=== PATIENT | male | born 1940 | race Caucasian/White ===

== ENCOUNTER 2018-08-30 06:27 | Emergency (ER) | payer MEDICARE, MEDICAID, SELFPAY ==
[2018-08-30 06:29] VITALS: BP 133/75; PULSE 81; RESP 36; TEMP 36.4; O2SAT 93
--- NOTE | 2018-08-30 06:56 | DI.RAD_ITS ---
SYMPTOMS/DIAGNOSIS: COUGH, CHEST CONGESTION, ? ACUTE DISEASE AP AND LATERAL CHEST: Comparison is made with [id number]. The heart is at the upper limits of normal in size. Sternal wires and mediastinal clips are again noted related to prior CABG. There is again noted to be pleural thickening posteriorly. The AP view is limited by patient positioning. No infiltrates or effusions are seen. There is no evidence of pulmonary edema. IMPRESSION: Somewhat limited exam. No acute abnormality.
--- NOTE | 2018-08-30 06:58 | W.ED.GENAD ---
Discharge Plan Disposition Patient Disposition: HOME Condition: Improving Discharge Details Chief Complaint: RespSymp Clinical Impression: Acute bronchitis with bronchospasm Primary Care Provider: Arnold Vicente ED Provider: Cruz Ellis Home Meds and New Rx's Prescriptions: New prednisone 20 mg tablet 40 mg PO DAILY 5 Days Qty: 10 RF: 0 azithromycin 500 mg tablet See Rx Instructions .ROUTE .COMPLEX Qty: 6 RF: 0 Continued aspirin [Aspirin Low-Strength] 81 MG tablet,chewable 81 mg PO DAILY RF: 0 Atorvastatin Calcium 10 MG tablet 10 mg PO DAILY Qty: 90 RF: 3 metoprolol tartrate 25 MG tablet 1 tab PO BID Qty: 180 RF: 3 omeprazole 40 mg capsule,delayed release(DR/EC) 40 mg PO DAILY Qty: 90 RF: 3 lisinopril 5 mg tablet 5 mg PO DAILY Qty: 90 RF: 3 Mens [employer] Multivitamin 1 tab PO DAILY RF: 0 Discharge Instructions Instructions: Acute Bronchitis (ED) Additional Instructions: We will ask our care management team to get you a follow-up appointment for recheck next week at [facility]. Home to rest today. Small, frequent sips of fluids to maintain hydration. Use inhaler as instructed. Take antibiotics and steroids as prescribed. May use Tylenol as needed for aches, pain, fever Medical Decision Making <Mary Small DO - Last Filed: 08/30/18 08:18> 78-year-old male with history of COPD, lung cancer with right lobectomy, CAD, CABG, AAA repair who presents for nasal and chest congestion, intermittent cough with white sputum, hot and cold chills, and intermittent shortness of breath for the past 3-4 days. Denies chest pain, vomiting or diarrhea. Family brought patient into the ED because they thought he was more short of breath with wheezing recently. Oxygen saturation 93% on room air remainder vitals within normal limits. Patient appears nontoxic, no evidence of respiratory distress, no accessory muscle use. He is speaking in full sentences. He is noted to have nasal congestion when speaking on exam. He has scattered wheezing and rhonchi in upper lung guevara. Differential diagnosis includes COPD exacerbation, pneumonia, bronchitis, influenza, MS. Considering patient's age and comorbidities, will do a cardiac workup including EKG, chest x-ray as well as influenza, albuterol nebs and steroids and will reassess. 0810 -- case endorsed to Dr. Ellis to f/u on labs and imaging. <Cruz Ellis MD - Last Filed: 08/30/18 10:00> 70-year-old male signed out to me by Dr. Small. Please see her note regarding details of initial presentation, exam, plan of care. Patient's chest x-ray with hyperinflation and compatible with COPD. Nonspecific interstitial prominence noted. No focal consolidation. Labs notable for a BNP in the 300s. Otherwise reassuring laboratory with a white count of 7, hematocrit 43. Chemistries otherwise notable for an albumin of 2.9. Improving with treatment for COPD. He will require a burst of steroids as well as antibiotics. We will make a follow-up appointment for him in clinic for recheck next week. Patient received bedside inhaler teaching as well as using in the use of the Acapella device Stable, improved, appropriate for discharge to home Lab Data Lab results reviewed: Yes I reviewed the patient's lab results. Laboratory Results - last 24 hr 08/30/18 08/30/18 08/30/18 07:15 07:15 07:15 WBC 7.41 RBC 5.43 Hgb 13.6 Hct 43.2 MCV 79.6 L MCH 25.0 L MCHC 31.5 L RDW 15.1 H Plt Count 193 MPV 11.4 H Immature Gran % 0.3 Neutrophils % 78.7 Lymphocytes % 8.6 Monocytes % 9.6 Eosinophils % 2.3 Basophils % 0.5 Absolute Neutrophils 5.83 Absolute Lymphocytes 0.64 L Absolute Monocytes 0.71 H Absolute Eosinophils 0.17 Absolute Basophils 0.04 Sodium 141 Potassium 4.2 Chloride 106 Carbon Dioxide 27.1 Anion Gap 7.9 BUN 17 Creatinine 1.28 Estimated GFR/1.73 m2 54.35 Glucose 117 H Calcium 8.6 Magnesium 2.1 Total Bilirubin 0.7 AST 13 L ALT 17 Alkaline Phosphatase 149 H Troponin I < 0.02 NT-Pro-B Natriuret Pep 379 H Total Protein 7.6 Albumin 2.9 L ECG Data Attestation: I personally reviewed and interpreted this ECG (s) as follows: Interpretation: Normal sinus rhythm, rate of 68, QRS is narrow, no ST segment elevation HPI <Mary Small DO - Last Filed: 08/30/18 08:18> General Mode of arrival: ambulatory. Date/Time Provider Initiated Documentation: 08/30/18 06:42. Limitations to Documentation: no limitations. Information obtained by: patient. HPI Narrative: Patient is a 78-year-old male with a history of COPD, lung cancer with right lung lobectomy, coronary artery disease who presents for nasal and chest congestion, cough with white sputum, and intermittent shortness of breath over the past 3-4 days. Patient does admit to intermittent hot and cold chills. He also admits to some fatigue. He states he has been eating and drinking normally. He has not taken his temperature. He did receive the flu shot this year. He denies any chest pain, urinary symptoms, vomiting or diarrhea. He has been taking some NyQuil for symptoms without relief. He denies any recent hospital admissions or recent antibiotics. Related Data Home Medications Medication Instructions Recorded [facility] Multivitamin 1 tab PO DAILY 11/15/12 08/30/18 aspirin [Aspirin Low-Strength] 81 mg PO DAILY tab-cap 11/06/13 08/30/18 metoprolol tartrate 1 tab PO BID #180 tab-cap 18 08/30/18 omeprazole 40 mg capsule,delayed 40 mg PO DAILY #90 tab-cap 03/29/18 08/30/18 release lisinopril 5 mg tablet 5 mg PO DAILY #90 tab-cap 08/11/18 08/30/18 azithromycin See Rx Instructions .ROUTE 08/30/18 .COMPLEX #6 tab prednisone 40 mg PO DAILY 5 Days #10 tab 08/30/18 Previous Rx's Medication Instructions Recorded metoprolol tartrate 1 tab PO BID #180 tab-cap 10/19/17 omeprazole 40 mg capsule,delayed 40 mg PO DAILY #90 tab-cap 03/29/18 release lisinopril 5 mg tablet 5 mg PO DAILY #90 tab-cap 08/11/18 azithromycin See Rx Instructions .ROUTE 08/30/18 .COMPLEX #6 tab prednisone 40 mg PO DAILY 5 Days #10 tab 08/30/18 Allergies Allergy/AdvReac Type Severity Reaction Status Date / Time Sulfa (Sulfonamide Allergy Skin Rash Unverified 08/30/18 06:33 Antibiotics) General Stated Complaint: RespSymp HEBERT: 3 Review of Systems <Mary Small DO - Last Filed: 08/30/18 08:18> Review of Systems All systems reviewed & are unremarkable except as noted in HPI and below Constitutional Reports as per HPI, Reports chills and Reports fever(s) Eyes Denies blurry vision ENT Denies dizziness, Reports nasal congestion, Reports nasal discharge, Denies sore throat and Denies throat swelling Cardiovascular Denies chest pain and Reports dyspnea Respiratory Reports cough and Reports dyspnea Gastrointestinal Denies abdominal pain, Denies diarrhea and Denies vomiting Genitourinary Denies hematuria and Denies dysuria Musculoskeletal Denies back pain and Denies numbness Integumentary/Breasts Denies lesions and Denies rash Neurologic Denies dizziness, Denies focal weakness and Denies numbness Allergic/Immunologic Denies throat swelling PFSH <Mary Small DO - Last Filed: 08/30/18 08:18> Medical History Hyperlipemia (Acute) COPD (chronic obstructive pulmonary disease) (Chronic) Coronary artery disease (Chronic) GERD (gastroesophageal reflux disease) (Chronic) HTN (hypertension) (Chronic) Lung cancer (Chronic) Multiple sclerosis (Chronic) Surgical History History of AAA (abdominal aortic aneurysm) repair (Acute) History of thoracentesis (Acute) History of cataract surgery (Chronic) History of tonsillectomy (Chronic) Hx of CABG (Chronic) Hx of cholecystectomy (Chronic) AAA REPAIR (~04/2006) Cholecystectomy (02/16/06) Coronary Artery Bypass Gaft (CABG) (06/01/07) EGD - MAC (~01/2007) Extraction of cataract Thoracentesis (08/29/07) Social History Smoking and Tabacco status: Former Tobacco Use Exam <Mary Small DO - Last Filed: 08/30/18 08:18> Const General: cooperative and healthy appearing Orientation: alert and awake [facility] Head: normal to inspection Ears: hearing grossly normal bilaterally, external ears normal and TM's normal bilaterally General nose exam: external nose normal Face and sinus: normal facial exam Mouth: oral mucosae normal Teeth and gingiva: dentition normal Throat: posterior oropharynx normal and postnasal drainage (yellow white on L side) Eyes General: appearance normal, both eyes and all related structures Eyelids: eyelids normal Pupils: PERRL EOM: EOM intact bilaterally Neck Neck: normal visual inspection Lymphatic: no lymphadenopathy noted Chest Chest: normal inspection of the chest Resp Effort & Inspection: normal respiratory effort and able to speak in complete sentences Auscultation: rhonchi upper bilaterally and wheezes upper bilaterally Cardio Rate: regular rate Rhythm: regular rhythm GI Inspection: normal to inspection Palpation: soft, not firm, no guarding, no hepatosplenomegaly, no masses and nontender Auscultation: normal bowel sounds Skin General skin exam: no rashes or lesions noted Neuro General: alert and awake Cognition: normal cognition Speech: speech normal Gait: normal gait Motor: muscle tone normal throughout Sensory Exam: no sensory deficits noted Extrem General: normal to inspection, full ROM, normal capillary refill and no edema Psych Appearance: grossly normal Mental Status: mental status grossly normal Speech and Movement: speech and movement normal Affect: normal affect Thought Process: normal Course <Mary Small DO - Last Filed: 08/30/18 08:18> Vital Signs Temperature 97.5 F L 08/30/18 06:29 Pulse 81 08/30/18 06:29 Respiratory Rate 36 H 08/30/18 06:29 Blood Pressure 133/75 08/30/18 06:29 Pulse Oximetry 93 L 08/30/18 06:29 Temperature 97.5 F L 08/30/18 06:29 Temperature Source Skin 08/30/18 06:29 Pulse 81 08/30/18 06:29 Respiratory Rate 36 H 08/30/18 06:29 Respiratory Effort 08/30/18 06:37 Respiratory Depth Normal 08/30/18 06:37 Blood Pressure 133/75 08/30/18 06:29 Blood Pressure Position Sitting 08/30/18 06:29 Pulse Oximetry 93 L 08/30/18 06:29 Oxygen Delivery Method Room Air 08/30/18 06:29 Oxygen Flow Rate 0 08/30/18 06:29 Pain Level 2 08/30/18 06:29 Comment 08/30/18 06:29 Sign Out <Mary Small DO - Last Filed: 08/30/18 08:18> Sign Out Data: Sign Out Comment: follow up on labs and imaging and final disposition Last updated by Mary Small DO at 08/30/18 08:03
[2018-08-30] MEDS: Albuterol/Ipratropium 3 ML UPD VIAL (07:01)
[2018-08-30] MEDS: methylPREDNISolone SUCC 125 MG VIAL 80 MG IVP (07:16)
[2018-08-30] MEDS: Normal Saline Flush 10 ML SYR IVP (07:16)
[2018-08-30 07:43] LABS: Abs Immature Grans 0.02 k/cumm (0.0-0.09); Absolute Basophil Count 0.04 k/cumm (0.0-0.2); Absolute Eosinophil Count 0.17 k/cumm (0.0-0.7); Absolute Lymphocyte Count 0.64 k/cumm (1.2-3.4); Absolute Monocyte Count 0.71 k/cumm (0.11-0.7); Absolute Neutrophil Count 5.83 k/cumm (1.2-6.7); Basophils % 0.5; Eosinophils % 2.3; HCT 43.2 % (40.0-50.0); HGB 13.6 g/dL (13.5-17.5); Immature Grans % 0.3; Lymphocytes % 8.6; Mean Corp. HGB Concentration 31.5 g/dL (32.0-36.0); Mean Corpuscular Volume 79.6 fL (80-95); Mean Platelet Volume 11.4 fL (8.0-11.0); Monocytes % 9.6; Neutrophils % 78.7; Platelet Count 193 x1000/uL (130-400); RBC 5.43 m/cumm (4.50-6.00); RBC Distribution Width 15.1 % (11.8-14.1); White Blood Cell Count 7.41 k/cumm (4.4-10.8)
[2018-08-30 07:50] LABS: ALT 17 U/L (12-78); AST 13 U/L (15-37); Albumin 2.9 g/dL (3.4-5.0); Alkaline Phosphatase 149 U/L (46-116); Anion Gap 7.9 mmol/L (3-11); BUN 17 mg/dL (7-18); Bilirubin, Total 0.7 mg/dL (0.2-1.0); CO2 27.1 mmol/L (21.0-32.0); CREATININE 1.28 mg/dL (0.70-1.30); Calcium 8.6 mg/dL (8.5-10.1); Chloride 106 mmol/L (98-107); Estimated GFR 54.35 (mL/min/1.73m2); Glucose 117 mg/dL (70-100); Magnesium 2.1 mg/dL (1.8-2.4); Potassium 4.2 mmol/L (3.5-5.1); Sodium 141 mmol/L (136-145); Total Protein 7.6 g/dL (6.4-8.2)
[2018-08-30 07:54] LABS: NT-proBNP 379 pg/mL
[2018-08-30 07:59] LABS: Troponin I < 0.02 ng/mL (0.00-0.06)
[2018-08-30 08:13] VITALS: PULSE 69; RESP 24; RESP 4; RESP 5; O2SAT 94
[2018-08-30] MEDS: Albuterol/Ipratropium 3 ML UPD VIAL UPD ×2 (08:13→09:24)
--- NOTE | 2018-08-30 08:23 | DI.VRAD_ITS ---
EXAM: XR Chest, 2 Views EXAM DATE/TIME: 08/30/2018 7:41 AM CLINICAL HISTORY: 78 years old, male; Signs and symptoms; Other: Respiratory symptoms TECHNIQUE: XR of the chest, 2 views. COMPARISON: CR CHEST 2 VIEWS PA,LAT 07/15/2015 7:33 AM FINDINGS: Lungs: Hyperinflation compatible with COPD. Nonspecific mild interstitial prominence may reflect superimposed interstitial edema. Pleural space: Unremarkable. No pleural effusion. No pneumothorax. Heart/Mediastinum: Unremarkable. No cardiomegaly. Bones/joints: Unremarkable. IMPRESSION: 1. Hyperinflation compatible with COPD. 2. Nonspecific mild interstitial prominence may reflect superimposed interstitial edema. Dictated and Authenticated by: Avtar Saxena MD. Ordering:OTF Hernandez MD
[2018-08-30 08:27] VITALS: PULSE 83; RESP 4; RESP 5; O2SAT 93
[2018-08-30 08:53] VITALS: BP 126/78; PULSE 77; RESP 18; TEMP 36.8; O2SAT 92
[2018-08-30] MEDS: Albuterol HFA 8 GM 60 PUFF INH IH (09:36)
[2018-08-30] MEDS: Inhaler, Assist Device 1 EACH MC (09:37)
[2018-08-30 09:44] VITALS: BP 115/57; PULSE 82; RESP 20; TEMP 36.5; O2SAT 92
[2018-08-30 09:55] VITALS: BP 115/57; PULSE 82; RESP 20; TEMP 36.5; O2SAT 92
--- NOTE | 2018-09-02 07:57 | PDOC.ERCMPRO ---
Care Management Progress Note 09/02-Dr. Ellis requested assistance with a PCP (Jules) f/u in one week for COPD Exacerbation. Referral faxed to [facility] this am.
== END 2018-08-30 10:04 | disposition home or self-care (01) ==
PROVIDERS: Physician Assistant; Emergency Provider Emergency Medicine; PCP Family Medicine
DX: J44.0 Chronic obstructive pulmonary disease with (acute) lower respiratory infection (principal); J20.9 Acute bronchitis, unspecified; I10 Essential (primary) hypertension
CPT/HCPCS: 36415; 80053; 87449; 93005; 94640; 96374; 99285; 71046; 83735; 83880; 84484; 85025; 93010; 99284; J2930; J7620

== ENCOUNTER 2019-12-20 02:10 | Outpatient (CLI) | payer MEDICARE, MEDICAID, SELFPAY ==
[2019-12-20 15:05] LABS: Calculated LDL 99 mg/dL (<100); Cholesterol 174 mg/dL (<200); HDL Cholesterol 32 mg/dL (40-60); Triglyceride 217 mg/dL (<150)
[2019-12-20 17:07] LABS: CREATININE 1.15 mg/dL (0.70-1.30); Glucose 84 mg/dL (74-106); Potassium 3.9 mmol/L (3.5-5.1)
== END 2019-12-20 02:30 ==
PROVIDERS: PCP Family Medicine; Visit Provider Family Medicine
DX: I10 Essential (primary) hypertension (principal); E78.5 Hyperlipidemia, unspecified; E74.39 Other disorders of intestinal carbohydrate absorption
CPT/HCPCS: 36415; 80061; 82947; 82565; 84132

== ENCOUNTER 2021-03-19 08:36 | Outpatient (REF) | payer MEDICARE, MEDICAID, SELFPAY ==
--- NOTE | 2021-03-19 08:00 | SKI_PTH ---
PATIENT: Juan Ramon Espinoza LOC: [facility] U#:[id number] AGE/SX: 80/M ROOM: RE03/19/[address]: Eddie Jean Baptiste MD : 1940 BED: DIS: 03/19/2021 SPEC #: [id number] RECD: 03/19/21 18:10 STATUS: KORI REQ #: [id number] SAM: 03/19/21 08:[address]: Eddie Jean Baptiste DEPT: Surgical Specimen RECD BY: Shadia Alegre ENTERED: 03/19/21 18:11 SP TYPE: SKI OTHR DR: Arnold Vicente MD Tissues: 1 - SKIN BIOPSY(SHAVE/PUNCH) Procedures: SKIN LEVEL 4 Comments: [id number]
== END 2021-03-19 08:37 | disposition home or self-care (01) ==
LOC: LBN 08:36
PROVIDERS: PCP Family Medicine; Visit Provider Otolaryngology
DX: L98.9 Disorder of the skin and subcutaneous tissue, unspecified (principal); C44.319 Basal cell carcinoma of skin of other parts of face
CPT/HCPCS: 88305

== ENCOUNTER 2022-04-16 09:40 | Emergency (ER) | payer MEDICARE, MEDICAID, SELFPAY ==
[2022-04-16] VITALS (36 sets, daily range): BP systolic 124–160; BP diastolic 61–89; PULSE 75–106; RESP 18–32; TEMP 36.9; O2SAT 93–97
--- NOTE | 2022-04-16 09:30 | RT.EKG_ITS ---
APPROVED REPORT Exam: Resting ECG Reason for Exam: weakness, confused Patient Location: E HR:97 bpm ECG Measurements Heart Rate 97 AXIS IL 207 P 53 QRSd 94 QRS -23 QT 393 T 26 QTc 499 Conclusion Sinus rhythm...normal P axis, V-rate 60- 99 Borderline prolonged IL interval. Inferior Q >35mS, II III aVF
--- NOTE | 2022-04-16 09:30 | DI.RAD_ITS ---
Exam(s) XR CHEST 2V PA LATERAL EXAM: XR CHEST 2V PA LATERAL CLINICAL HISTORY: Gen weakness TECHNIQUE: COMPARISON: CR XR CHEST 2V PA LATERAL from 08/30/2018 FINDINGS: The heart is mildly enlarged. There are multiple sternal sutures. Lungs are grossly clear. No pleu ral effusion. IMPRESSION: No evidence of acute process. No gross interval change in appearance since August 30, 2018. RADIATION DOSE DELIVERED: Total DLP
--- NOTE | 2022-04-16 09:30 | RT.EKG_ITS ---
APPROVED REPORT Exam: Resting ECG Reason for Exam: weakness Patient Location: E HR:91 bpm ECG Measurements Heart Rate 91 AXIS MI 160 P 24 QRSd 95 QRS -16 QT 364 T 25 QTc 447 Conclusion Sinus rhythm. Ventricular premature complex. Inferolateral Q >40mS, inf-lat leads
--- NOTE | 2022-04-16 09:45 | ED.GENADUL_ITS ---
Discharge Plan Disposition Patient Disposition: HOME Condition: Improving Discharge Details Clinical Impression: Dehydration, COPD exacerbation Primary Care Provider: Arnold Vciente ED Provider: Cruz Ellis Home Meds and New Rx's Prescriptions: New prednisone 50 mg tablet 50 mg PO DAILY 5 Days Qty: 5 0RF Continued acetaminophen [Tylenol Arthritis Pain] 650 mg tablet extended release 325 mg PO HS aspirin [Aspirin Low-Strength] 81 MG tablet,chewable 81 mg PO DAILY fluticasone propionate 50 mcg/actuation spray,suspension 2 spray CHINMAY DAILY Qty: 48 3RF Rx Instructions: administer into each nostril atorvastatin 10 mg tablet 10 mg PO QPM Qty: 90 3RF metoprolol tartrate 50 mg tablet 25 mg PO BID Qty: 90 3RF omeprazole 40 mg capsule,delayed release(DR/EC) 40 mg PO DAILY Qty: 90 3RF lisinopril 5 mg tablet 5 mg PO DAILY Qty: 90 3RF Discharge Instructions Instructions: Dehydration (ED), COPD (Chronic Obstructive Pulmonary Disease) (ED) Additional Instructions: Your work-up in the emergency department today included laboratory testing with cardiac troponin x2, screening blood work, and urinalysis. You underwent chest x-ray and CT scan of the head. You were found to have dehydration and were given fluids. Continue with small, frequent sips of fluids to maintain good hydration. You likely have a mild exacerbation of your COPD and will benefit from a burst of prednisone. Next dose will be tomorrow. Return to the ER for any acute concern. Discharge Data Discharge Date/Time-TO BE ENTERED AT DEPARTURE: 04/16/22 15:28 Medical Decision Making 81yom presents from home via EMS with hours/day of generalized weakness. He states since yesterday he has felt generally weak and mildly confused. He has not fallen or injured himself, he denies recent fever or illness. He states it feels as if his MS is getting worse. He does not have any focal weakness, diplopia. He at baseline uses a walker in the home. Patient arrives with a borderline tachycardia of 100, blood pressure 145/72. He is alert and interactive with normal oxygen saturations. Broad differential diagnosis considered including dehydration, electrolyte abnormality, UTI. Must exclude intracranial process or occult pneumonia. Patient referred for laboratory, chest x-ray and CT scan of the head. Chest x-ray without acute findings. CT head without acute intracranial findings. Please see the formal reports. Laboratories are primarily notable for evidence of acute dehydration with newly increased BUN to 25 and creatinine to 1.7. Specific gravity of the urine is 1.03. Patient improved following 1 L of fluids. He is able to eat an evening meal. Discussed today's diagnostic findings with him. He has had some mild increased work of breathing that improved with a DuoNeb. May consider a mild COPD exacerbation. We will treat him with a burst of prednisone. Patient has freestanding home health and daily visits to the [facility]. He is stable for trial of outpatient management. HPI General Mode of arrival: EMS . Date/Time Provider Initiated Documentation: 04/16/22 09:52 . Limitations to Documentation: no limitations . Information obtained by: patient and EMS . History of Present Illness 81 year old M presents to the emergency department with the chief complaint of Gen weakness, no falls, described as moderate, Patient reports no radiation. Patient started experiencing this hour(s) and it has been constant. No relieving factors improve symptom(s), and Rest improves symptom(s), Movement worsens symptoms . Patient notes weakness; denies chest pain, cough, fever/chills, shortness of breath and syncope. Patient did receive the following treatments prior to arrival, none Related Data Home Medications Medication Instructions Recorded Confirmed aspirin 81 mg chewable tablet 81 mg PO DAILY 11/06/13 04/16/22 (Aspirin Low-Strength) acetaminophen 650 mg 325 mg PO HS 06/06/19 04/16/22 tablet,extended release (Tylenol Arthritis Pain) fluticasone propionate 50 2 spray intranasal DAILY #48 grams 12/27/20 04/16/22 mcg/actuation nasal spray,suspension atorvastatin 10 mg tablet 10 mg PO QPM #90 tabs 01/13/22 04/16/22 metoprolol tartrate 50 mg tablet 25 mg PO BID #90 tabs 01/13/22 04/16/22 omeprazole 40 mg capsule,delayed 40 mg PO DAILY #90 tab-caps 01/13/22 04/16/22 release lisinopril 5 mg tablet 5 mg PO DAILY #90 tab-caps 03/30/22 04/16/22 prednisone 50 mg tablet 50 mg PO DAILY 5 days #5 tabs 04/16/22 Previous Rx's Medication Instructions Recorded fluticasone propionate 50 2 spray intranasal DAILY #48 grams 12/27/20 mcg/actuation nasal spray,suspension atorvastatin 10 mg tablet 10 mg PO QPM #90 tabs 01/13/22 metoprolol tartrate 50 mg tablet 25 mg PO BID #90 tabs 01/13/22 omeprazole 40 mg capsule,delayed 40 mg PO DAILY #90 tab-caps 01/13/22 release lisinopril 5 mg tablet 5 mg PO DAILY #90 tab-caps 03/30/22 prednisone 50 mg tablet 50 mg PO DAILY 5 days #5 tabs 04/16/22 Allergies Allergy/AdvReac Type Severity Reaction Status Date / Time Sulfa (Sulfonamide Allergy Skin Rash Verified 03/19/21 07:33 Antibiotics) General HEBERT: 3 Review of Systems Narrative: Denies recent illness, falls, pain. 8 systems reviewed and otherwise negative PFSH All Active Problems (Updated 04/16/22 @ 14:27 by Cruz Ellis MD) Dehydration (Acute) COPD exacerbation (Acute) Skin lesion of face (Acute) Facial basal cell cancer (Acute) Loose stools (Acute) Hypertension (Chronic) Vasomotor rhinitis (Chronic) use the ipratropium Fracture of thoracic spine (Acute) History of cataract removal with insertion of prosthetic lens (Acute) History of coronary artery bypass surgery (Acute) History of esophagogastroduodenoscopy (Acute) History of thoracentesis (Acute) Status post abdominal aortic aneurysm repair (Acute) Status post cholecystectomy (Acute) Pneumonia (Acute) Pulmonary nodule, right (Acute 02/26/16) Follwed by [facility] Multiple sclerosis (Acute 11/14/14) Malignant neoplasm of lower lobe of right lung (Acute 04/15/16) Adenocarcinoma Surgery [facility] 2016 Idiopathic scoliosis (Acute) Hyperlipidemia (Acute 11/02/12) History of tobacco use (Acute 11/02/12) quit 2006 History of tobacco use (Acute 11/02/12) quit 2006 Gastritis (Acute) per EGD 2007 Chronic obstructive lung disease (Acute 11/02/12) Aortic aneurysm (Acute 11/02/12) AAA-lap repair 2006 Nausea,vomiting,diarrhea, fever (Active 11/16/12) Multiple sclerosis (Active) Diagnosed 25 years ago. Benign hypertension (Active) same meds Coronary arteriosclerosis (Active) Hyperglycemia (Active) Gastroesophageal reflux disease (Active) History of - coronary artery bypass grafting (Active) Eczema (Active) Osteoarthritis (Active) Constipation (Active) Medical History (Updated 04/16/22 @ 14:27 by Cruz Ellis MD) COPD (chronic obstructive pulmonary disease) Coronary artery disease GERD (gastroesophageal reflux disease) HTN (hypertension) Hyperlipemia Lung cancer Multiple sclerosis Surgical History AAA REPAIR (~04/2006) [facility] Cholecystectomy (02/16/06) [facility] Coronary Artery Bypass Gaft (CABG) (06/01/07) ) CABG x 4 [facility] KAT to LAD SVG to Diag SVG to Ramus SVG to RCA EGD - MAC (~01/2007) GERD/CHRONIC GASTRITIS Extraction of cataract 06/18/15 DR. HE;RIGHT 07/02/15 DR. HE; LEFT History of AAA (abdominal aortic aneurysm) repair History of cataract surgery History of thoracentesis History of tonsillectomy Hx of CABG Hx of cholecystectomy Thoracentesis (08/29/07) PLURAL EFFUSION Social History Smoking/Tobacco Use Status: Former Tobacco Use Smoking risk assessment performed?: Yes Alcohol Intake: never Drug use: Never Substance use type: does not use Do you feel safe at home: Yes Do you feel safe in your relationship?: Yes Exam Narrative Exam Narrative: GEN: awake, alert, oriented 3. Pleasant, well groomed, interactive. HEAD: Normocephalic, atraumatic ENT: Mucous membranes moist, oropharynx unremarkable, External ear exam unremarkable EYES: PERRL, EOMI NECK: Full ROM, no MARIANA, no menigismus CHEST/RESP: Midline healed sternotomy scar. Nontender, clear to auscultation bilateral, no wheeze/rhonchi/rales CARDIOVASCULAR: Regular, distant. 2+ Rad pulse bilateral ABDOMEN: Soft, nontender, no mass. +Bowel sounds EXT: Full ROM, no edema, no rash Neuro: Grossly normal neurologic exam, conversant, interactive. Psych: Speech fluent, thoughts congruent, affect normal
[2022-04-16] MEDS: Normal Saline 1,000 ML 150 ML IV (09:51)
[2022-04-16 09:54] LABS: Abs Immature Grans 0.02 10^3/uL (0.0-0.06); Absolute Basophil Count 0.03 10^3/uL (0.0-0.2); Absolute Eosinophil Count 0.03 10^3/uL (0.0-0.7); Absolute Lymphocyte Count 0.27 10^3/uL (1.2-3.4); Absolute Monocyte Count 0.75 10^3/uL (0.1-0.8); Absolute Neutrophil Count 4.27 10^3/uL (1.2-6.7); Basophils % 0.6; Eosinophils % 0.6; HCT 49.4 % (40.0-50.0); HGB 15.7 g/dL (13.5-17.5); Immature Grans % 0.4; MCH 26.8 pg (27.0-33.0); MCHC 31.8 % (32.0-36.0); MCV 84 fL (80-95); MPV 12.6 fL (8.0-11.0); Neutrophils % 79.4; Platelet Count 117 10^3/uL (130-400); RBC 5.86 10^6/uL (4.36-5.78); RDW 14.8 % (11.8-14.1); RDW-SD 45.2 fL; WBC 5.37 10^3/uL (4.4-10.8)
[2022-04-16 10:10] LABS: ALT 16 U/L (16-63); AST 12 U/L (15-37); Albumin 3.6 g/dL (3.4-5.0); Alkaline Phosphatase 188 U/L (46-116); Anion Gap 7.6 mmol/L (3-11); BUN 25 mg/dL (7-18); Bilirubin, Total 0.8 mg/dL (0.2-1.0); CO2 29.4 mmol/L (21.0-32.0); CREATININE 1.7 mg/dL (0.70-1.30); Calcium 8.9 mg/dL (8.5-10.1); Chloride 106 mmol/L (98-107); Glucose 102 mg/dL (74-106); Magnesium 1.8 mg/dL (1.8-2.4); Sodium 143 mmol/L (136-145); Total Protein 7.6 g/dL (6.4-8.2); Troponin I < 50 ng/L (<or=60)
--- NOTE | 2022-04-16 10:41 | NUR.NOTE ---
Addendum entered by Annabel Felipe 04/16/22 10:42: patient aware. Original Note: Nursing Note: Per Gael @ [facility] they went back to the house, found the wallet and put it in his house.
[2022-04-16 11:10] LABS: Bilirubin Negative (Negative); Blood Negative (Negative); Clarity Clear (Clear); Glucose Negative (Negative); Ketones Negative (Negative); Leukocyte Esterase Negative (Negative); Nitrite Negative (Negative); Specific Gravity >= 1.030 (1.005-1.025); Urobilinogen 0.2 EU/dL (Up TO 0.2); pH 5.5 (5-8)
[2022-04-16 11:15] LABS: Bacteria Few HPF (Negative); C & S Indicated? No; Casts Negative LPF (Negative); Crystals Negative HPF (Negative); Epithelial Cells Negative HPF (Negative); Mucus Moderate (Negative); Other Cells Negative (Negative); RBC Negative HPF (0-2); WBC 0-2 HPF (0-5)
--- NOTE | 2022-04-16 11:50 | DI.CT_ITS ---
Exam(s) CT HEAD WO EXAM: CT HEAD WO CLINICAL HISTORY: weakness. TECHNIQUE: Imaging Protocol: Axial computed tomography images with coronal and sagittal reformatted images were created and reviewed COMPARISON: No exams were available for comparison FINDINGS: There is moderate to severe generalized cerebral atrophy and there are areas of patchy decreased att enuation in periventricular white matter consistent with microvascular ischemic change.. No evidence of acute intracranial hemorrhage, mass effect, or midline shift. The orbital structures are unremarkable. The temporal bone structures appear intact. Calvarium: Normal. Visualized Paranasal sinuses/Mastoids: Clear. IMPRESSION: No evidence of acute intracranial process . RADIATION DOSE DELIVERED: 819.88mGy.cm Total DLP 819.88mGy.cm Total DLP !Error CTDIvol DATA REPOSITORY: All CT scans at this facility are submitted to the National Radiology Data Registry (NRDR) Dose Index Registry (DIR) with the [employer] (ACR). RADIATION OPTIMIZATION: All CT scans at this facility use at least one of these dose optimization te chniques: automated exposure control; mA and/or kV adjustment per patient size (includes targeted exa ms where dose is matched to clinical indication); or iterative reconstruction.
[2022-04-16] MEDS: Albuterol/Ipratropium 3 ML UPD VIAL UPD (13:10)
[2022-04-16 13:42] LABS: Troponin I < 50 ng/L (<or=60)
--- NOTE | 2022-04-16 14:11 | NUR.NOTE ---
meal tray provided Nursing Note:
[2022-04-16] MEDS: Normal Saline Flush 10 ML SYR IVP (14:40)
[2022-04-16] MEDS: methylPREDNISolone SUCC 125 MG VIAL IVP (14:40)
--- NOTE | 2022-04-16 20:03 | ED.PROG_ITS ---
Date of service: 04/16/22 Time of Service: 20:03 Medical Decision Making Received a phone call from the patient's [id number] [place]. [facility] reported a positive COVID test from 2 days ago. We reviewed his findings today at lack of evidence of pneumonia or acute infection. He has some chronic renal insufficiency and cardiac medications. We discussed returning tomorrow for recheck and consideration of the antibody infusion should he have persistent malaise or feeling unwell. Discharge Plan Disposition Patient Disposition: HOME Condition: Improving Discharge Details Clinical Impression: Dehydration, COPD exacerbation Primary Care Provider: Arnold Vicente ED Provider: Cruz Ellis Home Meds and New Rx's Prescriptions: New prednisone 50 mg tablet 50 mg PO DAILY 5 Days Qty: 5 0RF Continued acetaminophen [Tylenol Arthritis Pain] 650 mg tablet extended release 325 mg PO HS aspirin [Aspirin Low-Strength] 81 MG tablet,chewable 81 mg PO DAILY fluticasone propionate 50 mcg/actuation spray,suspension 2 spray CHINMAY DAILY Qty: 48 3RF Rx Instructions: administer into each nostril atorvastatin 10 mg tablet 10 mg PO QPM Qty: 90 3RF metoprolol tartrate 50 mg tablet 25 mg PO BID Qty: 90 3RF omeprazole 40 mg capsule,delayed release(DR/EC) 40 mg PO DAILY Qty: 90 3RF lisinopril 5 mg tablet 5 mg PO DAILY Qty: 90 3RF Discharge Instructions Instructions: Dehydration (ED), COPD (Chronic Obstructive Pulmonary Disease) (ED) Additional Instructions: Your work-up in the emergency department today included laboratory testing with cardiac troponin x2, screening blood work, and urinalysis. You underwent chest x-ray and CT scan of the head. You were found to have dehydration and were given fluids. Continue with small, frequent sips of fluids to maintain good hydration. You likely have a mild exacerbation of your COPD and will benefit from a burst of prednisone. Next dose will be tomorrow. Return to the ER for any acute concern. Discharge Data Discharge Date/Time-TO BE ENTERED AT DEPARTURE: 04/16/22 15:28
== END 2022-04-16 15:28 | disposition home or self-care (01) ==
PROVIDERS: Emergency Provider Emergency Medicine; PCP Family Medicine
DX: E86.0 Dehydration (principal); J44.1 Chronic obstructive pulmonary disease with (acute) exacerbation; R41.0 Disorientation, unspecified; I12.9 Hypertensive chronic kidney disease with stage 1 through stage 4 chronic kidney disease, or unspecified chronic kidney disease; Z79.52 Long term (current) use of systemic steroids; Z87.891 Personal history of nicotine dependence; N18.9 Chronic kidney disease, unspecified
CPT/HCPCS: 36415; 80053; 93005; 94640; 96361; 96374; 99285; 70450; 71046; 81003; 81015; 83735; 84484; 85025; 93010; 99284; J2930; J7620

== ENCOUNTER 2022-08-11 16:10 | Outpatient (REF) | payer MEDICARE, MEDICAID, SELFPAY ==
[2022-08-12 14:55] LABS: Anion Gap 9.7 mmol/L (3-11); BUN 19 mg/dL (7-18); CO2 28.3 mmol/L (21.0-32.0); CREATININE 1.4 mg/dL (0.70-1.30); Calcium 9.3 mg/dL (8.5-10.1); Chloride 104 mmol/L (98-107); Estimated GFR 50.18 (mL/min/1.73m2); Glucose 70 mg/dL (74-106); Sodium 142 mmol/L (136-145); Total Protein 7.7 g/dL (6.4-8.2)
[2022-08-12 15:07] LABS: Potassium 6.8 mmol/L (3.5-5.1)
== END 2022-08-12 09:15 | disposition home or self-care (01) ==
LOC: LBN 16:10
PROVIDERS: PCP Family Medicine; Visit Provider Family Medicine
DX: R60.9 Edema, unspecified (principal); E87.1 Hypo-osmolality and hyponatremia
CPT/HCPCS: 80048; 82040; 84155

== ENCOUNTER 2022-08-27 15:04 | Outpatient (REF) | payer MEDICARE, MEDICAID, SELFPAY ==
[2022-08-27 12:22] LABS: Potassium 4.6 mmol/L (3.5-5.1)
== END 2022-08-27 15:05 | disposition home or self-care (01) ==
LOC: LBN 15:04
PROVIDERS: PCP Family Medicine; Visit Provider Family Medicine
DX: R60.0 Localized edema (principal); I10 Essential (primary) hypertension; E87.1 Hypo-osmolality and hyponatremia
CPT/HCPCS: 84132

== ENCOUNTER 2022-10-09 17:50 | Inpatient (IN) | payer MEDICARE, MEDICAID, SELFPAY ==
[2022-10-09] VITALS (65 sets, daily range): BP systolic 110–158; BP diastolic 47–105; PULSE 48–144; RESP 17–42; TEMP 36.6–36.8; O2SAT 91–97
--- NOTE | 2022-10-09 18:11 | ED.GENADUL_ITS ---
Discharge Plan Disposition Patient Disposition: [facility] Condition: Poor Discharge Details Clinical Impression: Paroxysmal atrial fibrillation Primary Care Provider: Arnold Vicente ED Provider: Vinh Cook [place] Meds and New Rx's Prescriptions: No Action acetaminophen [Tylenol Arthritis Pain] 650 mg tablet extended release 325 mg PO HS fluticasone propionate 50 mcg/actuation spray,suspension 2 spray CHINMAY DAILY Qty: 48 3RF Rx Instructions: administer into each nostril aspirin [Aspirin Low-Strength] 81 MG tablet,chewable 81 mg PO DAILY atorvastatin 10 mg tablet 10 mg PO QPM Qty: 90 3RF metoprolol tartrate 50 mg tablet 25 mg PO BID Qty: 90 3RF omeprazole 40 mg capsule,delayed release(DR/EC) 40 mg PO DAILY Qty: 90 3RF lisinopril 5 mg tablet 5 mg PO DAILY Qty: 90 3RF furosemide [Lasix] 20 mg tablet 20 mg PO QAM Qty: 30 2RF Medical Decision Making Patient presenting to ED with generalized weakness, diarrhea few days ago which has resolved, vomiting x1 today. He denies having any chest pain or pressure. He feels that his breathing is baseline. He feels that his leg swelling is baseline. Of note quality assurance monitor body reveals sinus rhythm with episodes of wide- complex tachycardia. EKG shows sinus rhythm with episodes of 4-6 beats of wide- complex tachycardia. This tachycardia appears irregular and does seem to have ST segment associated with. Consider SVT/A-fib with aberrant conduction versus V. tach. Given his general weakness, recent GI symptoms, decreased oral intake consider dehydration and electrolyte abnormality as a possible cause. IV established and 1 L of LR ordered. Laboratory studies obtained. Chest x-ray ordered. Patient's white count minimally elevated. Seems to be hemoconcentrated to some degree. Electrolytes are remarkably normal. Kidney function a little bit off from baseline with a creatinine of 1.7. Potassium is 4.3, calcium 9.2, magnesium 1.9. He was given a gram of magnesium to bring him up over 2. Liver function unremarkable. Initial troponin is negative. After the liter of fluid patient continued to have episodes of wide-complex tachycardia. Cardiology consult requested from [facility] and EKG faxed to them. Had a long discussion with cardiology regarding EKG, patient, laboratory studies. This is likely A-fib with aberrant conduction. BNP added. Focused cardiac parasternal long view of heart (FAST view) without effusion and decent ventricular squeeze. Patient given IV metoprolol x2 with decent result. Still has occasional wide-complex tachycardia but much less frequent. Discussed with hospitalist. Will admit to ICU here for further cardiac monitoring and m anagement. Lab Data Lab results reviewed: Yes I reviewed the patient's lab results. ECG Data Attestation: I personally reviewed and interpreted this ECG (s) as follows: Prior ECG tracings: available for review HPI General Mode of arrival: wheelchair . Date/Time Provider Initiated Documentation: 10/09/22 18:11 . Limitations to Documentation: no limitations . Information obtained by: patient and family . HPI Narrative: Patient brought in the ED for evaluation of generalized weakness and malaise since the weekend. Patient reports having 3-4 episodes of diarrhea on Wednesday. An episode of vomiting today. Denies having any abdominal pain. He denies fever, cough, chest pain. His shortness of breath is baseline and not any worse. He also feels that his leg edema is baseline and not any worse. He feels generally weak and rundown. He admits to poor appetite and not eating well. He does try to drink enough fluids but family does not feel that he is capable of doing so at least recently. Related Data Home Medications Medication Instructions Recorded Confirmed aspirin 81 mg chewable tablet 81 mg PO DAILY 11/06/13 10/09/22 (Aspirin Low-Strength) acetaminophen 650 mg 325 mg PO HS 06/06/19 10/09/22 tablet,extended release (Tylenol Arthritis Pain) atorvastatin 10 mg tablet 10 mg PO QPM #90 tabs 01/13/22 10/09/22 metoprolol tartrate 50 mg tablet 25 mg PO BID #90 tabs 01/13/22 10/09/22 omeprazole 40 mg capsule,delayed 40 mg PO DAILY #90 tab-caps 01/13/22 10/09/22 release lisinopril 5 mg tablet 5 mg PO DAILY #90 tab-caps 03/30/22 10/09/22 fluticasone propionate 50 2 spray intranasal DAILY #48 grams 06/30/22 08/12/22 mcg/actuation nasal spray,suspension furosemide 20 mg tablet (Lasix) 20 mg PO QAM #30 tabs 08/21/22 10/09/22 Previous Rx's Medication Instructions Recorded atorvastatin 10 mg tablet 10 mg PO QPM #90 tabs 01/13/22 metoprolol tartrate 50 mg tablet 25 mg PO BID #90 tabs 01/13/22 omeprazole 40 mg capsule,delayed 40 mg PO DAILY #90 tab-caps 01/13/22 release lisinopril 5 mg tablet 5 mg PO DAILY #90 tab-caps 03/30/22 fluticasone propionate 50 2 spray intranasal DAILY #48 grams 06/30/22 mcg/actuation nasal spray,suspension furosemide 20 mg tablet (Lasix) 20 mg PO QAM #30 tabs 08/21/22 Allergies Allergy/AdvReac Type Severity Reaction Status Date / Time Sulfa (Sulfonamide Allergy Skin Rash Verified 10/09/22 18:16 Antibiotics) General Stated Complaint: Nausea/Vomit/Diar HEBERT: 3 Review of Systems Narrative: Per HPI PFSH All Active Problems (Updated 10/09/22 @ 22:19 by Vinh Cook MD) Paroxysmal atrial fibrillation (Acute) Nail dystrophy (Acute) Peripheral edema (Acute) Arthritis of big toe (Acute) Skin lesion of face (Acute) Facial basal cell cancer (Acute) Loose stools (Acute) Hypertension (Chronic) Vasomotor rhinitis (Chronic) use the ipratropium Fracture of thoracic spine (Acute) History of cataract removal with insertion of prosthetic lens (Acute) History of coronary artery bypass surgery (Acute) History of esophagogastroduodenoscopy (Acute) History of thoracentesis (Acute) Status post abdominal aortic aneurysm repair (Acute) Status post cholecystectomy (Acute) Pneumonia (Acute) Pulmonary nodule, right (Acute 02/26/16) Follwed by [facility] [place] Multiple sclerosis (Acute 11/14/14) Idiopathic scoliosis (Acute) Hyperlipidemia (Acute 11/02/12) History of tobacco use (Acute 11/02/12) quit 2006 History of tobacco use (Acute 11/02/12) quit 2006 Gastritis (Acute) per EGD 2007 Chronic obstructive lung disease (Acute 11/02/12) Aortic aneurysm (Acute 11/02/12) AAA-lap repair 2006 Nausea,vomiting,diarrhea, fever (Active 11/16/12) Multiple sclerosis (Active) Diagnosed 25 years ago. Benign hypertension (Active) same meds Coronary arteriosclerosis (Active) Hyperglycemia (Active) Gastroesophageal reflux disease (Active) History of - coronary artery bypass grafting (Active) Eczema (Active) Osteoarthritis (Active) Constipation (Active) Medical History COPD (chronic obstructive pulmonary disease) Coronary artery disease GERD (gastroesophageal reflux disease) HTN (hypertension) Hyperlipemia Malignant neoplasm of lower lobe of right lung (04/15/16) Adenocarcinoma Surgery [facility] [place] 2016 Multiple sclerosis Surgical History EGD - MAC (~01/2007) GERD/CHRONIC GASTRITIS History of AAA (abdominal aortic aneurysm) repair History of cataract surgery History of thoracentesis History of tonsillectomy Hx of CABG Hx of cholecystectomy Social History Smoking/Tobacco Use Status: Former Tobacco Use Smoking risk assessment performed?: Yes Alcohol Intake: never Drug use: Never Substance use type: does not use Do you feel safe at home: Yes Do you feel safe in your relationship?: Yes Additional Social history: could not assess privately Exam Narrative Exam Narrative: Const: WDWN elderly male in NAD. HEENT: NC/AT. Normal facial exam. Eyes: Normal conjunctiva and sclera. Neck: Supple. Trachea midline. Lungs: Normal respiratory effort. Diminished on right, good exchange on left, few scattered rhonchi. Cor: Irr without murmur/gallop. Good radial pulses. GI: Soft. NT/ND. No guarding or rebound. Neuro: A+O x 3. Normal speech, mentation. Cranial nerves II - XII grossly intact. No gross motor or sensory deficit. Ext: No C/C. Bilateral lower extremity edema 2-3+. Skin: Warm and dry without rash. Course Vital Signs Vital signs: Vital Signs Temperature 97.9 F 10/09/22 18:03 Pulse 82 10/09/22 18:03 Respiratory Rate 24 10/09/22 18:03 Blood Pressure 123/71 10/09/22 18:03 Pulse Oximetry 95 10/09/22 18:03 Temperature 97.9 F 10/09/22 18:03 Temperature Source Temporal Artery Scan 10/09/22 18:03 Pulse 82 10/09/22 18:03 Respiratory Rate 24 10/09/22 18:03 Blood Pressure 123/71 10/09/22 18:03 Blood Pressure Position Sitting 10/09/22 18:03 Pulse Oximetry 95 10/09/22 18:03 Oxygen Delivery Method Room Air 10/09/22 18:03 Oxygen Flow Rate 0 10/09/22 18:03 Pain Level 0 10/09/22 18:03 Critical Care Time Critical Care Time Critical Care Time: Yes Total Critical Care Time: 45 Attestation: Upon my evaluation, this patient had a high probability of imminent or life- threatening deterioration, which required my direct attention, intervention, and personal management. I have personally provided 45 minutes of critical care time exclusive of time spent on separately billable procedures. Time includes review of laboratory data, radiology results, discussion with consultants, and monitoring for potential decompensation. Interventions were performed as documented above.
--- NOTE | 2022-10-09 18:15 | RT.EKG_ITS ---
APPROVED REPORT Exam: Resting ECG Reason for Exam: SVT Patient Location: E HR:172 bpm ECG Measurements Heart Rate 172 AXIS ME 84 P -65 QRSd 143 QRS 105 QT 328 T -71 QTc 556 Conclusion Extreme tachycardia with wide complex, no further rhythm analysis attempted I have reviewed and interpreted ECG and agree with software generated interpretation. Vtach vs SVT w aberant conduction
--- NOTE | 2022-10-09 18:30 | DI.RAD_ITS ---
Exam(s) XR PORTABLE CHEST AP EXAM: XR PORTABLE CHEST AP CLINICAL HISTORY: weakness. TECHNIQUE: 2D digital imaging was performed. COMPARISON: CR XR CHEST 2V PA LATERAL from 04/16/2022 FINDINGS: Single AP portable view. Again noted are sternotomy wires. Heart size is unchanged. Mediastinum not widened. Pulmonary venous hypertension pattern again noted but without ilya airspace pulmonary edema and ther e are no pleural effusions. IMPRESSION: Pulmonary venous hypertension pattern again noted, unchanged from prior study listed above. Recommen d nonportable PA and lateral views when clinically possible DATA REPOSITORY: RADIATION DOSE DELIVERED:
[2022-10-09] MEDS: Lactated Ringers 1,000 ML 1000 ML IV (18:35)
[2022-10-09 18:44] LABS: Abs Immature Grans 0.04 10^3/uL (0.0-0.06); Absolute Basophil Count 0.05 10^3/uL (0.0-0.2); Absolute Eosinophil Count 0.02 10^3/uL (0.0-0.7); Absolute Lymphocyte Count 0.27 10^3/uL (1.2-3.4); Basophils % 0.5; Eosinophils % 0.2; HCT 53.5 % (40.0-50.0); HGB 17.5 g/dL (13.5-17.5); Immature Grans % 0.4; Lymphocytes % 2.5; MCH 27.7 pg (27.0-33.0); MCHC 32.7 % (32.0-36.0); MCV 85 fL (80-95); Monocytes % 3.7; Neutrophils % 92.7; Platelet Count 165 10^3/uL (130-400); RBC 6.31 10^6/uL (4.36-5.78); RDW-SD 42.9 fL; WBC 10.92 10^3/uL (4.4-10.8)
[2022-10-09 18:47] LABS: Absolute Neutrophil Count 10.12 10^3/uL (1.2-6.7)
[2022-10-09 19:02] LABS: ALT 16 U/L (16-63); AST 15 U/L (15-37); Albumin 3.7 g/dL (3.4-5.0); Alkaline Phosphatase 170 U/L (46-116); Anion Gap 9.1 mmol/L (3-11); BUN 27 mg/dL (7-18); Bilirubin, Total 1.1 mg/dL (0.2-1.0); CO2 24.9 mmol/L (21.0-32.0); CREATININE 1.7 mg/dL (0.70-1.30); Calcium 9.2 mg/dL (8.5-10.1); Chloride 107 mmol/L (98-107); Estimated GFR 39.75 (mL/min/1.73m2); Glucose 120 mg/dL (74-106); Magnesium 1.9 mg/dL (1.8-2.4); Potassium 4.3 mmol/L (3.5-5.1); Sodium 141 mmol/L (136-145); Total Protein 7.8 g/dL (6.4-8.2); Troponin I < 50 ng/L (<or=60)
--- NOTE | 2022-10-09 19:20 | DI.VRAD_ITS ---
PROCEDURE INFORMATION: Exam: XR Chest Exam date and time: 10/09/2022 6:52 PM Age: 82 years old Clinical indication: Other: Weakness TECHNIQUE: Imaging protocol: Radiologic exam of the chest. Views: 1 view. COMPARISON: CR XR CHEST 2V PA LATERAL 04/16/2022 10:34 AM FINDINGS: Lungs: There is stable mild diffuse pulmonary vascular prominence. Pleural spaces: Unremarkable. No pleural effusion. No pneumothorax. Heart/Mediastinum: Heart is normal in size. Bones/joints: Sternotomy wires remain in place. Degenerative changes of the spine noted IMPRESSION: Stable mild pulmonary vascular congestion Dictated and Authenticated by: Jairo Umanzor MD. Ordering:JENS Justice MD
[2022-10-09] MEDS: MAGNESIUM SULFATE 1 GM/100 ML BAG IVPB (19:29)
[2022-10-09] MEDS: Lactated Ringers 1,000 ML 150 ML IV (20:36)
[2022-10-09 20:40] LABS: NT-proBNP 2253 pg/mL (<300)
[2022-10-09] MEDS: Metoprolol 5 MG/5 ML VIAL IVP ×2 (20:47→21:09)
[2022-10-09 22:19] LABS: Source Nasopharynx
[2022-10-09 23:14] LABS: COVID-19 PCR Negative (Negative)
--- NOTE | 2022-10-09 23:58 | W.PM.HP.N ---
Date of service: 10/09/22 Time of Service: 23:36 Assessment and Plan Assessment and plan (1) Paroxysmal atrial fibrillation: Status: Acute Assessment and plan: I agree with the ED assessment that the wide complex tachycardia is most consistent with atrial fibrillation with aberrancy given the irregularity and the fact that the patient was only mildly symptomatic. Case [place] with [facility] [place] in the ED as noted above. Improved with IV metoprolol, resume oral metoprolol. He is back mostly in sinus, but with a lot of irregular beats. Get TSH with labs. He denies other new exposures [id number] is 5, I recommended apixaban at lower dose give age and current creatinine. (2) Peripheral edema: Status: Acute Assessment and plan: Chronic issue. He does have a history of CHF, but he likely also has some venous insufficiency. PCP was trying to get him to use TEDs, will see if we can get some on here. (3) Hypertension: Status: Chronic Assessment and plan: BP controlled, continue outpatient medication (4) Chronic obstructive lung disease: Status: Acute Assessment and plan: No active currently, he is not on inahers, monitor (5) Coronary arteriosclerosis: Status: Active Assessment and plan: continue outpatient statin and ASA. His BNaP is up but on my exam is not clearly fluid overloaded. Will not continue IV fluids. Continue daily furosemide. (6) Chronic renal disease, stage 3, moderately decreased glomerular filtration rate (GFR) between 30-59 mL/min/1.73 square meter: Status: Acute Assessment and plan: Creatinine near recent baseline. monitor (7) Elevated bilirubin: Status: Acute Assessment and plan: mild, associated with mild elevation of alk phos. No other signs of liver disease on exam/labs. Monitor. (8) DVT prophylaxis: Status: Acute Assessment and plan: He is starting apixaban (9) Discharge planning issues: Status: Acute History of Present Illness History of Present Illness Chief Complaint: general weakness Narrative: 82 yo M with history of CAD s/p CABG, HTN, multiple sclerosis, and COPD who presented to the emergency room with 2 days of generalized weakness. He states he just didn't feel like doing anything. He denies any chest pain or pressure now or during the past 2 days. He has not felt palpitations, skipped beats, dizziness, or worsening shortness of breath. He has been eating, but he did vomit once after eating earlier on the day of admission and he felt a little better for while. No recent changes in stool, though he had some loose stools the previous week. No fevers of chills. No changes in urination, though he doesn't like the frequent urination from the furosemide his PCP gave him for his leg edema. Mr. Espinoza was given IV metoprolol x 2 in the ED after the EKG reviewed with [facility] [place] along with a liter of fluids and a gram of magnesium. He states he feels a little better than he did when he came in. Review of Systems Constitutional Constitutional: Denies anorexia, Denies chills, Denies fever(s), Reports lethargy and Denies weight gain Eyes Eyes: Denies change in vision and Denies irritation ENT Ears, Nose, Mouth, and Throat: Denies dizziness, Denies nasal congestion, Denies nasal discharge and Denies sore throat Cardiovascular Cardiovascular: Denies chest pain, Denies syncope, Denies rapid heart rate, Denies palpitations, Denies dyspnea and Denies orthopnea Respiratory Respiratory: Denies cough, Denies dyspnea and Denies wheezing Gastrointestinal Gastrointestinal: Denies abdominal pain, Denies heartburn and Denies vomiting Genitourinary Genitourinary: Denies hematuria, Denies dysuria, Reports urinary frequency and Denies urinary incontinence Integumentary/Breasts Skin/Breast: Denies rash and Denies skin ulcer Neurologic Neurologic: Denies dizziness, Denies syncope and Denies sensory deficit Psychiatric Psychiatric: Denies mood swings Endocrine Endocrine: Denies palpitations Hematologic/Lymphatic Hematologic/Lymphatic: Denies easy bleeding Allergic/Immunologic Allergic/Immunologic: Denies wheezing PFSH All Active Problems (Updated 10/10/22 @ 01:40 by Piter Alejandro) Elevated bilirubin (Acute) Chronic renal disease, stage 3, moderately decreased glomerular filtration rate (GFR) between 30-59 mL/min/1.73 square meter (Acute) Discharge planning issues (Acute) DVT prophylaxis (Acute) Paroxysmal atrial fibrillation (Acute) Nail dystrophy (Acute) Peripheral edema (Acute) Arthritis of big toe (Acute) Skin lesion of face (Acute) Facial basal cell cancer (Acute) Loose stools (Acute) Hypertension (Chronic) Vasomotor rhinitis (Chronic) use the ipratropium Fracture of thoracic spine (Acute) History of cataract removal with insertion of prosthetic lens (Acute) History of coronary artery bypass surgery (Acute) History of esophagogastroduodenoscopy (Acute) History of thoracentesis (Acute) Status post abdominal aortic aneurysm repair (Acute) Status post cholecystectomy (Acute) Pneumonia (Acute) Pulmonary nodule, right (Acute 02/26/16) Follwed [place] [facility] [place] sclerosis (Acute 11/14/14) Idiopathic scoliosis (Acute) Hyperlipidemia (Acute 11/02/12) History of tobacco use (Acute 11/02/12) quit 2006 History of tobacco use (Acute 11/02/12) quit 2006 Gastritis (Acute) per EGD 2006 Chronic obstructive lung disease (Acute 11/02/12) Aortic aneurysm (Acute 11/02/12) AAA-lap repair 2006 Nausea,vomiting,diarrhea, fever (Active 11/16/12) Multiple sclerosis (Active) Diagnosed 25 years ago. Benign hypertension (Active) same meds Coronary arteriosclerosis (Active) Hyperglycemia (Active) Gastroesophageal reflux disease (Active) History of - coronary artery bypass grafting (Active) Eczema (Active) Osteoarthritis (Active) Constipation (Active) Medical History COPD (chronic obstructive pulmonary disease) Coronary artery disease GERD (gastroesophageal reflux disease) HTN (hypertension) Hyperlipemia Malignant neoplasm of lower lobe of right lung (04/15/16) Adenocarcinoma Surgery [facility] [place] Multiple sclerosis Surgical History EGD - MAC (~01/2007) GERD/CHRONIC GASTRITIS History of AAA (abdominal aortic aneurysm) repair History of cataract surgery History of thoracentesis History of tonsillectomy Hx of CABG Hx of cholecystectomy Social History Smoking/Tobacco Use Status: Former Tobacco Use Smoking risk assessment performed?: Yes Alcohol Intake: never Drug use: Never Substance use type: does not use Do you feel safe at home: Yes Do you feel safe in your relationship?: Yes Additional Social history: could not assess privately Meds Allergies and Home Medications Allergies Allergy/AdvReac Type Severity Reaction Status Date / Time Sulfa (Sulfonamide Allergy Skin Rash Verified 10/09/22 18:16 Antibiotics) Home Medications Medication Instructions Recorded Confirmed Type aspirin 81 mg chewable tablet 81 mg PO DAILY 11/06/13 10/09/22 History (Aspirin Low-Strength) acetaminophen 650 mg 325 mg PO HS 06/06/19 10/09/22 History tablet,extended release (Tylenol Arthritis Pain) atorvastatin 10 mg tablet 10 mg PO QPM #90 tabs 01/13/22 10/09/22 Rx metoprolol tartrate 50 mg tablet 25 mg PO BID #90 tabs 01/13/22 10/09/22 Rx omeprazole 40 mg capsule,delayed 40 mg PO DAILY #90 tab-caps 01/13/22 10/09/22 Rx release lisinopril 5 mg tablet 5 mg PO DAILY #90 tab-caps 03/30/22 10/09/22 Rx fluticasone propionate 50 2 spray intranasal DAILY #48 grams 06/30/22 08/12/22 Rx mcg/actuation nasal spray,suspension furosemide 20 mg tablet (Lasix) 20 mg PO QAM #30 tabs 08/21/22 10/09/22 Rx Exam Narrative Exam Narrative: GEN: Alert and oriented, pleasant and cooperative, gives linear history though not a lot of details. No acute distress at rest. HEENT: Head atraumatic. Conjunctiva clear, no icterus. PEERL, EOMI. no rhinorrhea. MMM, OP benign. Neck is supple with no masses or lymphadenopathy, trachea midline. no elevation JVP LUNGS: CTAB with normal effort CV: RRR but with frequent skipped beats. No murmurs, gallops, or rubs. ABD: +BS, soft, NT/ND EXT: no cyanosis, clubbing. 2+ markos foot edema up to shins. not tender MSK: No joint redness or swelling NEURO: CN 2-12 grossly intact. Normal movement of 4 extremities. Normal speech and coordination. no tremor SKIN: No rashes or open wounds. PSYCH: normal mood and affect Results Imaging Chest x-ray: report reviewed (Stable mild pulmonary vascular congestion) EKG: report reviewed and image reviewed (irregular wide tachycardia) Labs 10/09/22 18:30 10/09/22 18:30 Labs: Laboratory Results - last 24 hr 10/09/22 10/09/22 10/09/22 18:30 18:30 18:30 WBC 10.92 H RBC 6.31 H Hgb 17.5 Hct 53.5 H MCV 85 MCH 27.7 MCHC 32.7 RDW 14.0 Plt Count 165 MPV 12.0 H Immature Gran % 0.4 Neutrophils % 92.7 Lymphocytes % 2.5 Monocytes % 3.7 Eosinophils % 0.2 Basophils % 0.5 Nucleated RBC % 0.0 Absolute Neutrophils 10.12 H Absolute Lymphocytes 0.27 L Absolute Monocytes 0.40 Absolute Eosinophils 0.02 Absolute Basophils 0.05 Sodium 141 Potassium 4.3 Chloride 107 Carbon Dioxide 24.9 Anion Gap 9.1 BUN 27 H Creatinine 1.7 H Est GFR (CKD-EPI 2020) 39.75 Glucose 120 H Calcium 9.2 Magnesium 1.9 Total Bilirubin 1.1 H AST 15 ALT 16 Alkaline Phosphatase 170 H Troponin I < 50 NT-Pro-B Natriuret Pep 2253 H Total Protein 7.8 Albumin 3.7 COVID-19 Source SARS-CoV-2 (PCR) 10/09/22 22:16 WBC RBC Hgb Hct MCV MCH MCHC RDW Plt Count MPV Immature Gran % Neutrophils % Lymphocytes % Monocytes % Eosinophils % Basophils % Nucleated RBC % Absolute Neutrophils Absolute Lymphocytes Absolute Monocytes Absolute Eosinophils Absolute Basophils Sodium Potassium Chloride Carbon Dioxide Anion Gap BUN Creatinine Est GFR (CKD-EPI 2020) Glucose Calcium Magnesium Total Bilirubin AST ALT Alkaline Phosphatase Troponin I NT-Pro-B Natriuret Pep Total Protein Albumin COVID-19 Source Nasopharynx SARS-CoV-2 (PCR) Negative Last Vital Signs Temp 36.8 C 10/09/22 23:05 Pulse 74 10/09/22 23:05 Resp 22 10/09/22 23:05 BP 117/47 L 10/09/22 23:05 Pulse Ox 96 10/09/22 23:05 Time Spent Time spent with Patient: >75 minutes Time was spent: preparing to see the patient(eg.review tests), obtaining and/or reviewing separately otained hiistory, ordering medications,tests, procedures, referring, communicating with other health neurocritical care physician, indepentently interpreting results and counseling the patient
[2022-10-10] VITALS (56 sets, daily range): BP systolic 80–140; BP diastolic 27–97; PULSE 45–96; RESP 13–27; TEMP 36.5–37.5; O2SAT 91–95
[2022-10-10 02:31] LABS: Bilirubin Negative (Negative); Blood Negative (Negative); Clarity Clear (Clear); Glucose Negative (Negative); Ketones Negative (Negative); Leukocyte Esterase Negative (Negative); Nitrite Negative (Negative); Specific Gravity 1.025 (1.005-1.025); Urobilinogen 0.2 mg/dL (Up to 0.2); pH 5.5 (5-8)
[2022-10-10 02:38] LABS: Bacteria Rare HPF (Negative); C & S Indicated? No; Casts Negative LPF (Negative); Crystals Negative HPF (Negative); Epithelial Cells Negative HPF (Negative); Mucus Negative (Negative); RBC Negative HPF (0-2); WBC Negative HPF (0-5)
[2022-10-10 06:32] LABS: ALT 15 U/L (16-63); AST 11 U/L (15-37); Alkaline Phosphatase 138 U/L (46-116); Anion Gap 8.4 mmol/L (3-11); BUN 27 mg/dL (7-18); Bilirubin, Total 1.1 mg/dL (0.2-1.0); CO2 26.6 mmol/L (21.0-32.0); CREATININE 1.6 mg/dL (0.70-1.30); Calcium 8.5 mg/dL (8.5-10.1); Chloride 107 mmol/L (98-107); Estimated GFR 42.75 (mL/min/1.73m2); Glucose 103 mg/dL (74-106); Sodium 142 mmol/L (136-145); TSH 0.56 uIU/mL (0.36-3.74); Total Protein 6.5 g/dL (6.4-8.2)
[2022-10-10] MEDS: Aspirin 81 MG CHEW PO (09:14)
[2022-10-10] MEDS: Omeprazole 20 MG CAPCR 40 MG PO (09:14)
[2022-10-10] MEDS: Apixaban 2.5 MG TAB PO (09:15)
[2022-10-10] MEDS: Fluticasone NASAL SPRAY 16 GM BTL NS (09:22)
[2022-10-10] MEDS: Metoprolol 25 MG TAB PO (09:22)
--- NOTE | 2022-10-10 10:10 | DSE_ITS ---
Date of service: 10/10/22 Time of Service: 10:11 DS: Diagnosis Discharge Diagnosis (1) Paroxysmal atrial fibrillation: Status: Acute Asessment and Plan: Given IV and po metoprolol and converted to sinus rhythm. [id number] score of 5. Eliquis 2.5mg po initiated. Eliquis will be held d/t hematuria noted after his first dose (initial UA in the ED was neg for blood, RBCs). Discuss restarting Eliquis with PCP. Cont metoprolol at usual home dose of 25mg BID. (2) Peripheral edema: Status: Acute Asessment and Plan: Cont Lasix. Low Na diet. (3) Hypertension: Status: Chronic Asessment and Plan: Cont lisinopril 5mg daily, metoprolol 25mg BID. (4) Chronic obstructive lung disease: Status: Acute Asessment and Plan: No exacerbation. (5) Coronary arteriosclerosis: Status: Active Asessment and Plan: Cont ASA and BB. No c/o chest pain. (6) Chronic renal disease, stage 3, moderately decreased glomerular filtration rate (GFR) between 30-59 mL/min/1.73 square meter: Status: Acute Asessment and Plan: At baseline with creatinine of 1.6. (7) Elevated bilirubin: Status: Acute Asessment and Plan: Mild elevation; 1.1. Hepatic congestion likely. He also had an NTProBNP of 2253 but no pulmonary vasc. congestion noted. No supplemental O2 requirements. Cont lasix. (8) Discharge planning issues: Status: Acute Asessment and Plan: Spoke with his [id number] [place] who is his contact regarding discharge. PCP follow up to be arranged. Discharge Plan Disposition Patient Disposition: Home Condition: Improving Discharge Details Reason For Visit: AFIB With Aberant Conduction Admit Date/Time: 10/09/22 21:52 Admit Provider: Piter Alejandro Attending Provider: Piter Alejandro Primary Care Provider: Arnold Vicente Hospital Course Hospital Course: 82 yo M with history of CAD s/p CABG, HTN, multiple sclerosis, and COPD who presented to the emergency room with 2 days of generalized weakness.? He states he just didn't feel like doing anything.? He denied any chest pain or pressure now or during the past 2 days.? He has not felt palpitations, skipped beats, dizziness, or worsening shortness of breath.? He has been eating, but he did vomit once after eating earlier on the day of admission and he felt a little better for while.? No recent changes in stool, though he had some loose stools the previous week.? No fevers of chills.? No changes in urination, though he doesn't like the frequent urination from the furosemide his PCP gave him for his leg edema.? Mr. Espinoza was given IV metoprolol x 2 in the ED after the EKG reviewed with [facility] cardiology along with a liter of fluids and a gram of magnesium.? He stated he felt a little better than he did when he came in.? See Diagnosis PCP f/u in 1-2 weeks. Home Meds and New Rx's Prescriptions: New Eliquis 2.5 mg Tablet 2.5 mg PO BID Qty: 60 0RF Continued acetaminophen [Tylenol Arthritis Pain] 650 mg tablet extended release 325 mg PO HS fluticasone propionate 50 mcg/actuation spray,suspension 2 spray [place]Y DAILY Qty: 48 3RF Rx Instructions: administer into each nostril aspirin [Aspirin Low-Strength] 81 MG tablet,chewable 81 mg PO DAILY atorvastatin 10 mg tablet 10 mg PO QPM Qty: 90 3RF metoprolol tartrate 50 mg tablet 25 mg PO BID Qty: 90 3RF omeprazole 40 mg capsule,delayed release(DR/EC) 40 mg PO DAILY Qty: 90 3RF lisinopril 5 mg tablet 5 mg PO DAILY Qty: 90 3RF furosemide [Lasix] 20 mg tablet 20 mg PO QAM Qty: 30 2RF Discharge Instructions Instructions: A-fib (Atrial Fibrillation) (DC) Additional Instructions: Hold Eliquis until follow up with PCP and urine bleeding stops. Stand Alone Forms: Nursing Discharge Form Activity:: Activity as Tolerated Equipment/Supplies:: No Equipment Needed Diet:: Resume home diet Discharge Orders Discharge Orders: Discharge Order (Routine); Ordered 10/10/22 Ordered By: Vaughn Hooks Other Ambulatory Orders: Complete Blood Count w/Diff (Routine) Location: None Selected Ordered By: Vaughn Hooks DS: Summary Time Spent with Patient providing and/or coordinating discharge services: Greater than 30 minutes Status at Discharge Functional status at discharge: independent ambulation Overall status at discharge: patient is progressing back to baseline Mental Status: mental status grossly normal Speech and Movement: speech clear Mood: congruent mood Affect: normal affect Exam Narrative Exam Narrative: GEN: Alert and oriented, pleasant and cooperative, gives linear history though not a lot of details. No acute distress at rest. Lying in bed. HEENT: Head atraumatic. Conjunctiva clear, no icterus. PEERL, MMM. Neck is supple. no elevation JVP LUNGS: CTAB with normal effort CV: RRR but with frequent skipped beats. No murmurs. ABD: +BS, soft, NT/ND EXT: no cyanosis, calf tenderness. 2+ markos foot edema up to shins. not tender NEURO: Normal movement of 4 extremities. Normal speech and coordination. no tremor SKIN: No rashes or open wounds. PSYCH: normal mood and affect Psych Mental Status: mental status grossly normal Speech and Movement: speech clear Mood: congruent mood Affect: normal affect DS: Data Vitals/I&O Vitals and I&O: Vital Signs Temperature 36.7 C 10/10/22 04:25 Temperature Source Temporal Artery Scan 10/10/22 04:25 Pulse 73 10/10/22 06:02 Pulse 74 10/10/22 06:02 Respiratory Rate 21 10/10/22 06:02 Respiratory Effort Normal 10/10/22 05:11 Respiratory Depth Normal 10/10/22 05:11 Respiratory Pattern Normal 10/10/22 05:11 Blood Pressure 82/27 L 10/10/22 06:02 Blood Pressure Mean 41 10/10/22 06:02 Blood Pressure Position Supine 10/09/22 23:05 Pulse Oximetry 93 10/10/22 05:01 Oxygen Delivery Method Room Air 10/10/22 05:11 Oxygen Flow Rate 0 10/10/22 05:11 Pain Level 0 10/10/22 05:11 Intake & Output 10/09/22 10/09/22 10/10/22 11:59 23:59 11:59 Intake Total 1637.5 / 1637.5 Output Total 90 / 90 Balance 1637.5 / 1637.5 -90 / -90 Weight 87.5 kg 84.9 kg Intake: IV 1577.5 / 1577.5 Oral 60 / 60 Output: Urine 90 / 90 Other: Urine Color Yellow Urine Appearance Clear Urine Odor None Stool Size Smear Stool Characteristics Brown Voiding Methods Urinal Data Completed and Pending Labs on day of discharge: Labs from last 24 hours 10/10/22 10/10/22 10/09/22 05:25 02:00 22:16 WBC RBC Hgb Hct MCV MCH MCHC RDW Plt Count MPV Immature Gran % Neutrophils % Lymphocytes % Monocytes % Eosinophils % Basophils % Nucleated RBC % Absolute Neutrophils Absolute Lymphocytes Absolute Monocytes Absolute Eosinophils Absolute Basophils Sodium 142 Potassium 4.0 Chloride 107 Carbon Dioxide 26.6 Anion Gap 8.4 BUN 27 H Creatinine 1.6 H Est GFR (CKD-EPI 2020) 42.75 Glucose 103 Calcium 8.5 Magnesium Total Bilirubin 1.1 H AST 11 L ALT 15 L Alkaline Phosphatase 138 H Troponin I NT-Pro-B Natriuret Pep Total Protein 6.5 Albumin 3.0 L TSH 0.56 Urine Color Yellow Urine Clarity Clear Urine pH 5.5 Ur Specific [place] 1.025 Urine Protein Trace H Urine Ketones Negative Urine Blood Negative Urine Nitrite Negative Urine Bilirubin Negative Urine Urobilinogen 0.2 Ur Leukocyte Esterase Negative Urine RBC Negative Urine WBC Negative Ur Epithelial Cells Negative Urine Crystals Negative Urine Bacteria Rare Urine Casts Negative Urine Mucus Negative Ur Culture Indicated? No Urine Glucose Negative COVID-19 Source Nasopharynx SARS-CoV-2 (PCR) Negative 10/09/22 10/09/22 10/09/22 18:30 18:30 18:30 WBC 10.92 H RBC 6.31 H Hgb 17.5 Hct 53.5 H MCV 85 MCH 27.7 MCHC 32.7 RDW 14.0 Plt Count 165 MPV 12.0 H Immature Gran % 0.4 Neutrophils % 92.7 Lymphocytes % 2.5 Monocytes % 3.7 Eosinophils % 0.2 Basophils % 0.5 Nucleated RBC % 0.0 Absolute Neutrophils 10.12 H Absolute Lymphocytes 0.27 L Absolute Monocytes 0.40 Absolute Eosinophils 0.02 Absolute Basophils 0.05 Sodium 141 Potassium 4.3 Chloride 107 Carbon Dioxide 24.9 Anion Gap 9.1 BUN 27 H Creatinine 1.7 H Est GFR (CKD-EPI 2020) 39.75 Glucose 120 H Calcium 9.2 Magnesium 1.9 Total Bilirubin 1.1 H AST 15 ALT 16 Alkaline Phosphatase 170 H Troponin I < 50 NT-Pro-B Natriuret Pep 2253 H Total Protein 7.8 Albumin 3.7 TSH Urine Color Urine Clarity Urine pH Ur Specific [place] Urine Protein Urine Ketones Urine Blood Urine Nitrite Urine Bilirubin Urine Urobilinogen Ur Leukocyte Esterase Urine RBC Urine WBC Ur Epithelial Cells Urine Crystals Urine Bacteria Urine Casts Urine Mucus Ur Culture Indicated? Urine Glucose COVID-19 Source SARS-CoV-2 (PCR) PFSH All Active Problems (Updated 10/10/22 @ 15:30 by Vaughn Hooks MD) Hematuria (Acute) Elevated bilirubin (Acute) Chronic renal disease, stage 3, moderately decreased glomerular filtration rate (GFR) between 30-59 mL/min/1.73 square meter (Acute) Discharge planning issues (Acute) DVT prophylaxis (Acute) Paroxysmal atrial fibrillation (Acute) Nail dystrophy (Acute) Peripheral edema (Acute) Arthritis of big toe (Acute) Skin lesion of face (Acute) Facial basal cell cancer (Acute) Loose stools (Acute) Hypertension (Chronic) Vasomotor rhinitis (Chronic) use the ipratropium Fracture of thoracic spine (Acute) History of cataract removal with insertion of prosthetic lens (Acute) History of coronary artery bypass surgery (Acute) History of esophagogastroduodenoscopy (Acute) History of thoracentesis (Acute) Status post abdominal aortic aneurysm repair (Acute) Status post cholecystectomy (Acute) Pneumonia (Acute) Pulmonary nodule, right (Acute 02/26/16) Follwed by [facility] Multiple sclerosis (Acute 11/14/14) Idiopathic scoliosis (Acute) Hyperlipidemia (Acute 11/02/12) History of tobacco use (Acute 11/02/12) quit 2006 History of tobacco use (Acute 11/02/12) quit 2006 Gastritis (Acute) per EGD 2007 Chronic obstructive lung disease (Acute 11/02/12) Aortic aneurysm (Acute 11/02/12) AAA-lap repair 2006 Nausea,vomiting,diarrhea, fever (Active 11/16/12) Multiple sclerosis (Active) Diagnosed 25 years ago. Benign hypertension (Active) same meds Coronary arteriosclerosis (Active) Hyperglycemia (Active) Gastroesophageal reflux disease (Active) History of - coronary artery bypass grafting (Active) Eczema (Active) Osteoarthritis (Active) Constipation (Active) Medical History COPD (chronic obstructive pulmonary disease) Coronary artery disease GERD (gastroesophageal reflux disease) HTN (hypertension) Hyperlipemia Malignant neoplasm of lower lobe of right lung (04/15/16) Adenocarcinoma Surgery [facility] 2016 Multiple sclerosis Surgical History EGD - MAC (~01/2007) GERD/CHRONIC GASTRITIS History of AAA (abdominal aortic aneurysm) repair History of cataract surgery History of thoracentesis History of tonsillectomy Hx of CABG Hx of cholecystectomy Social History Smoking/Tobacco Use Status: Former Tobacco Use Smoking risk assessment performed?: Yes Alcohol Intake: never Drug use: Never Substance use type: does not use Do you feel safe at home: Yes Do you feel safe in your relationship?: Yes Additional Social history: could not assess privately Time Spent with Patient Time Spent with Patient: 45-69 minutes Time was spent: preparing to see the patient(eg.review tests), obtaining and/or reviewing separately otained hiistory, ordering medications,tests, procedures, referring, communicating with other health childbirth and infant care teacher, indepentently interpreting results and counseling the patient
[2022-10-10 10:48] LABS: Lab Add On Test DONE
[2022-10-10 11:33] LABS: Procalcitonin 0.1 ng/mL
[2022-10-10 12:04] LABS: Bilirubin Small (Negative); Blood Large (Negative); Clarity Cloudy (Clear); Glucose Negative (Negative); Ketones Negative (Negative); Leukocyte Esterase Negative (Negative); Nitrite Negative (Negative); Specific Gravity >= 1.030 (1.005-1.025); Urobilinogen 0.2 mg/dL (Up to 0.2); pH 5.5 (5-8)
[2022-10-10 12:12] LABS: Bacteria Negative HPF (Negative); C & S Indicated? No; Casts Negative LPF (Negative); Crystals Negative HPF (Negative); Epithelial Cells Rare HPF (Negative); Mucus Negative (Negative); RBC >50 HPF (0-2); WBC 0-2 HPF (0-5)
--- NOTE | 2022-10-10 14:00 | PDOC.CMIN ---
- If Service Date Differs Date of service: 10/10/22 Time of Service: 14:00 Care Management Initial Assess REASON FOR HOSPITALIZATION:: AFib with Aberant Conduction PAST MEDICAL HISTORY/PAST SURGICAL HISTORY:: All Active Problems. Elevated bilirubin (Acute). Chronic renal disease, stage 3, moderately decreased glomerular filtration rate (GFR) between 30-59 mL/min/1.73 square meter (Acute). Discharge planning issues (Acute). DVT prophylaxis (Acute). Paroxysmal atrial fibrillation (Acute). Nail dystrophy (Acute). Peripheral edema (Acute). Arthritis of big toe (Acute). Skin lesion of face (Acute). Facial basal cell cancer (Acute). Loose stools (Acute). Hypertension (Chronic). Vasomotor rhinitis (Chronic). use the ipratropium. Fracture of thoracic spine (Acute). History of cataract removal with insertion of prosthetic lens (Acute). History of coronary artery bypass surgery (Acute). History of esophagogastroduodenoscopy (Acute). History of thoracentesis (Acute). Status post abdominal aortic aneurysm repair (Acute). Status post cholecystectomy (Acute). Pneumonia (Acute). Pulmonary nodule, right (Acute 02/26/16). [place] [facility]. Multiple sclerosis (Acute 11/14/14). Idiopathic scoliosis (Acute). Hyperlipidemia (Acute 11/02/12). History of tobacco use (Acute 11/02/12). quit 2006. History of tobacco use (Acute 11/02/12). quit 2006. Gastritis (Acute). per EGD 2006. Chronic obstructive lung disease (Acute 11/02/12). Aortic aneurysm (Acute 11/02/12). AAA-lap repair 2005. Nausea,vomiting,diarrhea, fever (Active 11/16/12). Multiple sclerosis (Active). Diagnosed 25 years ago. Benign hypertension (Active). same meds. Coronary arteriosclerosis (Active). Hyperglycemia (Active). Gastroesophageal reflux disease (Active). History of - coronary artery bypass grafting (Active). Eczema (Active). Osteoarthritis (Active). Constipation (Active). Medical History. COPD (chronic obstructive pulmonary disease). Coronary artery disease. GERD (gastroesophageal reflux disease). HTN (hypertension). Hyperlipemia. Malignant neoplasm of lower lobe of right lung (04/15/16). Adenocarcinoma. [place] [facility] [place]. Multiple sclerosis. Surgical History. EGD - MAC (~01/2007). GERD/CHRONIC GASTRITIS. History of AAA (abdominal aortic aneurysm) repair. History of cataract surgery. History of thoracentesis. History of tonsillectomy. Hx of CABG. Hx of cholecystectomy PREVIOUS FUNCTIONAL STATUS/SOCIAL/FAMILY SUPPORTS:: Juan Ramon lives in [facility], alone. He has three sons that live locally and are supportive. He has been living alone for about 10-15 years. He reports that he has an RN that checks on him monthly, and has support for grocery shopping and housekeeping. He is unsure, but believes that this was set up through [facility]. He goes to [employer] Wednesday-Wednesday, and enjoys his time there, especially socializing and 'eating a good meal'. He states that he warms up food for dinner, and has had MOW in the past, but did not like it. He uses a FWW for safe ambulation. CURRENT FUNCTIONAL STATUS:: Kadeem was sitting up in bed when CM met with him. He stated that he wasn't feeling well at home, but is feeling pretty good today. He reported that per MD, he may be able to return home later today. He stated that his son can drive him home, if that is the case. He is connected to [facility], who provides transport for him to and from [place]. CM will continue to follow. ADVANCE DIRECTIVES:: None on file. CM will offer forms. Has patient been provided with info about the portal/API?: Yes Did the patient sign up for the portal?: No CODE STATUS:: Full Code INSURANCE COVERAGE / FINANCIAL ISSUES:: [facility] CURRENT HOME/COMMUNITY SERVICES/EQUIPMENT:: [place] 5x/week. FWW. Moderate needs?, COA? PRIMARY CARE PHYSICIAN:: Arnold Vicente POTENTIAL DISCHARGE NEEDS:: Evaluations for further needs, follow up appointments. PATIENT/FAMILY EDUCATION NEEDS:: Review discharge instructions and limitations, discussion of self care needs including ask me three. ANTICIPATED BARRIERS TO DISCHARGE:: None. TRANSPORTATION:: Via private vehicle by his son vs [facility]. PLAN:: Anticipate Kadeem will return home when medically cleared with a resumption of his community services. His son will drive him home via private vehicle. He will follow up with his PCP and discharge plan of care. CM will continue to follow.
== END 2022-10-10 16:50 | disposition home or self-care (01) | DRG 310 ==
LOC: ER 22:19 → ICU 22:51
PROVIDERS: Family Medicine; Admitting Provider Family Medicine; Emergency Provider Emergency Medicine; PCP Family Medicine; Visit Provider Family Medicine
DX: I48.0 Paroxysmal atrial fibrillation (principal); I12.9 Hypertensive chronic kidney disease with stage 1 through stage 4 chronic kidney disease, or unspecified chronic kidney disease; J44.9 Chronic obstructive pulmonary disease, unspecified; G35 Multiple sclerosis; N18.30 Chronic kidney disease, stage 3 unspecified; I25.10 Atherosclerotic heart disease of native coronary artery without angina pectoris; R31.9 Hematuria, unspecified; R53.1 Weakness; R60.0 Localized edema; Z95.1 Presence of aortocoronary bypass graft; R91.1 Solitary pulmonary nodule; Z87.891 Personal history of nicotine dependence; E78.5 Hyperlipidemia, unspecified; K21.9 Gastro-esophageal reflux disease without esophagitis; Z85.118 Personal history of other malignant neoplasm of bronchus and lung; E80.6 Other disorders of bilirubin metabolism
CPT/HCPCS: 36415; 80053; 84145; 87635; 93005; 96361; 96365; 99285; 71045; 81003; 81015; 83735; 83880; 84443; 84484; 85025; 93010; 99239; J3475

== ENCOUNTER → 2023-08-04 09:07 | Outpatient (BNVA) | payer MEDICARE, MEDICAID, SELFPAY | PROVIDERS: PCP Family Medicine; Referring Provider Family Medicine; Visit Provider Podiatrist | DX: G35 Multiple sclerosis; L60.3 Nail dystrophy; R60.0 Localized edema; I73.9 Peripheral vascular disease, unspecified; Z79.01 Long term (current) use of anticoagulants; N18.30 Chronic kidney disease, stage 3 unspecified | CPT/HCPCS: 11721 ==

== ENCOUNTER 2023-08-13 18:01 | Outpatient (REF) | payer MEDICARE, MEDICAID, SELFPAY ==
[2023-08-13 17:57] LABS: Bilirubin Negative (Negative); Blood Negative (Negative); Clarity Clear (Clear); Glucose Negative (Negative); Ketones Negative (Negative); Leukocyte Esterase Negative (Negative); Nitrite Negative (Negative); Urobilinogen 0.2 mg/dL (Up to 0.2); pH 5.5 (5-8)
== END 2023-08-13 18:02 | disposition home or self-care (01) ==
LOC: LBN 18:01
PROVIDERS: PCP Family Medicine; Visit Provider Family Medicine
DX: R35.0 Frequency of micturition (principal)
CPT/HCPCS: 81003

== ENCOUNTER 2023-12-08 11:39 | Outpatient (REF) | payer MEDICARE, MEDICAID, SELFPAY ==
[2023-12-08 13:10] LABS: Bilirubin Negative (Negative); Blood Negative (Negative); Clarity Clear (Clear); Glucose Negative (Negative); Ketones Negative (Negative); Leukocyte Esterase Negative (Negative); Nitrite Negative (Negative); Urobilinogen 0.2 mg/dL (Up to 0.2); pH 5.5 (5-8)
== END 2023-12-08 11:40 | disposition home or self-care (01) ==
LOC: LBN 11:39
PROVIDERS: PCP Family Medicine; Visit Provider Family Medicine
DX: R35.0 Frequency of micturition (principal)
CPT/HCPCS: 81003

== ENCOUNTER 2023-12-30 10:02 | Inpatient (IN) | payer MEDICARE, MEDICAID, SELFPAY ==
[2023-12-30] VITALS (64 sets, daily range): BP systolic 75–147; BP diastolic 31–96; PULSE 42–146; RESP 8–35; TEMP 37–37.8; O2SAT 89–96
--- NOTE | 2023-12-30 10:00 | RT.EKG_ITS ---
APPROVED REPORT Exam: Resting ECG Reason for Exam: CHF Patient Location: E HR:109 bpm ECG Measurements Heart Rate 109 AXIS GA 227 P 44 QRSd 93 QRS -28 QT 332 T 48 QTc 448 Conclusion multiple PVS pr long 227 no stemi
[2023-12-30 10:26] LABS: Abs Immature Grans 0.03 10^3/uL (0.0-0.06); Absolute Basophil Count 0.06 10^3/uL (0.0-0.2); Absolute Eosinophil Count 0.04 10^3/uL (0.0-0.7); Absolute Lymphocyte Count 0.22 10^3/uL (1.2-3.4); Absolute Neutrophil Count 6.28 10^3/uL (1.2-6.7); Basophils % 0.8 %; Eosinophils % 0.6 %; HCT 50.9 % (40.0-50.0); HGB 16.7 g/dL (13.5-17.5); Immature Grans % 0.4 %; Lymphocytes % 3.1 %; MCH 28.3 pg (27.0-33.0); MCHC 32.8 % (32.0-36.0); MCV 86 fL (80-95); MPV 12.2 fL (8.0-11.0); Neutrophils % 88.1 %; Platelet Count 132 10^3/uL (130-400); RBC 5.91 10^6/uL (4.36-5.78); RDW 13.3 % (11.8-14.1); RDW-SD 42.2 fL; WBC 7.13 10^3/uL (4.4-10.8)
--- NOTE | 2023-12-30 10:31 | W.ED.GENAD ---
Discharge Plan Disposition Patient Disposition: Admit to [facility] Condition: Fair Discharge Details Chief Complaint: Arrhythmia Clinical Impression: Elevated brain natriuretic peptide (BNP) level, Influenza A Admit Date/Time: 12/30/23 12:46 Admit Provider: Piter Alejandro Attending Provider: Piter Alejandro Primary Care Provider: Arnold Vicente ED Provider: Augustine Correa Discharge Data Discharge Date/Time-TO BE ENTERED AT DEPARTURE: 12/30/23 13:50 HPI General Date/Time Provider Initiated Documentation: 12/30/23 10:10. Limitations to Documentation: physical limitation. Information obtained by: patient and family. HPI Narrative: 83-year-old gentleman with past medical history of CKD, A-fib on Eliquis, hypertension, COPD, CAD presents for evaluation of fatigue. He states that this morning he needed to go to the bathroom, but he was too weak to make it there so he pressed his life alert button. He states that he feels a little short of breath, but does not have any chest pain. Did not know that he had an elevated temperature. Denies cough. Denies any sick symptoms. Denies any dysuria. Related Data Home Medications Medication Instructions Recorded Confirmed aspirin 81 mg chewable tablet 81 mg PO DAILY 11/06/13 12/30/23 (Aspirin Low-Strength) acetaminophen 650 mg 325 mg PO HS 06/06/19 12/30/23 tablet,extended release (Tylenol Arthritis Pain) fluticasone propionate 50 2 spray intranasal DAILY #48 grams 06/30/22 12/30/23 mcg/actuation nasal spray,suspension furosemide 20 mg tablet (Lasix) 20 mg PO QAM #90 tabs 02/01/23 12/30/23 lisinopril 5 mg tablet 5 mg PO DAILY #90 tab-caps 03/02/23 12/30/23 atorvastatin 10 mg tablet 10 mg PO QPM #90 tabs 11/08/23 12/30/23 metoprolol tartrate 50 mg tablet 25 mg (1/2 x 50 mg) PO BID #90 tabs 11/08/23 12/30/23 omeprazole 40 mg capsule,delayed 40 mg PO DAILY #90 tab-caps 11/08/23 12/30/23 release apixaban 2.5 mg tablet (Eliquis) 2.5 mg PO BID #180 tabs 12/06/23 12/30/23 Previous Rx's Medication Instructions Recorded fluticasone propionate 50 2 spray intranasal DAILY #48 grams 06/30/22 mcg/actuation nasal spray,suspension furosemide 20 mg tablet (Lasix) 20 mg PO QAM #90 tabs 02/01/23 lisinopril 5 mg tablet 5 mg PO DAILY #90 tab-caps 03/02/23 atorvastatin 10 mg tablet 10 mg PO QPM #90 tabs 11/08/23 metoprolol tartrate 50 mg tablet 25 mg (1/2 x 50 mg) PO BID #90 tabs 11/08/23 omeprazole 40 mg capsule,delayed 40 mg PO DAILY #90 tab-caps 11/08/23 release apixaban 2.5 mg tablet (Eliquis) 2.5 mg PO BID #180 tabs 12/06/23 Allergies Allergy/AdvReac Type Severity Reaction Status Date / Time Sulfa (Sulfonamide Allergy Skin Rash Verified 12/30/23 10:27 Antibiotics) General Stated Complaint: Arrhythmia HEBERT: 3 Exam Narrative Exam Narrative: Review of Systems: All systems reviewed & are unremarkable except as noted in HPI and below Well-developed, no acute distress +febrile NCAT PERRL, normal conjunctiva Irregular, tachycardic mild tachypnea, no hypoxia, course sounds with crackles bilaterally Nondistended abdomen soft non tender Extremities w/o deformity, no cyanosis, +1 edema No rashes or lesions. no focal neurologic deficits Appropriate mood and affect Course Vital Signs Vital signs: Vital Signs Temperature 37.8 C H 12/30/23 10:17 Pulse 146 H 12/30/23 10:17 Respiratory Rate 16 12/30/23 10:17 Blood Pressure 146/96 H 12/30/23 10:17 Pulse Oximetry 95 12/30/23 10:17 Temperature 37.8 C H 12/30/23 10:17 Pulse 146 H 12/30/23 10:17 Respiratory Rate 16 12/30/23 10:17 Respiratory Effort Short of Breath 12/30/23 10:27 Blood Pressure 146/96 H 12/30/23 10:17 Pulse Oximetry 95 12/30/23 10:17 Oxygen Delivery Method Room Air 12/30/23 10:17 Oxygen Flow Rate 0 12/30/23 10:17 Pain Level 0 12/30/23 10:17 Lab/Test Results Lab/Test Results: 12/30/23 10:20 Blood Blood Culture - Pending 12/30/23 10:20 Blood Blood Culture - Pending Medical Decision Making Emergent evaluation of weakness and fever. Initial differential includes sepsis, pneumonia, electrolyte derangement, cardiac dysrhythmia. EKG is showing multiple PVCs. Zoll monitor placed. HD stable. Fever noted. Does look volume overloaded. Will check labs, anticipate admission. Lab work reviewed. White blood cell count is not elevated. There is no anemia, but hemoglobin is 16, which seems about baseline for the patient. Lactic acid slightly elevated at 1.7. Renal function at baseline. His BNP is elevated at over 3000. His procalcitonin is negative his urinalysis does not demonstrate infection. His flu test is positive. He was given Lasix to initiate diuresis. His chest x-ray is concerning for pulmonary edema as well, and no focal consolidation appreciated. However given his fever, and the quality of the chest x-ray he was treated empirically with antibiotics. Tamiflu was initiated as well. Given his age and overall clinical appearance, will admit to the hospital for influenza management and treatment. Medical Records Medical records reviewed: Yes I reviewed the patient's medical records. Lab Data Lab results reviewed: Yes I reviewed the patient's lab results. Quality:SDOH Health Related Social Needs: No Data to Display PFS All Active Problems (Updated 12/30/23 @ 17:57 by Augustine Correa MD) Elevated brain natriuretic peptide (BNP) level (Acute) Influenza A (Acute) Hematuria (Acute) Elevated bilirubin (Acute) Chronic renal disease, stage 3, moderately decreased glomerular filtration rate (GFR) between 30-59 mL/min/1.73 square meter (Acute) Paroxysmal atrial fibrillation (Acute) Nail dystrophy (Acute) Peripheral edema (Acute) Arthritis of big toe (Acute) Skin lesion of face (Acute) Facial basal cell cancer (Acute) Loose stools (Acute) Hypertension (Chronic) Vasomotor rhinitis (Chronic) use the ipratropium Fracture of thoracic spine (Acute) History of cataract removal with insertion of prosthetic lens (Acute) History of coronary artery bypass surgery (Acute) History of esophagogastroduodenoscopy (Acute) History of thoracentesis (Acute) Status post abdominal aortic aneurysm repair (Acute) Status post cholecystectomy (Acute) Pneumonia (Acute) Pulmonary nodule, right (Acute 02/26/16) Follwed by [facility] Multiple sclerosis (Acute 11/14/14) Idiopathic scoliosis (Acute) Hyperlipidemia (Acute 11/02/12) History of tobacco use (Acute 11/02/12) quit 2006 History of tobacco use (Acute 11/02/12) quit 2006 Gastritis (Acute) per EGD 2006 Chronic obstructive lung disease (Acute 11/02/12) Aortic aneurysm (Acute 11/02/12) AAA-lap repair 2005 Nausea,vomiting,diarrhea, fever (Active 11/16/12) Multiple sclerosis (Active) Diagnosed 25 years ago. 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 Surgery [facility] 2016 Surgical History History of thoracentesis Hx of cholecystectomy History of cataract surgery History of tonsillectomy Hx of CABG History of AAA (abdominal aortic aneurysm) repair EGD - MAC (~01/2007) GERD/CHRONIC GASTRITIS Social History Smoking/Tobacco Use Status: Former Tobacco Use Smoking risk assessment performed?: Yes Alcohol Intake: never Drug use: Never Substance use type: does not use Do you feel safe at home: Yes Do you feel safe in your relationship?: Yes
[2023-12-30 10:34] LABS: INR 1.1 (0.9-1.1); PTT Activated 28.6 sec (23.6-32.8)
--- NOTE | 2023-12-30 10:34 | DI.RAD_ITS ---
Exam(s) XR PORTABLE CHEST AP EXAM: XR PORTABLE CHEST AP CLINICAL HISTORY: sob TECHNIQUE: 2D digital imaging was performed of the chest. Two images were obtained. AP views were obtained. COMPARISON: CR,XR XR PORTABLE CHEST AP from 10/09/2022 FINDINGS: MEDIASTINUM: Normal. HEART: Cardiomegaly. PULMONARY VASCULATURE: Normal. LUNGS: There are atelectatic changes seen in the left lung base. No focal consolidating infiltrates are seen. Chronic changes are seen in the lung parenchyma. PLEURAL SPACE: No pleural effusion or pneumothorax. BONE:Within normal limits for the patient's age. Sternal wires are in place. OTHER FINDINGS:Normal. IMPRESSION: No definite acute pulmonary process. If symptoms persist, a follow-up chest PA and lateral series sh ould be obtained. DATA REPOSITORY: RADIATION DOSE DELIVERED:
[2023-12-30 10:36] LABS: ALT 12 U/L (16-63); AST 8 U/L (15-37); Albumin 3.6 g/dL (3.4-5.0); Alkaline Phosphatase 195 U/L (46-116); Anion Gap 8.2 mmol/L (3-11); BUN 22 mg/dL (7-18); Bilirubin, Total 1.03 mg/dL (0.2-1.0); CO2 25.8 mmol/L (21.0-32.0); CREATININE 1.7 mg/dL (0.70-1.30); Calcium 8.8 mg/dL (8.5-10.1); Chloride 106 mmol/L (98-107); Estimated GFR 39.51 (mL/min/1.73m2); Glucose 107 mg/dL (74-106); Magnesium 1.9 mg/dL (1.8-2.4); Potassium 4.3 mmol/L (3.5-5.1); Sodium 140 mmol/L (136-145); Total Protein 7.2 g/dL (6.4-8.2)
[2023-12-30] MEDS: dilTIAZem 25 MG/5 ML VIAL 20 MG IVP (10:40)
[2023-12-30] MEDS: Normal Saline 10 ML VIAL IJ (10:42)
[2023-12-30 10:44] LABS: NT-proBNP 3201 pg/mL (<300); Troponin I < 50 ng/L (< or =60)
[2023-12-30] MEDS: Furosemide 40 MG/4 ML VIAL IVP (10:56)
[2023-12-30] MEDS: Metoprolol 25 MG TAB PO (10:57)
[2023-12-30] MEDS: MAGNESIUM SULFATE 2 GM/50 ML BAG IVINF (10:57)
[2023-12-30 11:02] LABS: Lactate 1.7 mmol/L (0.6-1.4)
[2023-12-30] MEDS: ACETAMINOPHEN 1,000 MG/100 ML BTL 400 MG IVPB (11:09)
[2023-12-30 11:31] LABS: COVID-19 PCR Negative (Negative); Influenza A PCR Positive (Negative); Influenza B PCR Negative (Negative); RSV PCR Negative (Negative)
--- NOTE | 2023-12-30 11:34 | DI.VRAD_ITS ---
PROCEDURE INFORMATION: Exam: XR Chest Exam date and time: 12/30/2023 10:31 AM Age: 83 years old Clinical indication: Shortness of breath TECHNIQUE: Imaging protocol: Radiologic exam of the chest. Views: 1 view. COMPARISON: CR XR PORTABLE CHEST AP 10/09/2022 6:52 PM FINDINGS: Lungs: No pulmonary edema. No mass or consolidation. Pleural spaces: Unremarkable. No pleural effusion. No pneumothorax. Heart/Mediastinum: Moderate cardiomegaly and evidence of prior CABG. Bones/joints: Sternotomy. IMPRESSION: No acute abnormality. Dictated and Authenticated by: Meera Nguyen MD. Ordering:HARSHA Sy MD
[2023-12-30 11:39] LABS: Bilirubin Negative (Negative); Blood Small (Negative); Clarity Sl Cloudy (Clear); Glucose Negative (Negative); Ketones Negative (Negative); Leukocyte Esterase Negative (Negative); Nitrite Negative (Negative); Urobilinogen 0.2 mg/dL (Up to 0.2); pH 5.5 (5-8)
[2023-12-30 11:42] LABS: Bacteria Rare HPF (Negative); C & S Indicated? No; Casts Negative LPF (Negative); Crystals Negative HPF (Negative); Epithelial Cells Rare HPF (Negative); Mucus Negative (Negative); WBC 0-2 HPF (0-5)
[2023-12-30 11:46] LABS: Procalcitonin < 0.1 ng/mL
[2023-12-30 12:02] LABS: Source Nasopharynx
[2023-12-30] MEDS: PIPERACILLIN/TAZO 4.5 GM in Normal Saline 100 ML IVPB (12:18)
[2023-12-30] MEDS: VANCOMYCIN/WATER (PEG) 1.5 GM/300 ML BAG IVPB (12:19)
--- NOTE | 2023-12-30 12:46 | HPE_ITS ---
Date of service: 12/30/23 Time of Service: 12:47 Assessment and Plan Assessment and plan (1) Influenza A: Status: Acute Assessment and plan: On Tamiflu renal dosing levalbuterol schedule for now RT consult (2) Chronic renal disease, stage 3, moderately decreased glomerular filtration rate (GFR) between 30-59 mL/min/1.73 square meter: Status: Acute Assessment and plan: Cr 1.7 similar to baseline GFR 39.5 Cr Cl 39 ml/min BMP in AM (3) Paroxysmal atrial fibrillation: Status: Acute Assessment and plan: On home metoprolol and Eliquis (4) Coronary arteriosclerosis: Status: Active Assessment and plan: On atorvastatin and ASA (5) Hypertension: Status: Chronic Assessment and plan: on lisinopril and furosemide on hold for SBP< 100 (6) Gastroesophageal reflux disease: Status: Active Assessment and plan: On omeprazole (7) Elevated brain natriuretic peptide (BNP) level: Status: Acute Assessment and plan: Weakness, BNP 3200, lasix IV and IV diltiazem in ED then SBP in the 90's EKG from the ED showed SA Echocardiogram US in AM Discussed with Dr. Alejandro History of Present Illness History of Present Illness Chief Complaint: Weakness Narrative: DC 83-year-old male patient with past medical history of chronic kidney disease, atrial fibrillation on apixaban, hypertension, chronic obstructive pulmonary disease, coronary artery disease presented to the ED at [facility] for evaluation of fatigue. The patient stated that he felt too weak to go to the bathroom this morning which triggered him to push his life alert button. The patient reported slight shortness of breath but denied chest pain, cough, dysuria. On presentation to the ED the patient was unable to confirm a fever. Workup in the ED was remarkable for a positive influenza A, a BNP of 3200, a BUN of 22 with a creatinine of 1.7 which appears to be around his baseline. Chest x-ray showed cephalization but report noted for no acute pulmonary findings but recommend PA and lateral with persistence of symptoms. In the ED the patient received 80 of IV Lasix, IV diltiazem and oral metoprolol. Tamiflu was initiated. The hospitalist was consulted and patient admitted to the medical surgical floor for evaluation and management of influenza A infection. The patient denied falling and hitting his head at home, dizziness, change in vision, headache, nasal congestion, difficulty swallowing or gastric symptoms, chest pain, denies coughing but congested cough noticeable with deep breathing, denies dysuria. Reports history of MS. The patient declined CPR and intubation Review of Systems All systems reviewed & are unremarkable except as noted in HPI and below PFSH All Active Problems (Updated 12/30/23 @ 17:13 by Vivian Ozuna APRN) Elevated brain natriuretic peptide (BNP) level (Acute) Influenza A (Acute) Hematuria (Acute) Elevated bilirubin (Acute) Chronic renal disease, stage 3, moderately decreased glomerular filtration rate (GFR) between 30-59 mL/min/1.73 square meter (Acute) Paroxysmal atrial fibrillation (Acute) Nail dystrophy (Acute) Peripheral edema (Acute) Arthritis of big toe (Acute) Skin lesion of face (Acute) Facial basal cell cancer (Acute) Loose stools (Acute) Hypertension (Chronic) Vasomotor rhinitis (Chronic) use the ipratropium Fracture of thoracic spine (Acute) History of cataract removal with insertion of prosthetic lens (Acute) History of coronary artery bypass surgery (Acute) History of esophagogastroduodenoscopy (Acute) History of thoracentesis (Acute) Status post abdominal aortic aneurysm repair (Acute) Status post cholecystectomy (Acute) Pneumonia (Acute) Pulmonary nodule, right (Acute 02/26/16) Follwed by [facility] Multiple sclerosis (Acute 11/14/14) Idiopathic scoliosis (Acute) Hyperlipidemia (Acute 11/02/12) History of tobacco use (Acute 11/02/12) quit 2006 History of tobacco use (Acute 11/02/12) quit 2006 Gastritis (Acute) per EGD 2006 Chronic obstructive lung disease (Acute 11/02/12) Aortic aneurysm (Acute 11/02/12) AAA-lap repair 2006 Nausea,vomiting,diarrhea, fever (Active 11/16/12) Multiple sclerosis (Active) Diagnosed 25 years ago. 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 Surgery [facility] 2016 Surgical History History of thoracentesis Hx of cholecystectomy History of cataract surgery History of tonsillectomy Hx of CABG History of AAA (abdominal aortic aneurysm) repair EGD - MAC (~01/2007) GERD/CHRONIC GASTRITIS Social History Smoking/Tobacco Use Status: Former Tobacco Use Smoking risk assessment performed?: Yes Alcohol Intake: never Drug use: Never Substance use type: does not use Do you feel safe at home: Yes Do you feel safe in your relationship?: Yes Meds Allergies and Home Medications Allergies Allergy/AdvReac Type Severity Reaction Status Date / Time Sulfa (Sulfonamide Allergy Skin Rash Verified 12/30/23 10:27 Antibiotics) Home Medications Medication Instructions Recorded Confirmed Type aspirin 81 mg chewable tablet 81 mg PO DAILY 11/06/13 12/30/23 History (Aspirin Low-Strength) acetaminophen 650 mg 325 mg PO HS 06/06/19 12/30/23 History tablet,extended release (Tylenol Arthritis Pain) fluticasone propionate 50 2 spray intranasal DAILY #48 grams 06/30/22 12/30/23 Rx mcg/actuation nasal spray,suspension furosemide 20 mg tablet (Lasix) 20 mg PO QAM #90 tabs 02/01/23 12/30/23 Rx lisinopril 5 mg tablet 5 mg PO DAILY #90 tab-caps 03/02/23 12/30/23 Rx atorvastatin 10 mg tablet 10 mg PO QPM #90 tabs 11/08/23 12/30/23 Rx metoprolol tartrate 50 mg tablet 25 mg (1/2 x 50 mg) PO BID #90 tabs 11/08/23 12/30/23 Rx omeprazole 40 mg capsule,delayed 40 mg PO DAILY #90 tab-caps 11/08/23 12/30/23 Rx release apixaban 2.5 mg tablet (Eliquis) 2.5 mg PO BID #180 tabs 12/06/23 12/30/23 Rx Exam Narrative Exam Narrative: Constitutional The patient is in bed without acute distress HENMT: Head is atraumatic. Facial structures with normal appearance Eyes: Well aligned, intact ROM Neck: Normal ROM, no meningeal signs Neuro:alert and X3, No neurological focal deficit Chest:Chest is symmetrical Resp: Slight tachypnea, sat around 95% on RA, congested breath sounds, scattered ronchi with diminished bases, difficulty clearing secretions Cardio: irregular rhythm, S1, S2 distant , capillary refill<3 sec., bilateral radial and dorsalis pedis pulses are positive,LEs edema GI: Abdomen is not distended, soft and non tender, bowel sounds are present : Negative Costovertebral angle tenderness Psych: RASS 0, congruent mood and normal affect. Results Labs 12/30/23 10:07 12/30/23 10:07 Labs: Laboratory Results - last 24 hr 12/30/23 12/30/23 12/30/23 10:07 10:30 10:58 WBC 7.13 RBC 5.91 H Hgb 16.7 Hct 50.9 H MCV 86 MCH 28.3 MCHC 32.8 RDW 13.3 Plt Count 132 MPV 12.2 H Immature Gran % 0.4 Neutrophils % 88.1 Lymphocytes % 3.1 Monocytes % 7.0 Eosinophils % 0.6 Basophils % 0.8 Nucleated RBC % 0.0 Absolute Neutrophils 6.28 Absolute Lymphocytes 0.22 L Absolute Monocytes 0.50 Absolute Eosinophils 0.04 Absolute Basophils 0.06 PT 11.0 INR 1.1 APTT 28.6 VBG Lactate 1.7 H Sodium 140 Potassium 4.3 Chloride 106 Carbon Dioxide 25.8 Anion Gap 8.2 BUN 22 H Creatinine 1.7 H Est GFR (CKD-EPI 2020) 39.51 Glucose 107 H Calcium 8.8 Magnesium 1.9 Total Bilirubin 1.03 H AST 8 L ALT 12 L Alkaline Phosphatase 195 H Troponin I < 50 NT-Pro-B Natriuret Pep 3201 H Total Protein 7.2 Albumin 3.6 Procalcitonin < 0.1 Urine Color Urine Clarity Urine pH Ur Specific [place] Urine Protein Urine Ketones Urine Blood Urine Nitrite Urine Bilirubin Urine Urobilinogen Ur Leukocyte Esterase Urine RBC Urine WBC Ur Epithelial Cells Urine Crystals Urine Bacteria Urine Casts Urine Mucus Ur Culture Indicated? Urine Glucose COVID-19 Source Nasopharynx SARS-CoV-2 (PCR) Negative Influenza Type A (PCR) Positive A Influenza Type B (PCR) Negative RSV (PCR) Negative 12/30/23 11:31 WBC RBC Hgb Hct MCV MCH MCHC RDW Plt Count MPV Immature Gran % Neutrophils % Lymphocytes % Monocytes % Eosinophils % Basophils % Nucleated RBC % Absolute Neutrophils Absolute Lymphocytes Absolute Monocytes Absolute Eosinophils Absolute Basophils PT INR APTT VBG Lactate Sodium Potassium Chloride Carbon Dioxide Anion Gap BUN Creatinine Est GFR (CKD-EPI 2020) Glucose Calcium Magnesium Total Bilirubin AST ALT Alkaline Phosphatase Troponin I NT-Pro-B Natriuret Pep Total Protein Albumin Procalcitonin Urine Color Yellow Urine Clarity Sl Cloudy Urine pH 5.5 Ur Specific [place] 1.020 Urine Protein Negative Urine Ketones Negative Urine Blood Small H Urine Nitrite Negative Urine Bilirubin Negative Urine Urobilinogen 0.2 Ur Leukocyte Esterase Negative Urine RBC 5-10 H Urine WBC 0-2 Ur Epithelial Cells Rare Urine Crystals Negative Urine Bacteria Rare Urine Casts Negative Urine Mucus Negative Ur Culture Indicated? No Urine Glucose Negative COVID-19 Source SARS-CoV-2 (PCR) Influenza Type A (PCR) Influenza Type B (PCR) RSV (PCR) Last Vital Signs Temp 37.8 C H 12/30/23 10:17 Pulse 77 12/30/23 12:26 Resp 23 12/30/23 12:26 BP 85/31 L 12/30/23 12:26 Pulse Ox 91 L 12/30/23 12:26 Time Spent Time spent with Patient: >75 minutes Time was spent: preparing to see the patient(eg.review tests), obtaining and/or reviewing separately otained hiistory, ordering medications,tests, procedures, referring, communicating with other health professional healthcare representative, indepentently interpreting results, counseling the patient and care coordination
[2023-12-30] MEDS: Normal Saline 250 ML IV (12:51)
[2023-12-30 14:11] LABS: Troponin I < 50 ng/L (< or =60)
--- NOTE | 2023-12-30 14:48 | W.PC.ACHO ---
Registration Status: ADM [facility] Primary Language: Preferred Language: Italian ED Information & Data Chief Complaint Arrhythmia 12/30/23 10:35 Triage Note woke up this Morning with 12/30/23 10:17 severe increased weakness, increased bilateral leg swelling, increased SOB, new cough, fever 100.0. HX CHF, significant cardiac hx Subjective REPORTS HE HAS HAD A LUNG 12/30/23 10:27 REMOVED DOESNT KNOW WHICH ONE Medical / Surgical History (Last Reviewed 12/30/23 @ 10:32 by Augustine Correa MD) Multiple sclerosis GERD (gastroesophageal reflux disease) COPD (chronic obstructive pulmonary disease) Coronary artery disease HTN (hypertension) Hyperlipemia Malignant neoplasm of lower lobe of right lung (04/15/16) (Last Reviewed 12/30/23 @ 10:32 by Augustine Correa MD) History of thoracentesis Hx of cholecystectomy History of cataract surgery History of tonsillectomy Hx of CABG History of AAA (abdominal aortic aneurysm) repair EGD - MAC (~01/2007) Most Recent Vital Signs Temperature 37.2 C 12/30/23 13:51 Pulse 70 12/30/23 13:51 Pulse Rhythm Irregular 12/30/23 13:51 Pulse 71 12/30/23 13:16 Respiratory Rate 26 H 12/30/23 13:51 Respiratory Effort Short of Breath 12/30/23 13:51 Respiratory Depth Normal 12/30/23 13:51 Respiratory Pattern Normal 12/30/23 13:51 Blood Pressure 102/62 12/30/23 13:51 Blood Pressure Mean 58 12/30/23 13:16 Pulse Oximetry 95 12/30/23 13:51 Oxygen Delivery Method Room Air 12/30/23 13:51 Oxygen Flow Rate 0 12/30/23 13:51 Pain Level 0 12/30/23 10:17 Allergies Sulfa (Sulfonamide Antibiotics) Allergy (Verified 12/30/23 10:27) Skin Rash IV IV Catheter Type [Right Saline Lock Antecubital] IV Catheter Gauge [Left 20 Antecubital] IV Catheter Gauge [Right 18 Antecubital] Diet Orders Category Date Time Status Diabetes Consistent CHO/Heart Healthy [DIET] Nutrition 12/30/23 Lunch Active Diagnostics 12/30/23 12/30/23 12/30/23 Range/Units 13:49 11:31 10:58 WBC (4.4-10.8) 10^3/uL RBC (4.36-5.78) 10^6/uL Hgb (13.5-17.5) g/dL Hct (40.0-50.0) % MCV (80-95) fL MCH (27.0-33.0) pg MCHC (32.0-36.0) % RDW (11.8-14.1) % Plt Count (130-400) 10^3/uL MPV (8.0-11.0) fL Immature Gran % % Neutrophils % % Lymphocytes % % Monocytes % % Eosinophils % % Basophils % % Nucleated RBC % (0.0-0.3) % Absolute Neutrophils (1.2-6.7) 10^3/uL Absolute Lymphocytes (1.2-3.4) 10^3/uL Absolute Monocytes (0.1-0.8) 10^3/uL Absolute Eosinophils (0.0-0.7) 10^3/uL Absolute Basophils (0.0-0.2) 10^3/uL PT (9.1-11.1) sec INR (0.9-1.1) APTT (23.6-32.8) sec VBG Lactate 1.7 H (0.6-1.4) mmol/L Sodium (136-145) mmol/L Potassium (3.5-5.1) mmol/L Chloride (98-107) mmol/L Carbon Dioxide (21.0-32.0) mmol/L Anion Gap (3-11) mmol/L BUN (7-18) mg/dL Creatinine (0.70-1.30) mg/dL Est GFR (CKD-EPI 2020) (mL/min/1.73m2) Glucose (74-106) mg/dL Calcium (8.5-10.1) mg/dL Magnesium (1.8-2.4) mg/dL Total Bilirubin (0.2-1.0) mg/dL AST (15-37) U/L ALT (16-63) U/L Alkaline Phosphatase (46-116) U/L Troponin I < 50 (< or =60) ng/L NT-Pro-B Natriuret Pep (<300) pg/mL Total Protein (6.4-8.2) g/dL Albumin (3.4-5.0) g/dL Procalcitonin < 0.1 ng/mL Urine Color Yellow (Yellow) Urine Clarity Sl Cloudy (Clear) Urine pH 5.5 (5-8) Ur Specific [place] 1.020 (1.005-1.025) Urine Protein Negative (Neg-Trace) mg/dL Urine Ketones Negative (Negative) mg/dL Urine Blood Small H (Negative) Urine Nitrite Negative (Negative) Urine Bilirubin Negative (Negative) Urine Urobilinogen 0.2 (Up to 0.2) mg/dL Ur Leukocyte Esterase Negative (Negative) Urine RBC 5-10 H (0-2) HPF Urine WBC 0-2 (0-5) HPF Ur Epithelial Cells Rare (Negative) HPF Urine Crystals Negative (Negative) HPF Urine Bacteria Rare (Negative) HPF Urine Casts Negative (Negative) LPF Urine Mucus Negative (Negative) Ur Culture Indicated? No Urine Glucose Negative (Negative) mg/dL COVID-19 Source SARS-CoV-2 (PCR) (Negative) Influenza Type A (PCR) (Negative) Influenza Type B (PCR) (Negative) RSV (PCR) (Negative) 12/30/23 12/30/23 Range/Units 10:30 10:07 WBC 7.13 (4.4-10.8) 10^3/uL RBC 5.91 H (4.36-5.78) 10^6/uL Hgb 16.7 (13.5-17.5) g/dL Hct 50.9 H (40.0-50.0) % MCV 86 (80-95) fL MCH 28.3 (27.0-33.0) pg MCHC 32.8 (32.0-36.0) % RDW 13.3 (11.8-14.1) % Plt Count 132 (130-400) 10^3/uL MPV 12.2 H (8.0-11.0) fL Immature Gran % 0.4 % Neutrophils % 88.1 % Lymphocytes % 3.1 % Monocytes % 7.0 % Eosinophils % 0.6 % Basophils % 0.8 % Nucleated RBC % 0.0 (0.0-0.3) % Absolute Neutrophils 6.28 (1.2-6.7) 10^3/uL Absolute Lymphocytes 0.22 L (1.2-3.4) 10^3/uL Absolute Monocytes 0.50 (0.1-0.8) 10^3/uL Absolute Eosinophils 0.04 (0.0-0.7) 10^3/uL Absolute Basophils 0.06 (0.0-0.2) 10^3/uL PT 11.0 (9.1-11.1) sec INR 1.1 (0.9-1.1) APTT 28.6 (23.6-32.8) sec VBG Lactate (0.6-1.4) mmol/L Sodium 140 (136-145) mmol/L Potassium 4.3 (3.5-5.1) mmol/L Chloride 106 (98-107) mmol/L Carbon Dioxide 25.8 (21.0-32.0) mmol/L Anion Gap 8.2 (3-11) mmol/L BUN 22 H (7-18) mg/dL Creatinine 1.7 H (0.70-1.30) mg/dL Est GFR (CKD-EPI 2020) 39.51 (mL/min/1.73m2) Glucose 107 H (74-106) mg/dL Calcium 8.8 (8.5-10.1) mg/dL Magnesium 1.9 (1.8-2.4) mg/dL Total Bilirubin 1.03 H (0.2-1.0) mg/dL AST 8 L (15-37) U/L ALT 12 L (16-63) U/L Alkaline Phosphatase 195 H (46-116) U/L Troponin I < 50 (< or =60) ng/L NT-Pro-B Natriuret Pep 3201 H (<300) pg/mL Total Protein 7.2 (6.4-8.2) g/dL Albumin 3.6 (3.4-5.0) g/dL Procalcitonin ng/mL Urine Color (Yellow) Urine Clarity (Clear) Urine pH (5-8) Ur Specific [place] (1.005-1.025) Urine Protein (Neg-Trace) mg/dL Urine Ketones (Negative) mg/dL Urine Blood (Negative) Urine Nitrite (Negative) Urine Bilirubin (Negative) Urine Urobilinogen (Up to 0.2) mg/dL Ur Leukocyte Esterase (Negative) Urine RBC (0-2) HPF Urine WBC (0-5) HPF Ur Epithelial Cells (Negative) HPF Urine Crystals (Negative) HPF Urine Bacteria (Negative) HPF Urine Casts (Negative) LPF Urine Mucus (Negative) Ur Culture Indicated? Urine Glucose (Negative) mg/dL COVID-19 Source Nasopharynx SARS-CoV-2 (PCR) Negative (Negative) Influenza Type A (PCR) Positive A (Negative) Influenza Type B (PCR) Negative (Negative) RSV (PCR) Negative (Negative) 12/30/23 10:48 Blood Culture - Pending Blood 12/30/23 10:45 Blood Culture - Pending Blood Intake and Output - 24 Hour Total 12/30/23 09:51 thru 12/30/23 13:51 Intake Total 252.778 Output Total 600 Balance -347.222 Weight 84.822 kg Intake: IV 252.778 Output: Urine 600 Other: Urine Color Pale Urine Appearance Clear Urinary Catheter Urinary Catheter Date of 12/30/23 Insertion [Uretheral ([place])] Time of insertion [Uretheral ( 12:52 [place])] Falls Risk Assessment History of Falls Previous History 12/30/23 13:51 Contributing Factors Unstable 12/30/23 13:51 Ambulatory Aids Uses ambulatory device + 12/30/23 13:51 Tubes/Lines With any additional score 12/30/23 13:51 Gait Evaluation W/any additional score 12/30/23 13:51 Cognition No cognitive impairment 12/30/23 13:51 Fall Total Score 88 12/30/23 13:51 Level of Risk Maximum Risk 12/30/23 13:51 Problems (Last Reviewed 12/30/23 @ 10:32 by Augustine Correa MD) Influenza A (Acute) Chronic renal disease, stage 3, moderately decreased glomerular filtration rate (GFR) between 30-59 mL/min/1.73 square meter (Acute) Paroxysmal atrial fibrillation (Acute) Hypertension (Chronic) Coronary arteriosclerosis (Active) Gastroesophageal reflux disease (Active) v v v v v v v v v Sending and/or Receiving Nurses: Please use comment section below to note any information pertinent to the patient hand-off not included above. Information / Comments: Report received from: Brigette BADILLO 13:15
--- NOTE | 2023-12-30 18:32 | RESPIRATORY ---
RT Initial Evalutation/Assessment Start: 12/30/23 17:09 Freq: .q shift and prn Status: Active Protocol: Document 12/30/23 18:19 (Rec: 12/30/23 18:32 [id number]) RT Assessment Pulmonary History Pulmonary History Other Smoking History Smoking/Tobacco Use Status Former Tobacco Use Tobacco: How many years used 55 Quit Date 12/27/23 Tobacco Type cigarettes Packs per Day 1 Cigarettes per Day 20 Years smoked 55 Smoking packs per day 1 OXYGEN HISTORY: Supplemental O2 At Rest 0 With Exertion 0 CPAP Settings N/A Can use home machine N/A BIPAP Settings N/A Can you home machine N/A Trilogy/AVAPS Settings N/A Can use home machine N/A DME/Compliance DME N/A Compliance N/A Current Respiratory Symptoms Current Respiratory Symptoms Cough Activity Activity Level Usually has nurses that come in and help once a day. Respiratory Breath Sounds Breath Sounds Any abnormal sounds, decreased breath sounds Response No change Pulse Rate <100 Respiratory Rate 18-25 Shortness of Breath On exertion Respiratory Therapy Score Total 3 Assessment and Plan RT Treatment Protocol Bronchodilator Aerosol Therapy Protocol,Lung Expansion Therapy Protocol,Bronchial Hygiene Therapy Protocol Note Mild score of 3. RT will initiate incentive spirometry and acapella with patient. Pt may also benefit from PRN breathing treatments. Provider Vivian Ozuna suggested Levalbuterol due to cardiac history. RT will order PRN 1. 25mg treatments for patient. Pt is currently resting on room air with SpO2 93-95%, breath sounds diminished throughout, slightly abnormal, no ilya wheezes and no sputum production when patient coughs (dry, sporadic cough). Pt denies history of COPD, RT suspects he may have underlying disease process of this due to extensive smoking history and decreased breath sounds throughout all lung guevara. RT will reassess if patient condition changes.
[2023-12-30] MEDS: Atorvastatin 10 MG TAB PO (19:17)
[2023-12-30] MEDS: Acetaminophen 325 MG TAB PO (19:17)
[2023-12-30] MEDS: guaiFENesin 600 MG TABCR PO (19:18)
[2023-12-30] MEDS: Apixaban 2.5 MG TAB PO (19:18)
[2023-12-30] MEDS: Normal Saline Flush 10 ML SYR IVP (19:50)
[2023-12-30] MEDS: Levalbuterol 1.25 MG/3 ML UPD VIAL UPD (21:13)
[2023-12-31] VITALS (9 sets, daily range): BP systolic 89–122; BP diastolic 48–75; PULSE 45–83; RESP 5–24; TEMP 36.4–38.2; O2SAT 90–94
[2023-12-31] MEDS: Levalbuterol 1.25 MG/3 ML UPD VIAL UPD ×2 (05:12→12:10)
[2023-12-31] MEDS: Acetaminophen 325 MG TAB 650 MG PO (05:17)
[2023-12-31 06:51] LABS: Abs Immature Grans 0.01 10^3/uL (0.0-0.06); Absolute Basophil Count 0.03 10^3/uL (0.0-0.2); Absolute Lymphocyte Count 0.57 10^3/uL (1.2-3.4); Absolute Monocyte Count 0.77 10^3/uL (0.1-0.8); Absolute Neutrophil Count 3.88 10^3/uL (1.2-6.7); Basophils % 0.6 %; HCT 47.8 % (40.0-50.0); HGB 15.8 g/dL (13.5-17.5); Immature Grans % 0.2 %; Lymphocytes % 10.8 %; MCH 28.5 pg (27.0-33.0); MCHC 33.1 % (32.0-36.0); MCV 86 fL (80-95); MPV 11.7 fL (8.0-11.0); Monocytes % 14.6 %; Neutrophils % 73.8 %; Platelet Count 114 10^3/uL (130-400); RBC 5.55 10^6/uL (4.36-5.78); RDW 13.8 % (11.8-14.1); RDW-SD 43.5 fL; WBC 5.26 10^3/uL (4.4-10.8)
[2023-12-31 07:02] LABS: Anion Gap 8.3 mmol/L (3-11); BUN 28 mg/dL (7-18); CO2 24.7 mmol/L (21.0-32.0); CREATININE 2.1 mg/dL (0.70-1.30); Calcium 8.4 mg/dL (8.5-10.1); Chloride 105 mmol/L (98-107); Estimated GFR 30.66 (mL/min/1.73m2); Glucose 117 mg/dL (74-106); Potassium 3.7 mmol/L (3.5-5.1); Sodium 138 mmol/L (136-145)
[2023-12-31] MEDS: Oseltamivir 30 MG CAP PO ×2 (09:10→20:39)
[2023-12-31] MEDS: guaiFENesin 600 MG TABCR PO ×2 (09:10→20:39)
[2023-12-31] MEDS: Aspirin 81 MG CHEW PO (09:10)
[2023-12-31] MEDS: Apixaban 2.5 MG TAB PO ×2 (09:10→20:39)
[2023-12-31] MEDS: Lisinopril 5 MG TAB PO (09:10)
[2023-12-31] MEDS: Metoprolol 25 MG TAB PO (09:10)
[2023-12-31] MEDS: Omeprazole 20 MG CAPCR 40 MG PO (09:10)
[2023-12-31] MEDS: Furosemide 20 MG TAB PO (09:11)
[2023-12-31] MEDS: Normal Saline Flush 10 ML SYR IVP ×3 (09:11→20:40)
--- NOTE | 2023-12-31 09:45 | INITIAL_ITS ---
Date of service: 12/31/23 Time of Service: 09:46 Care Management Initial Assmt Initial Assessment Reason for Hospitalization: Influenza A Functional Status/Living Situation Patient Presentation: Kadeem was sitting up in a chair when CM met with him. He was agreeable to conversation and engaged well with CM. Kadeem shared that he lives alone. He has 2 sons who live in the general area that he sees from time to time. When CM asked who was his strongest support he named his grandson Jaison. Kadeem uses a walker for ambulation and is independent with his ADLs. Throughout the conversation, Kadeem seemed alert and oriented however towards the end of the visit he stated that he would be here on Wednesday because this is his home. Apparently he had an episode of sun downing last evening per his nurse. Kadeem stated he would be willing to have home health PT but is really not interested in short term rehab should that be recommended. [facility] of Residence: [facility] Resides with: Alone Significant Other/Family: Local Natural Supports: sons and grandson Employment Status: Retired Instrumental Activities of Daily Living (ADLs): Independent Medications Medication Management: No Issues/Barriers identified Physical Functioning/Mobility Assistive Device: uses a walker Advance Directives Advance Directives: Do you have an Advance Directive: N 01/24/21 15:54 AD On File at [facility]: N 01/24/21 15:54 Date Asked 12/30/23 12/30/23 10:17 AD Date Reviewed COLST On File at [facility] COLST Date Scanned Code Status Resuscitation Status DNR/DNI Insurance Coverage/Financial Issues Insurance: Medicare Medicaid ACO Member: Yes Care Team Visit Care Team Role Provider Type Arnold Vicente MD Primary Care Provider [facility] STAFF PHYSICIAN InPatient Brandon Morales Other Providers OTHER Augustine Correa MD Emergency Provider [facility] STAFF PHYSICIAN Piter Alejandro Admit Provider [facility] STAFF PHYSICIAN Attending Provider Discharge Potential Discharge Needs: PCP F/U Appt Anticipated Barriers to Discharge: Medical Status Patient/Family Education Needs: Review discharge instructions, discuss Ask Me Three Transportation: Private vehicle Plan: Anticipate Kadeem will be discharged home, possibly with new home health services, when medically cleared. He will follow up with his PCP and plan of care and transport with family. CM will follow and continue to assess for discharge needs. PFSH All Active Problems (Updated 12/31/23 @ 12:45 by Vivian Ozuna APRN) GIO (acute kidney injury) (Acute) Elevated brain natriuretic peptide (BNP) level (Acute) Influenza A (Acute) Hematuria (Acute) Elevated bilirubin (Acute) Chronic renal disease, stage 3, moderately decreased glomerular filtration rate (GFR) between 30-59 mL/min/1.73 square meter (Acute) Paroxysmal atrial fibrillation (Acute) Nail dystrophy (Acute) Peripheral edema (Acute) Arthritis of big toe (Acute) Skin lesion of face (Acute) Facial basal cell cancer (Acute) Loose stools (Acute) Hypertension (Chronic) Vasomotor rhinitis (Chronic) use the ipratropium Fracture of thoracic spine (Acute) History of cataract removal with insertion of prosthetic lens (Acute) History of coronary artery bypass surgery (Acute) History of esophagogastroduodenoscopy (Acute) History of thoracentesis (Acute) Status post abdominal aortic aneurysm repair (Acute) Status post cholecystectomy (Acute) Pneumonia (Acute) Pulmonary nodule, right (Acute 02/26/16) Follwed by [facility] Multiple sclerosis (Acute 11/14/14) Idiopathic scoliosis (Acute) Hyperlipidemia (Acute 11/02/12) History of tobacco use (Acute 11/02/12) quit 2006 History of tobacco use (Acute 11/02/12) quit 2006 Gastritis (Acute) per EGD 2006 Chronic obstructive lung disease (Acute 11/02/12) Aortic aneurysm (Acute 11/02/12) AAA-lap repair 2006 Nausea,vomiting,diarrhea, fever (Active 11/16/12) Multiple sclerosis (Active) Diagnosed 25 years ago. 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 Surgery [facility] 2016 Surgical History History of thoracentesis Hx of cholecystectomy History of cataract surgery History of tonsillectomy Hx of CABG History of AAA (abdominal aortic aneurysm) repair EGD - MAC (~01/2007) GERD/CHRONIC GASTRITIS Social History Smoking/Tobacco Use Status: Former Tobacco Use Quit Date: 12/27/23 Tobacco: How many years used: 55 Smoking risk assessment performed?: Yes Alcohol Intake: never Drug use: Never Substance use type: does not use Do you feel safe at home: Yes Do you feel safe in your relationship?: Yes SDOH(Care Management) Screening Will the Patient Participate in the Screening?: Yes Do you worry about having a steady place to live?: no In the past 12 months, have you had to go without electric, gas, oil or water in your home?: no Have you or anyone in your house had to go without enough food to eat?: no Has lack of transportation kept you from medical appointments or from doing things needed for daily living?: no Has anyone in your support network made you feel unsafe for any reason?: no
--- NOTE | 2023-12-31 12:36 | PGE_ITS ---
Date of Service Date of service: 12/31/23 Time of Service: 12:36 Assessment and Plan Assessment and plan (1) Influenza A: Status: Acute Assessment and plan: On Tamiflu renal dosing levalbuterol scheduled initially but changed to PRN overnight s/p RT consult for now RT consult completed : Patient denied COPD but has an extensive history of smoking and listed history will observed for criteria of COPD exacerbation. interventions ordered -IS and Vibrapep (2) COPD exacerbation: Status: Inactive Assessment and plan: Increased dyspnea, cough with sudden onset Will start IV steroid and IV doxycycline Oral prednisone tomorrow (3) Chronic renal disease, stage 3, moderately decreased glomerular filtration rate (GFR) between 30-59 mL/min/1.73 square meter: Status: Acute Assessment and plan: Cr 1.7 similar to baseline on admission GFR 39.5 calculated admission Cr Cl 39 ml/min Pharmacy consulted for further adjustment of drugs today : CrCl > 30 (4) GIO (acute kidney injury): Status: Acute Assessment and plan: As above Cr 2.4 from 1.7 Considering slow VS aggressive IV hydration based on LEVF of 50% and other echo results, SBP and MAP Holding lisinopril and furosemide Toprol held HR 55 w SBP 89, then up to 116/64 HR 55, consider resuming in AM BMP in AM (5) Hypertension: Status: Chronic Assessment and plan: on lisinopril and furosemide but on hold and as above (6) Paroxysmal atrial fibrillation: Status: Acute Assessment and plan: Home metoprolol on hold d/t SBP 89 will reevaluate in AM and give if SBP > 110 and HR > 50 Tele SR with PVC's HR 60's On home Eliquis (7) Coronary arteriosclerosis: Status: Active Assessment and plan: On atorvastatin and ASA (8) Gastroesophageal reflux disease: Status: Active Assessment and plan: Continue omeprazole (9) Elevated brain natriuretic peptide (BNP) level: Status: Acute Assessment and plan: Weakness, BNP 3200, lasix IV and IV diltiazem in ED then SBP in the 90's EKG from the ED showed SA Echocardiogram US LVEF 50%, bilateral systolic ventricular function adequate If SBP < 100 the patient could get small bolus of LR Cardiology consult Discussed with Dr. Alejandro Subjective Subjective Patient reports: tolerating liquids well, tolerating a regular diet, no bowel movement and shortness of breath (denies but tachypneic w RR 24-28 during conversation); denies still having pain, nausea, vomiting or fever Exam Narrative Exam Narrative: Constitutional The patient is in bed, had refused to get oob this AM d/t c/o tiredness HENMT: Facial structures with normal appearance Neuro:alert and X3, No neurological focal deficit Chest:Chest is symmetrical Resp: Slight tachypnea during ROS RR 24-28, sat around 95% on RA, velcro-like crackles left base, diminished right base,bilat. exp wheezing to upper lung guevara, questioning laryngeal wheezing,coarse non-productive cough Cardio: irregular rhythm, S1, S2,distant , HR apical-radial 37-40, radial and pedal pulses positive, LEs edema appears chronic has compression socks at home GI: Abdomen is not distended, soft and non tender, bowel sounds are present Psych: RASS 0, congruent mood and normal affect. Objective Last Vital Signs Temp 36.4 C L 12/31/23 10:29 Pulse 83 12/31/23 12:19 Resp 24 12/31/23 12:19 BP 89/59 L 12/31/23 10:29 Pulse Ox 94 12/31/23 12:19 Laboratory Results - last 24 hr 12/30/23 12/31/23 13:49 06:35 WBC 5.26 RBC 5.55 Hgb 15.8 Hct 47.8 MCV 86 MCH 28.5 MCHC 33.1 RDW 13.8 Plt Count 114 L MPV 11.7 H Immature Gran % 0.2 Neutrophils % 73.8 Lymphocytes % 10.8 Monocytes % 14.6 Eosinophils % 0.0 Basophils % 0.6 Nucleated RBC % 0.0 Absolute Neutrophils 3.88 Absolute Lymphocytes 0.57 L Absolute Monocytes 0.77 Absolute Eosinophils 0.00 Absolute Basophils 0.03 Sodium 138 Potassium 3.7 Chloride 105 Carbon Dioxide 24.7 Anion Gap 8.3 BUN 28 H Creatinine 2.1 H Est GFR (CKD-EPI 2020) 30.66 Glucose 117 H Calcium 8.4 L Troponin I < 50 Time Spent with Patient Time Spent with Patient: >50 minutes Time was spent: preparing to see the patient(eg.review tests), obtaining and/or reviewing separately otained hiistory, ordering medications,tests, procedures, referring, communicating with other health health care / medical job titles, indepentently interpreting results, counseling the patient and care coordination
--- NOTE | 2023-12-31 14:20 | IN_ITS ---
PT Notes Visit Reasons: Influenza A Infection Physical Therapy Inpatient Initial Evaluation Date: 12/31/2023 Referring Doctor: Vivian Ozuna NP PT Orders: PT CONSULT: Fall SAfety Assessment Precautions: Fall. On droplet precautions for Influenza A. Activity as tolerated. Patient Profile/Admitting Diagnosis: Juan Ramon Espinoza is an 83-year-old male admitted for management of influenza A, CKD stage III, PAF, coronary arterial, HTN, GERD, and elevated BNP level. Referred to physical therapy to address symptoms of fatigue and generalized weakness. PMHX: All Active Problems (Updated 12/30/23 @ 17:13 by Vivian Ozuna APRN) Elevated brain natriuretic peptide (BNP) level (Acute) Influenza A (Acute) Hematuria (Acute) Elevated bilirubin (Acute) Chronic renal disease, stage 3, moderately decreased glomerular filtration rate (GFR) between 30-59 mL/min/1.73 square meter (Acute) Paroxysmal atrial fibrillation (Acute) Nail dystrophy (Acute) Peripheral edema (Acute) Arthritis of big toe (Acute) Skin lesion of face (Acute) Facial basal cell cancer (Acute) Loose stools (Acute) Hypertension (Chronic) Vasomotor rhinitis (Chronic) use the ipratropiumFracture of thoracic spine (Acute) History of cataract removal with insertion of prosthetic lens (Acute) History of coronary artery bypass surgery (Acute) History of esophagogastroduodenoscopy (Acute) History of thoracentesis (Acute) Status post abdominal aortic aneurysm repair (Acute) Status post cholecystectomy (Acute) Pneumonia (Acute) Pulmonary nodule, right (Acute 02/26/16) Follwed by [facility] Multiple sclerosis (Acute 11/14/14) Idiopathic scoliosis (Acute) Hyperlipidemia (Acute 11/02/12) History of tobacco use (Acute 11/02/12) quit 2006 History of tobacco use (Acute 11/02/12) quit 2006 Gastritis (Acute) per EGD 2007 Chronic obstructive lung disease (Acute 11/02/12) Aortic aneurysm (Acute 11/02/12) AAA-lap repair 2006 Nausea,vomiting,diarrhea, fever (Active 11/16/12) Multiple sclerosis (Active) Diagnosed 25 years ago.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 Surgery [facility] 2016 Surgical History History of thoracentesis Hx of cholecystectomy History of cataract surgery History of tonsillectomy Hx of CABG History of AAA (abdominal aortic aneurysm) repair EGD - MAC (~01/2007) GERD/CHRONIC GASTRITIS Social History/Home Situation: Lives alone in a private home. Sons help out with his overall care as needed. Goes to [facility] days a week. Equipment Owned/DME: None Subjective: Pleasant and cooperative. reported fatigue and weakness during mobility performance. Objective: General Observation: Nurse Molina and MAIA Perez assisting patient. Telemtry monitoring in place. Mental Status: Alert and oriented as to person, place, time, and purpose. Able to pay attention, focus, and respond appropriately. Pain: None reported Vital Signs: Closely monitored by nursing staff ROM: Right Upper Extremity: Shoulder Flexion lacks the last 25% of AROM. Shoulder abduction lacks the last 25% of AROM. Elbow flexion WFL. Wrist flexion WFL. Functional opening and closing of hand WFL. Left Upper Extremity: Shoulder Flexion lacks the last 25% of AROM. Shoulder abduction lacks the last 25% of AROM. Elbow flexion WFL. Wrist flexion WFL. Functional opening and closing of hand WFL. Right Lower Extremity: Hip flexion lacks the last 25% of AROM. Hip abduction lacks the last 25% of AROM. Knee flexion -20 to 90 degrees. Knee extension -20 degrees. Ankle dorsiflexion WFL. Ankle plantarflexion WFL. Left Lower Extremity: Hip flexion lacks the last 25% of AROM. Hip abduction lacks the last 25% of AROM. Knee flexion -20 to 90 degrees. Knee extension -20 degrees. Ankle dorsiflexion WFL. Ankle plantarflexion WFL. Strength: Right Upper Extremity: Shoulder flexors 3-/5. Shoulder abductors 3-/5. Elbow flexors 4-/5. Elbow extensors 4-/5. Patient Observation Assistant strong. Left Upper Extremity: Shoulder flexors 3-/5. Shoulder abductors 3-/5. Elbow flexors 4-/5. Elbow extensors 4-/5. Patient Observation Assistant strong. Right Lower Extremity: Hip flexors 3-/5. Hip abductors 3-/5. Knee flexors 4-/5. Knee extensors 3-/5. Ankle dorsiflexors 3-/5. Ankle plantarflexors 4-/5. Left Lower Extremity: Hip flexors 3-/5. Hip abductors 3-/5. Knee flexors 4-/5. Knee extensors 3-/5. Ankle dorsiflexors 3-/5. Ankle plantarflexors 4-/5. Bed Mobility/Transfers: Moderate cueing provided for use of B hands as needed for support, movement sequence, AD management, and posture to reduce fall risk and minimize pain report Supine to sit moderate assist of 2 by Nurse Tracy and MAIA Perez Sit to supine moderate assist of 2 by Nurse Tracy and MAIA Perez Sit to stand minimal assist of 2 Stand to sit minimal assist of 2 Bed to bedside commode moderate assist of 2 Bedside commode to bedside recliner minimal assist of 2 Gait: Facilitated safe and correct movement sequence to cover distance from bedside c ommode to bedside recliner completing 10-12 small steps using walker minimal assistance of 2 and moderate verbal cueing for limb advancement, walker management, posture to reduce fall risk. Balance: Static Sitting: Normal Dynamic Sitting: Good Static Standing: Fair Dynamic Standing: Fair Special Tests: Mobility Limitations Standardized Measure [facility] AM-PAC 6 clicks Basic Mobility Inpatient Short Form: Raw Score: 12 CMS Score: 69% deficit Informed Consent/Education: Patient was instructed in purpose of PT consult and plan of care. Agreeable to proceed with established PT POC to achieve personal goals. Assessment: Patient presents with clinical signs and symptoms consistent with current/admitting diagnoses that have resulted to mobility limitations, gait instability, generalized weakness, and overall ADL decline as demonstrated by the following impairment level findings: 1. Decreased strength to B UE/LE major muscle groups 2. Impaired sitting/standing balance 3. Impaired activity tolerance 4. Limitation of joint range of motion in B UE/LE joints as above 5. Shortness of breath 6. Fatigue Impairments are contributing to the following functional limitations: 1. Decline in bed mobility skills 2. Decline in transfer skills 3. Difficulty with ambulation without assistive device and physical assistance 4. Increased completion time for mobility ADL performance 5. Increased risk for falls 6. Difficulty with managing steps alone safely Patient is assessed as a [id number] moderate complexity based on the following: History: 83-year-old male with past medical history as indicated above Examination: Demonstrable impairment in strength, balance, and mobility level with underlying impairments and functional limitations as exhibited above as well as deficit score of 69% utilizing the [facility] Mobility Inpatient Short Form Presentation: Evolving Decision Makin moderate complexity Goals: Goals X1 week 1. Supine-Sit independent 2. Sit-Supine independent 3. Sit-Stand independent 4. Stand-Sit independent with FWW 5. Bed-Chair independent with FWW 6. Chair-Bed independent with FWW 7. Independent gait on level surface with use of FWW for at least 150 feet without report of pain nor dyspnea 8. Independent stair negotiation while holding onto B rails for at least 5 steps without report of pain nor dyspnea 9. Independent with home exercise program if safe enough to go home at end of this episode of care 10. Good static and dynamic standing balance/tolerance Plan of Care/Treatment Plan: 1-2x/day, 7 days/week x 1 week. Plan of care has been reviewed with the STAVE SAW OPERATOR providing the service under Physical Therapy direction. Initiate Physical Therapy intervention for pain management as needed, strengthening, bed mobility, transfers, gait, stairs, balance training, and use of assistive device. DISCHARGE RECOMMENDATIONS: [] Home with no services [] [] Home with services [specify] [] Home with outpatient PT [] [] SNF for continued rehabilitation [] [] [facility] [] [] SNF versus LTC based on ability to participate and progress [] [X] Short-term SNF vs PT TREATMENT CODE/TIME: 71498 x 26 minutes (14::20?14: 46). Thank you for the opportunity to participate in the care of this patient. Theodora Guan PT, DPT, CLT [facility] [place], [place]
[2023-12-31] MEDS: methylPREDNISolone SUCC 125 MG VIAL IVP (17:12)
[2023-12-31] MEDS: DOXYCYCLINE 100 MG in Normal Saline 100 ML IVPB (17:12)
[2023-12-31] MEDS: Atorvastatin 10 MG TAB PO (20:38)
[2023-12-31] MEDS: Acetaminophen 325 MG TAB PO (20:39)
[2023-12-31] MEDS: Docusate Sodium 100 MG CAP PO (20:39)
[2024-01-01] VITALS (7 sets, daily range): BP systolic 126–149; BP diastolic 61–79; PULSE 47–68; RESP 15–28; TEMP 36.3–36.8; O2SAT 92–93
[2024-01-01] MEDS: DOXYCYCLINE 100 MG in Normal Saline 100 ML IVPB ×2 (04:44→17:00)
--- NOTE | 2024-01-01 07:53 | W.PM.PROGNOT ---
Date of Service Date of service: 01/01/24 Time of Service: 13:20 Assessment and Plan Assessment and plan (1) Influenza A: Status: Acute Assessment and plan: On Tamiflu renal dosing, Initial loading dose not given in ED, will be completed Continue PRN levalbuterol RT consult completed : Patient denied COPD but has an extensive history of smoking meeting criteria of COPD exacerbation. interventions ordered -IS and Vibrapep (2) COPD exacerbation: Status: Inactive Assessment and plan: Increased dyspnea, cough with sudden onset Continue prednisone Continue Doxycycline (3) Chronic renal disease, stage 3, moderately decreased glomerular filtration rate (GFR) between 30-59 mL/min/1.73 square meter: Status: Acute Assessment and plan: Cr 1.7 similar to baseline on admission GFR 39.5 today similar to admission day Cr Cl 39 ml/min calculated admission (4) GIO (acute kidney injury): Status: Acute Assessment and plan: As above Cr was 2.4 but back to baseline of 1.7 Patient could have IV hydration based on LEVF of 50% and other echo results, SBP and MAP Will stop IV at 50 cc/hr initiated earlier Holding lisinopril and furosemide Toprol held HR 55 w SBP 89, then up to 116/64 HR 55, consider resuming in AM BMP in AM (5) Hypertension: Status: Chronic Assessment and plan: on lisinopril and furosemide but on hold and as above Will restart lisinopril in AM (6) Paroxysmal atrial fibrillation: Status: Acute Assessment and plan: Home metoprolol of 25 mg po BID held d/t SBP 89 yesterday Metoprolol 12.5 mg po BID with parameters will reevaluate in AM Tele discontinued was SR with PVC's HR 60's on 12/31 continue home Eliquis (7) Coronary arteriosclerosis: Status: Active Assessment and plan: Contiue home dose of atorvastatin and ASA (8) Gastroesophageal reflux disease: Status: Active Assessment and plan: Continue home dose of omeprazole (9) Elevated brain natriuretic peptide (BNP) level: Status: Acute Assessment and plan: Weakness, BNP 3200, lasix IV and IV diltiazem in ED then SBP in the 90's patterson discontinued EKG from the ED showed SA Echocardiogram US LVEF 50%, bilateral systolic ventricular function adequate If SBP < 100 the patient could get small bolus of LR Cardiology consult pending but considering that this might not be necessary Discussed with Dr. Alejandro Subjective Subjective Patient reports: feels better (less tired), tolerating liquids well, tolerating a regular diet, voiding w/o difficulty (reported no previous voiding difficulty, patterson inserted in ED, will be d/c'ed ) and shortness of breath (improving ); denies diarrhea, vomiting or fever Exam Narrative Exam Narrative: Constitutional The patient is in bed, but worked with PT this AM, pleasamt and cooperative, imporve l short of breath on exertion Neuro:alert and X3, unabe to specify which hospital Resp: Slightly tachypnea during conversation and activity, sat around 93% on RA, exp wheezing to lower lung guevara, laryngeal wheezing,scattered ronchi clearing with coarse cough Cardio: irregular rhythm, S1, S2, radial and pedal pulses positive, LEs edema improved- appears chronic compression socks on GI: Abdomen is not distended, soft and non tender, bowel sounds are present Psych: RASS 0, congruent mood and normal affect. Objective Last Vital Signs Temp 36.4 C L 01/01/24 05:44 Pulse 47 L 01/01/24 05:44 Resp 26 H 01/01/24 05:44 BP 129/61 01/01/24 05:44 Pulse Ox 93 01/01/24 05:44 Time Spent with Patient Time Spent with Patient: >50 minutes (1 hour) Time was spent: preparing to see the patient(eg.review tests), obtaining and/or reviewing separately otained hiistory, ordering medications,tests, procedures, referring, communicating with other health janitor caretaker, indepentently interpreting results, counseling the patient and care coordination
[2024-01-01] MEDS: Docusate Sodium 100 MG CAP PO ×2 (08:10→22:52)
[2024-01-01] MEDS: Oseltamivir 30 MG CAP PO (08:10)
[2024-01-01] MEDS: Apixaban 2.5 MG TAB PO ×2 (08:10→22:52)
[2024-01-01] MEDS: guaiFENesin 600 MG TABCR PO ×2 (08:10→22:53)
[2024-01-01] MEDS: Aspirin 81 MG CHEW PO (08:10)
[2024-01-01] MEDS: Omeprazole 20 MG CAPCR 40 MG PO (08:10)
[2024-01-01] MEDS: Normal Saline Flush 10 ML SYR IVP ×2 (08:11→22:55)
--- NOTE | 2024-01-01 10:48 | PT.INTREAT ---
PT Notes Visit Reasons: Influenza A Infection Inpatient Physical Therapy Treatment Note [facility] Date: 01/01/2024 PRECAUTIONS: Droplet precautions for influenza SUBJECTIVE: Pt states he would like to leave as soon as he can. He thinks he is pretty close to his normal. OBJECTIVE: ? PAIN: No pain reports today Therapeutic Activities ([id number]): Direct one-on-one instruction in dynamic activities to improve functional performance. ? BED MOBILITY/TRANSFERS? Rolling L/R: SBA Supine-sit: SBA? Sit-supine: SBA ? Sit-stand: CGA ? Stand-sit: CGA ? -Provided skilled cues and instruction on performance and technique throughout. ? GAIT? Assistive Device: RW? Weight bearing: Full Assist: CGA? Distance:? 25 ft ? Deviation: shortened step length bilaterally, decreased gait speed, increased UE support on RW but cues needed to keep RW close to him ? Exercises: LAQs, seated hip flex x15 bilat ? -Provided skilled instruction in proper exercise performance ASSESSMENT:? Pt did well with ambulatory activities but remains a fall risk due to his shuffling gait and slow gait speed. He will likely have difficulty with stairs at his current state as he does not spend much time in single limb stance during his gait cycle. He did need extra V+T cues to keep the RW close to him during ambulatory activities. He will continue to benefit from skilled PT services to help progress him to his functional baseline. PLAN: Continue progressing with ambulatory activities, stair training TREATMENT CODE/TIME: Ther Act [id number] - 20 min
[2024-01-01] MEDS: Lactated Ringers 1,000 ML 50 ML IV (12:16)
[2024-01-01] MEDS: predniSONE 20 MG TAB 40 MG PO (12:16)
[2024-01-01 12:46] LABS: Abs Immature Grans 0.04 10^3/uL (0.0-0.06); Absolute Basophil Count 0.01 10^3/uL (0.0-0.2); Absolute Neutrophil Count 6.01 10^3/uL (1.2-6.7); Basophils % 0.1 %; HCT 49.3 % (40.0-50.0); HGB 16.6 g/dL (13.5-17.5); Immature Grans % 0.6 %; Lymphocytes % 6.9 %; MCH 28.8 pg (27.0-33.0); MCHC 33.7 % (32.0-36.0); MCV 85 fL (80-95); MPV 12.4 fL (8.0-11.0); Monocytes % 9.6 %; Neutrophils % 82.8 %; Platelet Count 130 10^3/uL (130-400); RBC 5.77 10^6/uL (4.36-5.78); RDW 13.8 % (11.8-14.1); WBC 7.26 10^3/uL (4.4-10.8)
[2024-01-01 12:54] LABS: Anion Gap 9.3 mmol/L (3-11); BUN 39 mg/dL (7-18); CO2 22.7 mmol/L (21.0-32.0); CREATININE 1.7 mg/dL (0.70-1.30); Calcium 8.4 mg/dL (8.5-10.1); Chloride 106 mmol/L (98-107); Estimated GFR 39.51 (mL/min/1.73m2); Glucose 127 mg/dL (74-106); Potassium 4.6 mmol/L (3.5-5.1); Sodium 138 mmol/L (136-145)
[2024-01-01] MEDS: Metoprolol 12.5 MG TAB PO ×2 (14:12→23:03)
[2024-01-01] MEDS: Oseltamivir 75 MG CAP PO (22:53)
[2024-01-01] MEDS: Acetaminophen 325 MG TAB PO (22:53)
[2024-01-01] MEDS: Atorvastatin 10 MG TAB PO (22:54)
[2024-01-02] VITALS (7 sets, daily range): BP systolic 115–142; BP diastolic 63–75; PULSE 40–66; RESP 2–28; TEMP 36.3–36.7; O2SAT 88–96
[2024-01-02] MEDS: DOXYCYCLINE 100 MG in Normal Saline 100 ML IVPB ×2 (04:38→16:55)
[2024-01-02] MEDS: Levalbuterol 1.25 MG/3 ML UPD VIAL UPD ×2 (04:57→09:06)
[2024-01-02] MEDS: Apixaban 2.5 MG TAB PO ×2 (08:38→20:31)
[2024-01-02] MEDS: Omeprazole 20 MG CAPCR 40 MG PO (08:38)
[2024-01-02] MEDS: predniSONE 20 MG TAB 40 MG PO (08:38)
[2024-01-02] MEDS: Aspirin 81 MG CHEW PO (08:38)
[2024-01-02] MEDS: guaiFENesin 600 MG TABCR PO ×2 (08:38→20:31)
[2024-01-02] MEDS: Docusate Sodium 100 MG CAP PO ×2 (08:38→20:31)
[2024-01-02] MEDS: Oseltamivir 30 MG CAP PO ×2 (08:39→20:31)
[2024-01-02] MEDS: Fluticasone NASAL SPRAY 16 GM BTL NS (08:44)
[2024-01-02] MEDS: Lisinopril 5 MG TAB PO (08:46)
--- NOTE | 2024-01-02 08:46 | PGE_ITS ---
Date of Service Date of service: 01/02/24 Time of Service: 08:47 Assessment and Plan Assessment and plan (1) Influenza A: Status: Acute Assessment and plan: On Tamiflu renal dosing, Initial loading completed On RA Continue PRN levalbuterol RT consult completed : Patient denied COPD but has an extensive history of smoking meeting criteria of COPD exacerbation. interventions ordered -IS and Vibrapep (2) COPD exacerbation: Status: Inactive Assessment and plan: Increased dyspnea, cough with sudden onset Exacerbation most likely d/t viral illness and as above Continue prednisone complete course with oral at d/c Continue Doxycycline, plan oral at discharge to complete the course (3) Chronic renal disease, stage 3, moderately decreased glomerular filtration rate (GFR) between 30-59 mL/min/1.73 square meter: Status: Acute Assessment and plan: Cr 1.7 baseline on admission now 1.5 GFR 39.5 today similar to admission day Cr Cl 39 ml/min calculated admission (4) GIO (acute kidney injury): Status: Acute Assessment and plan: As above Cr down to 1.5 ; resolved LEVF of 50% and other echo results IV at 50 cc/hr completed On lisinopril and furosemide lopressor held this AM HR listed 40 when recheck was 60 Beta mela with parameter BMP in AM (5) Hypertension: Status: Chronic Assessment and plan: on lisinopril and furosemide (6) Paroxysmal atrial fibrillation: Status: Acute Assessment and plan: Home metoprolol of 25 mg po BID held d/t SBP 89 yesterday Metoprolol 12.5 mg po BID with parameters continue home Eliquis (7) Coronary arteriosclerosis: Status: Active Assessment and plan: Continue home dose of atorvastatin and ASA (8) Gastroesophageal reflux disease: Status: Active Assessment and plan: Continue home dose of omeprazole (9) Elevated brain natriuretic peptide (BNP) level: Status: Acute Assessment and plan: Weakness, BNP 3200, lasix IV and IV diltiazem in ED then SBP in the 90's yesenia discontinued EKG from the ED showed SA Echocardiogram US LVEF 50%, bilateral systolic ventricular function adequate If SBP < 100 the patient could get small bolus of LR Cardiology consult ordered but considering that this might not be necessary; discontinued Discussed with Dr. Alejandro (10) Discharge planning issues: Status: Acute Assessment and plan: Was having home assitance but not sure it was [facility] CM investigating Will need PT and maybe nursing; not independent Wanted to leave today but convinced to stay Subjective Subjective Patient reports: feels better, tolerating liquids well, tolerating a regular diet, voiding w/o difficulty and shortness of breath; denies diarrhea, nausea, vomiting or fever Exam Narrative Exam Narrative: Constitutional The patient is in bed, but worked with PT this AM, pleasamt and cooperative, imporve l short of breath on exertion Neuro:alert and X3, unabe to specify which hospital Resp: Slightly tachypnea during conversation and activity, sat around 93% on RA, exp wheezing to lower lung guevara improved but + laryngeal wheezing Cardio:regular rhythm, S1, S2, radial and pedal pulses positive, LEs edema improved GI: Abdomen is not distended, soft and non tender, bowel sounds are present Psych: RASS 0, congruent mood and normal affect. Objective Last Vital Signs Temp 36.3 C L 01/02/24 08:36 Pulse 40 L 01/02/24 08:36 Resp 24 01/02/24 08:36 BP 142/63 H 01/02/24 08:36 Pulse Ox 96 01/02/24 08:36 Laboratory Results - last 24 hr 01/01/24 12:38 WBC 7.26 RBC 5.77 Hgb 16.6 Hct 49.3 MCV 85 MCH 28.8 MCHC 33.7 RDW 13.8 Plt Count 130 MPV 12.4 H Immature Gran % 0.6 Neutrophils % 82.8 Lymphocytes % 6.9 Monocytes % 9.6 Eosinophils % 0.0 Basophils % 0.1 Nucleated RBC % 0.0 Absolute Neutrophils 6.01 Absolute Lymphocytes 0.50 L Absolute Monocytes 0.70 Absolute Eosinophils 0.00 Absolute Basophils 0.01 Sodium 138 Potassium 4.6 Chloride 106 Carbon Dioxide 22.7 Anion Gap 9.3 BUN 39 H Creatinine 1.7 H Est GFR (CKD-EPI 2020) 39.51 Glucose 127 H Calcium 8.4 L Time Spent with Patient Time Spent with Patient: >50 minutes Time was spent: preparing to see the patient(eg.review tests), obtaining and/or reviewing separately otained hiistory, ordering medications,tests, procedures, referring, communicating with other health healthcare financial analyst, indepentently interpreting results, counseling the patient and care coordination
[2024-01-02 09:08] LABS: Abs Immature Grans 0.03 10^3/uL (0.0-0.06); Absolute Basophil Count 0.01 10^3/uL (0.0-0.2); Absolute Monocyte Count 0.74 10^3/uL (0.1-0.8); Absolute Neutrophil Count 5.79 10^3/uL (1.2-6.7); Basophils % 0.1 %; HGB 16.7 g/dL (13.5-17.5); Immature Grans % 0.4 %; Lymphocytes % 10.9 %; MCH 28.6 pg (27.0-33.0); MCHC 33.4 % (32.0-36.0); MCV 86 fL (80-95); MPV 12.1 fL (8.0-11.0); Neutrophils % 78.6 %; Platelet Count 128 10^3/uL (130-400); RBC 5.84 10^6/uL (4.36-5.78); RDW 13.8 % (11.8-14.1); RDW-SD 43.4 fL; WBC 7.37 10^3/uL (4.4-10.8)
[2024-01-02 09:27] LABS: Anion Gap 8.5 mmol/L (3-11); BUN 38 mg/dL (7-18); CO2 23.5 mmol/L (21.0-32.0); CREATININE 1.5 mg/dL (0.70-1.30); Calcium 8.4 mg/dL (8.5-10.1); Chloride 107 mmol/L (98-107); Estimated GFR 45.91 (mL/min/1.73m2); Glucose 99 mg/dL (74-106); Potassium 4.2 mmol/L (3.5-5.1); Sodium 139 mmol/L (136-145)
[2024-01-02] MEDS: Furosemide 20 MG TAB PO (10:20)
[2024-01-02] MEDS: Normal Saline Flush 10 ML SYR IVP ×2 (10:20→20:32)
--- NOTE | 2024-01-02 12:12 | PTTR_ITS ---
PT Notes Visit Reasons: Influenza A Infection Inpatient Physical Therapy Treatment Note [facility] Date: 01/02/2024 PRECAUTIONS: Droplet precautions still in place for influenza SUBJECTIVE: Pt states that he is ready to get up. He is agreeable to getting into the chair. OBJECTIVE: ? PAIN: Unremarkable Vitals: spO2 93% seated at EOB Therapeutic Activities ([id number]): Direct one-on-one instruction in dynamic activ ities to improve functional performance. ? BED MOBILITY/TRANSFERS? Rolling L/R: SBA Supine-sit: minAx1 ? Sit-supine: CGA? Sit-stand: CGA ? Stand-sit: CGA? Bed-Chair: CGA? -Provided skilled cues and instruction on performance and technique throughout. GAIT? Assistive Device: RW ? Weight bearing: Full Assist: CGA ? Distance:? 30 ft ? Deviation: Wide HIEN, minimal foot clearance, minimal step length, dec reased gait speed, cues needed to stay within RW ? EXERCISES Performed: seated marching x10, LAQs x10, seated calf raises x10, standing marching x10 bilat ? ASSESSMENT:?Pt seemed to have more difficulty today with bed mobility as he needed minimal assistance with this. He also seemed to have more congestion so his spO2 was assessed but he was stable at 93%. He continues to demonstrate decreased single limb stance which is limiting his ambulation distance and speed. This will make it difficult for him to return home in the short term as he needs to manage stairs so it is recommended that he get placed in a rehab to help progress with his functional goals to return home safely. PLAN: Continue ambulatory progression, hip flexor strengthening to encourage increased single limb stance time TREATMENT CODE/TIME: Ther Act 80966 x1 - 15 min
[2024-01-02] MEDS: Atorvastatin 10 MG TAB PO (20:30)
[2024-01-02] MEDS: Acetaminophen 325 MG TAB PO (20:31)
[2024-01-02] MEDS: Metoprolol 12.5 MG TAB PO (20:31)
[2024-01-03 01:13] VITALS: BP 127/70; PULSE 57; RESP 18; TEMP 36.5; O2SAT 94
[2024-01-03] MEDS: DOXYCYCLINE 100 MG in Normal Saline 100 ML IVPB (04:04)
[2024-01-03] MEDS: Normal Saline Flush 10 ML SYR IVP ×2 (06:00→08:48)
[2024-01-03] MEDS: Omeprazole 20 MG CAPCR 40 MG PO (07:40)
[2024-01-03] MEDS: Fluticasone NASAL SPRAY 16 GM BTL NS (07:47)
[2024-01-03] MEDS: Lisinopril 5 MG TAB PO (07:47)
[2024-01-03] MEDS: Aspirin 81 MG CHEW PO (07:48)
[2024-01-03] MEDS: predniSONE 20 MG TAB 40 MG PO (07:48)
[2024-01-03] MEDS: guaiFENesin 600 MG TABCR PO (07:48)
[2024-01-03] MEDS: Apixaban 2.5 MG TAB PO (07:49)
[2024-01-03] MEDS: Metoprolol 12.5 MG TAB PO (07:49)
[2024-01-03] MEDS: Oseltamivir 30 MG CAP PO (07:49)
[2024-01-03] MEDS: Furosemide 20 MG TAB PO (07:49)
[2024-01-03] MEDS: Docusate Sodium 100 MG CAP PO (07:49)
[2024-01-03 08:13] VITALS: BP 145/89; PULSE 70; RESP 18; TEMP 35.9; O2SAT 94
--- NOTE | 2024-01-03 09:50 | PDOC.CMPRO ---
Date of service: 01/03/24 Time of Service: 09:50 Care Management Progress Note Discharge Potential Discharge Needs: PCP F/U Appt Anticipated Barriers to Discharge: None Identified Patient/Family Education Needs: Review discharge instructions, discuss Ask Me Three Transportation: Private vehicle Plan: Anticipate Pop will be discharged home, possibly with new home health services, when medically cleared. He will follow up with his PCP and plan of care and transport with family. CM will follow and continue to assess for discharge needs. SDOH(Care Management) Screening Will the Patient Participate in the Screening?: Yes Do you worry about having a steady place to live?: no In the past 12 months, have you had to go without electric, gas, oil or water in your home?: no Have you or anyone in your house had to go without enough food to eat?: no Has lack of transportation kept you from medical appointments or from doing things needed for daily living?: no Has anyone in your support network made you feel unsafe for any reason?: no
--- NOTE | 2024-01-03 11:16 | W.PM.DS.N ---
Date of service: 01/03/24 Time of Service: 11:17 DS: Diagnosis Discharge Diagnosis (1) Influenza A: Status: Acute (2) Chronic renal disease, stage 3, moderately decreased glomerular filtration rate (GFR) between 30-59 mL/min/1.73 square meter: Status: Acute (3) GIO (acute kidney injury): Status: Acute (4) Hypertension: Status: Chronic (5) Paroxysmal atrial fibrillation: Status: Acute (6) Coronary arteriosclerosis: Status: Active (7) Gastroesophageal reflux disease: Status: Active (8) Elevated brain natriuretic peptide (BNP) level: Status: Acute Discharge Plan Disposition Patient Disposition: Home W/Home Health Services Condition: Improving Discharge Details Reason For Visit: Influenza A Infection Admit Date/Time: 12/30/23 12:46 Admit Provider: Piter Alejandro Attending Provider: Piter Alejandro Primary Care Provider: Arnold Vicente Hospital Course Hospital Course: This is an 83-year-old male patient past medical history significant for atrial fibrillation anticoagulated on apixaban hypertension COPD coronary artery disease chronic kidney disease who presented to the emergency department with complaints of weakness and fatigue and minimal shortness of breath. His workup in the emergency department did show flu 80. There was also concern for fluid overload so he did receive IV Lasix. He was started on Tamiflu and did have oxygen requirement so was admitted to the medical surgical unit for further management and evaluation. Of note he also received IV Cardizem in the emergency department for A-fib with RVR. He responded to treatment and was safely reambulated. He remained afebrile was weaned off oxygen and is stable for discharge to home. He did complete a course of Tamiflu that was renally dosed. He also was placed on a steroid burst and doxycycline which she will continue for 3 more days to complete a 7-day course. He is being discharged to home with new home health services, physical therapy for home safety evaluation and evaluation following an extended hospitalization for respiratory illness. Discharge discussed with Dr. Levine Home Meds and New Rx's Prescriptions: New prednisone 20 mg Tablet 40 mg PO DAILY Qty: 4 0RF guaifenesin [Mucus Relief ER] 600 mg Tablet Extended Release 12hr 600 mg PO BID Qty: 6 0RF doxycycline hyclate 100 mg capsule 100 mg PO BID Qty: 7 0RF Continued acetaminophen [Tylenol Arthritis Pain] 650 mg tablet extended release 325 mg PO HS fluticasone propionate 50 mcg/actuation spray,suspension 2 spray CHINMAY DAILY Qty: 48 3RF Rx Instructions: administer into each nostril aspirin [Aspirin Low-Strength] 81 MG tablet,chewable 81 mg PO DAILY furosemide [Lasix] 20 mg tablet 20 mg PO QAM Qty: 90 3RF lisinopril 5 mg tablet 5 mg PO DAILY Qty: 90 3RF atorvastatin 10 mg tablet 10 mg PO QPM Qty: 90 3RF omeprazole 40 mg capsule,delayed release(DR/EC) 40 mg PO DAILY Qty: 90 3RF metoprolol tartrate 50 mg tablet 25 mg PO BID Qty: 90 3RF Eliquis 2.5 mg tablet 2.5 mg PO BID Qty: 180 3RF Discharge Instructions Instructions: Flu in adults - Discharge instructions Stand Alone Forms: Nursing Discharge Form Referrals: Arnold Vicente MD [Primary Care Provider] - 01/10/24 10:00 am Activity:: Activity as Tolerated Equipment/Supplies:: No Equipment Needed Diet:: As Tolerated Discharge Orders Discharge Orders: Discharge Order (Routine); Ordered 01/03/24 Ordered By: Any Braga Discharge Data Discharge Date/Time-TO BE ENTERED AT DEPARTURE: 01/03/24 03:05 DS: Summary Time Spent with Patient providing and/or coordinating discharge services: Greater than 30 minutes Status at Discharge Functional status at discharge: independent ambulation Overall status at discharge: patient is progressing back to baseline Mental Status: mental status grossly normal Speech and Movement: speech and movement normal Mood: congruent mood Affect: normal affect Quality:SDOH Health Related Social Needs: No Data to Display Exam Narrative Exam Narrative: Elderly male, frail, of stated age in no acute distress head is atraumatic oral mucosas moist cardiovascular irregular rate and rhythm controlled with a pulse in the 70s respirations even and unlabored he is Fine Rales in his bases bilaterally abdomen is soft nontender extremities are without edema moves all extremities well neurologic he is awake alert oriented no focal deficits moving all extremities equally Psych Mental Status: mental status grossly normal Speech and Movement: speech and movement normal Mood: congruent mood Affect: normal affect DS: Data Vitals/I&O Vitals and I&O: Vital Signs Temperature 35.9 C L 01/03/24 08:13 Temperature Source Skin 01/03/24 08:13 Pulse 70 01/03/24 08:13 Pulse Rhythm Irregular 01/03/24 07:45 Pulse 71 12/30/23 13:16 Respiratory Rate 18 01/03/24 08:13 Respiratory Effort Labored 01/03/24 07:45 Respiratory Depth Shallow 01/03/24 07:45 Respiratory Pattern Normal 01/03/24 07:45 Blood Pressure 145/89 H 01/03/24 08:13 Blood Pressure Mean 58 12/30/23 13:16 Pulse Oximetry 94 01/03/24 08:13 Oxygen Delivery Method Room Air 01/03/24 08:13 Oxygen Flow Rate 0 01/03/24 08:13 Pain Level 0 01/02/24 08:36 Comment 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 Appears increased WOB, but pt denying feeling SOB 01/02/24 04:43 Intake & Output 01/02/24 01/02/24 01/03/24 11:59 23:59 11:59 Intake Total 100 / 1210 1110 / 1210 100 / 100 Balance 100 / 1210 1110 / 1210 100 / 100 Intake: IV 100 / 1210 1110 / 1210 100 / 100 Other: Urine Color Yellow Yellow Urine Appearance Clear Urine Odor Normal Voiding Methods Toilet Toilet Data Completed and Pending Labs on day of discharge: Preliminary micro results at discharge 12/30/23 10:45 Blood Culture - Preliminary Blood NO GROWTH 72 HOURS 12/30/23 10:48 Blood Culture - Preliminary Blood NO GROWTH 72 HOURS PFSH All Active Problems (Updated 01/02/24 @ 19:57 by Vivian Ozuna APRN) Discharge planning issues (Acute) GIO (acute kidney injury) (Acute) Elevated brain natriuretic peptide (BNP) level (Acute) Influenza A (Acute) Hematuria (Acute) Elevated bilirubin (Acute) Chronic renal disease, stage 3, moderately decreased glomerular filtration rate (GFR) between 30-59 mL/min/1.73 square meter (Acute) Paroxysmal atrial fibrillation (Acute) Nail dystrophy (Acute) Peripheral edema (Acute) Arthritis of big toe (Acute) Skin lesion of face (Acute) Facial basal cell cancer (Acute) Loose stools (Acute) Hypertension (Chronic) Vasomotor rhinitis (Chronic) use the ipratropium Fracture of thoracic spine (Acute) History of cataract removal with insertion of prosthetic lens (Acute) History of coronary artery bypass surgery (Acute) History of esophagogastroduodenoscopy (Acute) History of thoracentesis (Acute) Status post abdominal aortic aneurysm repair (Acute) Status post cholecystectomy (Acute) Pneumonia (Acute) Pulmonary nodule, right (Acute 02/26/16) [place] [facility] [place] Multiple sclerosis (Acute 11/14/14) Idiopathic scoliosis (Acute) Hyperlipidemia (Acute 11/02/12) History of tobacco use (Acute 11/02/12) quit 2005 History of tobacco use (Acute 11/02/12) quit 2006 Gastritis (Acute) per EGD 2006 Chronic obstructive lung disease (Acute 11/02/12) Aortic aneurysm (Acute 11/02/12) AAA-lap repair 2005 Nausea,vomiting,diarrhea, fever (Active 11/16/12) Multiple sclerosis (Active) Diagnosed 25 years ago. 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 Surgery [facility] [place] Surgical History History of thoracentesis Hx of cholecystectomy History of cataract surgery History of tonsillectomy Hx of CABG History of AAA (abdominal aortic aneurysm) repair EGD - MAC (~01/2007) GERD/CHRONIC GASTRITIS Social History Smoking/Tobacco Use Status: Former Tobacco Use Quit Date: 12/27/23 Tobacco: How many years used: 55 Smoking risk assessment performed?: Yes Alcohol Intake: never Drug use: Never Substance use type: does not use Do you feel safe at home: Yes Do you feel safe in your relationship?: Yes Time Spent with Patient Time Spent with Patient: 45-69 minutes Time was spent: preparing to see the patient(eg.review tests), ordering medications,tests, procedures, indepentently interpreting results and counseling the patient
--- NOTE | 2024-01-03 11:37 | PDOC.HHF2F_ITS ---
Home Health Referral Home Health Orders Medical diagnosis necessitation home health referral: influenza, acute kidney injury, Physical Therapist: Check all that apply Increase strength & endurance for safe mobility at home: Ordered To design/establish home maintenance program: Ordered Fall reduction therapy program for patient with history of frequent falls: Ordered Home safety evaluation and teaching/gait training including stair management (if applicable): Ordered Home Bound Status Describe why leaving home would require a considerable and taxing effort: Requires frequent rest periods and Safety Concerns: describe Encounter Date and Reason: I certify that a FTF encounter for this patient was performed on January 03, 2024 and that such encounter was related to the primary reason the patient requires home health services. The encounter was conducted in the following manner: * By me as the certifying physician, FIXED ASSETS ACCOUNTANT, PA or * By an inpatient physician, FIXED ASSETS ACCOUNTANT or PA during an inpatient stay who communicated findings to me, Certification And Authentication I certify that I composed the above information based on my clinical judgment relating to this patient's medical condition and, if applicable, clinical findings communicated to me by the NPP or inpatient physician who performed the FTF encounter. Name of Provider that will be monitoring home health services: Arnold Vicente
[2024-01-03 12:07] VITALS: BP 137/83; PULSE 74; RESP 18; TEMP 36.7; O2SAT 94
--- NOTE | 2024-01-03 18:01 | PDOC.CMDIS ---
Date of service: 01/03/24 Time of Service: 18:01 LACE Index Scoring Tool Questions: Length of Stay (in days): 4 - 6 Was the patient admitted via the E.D.?: Yes Comorbidities: Chronic Pulmonary Disease, Any Tumor and Liver or Renal Disease E.D. Visits: 1 Answers: Total Score: 13 Risk of Readmission: High Risk Care Management Discharge Plan Reason for Hospitalization: Influenza A Discharge Plan: Pop will be discharged home with new home health services for PT. He will follow up with his PCP and plan of care and transport with family. Patient/Family Education Needs: Review discharge instructions, discuss Ask Me Three Services Needed at Discharge: Home Health Care Services SDOH Health Related Social Needs: No Data to Display
== END 2024-01-03 03:05 | disposition home health service (06) | DRG 194 ==
LOC: ER 12:48 → MS 14:37
PROVIDERS: Nurse Practitioner Acute Care; Admitting Provider Family Medicine; Emergency Provider Emergency Medicine; PCP Family Medicine; Visit Provider Family Medicine
DX: J10.1 Influenza due to other identified influenza virus with other respiratory manifestations (principal); N17.9 Acute kidney failure, unspecified; N18.30 Chronic kidney disease, stage 3 unspecified; I48.0 Paroxysmal atrial fibrillation; I25.10 Atherosclerotic heart disease of native coronary artery without angina pectoris; Z79.01 Long term (current) use of anticoagulants; I10 Essential (primary) hypertension; G35 Multiple sclerosis; R79.89 Other specified abnormal findings of blood chemistry; Z95.1 Presence of aortocoronary bypass graft; E78.5 Hyperlipidemia, unspecified; Z87.891 Personal history of nicotine dependence
CPT/HCPCS: 00123; 36415; 51702; 80048; 80053; 84145; 87040; 87637; 93005; 96361; 96365; 96367; 96372; 96375; 97162; 97530; 99285; 71045; 81003; 81015; 83605; 83735; 83880; 84484; 85025; 85610; 85730; 93010; 93306; 94640; 94667; 94668; 94760; 99233; 99239; G0378; J0131; J1940; J2543; J2919; J3370; J3372; J3475; J3490; J7512; J7614

== ENCOUNTER → 2024-01-03 07:52 | Outpatient (BNVA) | payer MEDICARE, MEDICAID, SELFPAY | PROVIDERS: PCP Family Medicine; Referring Provider Family Medicine; Visit Provider Internal Medicine Cardiovascular Disease ==

== ENCOUNTER 2024-01-07 12:28 | Inpatient (IN) | payer MEDICARE, MEDICAID, SELFPAY ==
[2024-01-07] VITALS (42 sets, daily range): BP systolic 110–168; BP diastolic 55–86; PULSE 37–80; RESP 13–25; TEMP 35.6–36.6; O2SAT 92–100
--- NOTE | 2024-01-07 12:30 | RT.EKG_ITS ---
APPROVED REPORT Exam: Resting ECG Reason for Exam: Weakness Patient Location: E HR:68 bpm ECG Measurements Heart Rate 68 AXIS VA 88 P 0 QRSd 100 QRS -32 QT 414 T 14 QTc 439 Conclusion Sinus rhythm...normal P axis, V-rate 60- 99 Ventricular bigeminy...bigeminy string>4 w/ V complexes Inferior infarct, old...Q >35mS, II III aVF
--- NOTE | 2024-01-07 12:45 | DI.RAD_ITS ---
Exam(s) XR CHEST 2V PA LATERAL EXAM: XR CHEST 2V PA LATERAL CLINICAL HISTORY: cough TECHNIQUE: 2D digital imaging was performed. Two views. COMPARISON: CR XR CHEST 2V PA LATERAL from 08/30/2018 CR XR CHEST 2V PA LATERAL from 04/16/2022 CR,XR XR PORTABLE CHEST AP from 10/09/2022 CR,XR XR PORTABLE CHEST AP from 12/30/2023 FINDINGS: Exam is limited by under penetration. HEART: Enlarged. Status post CABG. Aorta: Not dilated. PULMONARY VASCULATURE: Mildly prominent. MEDIASTINUM: Unremarkable. LUNGS: No evidence of focal infiltrate. Mild pulmonary edema versus interstitial changes. PLEURAL SPACE: No pleural effusion or pneumothorax. BONE:Sternal wires. Bones appear osteoporotic. Lumbar spine somewhat difficult to visualize. Midth oracic compression fractures appear unchanged. SOFT TISSUES: Unremarkable. IMPRESSION: Question mild pulmonary edema DATA REPOSITORY: RADIATION DOSE DELIVERED:
--- NOTE | 2024-01-07 12:54 | W.ED.GENAD ---
Discharge Plan Discharge Details Chief Complaint: [facility] Primary Care Provider: Arnold Vicente ED Provider: Sean Burks Home Meds and New Rx's Prescriptions: No Action acetaminophen [Tylenol Arthritis Pain] 650 mg tablet extended release 325 mg PO HS fluticasone propionate 50 mcg/actuation spray,suspension 2 spray CHINMAY DAILY Qty: 48 3RF Rx Instructions: administer into each nostril aspirin [Aspirin Low-Strength] 81 MG tablet,chewable 81 mg PO DAILY lisinopril 5 mg tablet 5 mg PO DAILY Qty: 90 3RF atorvastatin 10 mg tablet 10 mg PO QPM Qty: 90 3RF omeprazole 40 mg capsule,delayed release(DR/EC) 40 mg PO DAILY Qty: 90 3RF metoprolol tartrate 50 mg tablet 25 mg PO BID Qty: 90 3RF Eliquis 2.5 mg tablet 2.5 mg PO BID Qty: 180 3RF furosemide [Lasix] 20 mg tablet 20 mg PO QAM Qty: 90 3RF prednisone 20 mg Tablet 40 mg PO DAILY Qty: 4 0RF guaifenesin [Mucus Relief ER] 600 mg Tablet Extended Release 12hr 600 mg PO BID Qty: 6 0RF doxycycline hyclate 100 mg capsule 100 mg PO BID Qty: 7 0RF HPI General Date/Time Provider Initiated Documentation: 01/07/24 12:44. HPI Narrative: 83 year-old male presents to ED today by POV/ambulating with his grandson with a chief complaint of feels run-down, recently admitted and discharged just days ago for influenza with significant comorbidities with onset the past couple days. Quality described as just feels weak, had to call his grandson to get up out of his chair, denies fever, denies severe shortness of breath, no radiation to chest pain, syncope, severe headache, body aches, patient denies bowel or urinary changes. Severity is described as moderate to severe. Palliating factors include nothing specific. Provoking factors include patient's grandson questions if he has been drinking enough water. Events leading up to the incident/Associated Symptoms: Patient does have home health aides that come help him with meals and chores around the house but he does not walk well at baseline due to MS. Patient is anticoagulated on apixaban. Related Data Home Medications ?Medication ?Instructions ?Recorded ?Confirmed aspirin 81 mg chewable tablet 81 mg PO DAILY 05/12/14 07/12/24 (Aspirin Low-Strength) acetaminophen 650 mg 325 mg PO HS 06/06/19 01/07/24 tablet,extended release (Tylenol Arthritis Pain) fluticasone propionate 50 2 spray intranasal DAILY #48 grams 06/30/22 01/07/24 mcg/actuation nasal spray,suspension lisinopril 5 mg tablet 5 mg PO DAILY #90 tab-caps 03/02/23 01/07/24 atorvastatin 10 mg tablet 10 mg PO QPM #90 tabs 11/08/23 01/07/24 metoprolol tartrate 50 mg tablet 25 mg (1/2 x 50 mg) PO BID #90 tabs 11/08/23 01/07/24 omeprazole 40 mg capsule,delayed 40 mg PO DAILY #90 tab-caps 11/08/23 01/07/24 release apixaban 2.5 mg tablet (Eliquis) 2.5 mg PO BID #180 tabs 12/06/23 01/07/24 doxycycline hyclate 100 mg capsule 100 mg PO BID #7 caps 01/03/24 01/07/24 guaifenesin 600 mg tablet, 600 mg PO BID #6 tabs 01/03/24 01/07/24 extended release 12 hr (Mucus Relief ER) prednisone 20 mg tablet 40 mg (2 x 20 mg) PO DAILY #4 tabs 01/03/24 01/07/24 furosemide 20 mg tablet (Lasix) 20 mg PO QAM #90 tabs 01/05/24 01/07/24 Previous Rx's ?Medication ?Instructions ?Recorded fluticasone propionate 50 2 spray intranasal DAILY #48 grams 06/30/22 mcg/actuation nasal spray,suspension lisinopril 5 mg tablet 5 mg PO DAILY #90 tab-caps 03/02/23 atorvastatin 10 mg tablet 10 mg PO QPM #90 tabs 11/08/23 metoprolol tartrate 50 mg tablet 25 mg (1/2 x 50 mg) PO BID #90 tabs 11/08/23 omeprazole 40 mg capsule,delayed 40 mg PO DAILY #90 tab-caps 11/08/23 release apixaban 2.5 mg tablet (Eliquis) 2.5 mg PO BID #180 tabs 12/06/23 doxycycline hyclate 100 mg capsule 100 mg PO BID #7 caps 01/03/24 guaifenesin 600 mg tablet, 600 mg PO BID #6 tabs 01/03/24 extended release 12 hr (Mucus Relief ER) prednisone 20 mg tablet 40 mg (2 x 20 mg) PO DAILY #4 tabs 01/03/24 furosemide 20 mg tablet (Lasix) 20 mg PO QAM #90 tabs 01/05/24 Allergies Allergy/AdvReac Type Severity Reaction Status Date / Time Sulfa (Sulfonamide Allergy Skin Rash Verified 01/07/24 12:48 Antibiotics) General Stated Complaint: [facility] HEBERT: 2 Review of Systems All systems reviewed & are unremarkable except as noted in HPI and below Exam Narrative Exam Narrative: GENERAL APPEARANCE: Well-nourished, non-toxic, awake and alert, atraumatic, no acute distress. SKIN: Warm, pink, dry, intact, without rashes/lesions/ulcerations. HEAD: Normocephalic, atraumatic, normal hair distribution for gender/age. EYES: Pupils PERRLA, EOMs intact without nystagmus, normal conjunctiva, no exudates on lids/lashes. ENT: Nares patent, no circumoral cyanosis, no facial swelling NECK: Supple, trachea midline, painless cervical ROM. LUNGS/CHEST: Lungs - diffusely rhonchorous, R base worse than L, labored respirations, normal A/P diameter, symmetrical expansion, no chest wall deformity HEART (CV/PV): Regular rate and rhythm with 2/6 systolic murmur, no peripheral edema, no JVD. ABDOMEN: Soft, non-distended, no guarding, no tenderness. MSK: Normal ROM, no swelling/deformity to bilateral UEs or LEs, moving all extremities without weakness, no cyanosis, spine midline without tenderness, normal curvature. NEURO: Mental Status AAOx4 - alert to person, place, time, events No facial droop, no forehead involvement. Motor: No focal weakness - strength 5/5 in bilateral UEs and LEs, proximal and distal, symmetric. Sensory: sensation intact to light touch globally. Gait baseline, unsteady. PSYCH: euthymic, cooperative, pleasant, appropriate speech Course Vital Signs Vital signs: Vital Signs Temperature 36.6 C 01/07/24 12:39 Pulse 37 L 01/07/24 12:39 Respiratory Rate 16 01/07/24 12:39 Blood Pressure 128/66 01/07/24 12:39 Pulse Oximetry 95 01/07/24 12:39 Temperature 36.6 C 01/07/24 12:53 Pulse 37 L 01/07/24 12:53 Respiratory Rate 16 01/07/24 12:53 Respiratory Effort Normal, Non-Labored 01/07/24 12:52 Blood Pressure 128/66 01/07/24 12:53 Blood Pressure Position Sitting 01/07/24 12:53 Pulse Oximetry 95 01/07/24 12:53 Pain Level 0 01/07/24 12:53 Medical Decision Making This dictation utilizes [id number] dictation software and may contain unedited grammatical errors. 83 year-old male presents to ED today by POV/ambulating with his grandson with a chief complaint of feels run-down, recently admitted and discharged just days ago for influenza with significant comorbidities with onset the past couple days. Quality described as just feels weak, had to call his grandson to get up out of his chair, denies fever, denies severe shortness of breath, no radiation to chest pain, syncope, severe headache, body aches, patient denies bowel or urinary changes. Severity is described as moderate to severe. Palliating factors include nothing specific. Provoking factors include patient's grandson questions if he has been drinking enough water. Events leading up to the incident/Associated Symptoms: Patient does have home health aides that come help him with meals and chores around the house but he does not walk well at baseline due to MS. Patients' medical history: Multiple sclerosis, COPD, coronary artery disease, hypertension, malignant neoplasm of lower lobe of right lung, history of CKD with GIO, paroxysmal atrial fibrillation, known aortic aneurysm with lap repair in 2013. Family and social history: Lives independently, has home health aides. Pertinent exam findings / vital signs include rhonchorous lungs diffusely with labored respiration without hypoxia at rest, benign abdomen, nontoxic vitals. Differential / pathologies of concern include secondary bacterial pneumonia, failure to thrive, viral syndrome, CHF, ACS. Diagnostic studies of: -CBC, CMP, lactate, procalcitonin, x-ray chest, EKG, Troponin I, BNP, COVID/flu/RSV PCR, COVID/flu antigen, blood cultures. -CBC shows no leukocytosis, some hemoconcentration with elevated hemoglobin -CMP shows improved creatinine from prior readings -Troponin I negative -BNP is significantly elevated at 3000 which has been multiple readings in the past -Lactate negative, procalcitonin negative-do not suspect sepsis -COVID/flu/RSV is positive for flu A, antigen pending -EKG shows bigeminy, P waves are concerning with posterior, no evidence of ST elevation or reciprocal depression, questionable left axis deviation, poor R wave progression -Chest x-ray shows interstitial changes versus mild pulmonary edema question whether this is residual interstitial changes from recent influenza infection versus secondary infection versus CHF which would be a new diagnosis for the patient Interventions of: -DuoNeb treatment, road test-patient was not given any breathing treatments for at home with discharge. If he does not do well on road test he may need admission and empiric antibiotics for secondary bacterial pneumonia and echocardiogram to evaluate this possible no CHF. ED Course/Assessment/Plan: 83-year-old male presents with fatigue, he was recent discharge from influenza A admission. He is not hypoxic but has just been feeling very rundown difficult getting up out of his chair today, his laboratory workup shows mild dehydration, starting some bolus fluids on him 500mL, as well as IV lasix, will repeat CXR after ~30-60 mins of Lasix administration Patient did reasonably well with a road test here in the emergency department, residential treatment staff reports that his heart rate did drop to the 40s with ambulatory trial and with his questionable bigeminy and block with question of pulmonary edema I will consult with hospitalist for opinion on admission for possible echocardiogram. Hospitalist is performing critical procedure in ICU, signed out to Julia Fleming NP with hospitalist consult pending. Findings not consistent with hypoxic respiratory failure, ACS, sepsis. Disposition of Shortness of Breath. Patient verbalized understanding of the plan and return to ED criteria and engaged in shared decision making. Medical Records Medical records reviewed: Yes I reviewed the patient's medical records. Imaging Data Radiologic Study: Attestation: I personally reviewed and interpreted this imaging study as follows: Imaging: X-Ray Radiologist's impression: EXAM: XR CHEST 2V PA LATERAL CLINICAL HISTORY: cough TECHNIQUE: 2D digital imaging was performed. Two views. COMPARISON: CR XR CHEST 2V PA LATERAL from 08/30/2018 CR XR CHEST 2V PA LATERAL from 04/16/2022 CR,XR XR PORTABLE CHEST AP from 10/09/2022 CR,XR XR PORTABLE CHEST AP from 12/30/2023 FINDINGS: Exam is limited by under penetration. HEART: Enlarged. Status post CABG. Aorta: Not dilated. PULMONARY VASCULATURE: Mildly prominent. MEDIASTINUM: Unremarkable. LUNGS: No evidence of focal infiltrate. Mild pulmonary edema versus interstitial changes. PLEURAL SPACE: No pleural effusion or pneumothorax. BONE:Sternal wires. Bones appear osteoporotic. Lumbar spine somewhat difficult to visualize. Midthoracic compression fractures appear unchanged. SOFT TISSUES: Unremarkable. IMPRESSION: Question mild pulmonary edema Lab Data Lab results reviewed: Yes I reviewed the patient's lab results. Labs: 01/07/24 13:42 Blood Blood Culture - Pending 01/07/24 13:15 Blood Blood Culture - Pending Laboratory Tests Range/Units 01/07/24 01/07/24 12:50 13:15 WBC (4.4-10.8) 10^3/uL 8.22 RBC (4.36-5.78) 10^6/uL 6.23 H Hgb (13.5-17.5) g/dL 17.7 H Hct (40.0-50.0) % 53.4 H MCV (80-95) fL 86 MCH (27.0-33.0) pg 28.4 MCHC (32.0-36.0) % 33.1 RDW (11.8-14.1) % 13.7 Plt Count (130-400) 10^3/uL 154 MPV (8.0-11.0) fL 12.3 H Immature Gran % % 0.6 Neutrophils % % 83.5 Lymphocytes % % 7.4 Monocytes % % 6.8 Eosinophils % % 1.5 Basophils % % 0.2 Nucleated RBC % (0.0-0.3) % 0.0 Absolute Neutrophils (1.2-6.7) 10^3/uL 6.86 H Absolute Lymphocytes (1.2-3.4) 10^3/uL 0.61 L Absolute Monocytes (0.1-0.8) 10^3/uL 0.56 Absolute Eosinophils (0.0-0.7) 10^3/uL 0.12 Absolute Basophils (0.0-0.2) 10^3/uL 0.02 VBG Lactate (0.6-1.4) mmol/L 1.4 Sodium (136-145) mmol/L 143 Potassium (3.5-5.1) mmol/L 4.0 Chloride (98-107) mmol/L 111 H Carbon Dioxide (21.0-32.0) mmol/L 25.2 Anion Gap (3-11) mmol/L 6.8 BUN (7-18) mg/dL 30 H Creatinine (0.70-1.30) mg/dL 1.4 H Est GFR (CKD-EPI 2020) (mL/min/1.73m2) 49.87 Glucose (74-106) mg/dL 109 H Calcium (8.5-10.1) mg/dL 8.3 L Total Bilirubin (0.2-1.0) mg/dL 0.82 AST (15-37) U/L 13 L ALT (16-63) U/L 27 Alkaline Phosphatase (46-116) U/L 125 H Troponin I (< or =60) ng/L < 50 NT-Pro-B Natriuret Pep (<300) pg/mL 3094 H Total Protein (6.4-8.2) g/dL 6.7 Albumin (3.4-5.0) g/dL 3.4 Procalcitonin ng/mL < 0.1 COVID-19 Source Nasopharynx SARS-CoV-2 (PCR) (Negative) Negative Influenza Type A (PCR) (Negative) Positive A Influenza Type B (PCR) (Negative) Negative RSV (PCR) (Negative) Negative Quality:SDOH Health Related Social Needs: No Data to Display PFSH All Active Problems (Updated 01/04/24 @ 00:08 by SUMAN SALAZAR) GIO (acute kidney injury) (Acute) Elevated brain natriuretic peptide (BNP) level (Acute) Influenza A (Acute) Hematuria (Acute) Elevated bilirubin (Acute) Chronic renal disease, stage 3, moderately decreased glomerular filtration rate (GFR) between 30-59 mL/min/1.73 square meter (Acute) Paroxysmal atrial fibrillation (Acute) Nail dystrophy (Acute) Peripheral edema (Acute) Arthritis of big toe (Acute) Skin lesion of face (Acute) Facial basal cell cancer (Acute) Loose stools (Acute) Hypertension (Chronic) Vasomotor rhinitis (Chronic) use the ipratropium Fracture of thoracic spine (Acute) History of cataract removal with insertion of prosthetic lens (Acute) History of coronary artery bypass surgery (Acute) History of esophagogastroduodenoscopy (Acute) History of thoracentesis (Acute) Status post abdominal aortic aneurysm repair (Acute) Status post cholecystectomy (Acute) Pneumonia (Acute) Pulmonary nodule, right (Acute 02/26/16) Follwed by [facility] Multiple sclerosis (Acute 11/14/14) Idiopathic scoliosis (Acute) Hyperlipidemia (Acute 11/02/12) History of tobacco use (Acute 11/02/12) quit 2005 History of tobacco use (Acute 11/02/12) quit 2006 Gastritis (Acute) per EGD 2006 Chronic obstructive lung disease (Acute 11/02/12) Aortic aneurysm (Acute 11/02/12) AAA-lap repair 2005 Nausea,vomiting,diarrhea, fever (Active 11/16/12) Multiple sclerosis (Active) Diagnosed 25 years ago. 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 Surgery [facility] 2016 Surgical History History of thoracentesis Hx of cholecystectomy History of cataract surgery History of tonsillectomy Hx of CABG History of AAA (abdominal aortic aneurysm) repair EGD - MAC (~01/2007) GERD/CHRONIC GASTRITIS Social History Smoking/Tobacco Use Status: Former Tobacco Use Quit Date: 12/27/23 Tobacco: How many years used: 55 Smoking risk assessment performed?: Yes Alcohol Intake: never Drug use: Never Substance use type: does not use Do you feel safe at home: Yes Do you feel safe in your relationship?: Yes Sign Out Sign Out Data: Sign Out Comment: ?new CHF, repeat CXR in 60 mins after fludis and Lasix. Consider admit for ECHO vs D/C with dual ABX Last updated by Sean Burks PA at 01/07/24 15:30
[2024-01-07 13:20] LABS: Lactate 1.4 mmol/L (0.6-1.4)
[2024-01-07 13:22] LABS: Abs Immature Grans 0.05 10^3/uL (0.0-0.06); Absolute Basophil Count 0.02 10^3/uL (0.0-0.2); Absolute Eosinophil Count 0.12 10^3/uL (0.0-0.7); Absolute Lymphocyte Count 0.61 10^3/uL (1.2-3.4); Absolute Monocyte Count 0.56 10^3/uL (0.1-0.8); Absolute Neutrophil Count 6.86 10^3/uL (1.2-6.7); Basophils % 0.2 %; Eosinophils % 1.5 %; HCT 53.4 % (40.0-50.0); HGB 17.7 g/dL (13.5-17.5); Immature Grans % 0.6 %; Lymphocytes % 7.4 %; MCH 28.4 pg (27.0-33.0); MCHC 33.1 % (32.0-36.0); MCV 86 fL (80-95); MPV 12.3 fL (8.0-11.0); Monocytes % 6.8 %; Neutrophils % 83.5 %; Platelet Count 154 10^3/uL (130-400); RBC 6.23 10^6/uL (4.36-5.78); RDW 13.7 % (11.8-14.1); RDW-SD 42.1 fL; WBC 8.22 10^3/uL (4.4-10.8)
[2024-01-07 13:41] LABS: COVID-19 PCR Negative (Negative); Influenza A PCR Positive (Negative); Influenza B PCR Negative (Negative); RSV PCR Negative (Negative)
[2024-01-07 13:44] LABS: Source Nasopharynx
[2024-01-07 13:52] LABS: ALT 27 U/L (16-63); AST 13 U/L (15-37); Albumin 3.4 g/dL (3.4-5.0); Alkaline Phosphatase 125 U/L (46-116); Anion Gap 6.8 mmol/L (3-11); BUN 30 mg/dL (7-18); Bilirubin, Total 0.82 mg/dL (0.2-1.0); CO2 25.2 mmol/L (21.0-32.0); CREATININE 1.4 mg/dL (0.70-1.30); Calcium 8.3 mg/dL (8.5-10.1); Chloride 111 mmol/L (98-107); Estimated GFR 49.87 (mL/min/1.73m2); Glucose 109 mg/dL (74-106); NT-proBNP 3094 pg/mL (<300); Sodium 143 mmol/L (136-145); Total Protein 6.7 g/dL (6.4-8.2); Troponin I < 50 ng/L (< or =60)
[2024-01-07 14:19] LABS: Procalcitonin < 0.1 ng/mL
[2024-01-07] MEDS: Albuterol/Ipratropium 3 ML UPD VIAL UPD (15:03)
[2024-01-07] MEDS: Normal Saline 500 ML IV (15:28)
[2024-01-07] MEDS: Furosemide 40 MG/4 ML VIAL IVP (15:40)
[2024-01-07 16:41] LABS: Troponin I < 50 ng/L (< or =60)
--- NOTE | 2024-01-07 17:12 | W.EDPROG ---
Date of service: 01/07/24 Time of Service: 16:00 Medical Decision Making Handoff report received from srinivas Fitzgerald. Please see his note for full HPI, ROS, physical exam, and workup. Sonny is an 83-year-old male who presented to the emergency department today for evaluation of continued fatigue and weakness after recent admission for flu A. EKG remarkable for bigeminy. Chest x-ray shows interstitial changes versus mild pulmonary edema, question CHF. BNP is not markedly elevated above baseline. Lasix 40 mg IV given in the emergency department. Consulted with Dr. Levine hospitalist. He agrees with diagnosis of CHF after POCUS and physical exam, which was remarkable for bilateral peripheral pitting edema JVD, and HJR. Patient to be admitted for new onset CHF. Quality:[facility] Health Related Social Needs: No Data to Display Sign Out Sign Out Data: Sign Out Comment: ?new CHF, repeat CXR in 60 mins after fludis and Lasix. Consider admit for ECHO vs D/C with dual ABX Last updated by Sean Burks PA at 01/07/24 15:30 Discharge Plan Discharge Details Chief Complaint: GenMedical Primary Care Provider: Arnold Vicente ED Provider: Julia Charlton Home Meds and New Rx's Prescriptions: No Action acetaminophen [Tylenol Arthritis Pain] 650 mg tablet extended release 325 mg PO HS fluticasone propionate 50 mcg/actuation spray,suspension 2 spray CHINMAY DAILY Qty: 48 3RF Rx Instructions: administer into each nostril aspirin [Aspirin Low-Strength] 81 MG tablet,chewable 81 mg PO DAILY lisinopril 5 mg tablet 5 mg PO DAILY Qty: 90 3RF atorvastatin 10 mg tablet 10 mg PO QPM Qty: 90 3RF omeprazole 40 mg capsule,delayed release(DR/EC) 40 mg PO DAILY Qty: 90 3RF metoprolol tartrate 50 mg tablet 25 mg PO BID Qty: 90 3RF Eliquis 2.5 mg tablet 2.5 mg PO BID Qty: 180 3RF furosemide [Lasix] 20 mg tablet 20 mg PO QAM Qty: 90 3RF prednisone 20 mg Tablet 40 mg PO DAILY Qty: 4 0RF guaifenesin [Mucus Relief ER] 600 mg Tablet Extended Release 12hr 600 mg PO BID Qty: 6 0RF doxycycline hyclate 100 mg capsule 100 mg PO BID Qty: 7 0RF
--- NOTE | 2024-01-07 17:18 | HPE_ITS ---
Date of service: 01/07/24 Time of Service: 17:19 Assessment and Plan Assessment and plan (1) CHF (congestive heart failure): Status: Chronic Assessment and plan: IV Lasix telemetry patterson cath for I&O daily weight Echo done on 12/29 LVEF 55-60%, no wall motion abnormality PT consult (2) Peripheral edema: Status: Acute Assessment and plan: As above (3) Elevated brain natriuretic peptide (BNP) level: Status: Acute Assessment and plan: As above (4) Chronic renal disease, stage 3, moderately decreased glomerular filtration rate (GFR) between 30-59 mL/min/1.73 square meter: Status: Acute Assessment and plan: monitoring for GIO on CKD BMI in AM (5) Paroxysmal atrial fibrillation: Status: Acute Assessment and plan: On metoprolol On eliquis pharmacological DVT prophylaxis in contraindicated (6) Hypertension: Status: Chronic Assessment and plan: On lisinopril (7) Influenza A: Status: Acute Assessment and plan: Treated from previous admit on 12/29 and patient stated that he took his meds until this AM As per CDC, isolation for 7 days, will observe if not symptomatic , will discontinue precautions (8) GERD (gastroesophageal reflux disease): Assessment and plan: On PPI (9) COPD (chronic obstructive pulmonary disease): Assessment and plan: PRN nebs, but might consider levalbuterol if frequency and cardiac ectopies increase Discussed with Dr Srinivas Levine History of Present Illness History of Present Illness Chief Complaint: fatigue, generalize weakness N arrative: This 83-year-old male patient with past medical history of chronic kidney disease, atrial fibrillation,repaired abdominal aortic aneurism, hypertension, multiple sclerosis with minimal ambulatory dysfunction, chronic obstructive pulmonary disease, artery coronary disease, CABG, lung cancer and pulmonary nodule presented to the ED at [facility] today for evaluation of increased fatigue and generalized weakness. The patient was brought in by his grandson via private vehicle;the grandson mention that he was suspicious that the patient did not drink enough. Also reported that despite having home health aids to come and help the patient with meals and chores, the patient remained quite independent; the confluence and express his concern that he was called for help by the patient. The workup in the ED was negative for leukocytosis, H&H was 17.7 and 53.4, BUN was 30 and creatinine 1.4 within baseline values, BNP was 3094. Chest x-ray result questioned mild pulmonary edema versus interstitial changes. In the ED the patient was initially treated with a bolus of 500 cc of IV fluid then received 40 mg of IV push Lasix. The hospitalist was consulted. Dr. Levine went to the emergency room and evaluated the patient cardiovascular/fluids volume status in completing a POCUS exam showing B-lines more prominent to the right lung guevara than the left. It was also noted that the patient had a JVD, hepatojugular reflux. The patient was admitted for evaluation and management of increased weakness, fatigue and congestive heart failure. The patient was hospitalized recently for influenza A and COPD exacerbation and discharged on 01/03/2024. The patient reported completing his outpatient treatment until this morning doses. The patient reported just been unable to do anything. He denies, chills, fever, chest pain, shortness of breath. The patient did not verbalize any gastrointestinal and stated that he had no difficulty voiding. The patient maintained that he did not want to be receiving CPR or intubation. Discussed with Dr. Levine Review of Systems All systems reviewed & are unremarkable except as noted in HPI and below PFSH All Active Problems CHF (congestive heart failure) (Chronic) GIO (acute kidney injury) (Acute) Elevated brain natriuretic peptide (BNP) level (Acute) Influenza A (Acute) Hematuria (Acute) Elevated bilirubin (Acute) Chronic renal disease, stage 3, moderately decreased glomerular filtration rate (GFR) between 30-59 mL/min/1.73 square meter (Acute) Paroxysmal atrial fibrillation (Acute) Nail dystrophy (Acute) Peripheral edema (Acute) Arthritis of big toe (Acute) Skin lesion of face (Acute) Facial basal cell cancer (Acute) Loose stools (Acute) Hypertension (Chronic) Vasomotor rhinitis (Chronic) use the ipratropium Fracture of thoracic spine (Acute) History of cataract removal with insertion of prosthetic lens (Acute) History of coronary artery bypass surgery (Acute) History of esophagogastroduodenoscopy (Acute) History of thoracentesis (Acute) Status post abdominal aortic aneurysm repair (Acute) Status post cholecystectomy (Acute) Pneumonia (Acute) Pulmonary nodule, right (Acute 02/26/16) Follwed by [facility] [place] Multiple sclerosis (Acute 05/20/15) Idiopathic scoliosis (Acute) Hyperlipidemia (Acute 11/02/12) History of tobacco use (Acute 11/02/12) quit 2006 History of tobacco use (Acute 11/02/12) quit 2005 Gastritis (Acute) per EGD 2006 Chronic obstructive lung disease (Acute 11/02/12) Aortic aneurysm (Acute 11/02/12) AAA-lap repair 2005 Nausea,vomiting,diarrhea, fever (Active 11/16/12) Multiple sclerosis (Active) Diagnosed 25 years ago. 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 Surgery [facility] [place] 2015 Surgical History History of thoracentesis Hx of cholecystectomy History of cataract surgery History of tonsillectomy Hx of CABG History of AAA (abdominal aortic aneurysm) repair EGD - MAC (~01/2007) GERD/CHRONIC GASTRITIS Social History Smoking/Tobacco Use Status: Former Tobacco Use Quit Date: 12/27/23 Tobacco: How many years used: 55 Smoking risk assessment performed?: Yes Alcohol Intake: never Drug use: Never Substance use type: does not use Do you feel safe at home: Yes Do you feel safe in your relationship?: Yes Meds Allergies and Home Medications Allergies Allergy/AdvReac Type Severity Reaction Status Date / Time Sulfa (Sulfonamide Allergy Skin Rash Verified 01/07/24 12:48 Antibiotics) Home Medications ?Medication ?Instructions ?Recorded ?Confirmed ?Type aspirin 81 mg chewable tablet 81 mg PO DAILY 11/06/13 01/07/24 History (Aspirin Low-Strength) acetaminophen 650 mg 325 mg PO HS 06/06/19 01/07/24 History tablet,extended release (Tylenol Arthritis Pain) fluticasone propionate 50 2 spray intranasal DAILY #48 grams 06/30/22 01/07/24 Rx mcg/actuation nasal spray,suspension lisinopril 5 mg tablet 5 mg PO DAILY #90 tab-caps 03/02/23 01/07/24 Rx atorvastatin 10 mg tablet 10 mg PO QPM #90 tabs 11/08/23 01/07/24 Rx metoprolol tartrate 50 mg tablet 25 mg (1/2 x 50 mg) PO BID #90 tabs 11/08/23 01/07/24 Rx omeprazole 40 mg capsule,delayed 40 mg PO DAILY #90 tab-caps 11/08/23 01/07/24 Rx release apixaban 2.5 mg tablet (Eliquis) 2.5 mg PO BID #180 tabs 12/06/23 01/07/24 Rx doxycycline hyclate 100 mg capsule 100 mg PO BID #7 caps 01/03/24 01/07/24 Rx guaifenesin 600 mg tablet, 600 mg PO BID #6 tabs 01/03/24 01/07/24 Rx extended release 12 hr (Mucus Relief ER) prednisone 20 mg tablet 40 mg (2 x 20 mg) PO DAILY #4 tabs 01/03/24 01/07/24 Rx furosemide 20 mg tablet (Lasix) 20 mg PO QAM #90 tabs 01/05/24 01/07/24 Rx Exam Narrative Exam Narrative: Constitutional The patient seen in the ED, appears comfortable, without acute distress HENMT: Facial structures with normal appearance Neuro:alert and oriented x 3, nonfocal but with generalized weakness Chest:Chest is symmetrical and normal appearance Resp: Congested breath sounds, right-sided crackles, no oxygen supplementation required B-lines on POCUS completed by Dr. Levine right> left Cardio: regular rhythm, S1, S2, no murmur, capillary refill<3 sec., positive pulses to all 4 extremities, Pitting lower ext. edema bilaterally GI: Abdomen is not distended, slightly bloated, soft and non tender, bowel sounds are present : Negative Costovertebral angle tenderness Integumentary: No skin lesions or rash except for keratosis like lesions in the back Psych: RASS 0, congruent mood and normal affect. Results Labs 01/07/24 13:15 01/07/24 13:15 Labs: Laboratory Results - last 24 hr 01/07/24 01/07/24 01/07/24 12:50 13:15 16:15 WBC 8.22 RBC 6.23 H Hgb 17.7 H Hct 53.4 H MCV 86 MCH 28.4 MCHC 33.1 RDW 13.7 Plt Count 154 MPV 12.3 H Immature Gran % 0.6 Neutrophils % 83.5 Lymphocytes % 7.4 Monocytes % 6.8 Eosinophils % 1.5 Basophils % 0.2 Nucleated RBC % 0.0 Absolute Neutrophils 6.86 H Absolute Lymphocytes 0.61 L Absolute Monocytes 0.56 Absolute Eosinophils 0.12 Absolute Basophils 0.02 VBG Lactate 1.4 Sodium 143 Potassium 4.0 Chloride 111 H Carbon Dioxide 25.2 Anion Gap 6.8 BUN 30 H Creatinine 1.4 H Est GFR (CKD-EPI 2020) 49.87 Glucose 109 H Calcium 8.3 L Total Bilirubin 0.82 AST 13 L ALT 27 Alkaline Phosphatase 125 H Troponin I < 50 < 50 NT-Pro-B Natriuret Pep 3094 H Total Protein 6.7 Albumin 3.4 Procalcitonin < 0.1 COVID-19 Source Nasopharynx SARS-CoV-2 (PCR) Negative Influenza Type A (PCR) Positive A Influenza Type B (PCR) Negative RSV (PCR) Negative Last Vital Signs Temp 36.6 C 01/07/24 12:53 Pulse 61 01/07/24 15:41 Resp 21 01/07/24 15:41 BP 149/55 H 01/07/24 15:41 Pulse Ox 97 01/07/24 15:41 Time Spent Time spent with Patient: >75 minutes Time was spent: preparing to see the patient(eg.review tests), obtaining and/or reviewing separately otained hiistory, ordering medications,tests, procedures, referring, communicating with other health personal care service provider, indepentently interpreting results, counseling the patient and care coordination
--- NOTE | 2024-01-07 18:15 | W.PC.ACHO ---
Registration Status: Primary Language: Preferred Language: ED Information & Data Chief Complaint GenMedical 01/07/24 12:54 Triage Note Patient for the flu. was 01/07/24 12:39 here recently. Patient told grandson today he doesnt feel right. patient denies CP/SOB. Does feel weak Medical / Surgical History (Last Reviewed 12/30/23 @ 10:32 by Augustine Correa MD) Multiple sclerosis GERD (gastroesophageal reflux disease) COPD (chronic obstructive pulmonary disease) Coronary artery disease HTN (hypertension) Hyperlipemia Malignant neoplasm of lower lobe of right lung (04/15/16) (Last Reviewed 12/30/23 @ 10:32 by Augustine Correa MD) History of thoracentesis Hx of cholecystectomy History of cataract surgery History of tonsillectomy Hx of CABG History of AAA (abdominal aortic aneurysm) repair EGD - MAC (~01/2007) Most Recent Vital Signs Temperature 36.6 C 01/07/24 12:53 Pulse 67 01/07/24 17:45 Pulse 66 01/07/24 15:42 Respiratory Rate 19 01/07/24 15:42 Respiratory Effort Normal, Non-Labored 01/07/24 12:58 Respiratory Depth Normal 01/07/24 12:58 Respiratory Pattern Normal 01/07/24 12:58 Blood Pressure 157/85 H 01/07/24 17:45 Blood Pressure Mean 110 01/07/24 17:45 Blood Pressure Position Sitting 01/07/24 12:53 Pulse Oximetry 96 01/07/24 17:50 Pain Level 0 01/07/24 12:53 Allergies Sulfa (Sulfonamide Antibiotics) Allergy (Verified 01/07/24 12:48) Skin Rash Precautions Isolation Droplet precaution 01/07/24 12:52 IV IV Catheter Type [Left Diffusix Antecubital] IV Catheter Gauge [Left 20 Antecubital] Diagnostics 01/07/24 01/07/24 01/07/24 Range/Units 16:15 13:15 12:50 WBC 8.22 (4.4-10.8) 10^3/uL RBC 6.23 H (4.36-5.78) 10^6/uL Hgb 17.7 H (13.5-17.5) g/dL Hct 53.4 H (40.0-50.0) % MCV 86 (80-95) fL MCH 28.4 (27.0-33.0) pg MCHC 33.1 (32.0-36.0) % RDW 13.7 (11.8-14.1) % Plt Count 154 (130-400) 10^3/uL MPV 12.3 H (8.0-11.0) fL Immature Gran % 0.6 % Neutrophils % 83.5 % Lymphocytes % 7.4 % Monocytes % 6.8 % Eosinophils % 1.5 % Basophils % 0.2 % Nucleated RBC % 0.0 (0.0-0.3) % Absolute Neutrophils 6.86 H (1.2-6.7) 10^3/uL Absolute Lymphocytes 0.61 L (1.2-3.4) 10^3/uL Absolute Monocytes 0.56 (0.1-0.8) 10^3/uL Absolute Eosinophils 0.12 (0.0-0.7) 10^3/uL Absolute Basophils 0.02 (0.0-0.2) 10^3/uL VBG Lactate 1.4 (0.6-1.4) mmol/L Sodium 143 (136-145) mmol/L Potassium 4.0 (3.5-5.1) mmol/L Chloride 111 H (98-107) mmol/L Carbon Dioxide 25.2 (21.0-32.0) mmol/L Anion Gap 6.8 (3-11) mmol/L BUN 30 H (7-18) mg/dL Creatinine 1.4 H (0.70-1.30) mg/dL Est GFR (CKD-EPI 2020) 49.87 (mL/min/1.73m2) Glucose 109 H (74-106) mg/dL Calcium 8.3 L (8.5-10.1) mg/dL Total Bilirubin 0.82 (0.2-1.0) mg/dL AST 13 L (15-37) U/L ALT 27 (16-63) U/L Alkaline Phosphatase 125 H (46-116) U/L Troponin I < 50 < 50 (< or =60) ng/L NT-Pro-B Natriuret Pep 3094 H (<300) pg/mL Total Protein 6.7 (6.4-8.2) g/dL Albumin 3.4 (3.4-5.0) g/dL Procalcitonin < 0.1 ng/mL COVID-19 Source Nasopharynx SARS-CoV-2 (PCR) Negative (Negative) Influenza Type A (PCR) Positive A (Negative) Influenza Type B (PCR) Negative (Negative) RSV (PCR) Negative (Negative) 01/07/24 13:42 Blood Culture - Pending Blood 01/07/24 13:15 Blood Culture - Pending Blood Intake and Output - 24 Hour Total 01/07/24 12:28 thru 01/07/24 17:45 Intake Total 510 Output Total 1350 Balance -840 Intake: IV 510 Output: Urine 1350 Stool 0 Other: # Voids 3 Falls Risk Assessment History of Falls No History 01/07/24 12:54 Contributing Factors Impairments 01/07/24 12:54 Ambulatory Aids Uses ambulatory device + 01/07/24 12:54 Tubes/Lines With any additional score 01/07/24 12:54 Gait Evaluation No gait disturbance 01/07/24 12:54 Cognition No cognitive impairment 01/07/24 12:54 Fall Total Score 53 01/07/24 12:54 Level of Risk High Risk 01/07/24 12:54 Problems (Last Reviewed 12/30/23 @ 10:32 by Augustine Correa MD) CHF (congestive heart failure) (Chronic) v v v v v v v v v Sending and/or Receiving Nurses: Please use comment section below to note any information pertinent to the patient hand-off not included above. Information / Comments: recently discharged w/ the flu (wednesday) past couple of days has had fatigue that's worsened blood work done, non remarkable chest ct pulmonary edema, thinking heart failure Meds given in ED: bolus of fluid 500cc NS 40mg lasix outputting- using urinal A&Ox3 occasional confusion ambulates with walker with 1x assist to bedside commode pleasant affect lungs sounds junky/ronchi, crackles in bases, dim left side pvc consistently on tele- needs cardiac leads, pulse ox has not been accurate IV access in LFA flu A+ 1745 VS bp 157/45 rr 19 hr 67 t 36.6 o2 96 RA Report received from:Delmis @ [id number]
[2024-01-07] MEDS: Metoprolol 50 MG TAB 25 MG PO (19:58)
[2024-01-07] MEDS: Apixaban 2.5 MG TAB PO (19:58)
[2024-01-07] MEDS: Furosemide 20 MG/2 ML VIAL IVP (19:59)
[2024-01-07] MEDS: Atorvastatin 10 MG TAB PO (20:00)
[2024-01-07] MEDS: Acetaminophen 325 MG TAB 650 MG PO (20:00)
[2024-01-07] MEDS: Normal Saline Flush 10 ML SYR IVP (20:21)
[2024-01-08 01:48] VITALS: BP 118/65; PULSE 93; RESP 16; TEMP 35.5; O2SAT 93
[2024-01-08 06:29] LABS: Abs Immature Grans 0.06 10^3/uL (0.0-0.06); Absolute Basophil Count 0.03 10^3/uL (0.0-0.2); Absolute Eosinophil Count 0.18 10^3/uL (0.0-0.7); Absolute Lymphocyte Count 0.85 10^3/uL (1.2-3.4); Absolute Monocyte Count 0.59 10^3/uL (0.1-0.8); Absolute Neutrophil Count 7.26 10^3/uL (1.2-6.7); Basophils % 0.3 %; HCT 52.7 % (40.0-50.0); HGB 17.4 g/dL (13.5-17.5); Immature Grans % 0.7 %; Lymphocytes % 9.5 %; MCH 28.2 pg (27.0-33.0); MCV 85 fL (80-95); MPV 11.9 fL (8.0-11.0); Monocytes % 6.6 %; Neutrophils % 80.9 %; Platelet Count 162 10^3/uL (130-400); RBC 6.18 10^6/uL (4.36-5.78); RDW 13.7 % (11.8-14.1); WBC 8.97 10^3/uL (4.4-10.8)
[2024-01-08 06:55] LABS: ALT 23 U/L (16-63); AST 12 U/L (15-37); Albumin 3.3 g/dL (3.4-5.0); Alkaline Phosphatase 123 U/L (46-116); Anion Gap 6.7 mmol/L (3-11); BUN 32 mg/dL (7-18); Bilirubin, Total 1.07 mg/dL (0.2-1.0); CO2 27.3 mmol/L (21.0-32.0); CREATININE 1.5 mg/dL (0.70-1.30); Calcium 8.6 mg/dL (8.5-10.1); Chloride 109 mmol/L (98-107); Estimated GFR 45.91 (mL/min/1.73m2); Glucose 123 mg/dL (74-106); Magnesium 1.9 mg/dL (1.8-2.4); Potassium 3.5 mmol/L (3.5-5.1); Sodium 143 mmol/L (136-145); Total Protein 6.6 g/dL (6.4-8.2)
[2024-01-08] MEDS: Omeprazole 20 MG CAPCR 40 MG PO (07:24)
[2024-01-08 07:26] VITALS: BP 137/80; PULSE 68; RESP 16; TEMP 35.9; O2SAT 95
--- NOTE | 2024-01-08 08:04 | PDOC.CMIN ---
Date of service: 01/08/24 Time of Service: 08:05 Care Management Initial Assmt Initial Assessment Reason for Hospitalization: CHF Functional Status/Living Situation Patient Presentation: Juan Ramon was in bed, watching TV with the HOB elevated when CM met with him. He is pleasant and easily engages in conversation. He lives alone, his Grandson Jaison is his primary support and he uses [facility] for transportation. Juan Ramon has homemaker services through [facility]. Per pt, they come in a clean his house, and make him meals. He tried [facility] once, and didn't care for it. Juan Ramon verbalizes that he can't do many of the things he used to do and also says that he doesn't feel that bad off. Pt reports that he still goes four wheeling once a week. He sometimes gets stuck in the mud and walks home. Juan Ramon would be agreeable to STR if absolutely necessary , but his first choice is to discharge back home. Town of Residence: [facility] Resides with: Alone Significant Other/Family: Local Natural Supports: Grandson Jaison Sons: Flako and Juliocesar Employment Status: Retired Instrumental Activities of Daily Living (ADLs): Independent Activities/Hobbies/SocialSupport: Enjoys four wheeling, working on his tractor Medications Medication Management: No Issues/Barriers identified Physical Functioning/Mobility Assistive Device: Raised toilet set Grab Bars Shower chair Walker Advance Directives Advance Directives: Do you have an Advance Directive: N 01/24/21 15:54 AD On File at [facility]: N 01/24/21 15:54 Date Asked 01/07/24 01/07/24 12:36 AD Date Reviewed COLST On File at [facility] COLST Date Scanned Code Status Resuscitation Status DNR/DNI Insurance Coverage/Financial Issues Insurance: Medicare Medicaid ACO Member: Yes Care Team Visit Care Team Role Provider Type Arnold Vicente MD Primary Care Provider [facility] STAFF PHYSICIAN InPatient Brandon Morales Other Providers OTHER Julia Valerio Emergency Provider NURSE PRACTITIONER Marcelo Levine MD Admit Provider [facility] STAFF PHYSICIAN Attending Provider Discharge Potential Discharge Needs: PCP F/U Appt Anticipated Barriers to Discharge: None Identified Patient/Family Education Needs: Review discharge instructions, discuss Ask Me Three Transportation: Private vehicle Plan: PT recommends Home with services vs SNF for STR. Juan Ramon prefers to discharge home with resumption of [facility] PT and homemaker services. Juan Ramon wants to wait and see how he does before CM sends out referrals to [facility]. Family will provide transportation, if disposition is to home. CM will follow. [facility] All Active Problems (Updated 01/08/24 @ 12:47 by Any Braga NP) CHF (congestive heart failure) (Acute) GIO (acute kidney injury) (Acute) Elevated brain natriuretic peptide (BNP) level (Acute) Hematuria (Acute) Elevated bilirubin (Acute) Chronic renal disease, stage 3, moderately decreased glomerular filtration rate (GFR) between 30-59 mL/min/1.73 square meter (Acute) Paroxysmal atrial fibrillation (Acute) Nail dystrophy (Acute) Peripheral edema (Acute) Arthritis of big toe (Acute) Skin lesion of face (Acute) Facial basal cell cancer (Acute) Loose stools (Acute) Hypertension (Chronic) Vasomotor rhinitis (Chronic) use the ipratropium Fracture of thoracic spine (Acute) History of cataract removal with insertion of prosthetic lens (Acute) History of coronary artery bypass surgery (Acute) History of esophagogastroduodenoscopy (Acute) History of thoracentesis (Acute) Status post abdominal aortic aneurysm repair (Acute) Status post cholecystectomy (Acute) Pneumonia (Acute) Pulmonary nodule, right (Acute 02/26/16) Follwed by [facility] [place] Multiple sclerosis (Acute 11/14/14) Idiopathic scoliosis (Acute) Hyperlipidemia (Acute 11/02/12) History of tobacco use (Acute 11/02/12) quit 2006 History of tobacco use (Acute 11/02/12) quit 2006 Gastritis (Acute) per EGD 2006 Chronic obstructive lung disease (Acute 11/02/12) Aortic aneurysm (Acute 11/02/12) AAA-lap repair 2006 Nausea,vomiting,diarrhea, fever (Active 11/16/12) Multiple sclerosis (Active) Diagnosed 25 years ago. 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 Surgery [facility] [place] 2016 Surgical History History of thoracentesis Hx of cholecystectomy History of cataract surgery History of tonsillectomy Hx of CABG History of AAA (abdominal aortic aneurysm) repair EGD - MAC (~01/2007) GERD/CHRONIC GASTRITIS Social History Smoking/Tobacco Use Status: Former Tobacco Use Quit Date: 12/27/23 Tobacco: How many years used: 55 Smoking risk assessment performed?: Yes Alcohol Intake: never Drug use: Never Substance use type: does not use Housing: other Do you feel safe at home: Yes Do you feel safe in your relationship?: Yes Readmission Within the Past 30 Days Yes or No: Yes Date of First Admission Date of 1st Admission: 12/30/23 Date of this Admission Date of Admission: 01/07/24 This admission was: Through ED SDOH(Care Management) Screening Will the Patient Participate in the Screening?: Unable to obtain
[2024-01-08] MEDS: Metoprolol 50 MG TAB 25 MG PO ×2 (08:06→20:08)
[2024-01-08] MEDS: Spironolactone 25 MG TAB PO (08:07)
[2024-01-08] MEDS: Normal Saline Flush 10 ML SYR IVP ×3 (08:08→20:11)
[2024-01-08] MEDS: Aspirin 81 MG CHEW PO (08:08)
[2024-01-08] MEDS: Lisinopril 5 MG TAB PO (08:08)
[2024-01-08] MEDS: Apixaban 2.5 MG TAB PO ×2 (08:08→20:09)
[2024-01-08] MEDS: Furosemide 40 MG/4 ML VIAL IVP ×2 (08:09→15:49)
[2024-01-08] MEDS: Fluticasone NASAL SPRAY 16 GM BTL NS (08:52)
--- NOTE | 2024-01-08 11:55 | PT.INIE ---
Date of service: 01/08/24 Time of Service: 11:40 PT Notes Visit Reasons: Congestive Heart Failure, Influenza A Inpatient Physical Therapy Evaluation Date: December Referring Doctor: Julia Valerio PT Orders: PT CONSULT: Safety Consult for DC Precautions: Precautions: Fall. On droplet precautions for Influenza A. Activity as tolerated. Patient Profile/Admitting Diagnosis: 83-year-old male patient with past medical history of chronic kidney disease, atrial fibrillation,repaired abdominal aortic aneurism, hypertension, multiple sclerosis with minimal ambulatory dysfunction, chronic obstructive pulmonary disease, artery coronary disease, CABG, lung cancer and pulmonary nodule presented to the ED at [facility] yesterday for evaluation of increased fatigue and generalized weakness. PMHX: CHF (congestive heart failure) (Chronic) GIO (acute kidney injury) (Acute) Elevated brain natriuretic peptide (BNP) level (Acute) Influenza A (Acute) Hematuria (Acute) Elevated bilirubin (Acute) Chronic renal disease, stage 3, moderately decreased glomerular filtration rate (GFR) between 30-59 mL/min/1.73 square meter (Acute) Paroxysmal atrial fibrillation (Acute) Nail dystrophy (Acute) Peripheral edema (Acute) Arthritis of big toe (Acute) Skin lesion of face (Acute) Facial basal cell cancer (Acute) Loose stools (Acute) Hypertension (Chronic) Vasomotor rhinitis (Chronic) use the ipratropiumFracture of thoracic spine (Acute) History of cataract removal with insertion of prosthetic lens (Acute) History of coronary artery bypass surgery (Acute) History of esophagogastroduodenoscopy (Acute) History of thoracentesis (Acute) Status post abdominal aortic aneurysm repair (Acute) Status post cholecystectomy (Acute) Pneumonia (Acute) Pulmonary nodule, right (Acute 02/26/16) Follwed by [facility] [place] Multiple sclerosis (Acute 11/14/14) Idiopathic scoliosis (Acute) Hyperlipidemia (Acute 11/02/12) History of tobacco use (Acute 11/02/12) quit 2006 History of tobacco use (Acute 11/02/12) quit 2006 Gastritis (Acute) per EGD 2007 Chronic obstructive lung disease (Acute 11/02/12) Aortic aneurysm (Acute 11/02/12) AAA-lap repair 2006 Nausea,vomiting,diarrhea, fever (Active 11/16/12) Multiple sclerosis (Active) Diagnosed 25 years ago.Benign hypertension (Active) same medsCoronary arteriosclerosis (Active) Hyperglycemia (Active) Gastroesophageal reflux disease (Active) History of - coronary artery bypass grafting (Active) Eczema (Active) Osteoarthritis (Active) Constipation (Active) Medical History Multiple sclerosis GERD (gastroesophageal reflux disease) COPD (chronic obstructive pulmonary disease) Coronary artery disease HTN (hypertension) Hyperlipemia Malignant neoplasm of lower lobe of right lung (04/15/16) Adenocarcinoma Surgery [facility] [place] 2016 Surgical History History of thoracentesis Hx of cholecystectomy History of cataract surgery History of tonsillectomy Hx of CABG History of AAA (abdominal aortic aneurysm) repair EGD - MAC (~01/2007) GERD/CHRONIC GASTRITIS Social History/Home Situation: Lives alone in a private home. Sons help out with his overall care as needed. Goes to [facility] 5 days a week. Equipment Owned/DME: Rollator Subjective: Pleasant and cooperative. reported fatigue and weakness during mobility performance. Objective: General Observation: Telemtry monitoring in place. Mental Status: Alert and oriented as to person, place, time, and purpose. Able to pay attention, focus, and respond appropriately. Pain: None reported Vital Signs: Closely monitored by nursing staff ROM: Right Upper Extremity: Shoulder Flexion lacks the last 25% of AROM. Shoulder abduction lacks the last 25% of AROM. Elbow flexion WFL. Wrist flexion WFL. Functional opening and closing of hand WFL. Left Upper Extremity: Shoulder Flexion lacks the last 25% of AROM. Shoulder abduction lacks the last 25% of AROM. Elbow flexion WFL. Wrist flexion WFL. Functional opening and closing of hand WFL. Right Lower Extremity: Hip flexion lacks the last 25% of AROM. Hip abduction lacks the last 25% of AROM. Knee flexion -20 to 90 degrees. Knee extension -20 degrees. Ankle dorsiflexion WFL. Ankle plantarflexion WFL. Left Lower Extremity: Hip flexion lacks the last 25% of AROM. Hip abduction lacks the last 25% of AROM. Knee flexion -20 to 90 degrees. Knee extension -20 degrees. Ankle dorsiflexion WFL. Ankle plantarflexion WFL. Strength: Right Upper Extremity: Shoulder flexors 4-/5. Shoulder abductors 4-/5. Elbow flexors 4/5. Elbow extensors 4-/5. Field Pipelines Supervisor strong. Left Upper Extremity: Shoulder flexors 4-/5. Shoulder abductors 4-/5. Elbow flexors 4/5. Elbow extensors 4-/5. Field Pipelines Supervisor strong. Right Lower Extremity: Hip flexors 4-/5. Hip abductors 4-/5. Knee flexors 4/5. Knee extensors 4-/5. Ankle dorsiflexors 3/5. Ankle plantarflexors 4-/5. Left Lower Extremity: Hip flexors 4-/5. Hip abductors 3+/5. Knee flexors 4-/5. Knee extensors 4-/5. Ankle dorsiflexors 3/5. Ankle plantarflexors 4-/5. Bed Mobility/Transfers: Supine to sit supervision Sit to supine Eliseo x1 for LE assist Sit to stand CGA Stand to sit supervision Gait: Facilitated safe and correct movement sequence to cover distance from bedside to door completing small steps using walker minimal assistance of 1 and moderate verbal cueing for limb advancement, walker management, posture to reduce fall risk. Tendency to get walker too far out in front of him Balance: Static Sitting: Normal Dynamic Sitting: Good Static Standing: Fair Dynamic Standing: Fair Special Tests: Mobility Limitations Standardized Measure [facility] 6 clicks Basic Mobility Inpatient Short Form: Raw Score: 17 CMS Score: 50% deficit Informed Consent/Education: Patient was instructed in purpose of PT consult and plan of care. Agreeable to proceed with established PT POC to achieve personal goals. Assessment: Patient presents with clinical signs and symptoms consistent with current/admitting diagnoses that have resulted to mobility limitations, gait instability, generalized weakness, and overall ADL decline as demonstrated by the following impairment level findings: 1. Decreased strength to B UE/LE major muscle groups 2. Impaired standing balance 3. Impaired activity tolerance 4. Limitation of joint range of motion in B UE/LE joints as above 5. Shortness of breath 6. Fatigue Impairments are contributing to the following functional limitations: 1. Difficulty with ambulation without assistive device and physical assistance 2. Increased completion time for mobility ADL performance 3. Increased risk for falls Patient is assessed as a 51939 moderate complexity based on the following: History: As above Examination:As above Presentation: Evolving Decision Makin moderate complexity Goals: Goals X1 week 1. Supine-Sit independent 2. Sit-Supine independent 3. Sit-Stand independent 4. Stand-Sit independent with FWW 5. Bed-Chair independent with FWW 6. Chair-Bed independent with FWW 7. Independent gait on level surface with use of FWW for at least 150 feet without report of pain nor dyspnea 8. Independent stair negotiation while holding onto B rails for at least 5 steps without report of pain nor dyspnea 9. Independent with home exercise program if safe enough to go home at end of this episode of care 10. Good static and dynamic standing balance/tolerance Plan of Care/Treatment Plan: 1-2x/day, 7 days/week x 1 week. Plan of care has been reviewed with the TELECOMMUNICATIONS ENGINEER providing the service under Physical Therapy direction. Initiate Physical Therapy intervention for pain management as needed, strengthening, bed mobility, transfers, gait, stairs, balance training, and use of assistive device. DISCHARGE RECOMMENDATIONS: [] Home with no services [] [] Home with services [specify] [] Home with outpatient PT [] [] SNF for continued rehabilitation [] [] [employer] [facility] [] [] SNF versus LTC based on ability to participate and progress [] [X] Short-term SNF vs PT TREATMENT CODE/TIME: 52217 x 20 minutes IE (11:40-12:00). MARIAN James [facility] Please sign an return this page within 30 days if you agree with the above POC. Thank you! Physician Signature Date [facility] Disclaimer: This note was created using [employer] voice recognition software. It was reviewed for major content. However, there may be multiple small discrepancies and errors due to the voice recognition aspects of the software.
[2024-01-08 12:00] VITALS: BP 101/78; PULSE 80; RESP 18; TEMP 36; O2SAT 99
--- NOTE | 2024-01-08 12:39 | W.PM.PROGNOT ---
Date of Service Date of service: 01/08/24 Time of Service: 12:39 Assessment and Plan Assessment and plan (1) CHF (congestive heart failure): Status: Acute Assessment and plan: continue IV Lasix duiresis telemetry patterson cath for accurate I&O daily weight Echo done on 12/29 LVEF 55-60%, no wall motion abnormality PT consult (2) Chronic renal disease, stage 3, moderately decreased glomerular filtration rate (GFR) between 30-59 mL/min/1.73 square meter: Status: Acute Assessment and plan: creatinine at baseline at 1.5 avoid nephrotoxic drug, renal dosing as needed monitor closely while actively diuresing (3) Paroxysmal atrial fibrillation: Status: Acute Assessment and plan: On metoprolol On eliquis pharmacological DVT prophylaxis in contraindicated (4) Hypertension: Status: Chronic Assessment and plan: blood pressure is controlled continue lisinopril (5) Influenza A: Status: Resolved Assessment and plan: Treated from previous admit on 12/29 and patient stated that he took his meds until this AM As per CDC, isolation for 7 days, will observe if not symptomatic , will discontinue precautions (6) GERD (gastroesophageal reflux disease): Assessment and plan: On PPI (7) COPD (chronic obstructive pulmonary disease): Assessment and plan: PRN nebs, but might consider levalbuterol if frequency and cardiac ectopies increase Discussed with Dr Srinivas Levine Subjective Subjective Patient reports: no new complaints, tolerating liquids well, tolerating a regular diet and afebrile; denies shortness of breath (moist cough) Exam Narrative Exam Narrative: Elderly male, frail, of stated age in no acute distress head is atraumatic oral mucosas moist cardiovascular irregular rate and rhythm controlled with a pulse in the 60-70's respirations even and unlabored he has course rales in his bases bilaterally abdomen is soft nontender extremities are with edema moves all extremities well neurologic he is awake alert oriented no focal deficits moving all extremities equally, weakness bilateral lower 4/5 feels at his baseline Psych Mental Status: mental status grossly normal Speech and Movement: speech and movement normal Mood: congruent mood Affect: normal affect Objective Last Vital Signs Temp 35.9 C L 01/08/24 07:26 Pulse 68 01/08/24 07:26 Resp 16 01/08/24 07:26 BP 137/80 01/08/24 07:26 Pulse Ox 95 01/08/24 07:26 Laboratory Results - last 24 hr 01/07/24 01/07/24 01/07/24 12:50 13:15 16:15 WBC 8.22 RBC 6.23 H Hgb 17.7 H Hct 53.4 H MCV 86 MCH 28.4 MCHC 33.1 RDW 13.7 Plt Count 154 MPV 12.3 H Immature Gran % 0.6 Neutrophils % 83.5 Lymphocytes % 7.4 Monocytes % 6.8 Eosinophils % 1.5 Basophils % 0.2 Nucleated RBC % 0.0 Absolute Neutrophils 6.86 H Absolute Lymphocytes 0.61 L Absolute Monocytes 0.56 Absolute Eosinophils 0.12 Absolute Basophils 0.02 VBG Lactate 1.4 Sodium 143 Potassium 4.0 Chloride 111 H Carbon Dioxide 25.2 Anion Gap 6.8 BUN 30 H Creatinine 1.4 H Est GFR (CKD-EPI 2020) 49.87 Glucose 109 H Calcium 8.3 L Magnesium Total Bilirubin 0.82 AST 13 L ALT 27 Alkaline Phosphatase 125 H Troponin I < 50 < 50 NT-Pro-B Natriuret Pep 3094 H Total Protein 6.7 Albumin 3.4 Procalcitonin < 0.1 COVID-19 Source Nasopharynx SARS-CoV-2 (PCR) Negative Influenza Type A (PCR) Positive A Influenza Type B (PCR) Negative RSV (PCR) Negative 01/08/24 06:12 WBC 8.97 RBC 6.18 H Hgb 17.4 Hct 52.7 H MCV 85 MCH 28.2 MCHC 33.0 RDW 13.7 Plt Count 162 MPV 11.9 H Immature Gran % 0.7 Neutrophils % 80.9 Lymphocytes % 9.5 Monocytes % 6.6 Eosinophils % 2.0 Basophils % 0.3 Nucleated RBC % 0.0 Absolute Neutrophils 7.26 H Absolute Lymphocytes 0.85 L Absolute Monocytes 0.59 Absolute Eosinophils 0.18 Absolute Basophils 0.03 VBG Lactate Sodium 143 Potassium 3.5 Chloride 109 H Carbon Dioxide 27.3 Anion Gap 6.7 BUN 32 H Creatinine 1.5 H Est GFR (CKD-EPI 2020) 45.91 Glucose 123 H Calcium 8.6 Magnesium 1.9 Total Bilirubin 1.07 H AST 12 L ALT 23 Alkaline Phosphatase 123 H Troponin I NT-Pro-B Natriuret Pep Total Protein 6.6 Albumin 3.3 L Procalcitonin COVID-19 Source SARS-CoV-2 (PCR) Influenza Type A (PCR) Influenza Type B (PCR) RSV (PCR) Time Spent with Patient Time Spent with Patient: 35-49 minutes Time was spent: preparing to see the patient(eg.review tests), obtaining and/or reviewing separately otained hiistory, ordering medications,tests, procedures, indepentently interpreting results and counseling the patient
[2024-01-08 15:37] VITALS: BP 117/80; PULSE 66; RESP 16; TEMP 35.9; O2SAT 94
[2024-01-08 19:29] VITALS: BP 103/63; PULSE 88; RESP 16; TEMP 36.7; O2SAT 93
[2024-01-08] MEDS: Atorvastatin 10 MG TAB PO (20:08)
[2024-01-08] MEDS: Acetaminophen 325 MG TAB 650 MG PO (20:09)
[2024-01-09 04:57] VITALS: BP 110/80; PULSE 70; RESP 16; TEMP 36; O2SAT 93
[2024-01-09 06:59] LABS: Anion Gap 7.9 mmol/L (3-11); BUN 40 mg/dL (7-18); CO2 28.1 mmol/L (21.0-32.0); CREATININE 1.7 mg/dL (0.70-1.30); Calcium 8.7 mg/dL (8.5-10.1); Chloride 107 mmol/L (98-107); Estimated GFR 39.51 (mL/min/1.73m2); Glucose 109 mg/dL (74-106); Magnesium 1.8 mg/dL (1.8-2.4); Potassium 3.6 mmol/L (3.5-5.1); Sodium 143 mmol/L (136-145)
[2024-01-09 07:41] VITALS: BP 100/72; PULSE 76; RESP 19; TEMP 36.7; O2SAT 91
[2024-01-09] MEDS: Omeprazole 20 MG CAPCR 40 MG PO (07:46)
[2024-01-09] MEDS: Apixaban 2.5 MG TAB PO ×2 (07:46→20:06)
[2024-01-09] MEDS: Furosemide 40 MG/4 ML VIAL IVP (07:46)
[2024-01-09] MEDS: Spironolactone 25 MG TAB PO (07:47)
[2024-01-09] MEDS: Lisinopril 5 MG TAB PO (07:47)
[2024-01-09] MEDS: Metoprolol 25 MG TAB PO ×2 (07:47→20:06)
[2024-01-09] MEDS: Normal Saline Flush 10 ML SYR IVP ×2 (07:48→20:07)
[2024-01-09] MEDS: Aspirin 81 MG CHEW PO (07:49)
--- NOTE | 2024-01-09 10:23 | PT.INNT ---
PT Notes Visit Reasons: Congestive Heart Failure, Influenza A Pt refused therapy this morning,
[2024-01-09 11:39] VITALS: BP 106/64; PULSE 72; RESP 18; TEMP 36.2; O2SAT 91
--- NOTE | 2024-01-09 15:49 | W.PM.PROGNOT ---
Date of Service Date of service: 01/09/24 Time of Service: 15:49 Assessment and Plan Assessment and plan (1) CHF (congestive heart failure): Status: Acute Assessment and plan: stop IV Lasix duiresis, resume home oral dosing on telemetry, consider dc tomorrow if stable patterson cath for accurate I&O daily weight Echo done on 12/29 LVEF 55-60%, no wall motion abnormality PT consult (2) Chronic renal disease, stage 3, moderately decreased glomerular filtration rate (GFR) between 30-59 mL/min/1.73 square meter: Status: Acute Assessment and plan: creatinine at 1.7 avoid nephrotoxic drug, renal dosing as needed monitor closely while actively diuresing, will stop IV and resume home po dosing (3) Paroxysmal atrial fibrillation: Status: Acute Assessment and plan: On metoprolol On eliquis (4) Hypertension: Status: Chronic Assessment and plan: blood pressure is controlled continue lisinopril (5) Influenza A: Status: Resolved Assessment and plan: Treated from previous admit on 12/29 and patient stated that he took his meds until this AM As per CDC, isolation for 7 days, will observe if not symptomatic , will discontinue precautions (6) GERD (gastroesophageal reflux disease): Assessment and plan: On PPI (7) COPD (chronic obstructive pulmonary disease): Assessment and plan: stable PRN nebs, but might consider levalbuterol if frequency and cardiac ectopies increase Discussed with Dr Srinivas Wu Subjective Subjective Patient reports: no new complaints, feels better, tolerating liquids well, tolerating a regular diet and afebrile; denies shortness of breath Exam Narrative Exam Narrative: Elderly male, frail, of stated age in no acute distress head is atraumatic oral mucosas moist cardiovascular irregular rate and rhythm controlled with a pulse in the 60-70's respirations even and unlabored he has course rales in his bases bilaterally abdomen is soft nontender extremities are with trace edema to right, none left moves all extremities well neurologic he is awake alert oriented no focal deficits moving all extremities equally, weakness bilateral lower 4/5 feels at his baseline Objective Last Vital Signs Temp 36.2 C L 01/09/24 11:39 Pulse 72 01/09/24 11:39 Resp 18 01/09/24 11:39 BP 106/64 01/09/24 11:39 Pulse Ox 91 L 01/09/24 11:39 Laboratory Results - last 24 hr 01/09/24 06:18 Sodium 143 Potassium 3.6 Chloride 107 Carbon Dioxide 28.1 Anion Gap 7.9 BUN 40 H Creatinine 1.7 H Est GFR (CKD-EPI 2020) 39.51 Glucose 109 H Calcium 8.7 Magnesium 1.8 Time Spent with Patient Time Spent with Patient: 35-49 minutes Time was spent: preparing to see the patient(eg.review tests), obtaining and/or reviewing separately otained hiistory, ordering medications,tests, procedures and indepentently interpreting results
[2024-01-09 16:06] VITALS: BP 106/71; PULSE 75; RESP 19; TEMP 36.1; O2SAT 92
[2024-01-09 19:52] VITALS: BP 137/85; PULSE 87; RESP 19; TEMP 36.5; O2SAT 93
[2024-01-09] MEDS: Acetaminophen 325 MG TAB 650 MG PO (20:06)
[2024-01-09] MEDS: Atorvastatin 10 MG TAB PO (20:06)
[2024-01-10 06:02] VITALS: BP 100/61; PULSE 66; RESP 14; TEMP 36.5; O2SAT 92
[2024-01-10 06:47] LABS: Anion Gap 11.5 mmol/L (3-11); BUN 47 mg/dL (7-18); CO2 26.5 mmol/L (21.0-32.0); CREATININE 1.6 mg/dL (0.70-1.30); Calcium 8.8 mg/dL (8.5-10.1); Chloride 107 mmol/L (98-107); Estimated GFR 42.49 (mL/min/1.73m2); Glucose 114 mg/dL (74-106); Potassium 3.4 mmol/L (3.5-5.1); Sodium 145 mmol/L (136-145)
[2024-01-10 07:43] VITALS: BP 128/86; PULSE 78; RESP 19; TEMP 36.7; O2SAT 94
--- NOTE | 2024-01-10 07:45 | PTTR_ITS ---
PT Notes Visit Reasons: Congestive Heart Failure, Influenza A Inpatient Physical Therapy Treatment Note [facility] Date: 01/10/24 PRECAUTIONS:standard, fall SUBJECTIVE: Kadeem Delatorre states that he is feeling good. He's agreeable to getting up and moving. OBJECTIVE: ? PAIN: denies VITALS: monitored by nursing Therapeutic Activities (15825o2): Direct one-on-one instruction in dynamic activities to improve functional performance. ? BED MOBILITY/TRANSFERS? Supine-sit: supervision? Sit-stand: CGA? Stand-sit: CGA, cues for hand placement ? Bed-Chair: FWW, CGA and max cues for RLE advancement ? Chair-bed: FWW, CGA and max cues for RLE advancement? Therapeutic Exercises (77631n8): Direct one-on-one instruction in therapeutic exercises to develop strength, endurance, range of motion and flexibility. ? Instructed in the following exercises, with cues for pacing throughout seated ankle pumps 10x seated LAQ 10x2 seated hip AB/AD 10x standing march 30 seconds x 2 standing balance, wide HIEN without UE support, CGA throughout, 30 seconds x 2 ? Ambulation ? Assistive Device: FWW? Weight bearing: full Assist: cues for RLE advancement, FWW management (difficulty staying inside the walker) ? Distan ce:? 5'x3, 20'x1 ? Provided skilled instruction in proper exercise performance Provided skilled manual cues to facilitate proper muscle recruitment and/or form ASSESSMENT:? Improving activity tolerance and independence. Pop hopes to return home upon discharge, however will need to make continued gains in independence for this to be feasible. May require STR for continued progress toward goals, depending on how he progresses in the next couple of PT sessions. PLAN: Continue PT intervention to maximize safety and activity tolerance. TREATMENT CODE/TIME: 28238t3 ([id number]) DISCHARGE RECOMMENDATION: PT vs SNF
[2024-01-10] MEDS: Omeprazole 20 MG CAPCR 40 MG PO (08:25)
[2024-01-10] MEDS: Furosemide 20 MG TAB PO (08:26)
[2024-01-10] MEDS: Metoprolol 25 MG TAB PO ×2 (08:26→20:05)
[2024-01-10] MEDS: Spironolactone 25 MG TAB PO (08:26)
[2024-01-10] MEDS: Aspirin 81 MG CHEW PO (08:26)
[2024-01-10] MEDS: Apixaban 2.5 MG TAB PO ×2 (08:26→20:00)
[2024-01-10] MEDS: Lisinopril 5 MG TAB PO (08:26)
[2024-01-10] MEDS: Normal Saline Flush 10 ML SYR IVP ×2 (08:28→20:05)
--- NOTE | 2024-01-10 09:55 | PGE_ITS ---
Date of Service Date of service: 01/10/24 Time of Service: 09:55 Assessment and Plan Assessment and plan (1) CHF (congestive heart failure): Status: Acute Assessment and plan: stop IV Lasix duiresis, resumed oral dosing but adjusting to an higher dosage today on telemetry, probable discharge tomorrow if stable patterson cath. discontinued, bladder scan if not able to void Continue daily weight Echo done on 12/29 LVEF 55-60%, no wall motion abnormality PT consult : recommends STR VS HH PT (2) Chronic renal disease, stage 3, moderately decreased glomerular filtration rate (GFR) between 30-59 mL/min/1.73 square meter: Status: Acute Assessment and plan: creatinine at 1.6 around baseline Continue to avoid nephrotoxic drug, renal dosing as needed monitor closely while actively diuresing, will stop IV and increasing home po dosing (3) Paroxysmal atrial fibrillation: Status: Acute Assessment and plan: Continue home metoprolol and eliquis (4) Hypertension: Status: Chronic Assessment and plan: Continue home lisinopril but dose lowered to 2.5 mg daily as Lasix dose is increased (5) Influenza A: Status: Resolved Assessment and plan: Treated from previous admit on 12/29 and patient stated that he took his meds until this AM As per CDC, isolation for 7 days no further droplet precautions necessary (6) GERD (gastroesophageal reflux disease): Assessment and plan: On omeprazole (7) COPD (chronic obstructive pulmonary disease): Assessment and plan: Stable on PRN nebs Difficulty clearing secretions: -Vibrapep -IS -Mucinex Discussed with Dr Srinivas Wu Subjective Subjective Patient reports: no new complaints, feels better, tolerating liquids well, tolerating a regular diet, voiding w/o difficulty (patterson removed ), bowel movement (01/08), shortness of breath (slight SOB but less than previously ) and afebrile; denies diarrhea, nausea or vomiting Exam Narrative Exam Narrative: Constitutional Frail elderly patient appears comfortable, without acute cardiopulmonary distress HENMT: Facial structures with normal appearance Neuro:alert and oriented to self and place, nonfocal Resp: Coarse bibasilar breath sounds, difficulty clearing secretions but no oxygen supplementation required Cardio: Telemetry sinus rhythm 56-66 , distant S1, S2, trace lower extremity edema right > left i GI: Abdomen is not distended,less bloated,semi-firm and non tender, bowel sounds are present : Negative Costovertebral angle tenderness Integumentary: No skin lesions or rash except for keratosis like lesions in the back Psych: RASS 0, congruent mood and normal affect. Objective Last Vital Signs Temp 36.7 C 01/10/24 07:43 Pulse 78 01/10/24 07:43 Resp 19 01/10/24 07:43 BP 128/86 01/10/24 07:43 Pulse Ox 94 01/10/24 07:43 Laboratory Results - last 24 hr 01/10/24 06:25 Sodium 145 Potassium 3.4 L Chloride 107 Carbon Dioxide 26.5 Anion Gap 11.5 H BUN 47 H Creatinine 1.6 H Est GFR (CKD-EPI 2020) 42.49 Glucose 114 H Calcium 8.8 Time Spent with Patient Time Spent with Patient: >50 minutes Time was spent: preparing to see the patient(eg.review tests), obtaining and/or reviewing separately otained hiistory, ordering medications,tests, procedures, referring, communicating with other health palliative care physician, indepentently interpreting results, counseling the patient and care coordination
[2024-01-10] MEDS: Fluticasone NASAL SPRAY 16 GM BTL NS (10:04)
[2024-01-10 11:46] VITALS: BP 115/65; PULSE 69; RESP 18; TEMP 36.3; O2SAT 92
--- NOTE | 2024-01-10 14:43 | PT.INTREAT ---
PT Notes Visit Reasons: Congestive Heart Failure, Influenza A Inpatient Physical Therapy Treatment Note [facility] Date: 01/10/24 PRECAUTIONS: Activity As tolerated. Fall risk. Hard of hearing. SUBJECTIVE: Had a good lunch. Watching TV seated on chair. Agreeable to doing some more walking. OBJECTIVE: ? PAIN: None reported. VITALS: Closely monitored by nursing staff Therapeutic Activities (69588b2): Direct one-on-one instruction in dynamic activities to improve functional performance. ? BED MOBILITY/TRANSFERS: ? Sit-stand: contact guard assist? Stand-sit: contact guard assist? Bed-Chair: contact guard assist using FWW? Chair-bed: contact guard assist using FWW? GAIT: ? Assistive Device: FWW? Weight bearing: FWB Assist: contact guard assist Distance:?50 feet + 50 feet Cueing: Moderate cues given for increased step height/length as well as for posture, AD management and safer weight distribution on walker and B LE ? Therapeutic Exercises (49553): Direct one-on-one instruction in therapeutic exercises to develop strength, endurance, range of motion and flexibility. Provided skilled instruction in proper exercise performance seated ankle pumps 10x seated LAQ 10x2 seated hip AB/AD 10x ? ASSESSMENT:? Able to complete this afternoon's activities without undue fatigue and shortness of breath. Step asymmetry, decreased pace during turning, decreased balance awareness with backing up continue to require skilling to reduce fall risk. Decilned recommendation of short-term rehab this afternoon. PLAN: Progress strength, balance, and safety skills to minimize fall risk and maintain ability of patient to remain at home. DISCHARGE RECOMMENDATION: PT vs SNF TREATMENT CODE/TIME: [id number] x 12 minutes, 9710 x 12 minutes (14:17-14:41).
[2024-01-10 15:24] VITALS: BP 100/62; PULSE 51; RESP 20; TEMP 36.1; O2SAT 94
[2024-01-10] MEDS: Furosemide 40 MG TAB PO (16:39)
--- NOTE | 2024-01-10 17:31 | PDOC.CMPRO ---
Date of service: 01/10/24 Time of Service: 17:31 Care Management Progress Note Progress Note Text Progress Note Text: Juan Ramon was sitting up in his chair eating lunch when CM met with him. He stated that he is doing ok today. Per report, he continues to improve, and may be ready for discharge tomorrow. He stated that he has support at home from HH and family, and although he lives alone, he feels that he is doing well managing on his own. CM will continue to follow. Discharge Potential Discharge Needs: PCP F/U Appt Anticipated Barriers to Discharge: None Identified Patient/Family Education Needs: Review discharge instructions, discuss Ask Me Three Transportation: Private vehicle Plan: Juan Ramon will return home with a resumption of services once medically cleared. If SNF is indicated, Juan Ramon stated that he will consider it, but he would prefer to return home. He will transport via private vehicle by family. He will follow up with his PCP and discharge plan of care. CM will continue to follow. SDOH(Care Management) Screening Will the Patient Participate in the Screening?: Unable to obtain
[2024-01-10] MEDS: Acetaminophen 325 MG TAB 650 MG PO (19:59)
[2024-01-10] MEDS: guaiFENesin 600 MG TABCR PO (20:00)
[2024-01-10] MEDS: Atorvastatin 10 MG TAB PO (20:00)
[2024-01-10] MEDS: Docusate Sodium 100 MG CAP PO (20:01)
[2024-01-10 20:12] VITALS: BP 110/77; PULSE 78; RESP 20; TEMP 36.7; O2SAT 95
[2024-01-10 23:37] VITALS: BP 95/50; PULSE 63; RESP 18; TEMP 36.1; O2SAT 95
[2024-01-11 03:50] VITALS: BP 100/62; PULSE 59; RESP 17; TEMP 36; O2SAT 92
[2024-01-11 06:52] LABS: Abs Immature Grans 0.06 10^3/uL (0.0-0.06); Absolute Basophil Count 0.03 10^3/uL (0.0-0.2); Absolute Eosinophil Count 0.19 10^3/uL (0.0-0.7); Absolute Lymphocyte Count 0.73 10^3/uL (1.2-3.4); Absolute Monocyte Count 0.54 10^3/uL (0.1-0.8); Basophils % 0.4 %; Eosinophils % 2.8 %; HCT 49.7 % (40.0-50.0); HGB 16.9 g/dL (13.5-17.5); Immature Grans % 0.9 %; Lymphocytes % 10.7 %; MCH 28.6 pg (27.0-33.0); MCV 84 fL (80-95); MPV 11.9 fL (8.0-11.0); Monocytes % 7.9 %; Neutrophils % 77.3 %; Platelet Count 161 10^3/uL (130-400); RDW 13.7 % (11.8-14.1); RDW-SD 42.2 fL; WBC 6.85 10^3/uL (4.4-10.8)
[2024-01-11 07:05] LABS: Anion Gap 8.8 mmol/L (3-11); BUN 49 mg/dL (7-18); CO2 27.2 mmol/L (21.0-32.0); CREATININE 1.6 mg/dL (0.70-1.30); Calcium 8.7 mg/dL (8.5-10.1); Chloride 107 mmol/L (98-107); Estimated GFR 42.49 (mL/min/1.73m2); Glucose 100 mg/dL (74-106); Potassium 3.3 mmol/L (3.5-5.1); Sodium 143 mmol/L (136-145)
[2024-01-11 07:37] VITALS: BP 116/92; PULSE 72; RESP 20; TEMP 36.1; O2SAT 94
--- NOTE | 2024-01-11 09:50 | PTTR_ITS ---
PT Notes Visit Reasons: Congestive Heart Failure, Influenza A Inpatient Physical Therapy Treatment Note [facility] Date: 01/11/24 PRECAUTIONS: Activity As tolerated. Fall risk. Hard of hearing, hears better through the L ear. SUBJECTIVE: Looking forward to going home with previous services in place. Says that he has staff coming in to get him ready in the morning to go to the [facility]. OBJECTIVE: ? PAIN: None reported. VITALS: Closely monitored by nursing staff Therapeutic Activities ([id number]): Direct one-on-one instruction in dynamic activities to improve functional performance. ? BED MOBILITY/TRANSFERS: ? Sit-stand: stand by assist assist? Stand-sit: contact guard assist? Bed-Chair: contact guard assist using FWW? Chair-bed: contact guard assist using FWW? GAIT: ? Assistive Device: FWW? Weight bearing: FWB Assist: contact guard assist Distance:?75 feet + 50 feet Cueing: Moderate cues given for increased step height/length as well as for posture, AD management and safer weight distribution on walker and B LE Deviation: R step length << ?L step length ? Therapeutic Exercises (78107): Direct one-on-one instruction in therapeutic exercises to develop strength, endurance, range of motion and flexibility. Provided skilled instruction in proper exercise performance seated ankle DF/PF x 10 seated LAQ x 10 seated marches x 10 ? ASSESSMENT:? Able to complete this morning's activities without undue fatigue and shortness of breath. Step asymmetry, decreased pace during turning, decreased balance awareness with backing up continue to require skilling to reduce fall risk. Decilned recommendation of short-term rehab this afternoon. PLAN: Progress strength, balance, and safety skills to minimize fall risk and maintain ability of patient to remain at home. DISCHARGE RECOMMENDATION: PT vs SNF TREATMENT CODE/TIME: 77998 x 15 minutes for 1 unit, 9710 x 14 minutes for 1 unit (09:50-10:19).
[2024-01-11] MEDS: Docusate Sodium 100 MG CAP PO (10:03)
[2024-01-11] MEDS: Aspirin 81 MG CHEW PO (10:03)
[2024-01-11] MEDS: Apixaban 2.5 MG TAB PO (10:03)
[2024-01-11] MEDS: Furosemide 40 MG TAB PO (10:04)
[2024-01-11] MEDS: Fluticasone NASAL SPRAY 16 GM BTL NS (10:04)
[2024-01-11] MEDS: guaiFENesin 600 MG TABCR PO (10:04)
[2024-01-11] MEDS: Normal Saline Flush 10 ML SYR IVP (10:05)
[2024-01-11] MEDS: Metoprolol 25 MG TAB PO (10:05)
[2024-01-11] MEDS: Lisinopril 2.5 MG TAB PO (10:05)
[2024-01-11] MEDS: Spironolactone 25 MG TAB PO (10:05)
[2024-01-11] MEDS: Omeprazole 20 MG CAPCR 40 MG PO (10:05)
--- NOTE | 2024-01-11 10:10 | PDOC.CMDIS ---
Date of service: 01/11/24 Time of Service: 10:10 LACE Index Scoring Tool Questions: Length of Stay (in days): 4 - 6 Was the patient admitted via the E.D.?: Yes Comorbidities: Congestive Heart Failure, Chronic Pulmonary Disease and Liver or Renal Disease E.D. Visits: 1 Answers: Total Score: 13 Risk of Readmission: High Risk Care Management Discharge Plan Reason for Hospitalization: CHF, Influenza A Discharge Plan: Juan Ramon will return home today with new orders for HH PT. He will have a resumption of his caregivers through [facility] highest needs, which is almost every day, as well as his family support. He will follow up with his PCP and discharge plan of care. He is happy to be going home. Patient/Family Education Needs: Review discharge instructions and limitations, discussion of self care needs including ask me three. Services Needed at Discharge: Home Health Care Services (resumption of caregiver support; new HH PT) SDOH Health Related Social Needs: No Data to Display
[2024-01-11 11:21] VITALS: BP 102/63; PULSE 68; RESP 18; TEMP 36.1; O2SAT 93
[2024-01-11] MEDS: Potassium Chloride 20 MEQ TABCR 40 MEQ PO (13:13)
--- NOTE | 2024-01-11 13:47 | W.NUTRFU ---
Date of service: 01/11/24 Time of Service: 13:00 Nutrition Note NOTE: Met with Pop for quick nutrition assessment. He is 83yo male recently admitted for CHF, CKD3 (GFR 42 today), Afib. PMH significant for HTN, GERD, COPD, MS. Pt unsure of significant weight changes - weight record shows ~9kg loss since 12/30/23 although fluid shifts are a factor in this. He denies taking ONS at home and declined when offered during his admission. K is 3.3 today FPG staying under 130 x last 4 days. States he's been having some constipation - did move bowels earlier today per pt. Receiving PEG PRN for this. Denies concerns with chewing/swallowing. Recommend K replacement vitamin D lab and pt will continue on Heart Healthy diet order with normal consistencies. Will monitor weight, po intake, labs and pt knows I am available for more detailed outpt services for menu planning for renal disease. Time Spent in Nutritional Counseling and Treatment: 5 min
--- NOTE | 2024-01-11 13:52 | PHA.REVIEW2 ---
Pharmacy Admission Review Admission Clinical Review Admission Pharmacy Review: CHF (congestive heart failure) (Acute) Elevated brain natriuretic peptide (BNP) level (Acute) Chronic renal disease, stage 3, moderately decreased glomerular filtration rate (GFR) between 30-59 mL/min/1.73 square meter (Acute) Paroxysmal atrial fibrillation (Acute) Peripheral edema (Acute) Sulfa (Sulfonamide Antibiotics) Allergy (Verified 01/07/24 12:48) Skin Rash Resuscitation Status DNR/DNI Height 6 ft Weight 77 kg Pharmacy Admission Review Renal Dosing Renal Dosing: BUN 49 mg/dL (7-18) H 01/11/24 05:45 Creatinine 1.6 mg/dL (0.70-1.30) H 01/11/24 05:45 Medications needing adjustments: Reviewed (CrCl 38 mL/min, BUN increased from 47) List of meds needing interventions: Current medications are okay Anticoagulation Anticoagulation: Hgb 16.9 g/dL (13.5-17.5) 01/11/24 05:45 Hct 49.7 % (40.0-50.0) 01/11/24 05:45 Plt Count 161 10^3/uL (130-400) 01/11/24 05:45 Creatinine 1.6 mg/dL (0.70-1.30) H 01/11/24 05:45 DVT Prophylaxis: Reviewed Medications: Apixaban (2.5mg PO BID) Relevant Labs Relevant Labs: Sodium 143 mmol/L (136-145) 01/11/24 05:45 Potassium 3.3 mmol/L (3.5-5.1) L 01/11/24 05:45 Chloride 107 mmol/L (98-107) 01/11/24 05:45 Magnesium 1.8 mg/dL (1.8-2.4) 01/09/24 06:18 Electrolytes, C-Reactive P, ESR: Reviewed (K 3.3 - 40mEq PO x1 today) Cardiac Review Cardiac Review: Troponin I < 50 ng/L (< or =60) 01/07/24 16:15 NT-Pro-B Natriuret Pep 3094 pg/mL (<300) H 01/07/24 13:15 BP, HR, EF%: Reviewed (BP and HR WNL) QTc Review QTc: Reviewed (439 from 01/07/24) IV to PO Switch IV Medications: Reviewed Home Meds Home Med List reviewed: Reviewed Current Meds Current Medication Order Review: Reviewed
--- NOTE | 2024-01-11 14:36 | W.PM.DS.N ---
Date of service: 01/11/24 Time of Service: 14:36 DS: Diagnosis Discharge Diagnosis (1) CHF (congestive heart failure): Status: Acute (2) Chronic renal disease, stage 3, moderately decreased glomerular filtration rate (GFR) between 30-59 mL/min/1.73 square meter: Status: Acute (3) Paroxysmal atrial fibrillation: Status: Acute (4) Hypertension: Status: Chronic (5) Influenza A: Status: Resolved (6) GERD (gastroesophageal reflux disease): (7) COPD (chronic obstructive pulmonary disease): Discharge Plan Disposition Patient Disposition: Home W/Home Health Services Condition: Improving Discharge Details Reason For Visit: Congestive Heart Failure, Influenza A Admit Date/Time: 01/07/24 17:17 Admit Provider: Marcelo Levine Attending Provider: Marcelo Levine Primary Care Provider: Arnold Vicente Hospital Course Hospital Course: This 83-year-old male patient with a past medical history of chronic kidney disease, atrial fibrillation on eliquis and metoprolol, repaired abdominal aortic aneurysm, hypertension, multiple sclerosis with minimal ambulatory dysfunction, chronic obstructive pulmonary disease, artery coronary disease, CABG, lung cancer and pulmonary nodule presented to the ED at [facility] on 01/07/2024 for evaluation of increased fatigue and generalized weakness. The patient came via private vehicle with his grandson who explained he was concerned of a lack of oral fluid intake and became suspicious regarding the seriousness of the condition when his grandfather called him for help. Usually the patient remained quite independent with the daily home health aides coming in and helping him with his meals and chores. The workup in the ED was negative for leukocytosis, H&H was 17 and 53.4, BUN was 30 with a creatinine of 1.4 around baseline, BNP was 2094. Chest x-ray result question mild pulmonary edema versus interstitial changes. In the ED the patient initially received a bolus of 500 cc of IV fluid then received 40 mg of IV push Lasix. The hospitalist was consulted and Dr. Rose went to the emergency room and evaluated the patient for cardiovascular/fluid volume status by completing a POCUS exam at bedside showing B-lines more prominent to the right lung field than the left. The patient displayed JVD as well as hepatojugular reflux on examination. The patient was previously admitted on 12/30/2023 for influenza A infection which was treated with Tamiflu but serology still showed a positive influenza A. The patient was admitted to the medical surgical floor for evaluation and management of increased weakness fatigue and congestive heart failure. During the stay the patient continued to receive IV push Lasix which was later transition to an higher dose of oral Lasix than the 1 that he was receiving at home. The patient was also on spironolactone but continue to show hypokalemia with supplementation required. The patient will also be discharged on 10 mEq of potassium chloride daily. The patient was kept on isolation 1 more day due to the positive serology for influenza; he remained asymptomatic then precautions were DC'd as per CDC guidelines. The patient had difficulty clearing secretions and Mucinex was added to his regimen as well as aggressive pulmonary toilet with Acapella and I-S. The patient will have to continue those intervention upon discharge. Physical therapy recommendation for discharge are for home health PT. The patient will need a follow-up with his PCP within one week of discharge to manage result of outpatient BMP and diuretics. An echocardiogram was completed during the previous stay with LVEF 55-60 %, systolic ventricular function was adequate. The patient would benefit from home health nursing to monitor worsening of the medical conditions as well as completing a BMP ordered as an outpatient, and ensure compliance to new medical regimen. Discussed with Dr. Wu Home Meds and New Rx's Prescriptions: New spironolactone 25 mg Tablet 25 mg PO DAILY Qty: 30 0RF furosemide 40 mg Tablet 40 mg PO BID@0830,1600 Qty: 60 0RF potassium chloride 10 mEq packet 10 meq PO DAILY Qty: 30 0RF guaifenesin [Mucinex] 600 mg tablet extended release 12hr 600 mg PO BID Qty: 10 0RF Continued acetaminophen [Tylenol Arthritis Pain] 650 mg tablet extended release 325 mg PO HS fluticasone propionate 50 mcg/actuation spray,suspension 2 spray CHINMAY DAILY Qty: 48 3RF Rx Instructions: administer into each nostril aspirin [Aspirin Low-Strength] 81 MG tablet,chewable 81 mg PO DAILY atorvastatin 10 mg tablet 10 mg PO QPM Qty: 90 3RF omeprazole 40 mg capsule,delayed release(DR/EC) 40 mg PO DAILY Qty: 90 3RF metoprolol tartrate 50 mg tablet 25 mg PO BID Qty: 90 3RF Eliquis 2.5 mg tablet 2.5 mg PO BID Qty: 180 3RF Changed lisinopril 5 mg tablet 2.5 mg PO DAILY Qty: 90 3RF Discontinued furosemide [Lasix] 20 mg tablet 20 mg PO QAM Qty: 90 3RF prednisone 20 mg Tablet 40 mg PO DAILY Qty: 4 0RF guaifenesin [Mucus Relief ER] 600 mg Tablet Extended Release 12hr 600 mg PO BID Qty: 6 0RF doxycycline hyclate 100 mg capsule 100 mg PO BID Qty: 7 0RF Discharge Instructions Stand Alone Forms: Nursing Discharge Form Referrals: Arnold Vicente MD [Primary Care Provider] - 01/13/24 10:00 am () Activity:: Activity as Tolerated Equipment/Supplies:: Walker Diet:: heart healthy Discharge Orders Discharge Orders: Discharge Order (Routine); Ordered 01/11/24 Ordered By: Vivian Ozuna Other Ambulatory Orders: Basic Metabolic Panel (Routine) Timeframe: 20240114 Facility: [facility] - Location: Laboratory Outpatient - [facility] Ordered By: Vivian Ozuna DS: Summary Time Spent with Patient providing and/or coordinating discharge services: Greater than 30 minutes Status at Discharge Functional status at discharge: uses cane/walker Overall status at discharge: patient is progressing back to baseline Mental Status: mental status grossly normal Speech and Movement: speech and movement normal Mood: congruent mood Affect: normal affect Quality:SDOH Health Related Social Needs: No Data to Display Exam Narrative Exam Narrative: Constitutional Frail elderly patient appears comfortable, without acute cardiopulmonary distress HENMT: Facial structures with normal appearance Neuro:alert and oriented to self and place, nonfocal Resp: Coarse bibasilar breath sounds, improved secretions clearance and no oxygen supplementation required Cardio: Telemetry sinus rhythm with PVC's HR 77 , distant S1, S2, i GI: Abdomen is not distended,less bloated,semi-firm and non tender, bowel sounds are present Integumentary: No skin lesions or rash except for keratosis like lesions in the back Psych: RASS 0, congruent mood and normal affect. Psych Mental Status: mental status grossly normal Speech and Movement: speech and movement normal Mood: congruent mood Affect: normal affect DS: Data Vitals/I&O Vitals and I&O: Vital Signs Temperature 36.1 C L 01/11/24 11:21 Temperature Source Temporal Artery Scan 01/11/24 11:21 Pulse 68 01/11/24 11:21 Pulse Rhythm Regular 01/11/24 09:30 Pulse 66 01/07/24 18:10 Respiratory Rate 18 01/11/24 11:21 Respiratory Effort Normal 01/11/24 09:30 Respiratory Depth Normal 01/11/24 09:30 Respiratory Pattern Normal 01/11/24 09:30 Blood Pressure 102/63 01/11/24 11:21 Blood Pressure Mean 98 01/07/24 18:01 Blood Pressure Position Sitting 01/07/24 12:53 Pulse Oximetry 93 01/11/24 11:21 Oxygen Delivery Method Room Air 01/11/24 11:21 Oxygen Flow Rate 0 01/11/24 11:21 Pain Level 0 01/10/24 16:12 Intake & Output 01/10/24 01/11/24 01/11/24 23:59 11:59 23:59 Intake Total 240 / 860 500 / 500 Output Total 130 / 580 Balance 110 / 280 500 / 500 Weight 77 kg Intake: IV 500 / 500 Oral 240 / 360 Output: Urine 130 / 580 Other: Urine Color Yellow Yellow Yellow Urine Appearance Hematuria Clear Clear Urine Odor Normal None Voiding Methods Urinal Toilet Toilet Data Completed and Pending Labs on day of discharge: Labs from last 24 hours 01/11/24 05:45 WBC 6.85 RBC 5.90 H Hgb 16.9 Hct 49.7 MCV 84 MCH 28.6 MCHC 34.0 RDW 13.7 Plt Count 161 MPV 11.9 H Immature Gran % 0.9 Neutrophils % 77.3 Lymphocytes % 10.7 Monocytes % 7.9 Eosinophils % 2.8 Basophils % 0.4 Nucleated RBC % 0.0 Absolute Neutrophils 5.30 Absolute Lymphocytes 0.73 L Absolute Monocytes 0.54 Absolute Eosinophils 0.19 Absolute Basophils 0.03 Sodium 143 Potassium 3.3 L Chloride 107 Carbon Dioxide 27.2 Anion Gap 8.8 BUN 49 H Creatinine 1.6 H Est GFR (CKD-EPI 2020) 42.49 Glucose 100 Calcium 8.7 Preliminary micro results at discharge 01/07/24 13:42 Blood Culture - Preliminary Blood NO GROWTH 72 HOURS 01/07/24 13:15 Blood Culture - Preliminary Blood NO GROWTH 72 HOURS PFSH All Active Problems (Updated 01/08/24 @ 12:47 by Any Braga NP) CHF (congestive heart failure) (Acute) GIO (acute kidney injury) (Acute) Elevated brain natriuretic peptide (BNP) level (Acute) Hematuria (Acute) Elevated bilirubin (Acute) Chronic renal disease, stage 3, moderately decreased glomerular filtration rate (GFR) between 30-59 mL/min/1.73 square meter (Acute) Paroxysmal atrial fibrillation (Acute) Nail dystrophy (Acute) Peripheral edema (Acute) Arthritis of big toe (Acute) Skin lesion of face (Acute) Facial basal cell cancer (Acute) Loose stools (Acute) Hypertension (Chronic) Vasomotor rhinitis (Chronic) use the ipratropium Fracture of thoracic spine (Acute) History of cataract removal with insertion of prosthetic lens (Acute) History of coronary artery bypass surgery (Acute) History of esophagogastroduodenoscopy (Acute) History of thoracentesis (Acute) Status post abdominal aortic aneurysm repair (Acute) Status post cholecystectomy (Acute) Pneumonia (Acute) Pulmonary nodule, right (Acute 02/26/16) Follwed by [facility] Multiple sclerosis (Acute 11/14/14) Idiopathic scoliosis (Acute) Hyperlipidemia (Acute 11/02/12) History of tobacco use (Acute 11/02/12) quit 2006 History of tobacco use (Acute 11/02/12) quit 2006 Gastritis (Acute) per EGD 2006 Chronic obstructive lung disease (Acute 11/02/12) Aortic aneurysm (Acute 11/02/12) AAA-lap repair 2005 Nausea,vomiting,diarrhea, fever (Active 11/16/12) Multiple sclerosis (Active) Diagnosed 25 years ago. 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 Surgery [facility] 2016 Surgical History History of thoracentesis Hx of cholecystectomy History of cataract surgery History of tonsillectomy Hx of CABG History of AAA (abdominal aortic aneurysm) repair EGD - MAC (~01/2007) GERD/CHRONIC GASTRITIS Social History Smoking/Tobacco Use Status: Former Tobacco Use Quit Date: 12/27/23 Tobacco: How many years used: 55 Smoking risk assessment performed?: Yes Alcohol Intake: never Drug use: Never Substance use type: does not use Housing: other Do you feel safe at home: Yes Do you feel safe in your relationship?: Yes Time Spent with Patient Time Spent with Patient: 70-84 minutes4 Time was spent: preparing to see the patient(eg.review tests), obtaining and/or reviewing separately otained hiistory, ordering medications,tests, procedures, referring, communicating with other health home care manager rn, indepentently interpreting results, counseling the patient and care coordination
--- NOTE | 2024-01-11 14:40 | PDOC.HHF2F ---
Home Health Referral Home Health Orders Clinical synopsis of why skilled professionals are needed: This 83-year-old male patient with a past medical history of chronic kidney disease, atrial fibrillation on eliquis and metoprolol, repaired abdominal aortic aneurysm, hypertension, multiple sclerosis with minimal ambulatory dysfunction, chronic obstructive pulmonary disease, artery coronary disease, CABG, lung cancer and pulmonary nodule presented to the ED at [facility] on 01/07/2024 for evaluation of increased fatigue and generalized weakness. The patient was previously admitted on 12/30/2023 for influenza A infection which was treated with Tamiflu but serology still showed a positive influenza A. The patient was admitted to the medical surgical floor for evaluation and management of increased weakness fatigue and congestive heart failure. During the stay the patient continued to receive IV push Lasix which was later transition to a higher dose of oral Lasix than the one that he was receiving at home. The patient was kept on isolation 1 more day due to the positive serology for influenza; he remained asymptomatic then precautions were DC'd as per CDC guidelines. The patient had difficulty clearing secretions and Mucinex was added to his regimen as well as aggressive pulmonary toilet with Acapella and I-S. The patient will have to continue those intervention upon discharge. Physical therapy recommendation for discharge are for home health PT. The patient will need a follow-up with his PCP within one week of discharge to manage result of outpatient BMP and diuretics. An echocardiogram was completed during the previous stay with LVEF 55-60 %, systolic ventricular function was adequate. Medical diagnosis necessitation home health referral: The patient was admitted to the medical surgical floor for evaluation and management of increased weakness fatigue and congestive heart failure. Registered Nurse: Check all that apply Instruct on new or changed medication(s)/assess compliance: Ordered Assess for exacerbation of medical condition, instruct patient/caregivers on signs and symptoms to report for early detection: Ordered Other: BMP Physical Therapist: Check all that apply Increase strength & endurance for safe mobility at home: Ordered To design/establish home maintenance program: Ordered Fall reduction therapy program for patient with history of frequent falls: Ordered Home safety evaluation and teaching/gait training including stair management (if applicable): Ordered Better Breathing Program: Ordered Encounter Date and Reason: I certify that a FTF encounter for this patient was performed on January 11, 2024 and that such encounter was related to the primary reason the patient requires home health services. The encounter was conducted in the following manner: By me as the certifying physician, SOCIAL SCIENCES RESEARCH SCIENTIST, PA or By an inpatient physician, SOCIAL SCIENCES RESEARCH SCIENTIST or PA during an inpatient stay who communicated findings to me, Certification And Authentication I certify that I composed the above information based on my clinical judgment relating to this patient's medical condition and, if applicable, clinical findings communicated to me by the NPP or inpatient physician who performed the FTF encounter. Name of Provider that will be monitoring home health services: Arnold Vicente
== END 2024-01-11 15:06 | disposition home health service (06) | DRG 293 ==
LOC: ER 17:45 → MS 18:23
PROVIDERS: Nurse Practitioner Acute Care; Physician Assistant; Student in an Organized Health Care Education/Training Program; Admitting Provider Internal Medicine; Emergency Provider Nurse Practitioner Family; PCP Family Medicine; Visit Provider Internal Medicine
DX: I13.0 Hypertensive heart and chronic kidney disease with heart failure and stage 1 through stage 4 chronic kidney disease, or unspecified chronic kidney disease (principal); I50.9 Heart failure, unspecified; N18.30 Chronic kidney disease, stage 3 unspecified; I48.0 Paroxysmal atrial fibrillation; K21.9 Gastro-esophageal reflux disease without esophagitis; J44.9 Chronic obstructive pulmonary disease, unspecified; Z79.01 Long term (current) use of anticoagulants; G35 Multiple sclerosis; I25.10 Atherosclerotic heart disease of native coronary artery without angina pectoris; Z95.1 Presence of aortocoronary bypass graft; R91.8 Other nonspecific abnormal finding of lung field; M41.20 Other idiopathic scoliosis, site unspecified; E78.5 Hyperlipidemia, unspecified; Z87.891 Personal history of nicotine dependence; K29.70 Gastritis, unspecified, without bleeding; K59.00 Constipation, unspecified; L30.9 Dermatitis, unspecified; Z90.2 Acquired absence of lung [part of]; Z85.118 Personal history of other malignant neoplasm of bronchus and lung
CPT/HCPCS: 00123; 36415; 80048; 80053; 84145; 87040; 87637; 93005; 94640; 96361; 96374; 97110; 97162; 97530; 99285; 71046; 83605; 83735; 83880; 84484; 85025; 93010; 94667; 99223; 99232; 99233; 99239; J1940; J1941; J7620

== ENCOUNTER 2024-01-18 10:42 | Outpatient (REF) | payer MEDICARE, MEDICAID, SELFPAY ==
[2024-01-18 11:16] LABS: BUN 21 mg/dL (7-18); CREATININE 1.5 mg/dL (0.70-1.30); Chloride 111 mmol/L (98-107); Estimated GFR 45.91 (mL/min/1.73m2); Glucose 105 mg/dL (74-106); Potassium 4.4 mmol/L (3.5-5.1); Sodium 145 mmol/L (136-145)
== END 2024-01-18 10:43 | disposition home or self-care (01) ==
LOC: LBN 10:42
PROVIDERS: PCP Family Medicine; Visit Provider Family Medicine
DX: I50.9 Heart failure, unspecified (principal)
CPT/HCPCS: 80048

== ENCOUNTER 2024-03-14 10:10 | Outpatient (CLI) | payer MEDICARE, MEDICAID, SELFPAY ==
[2024-03-14 12:49] LABS: NT-proBNP 3586 pg/mL (<300)
== END 2024-03-14 10:11 | disposition home or self-care (01) ==
LOC: LOS 10:10
PROVIDERS: PCP Family Medicine; Referring Provider Family Medicine; Visit Provider Family Medicine
DX: I10 Essential (primary) hypertension (principal); I50.9 Heart failure, unspecified; G35 Multiple sclerosis
CPT/HCPCS: 36415; 83880; 84132

== ENCOUNTER 2024-03-17 17:00 | Outpatient (REF) | payer MEDICARE, MEDICAID, SELFPAY ==
[2024-03-17 18:51] LABS: Bilirubin Negative (Negative); Blood Negative (Negative); Clarity Clear (Clear); Glucose Negative (Negative); Ketones Negative (Negative); Leukocyte Esterase Negative (Negative); Nitrite Negative (Negative); Urobilinogen 0.2 mg/dL (Up to 0.2); pH 5.5 (5-8)
== END 2024-03-17 17:01 | disposition home or self-care (01) ==
LOC: LBN 17:00
PROVIDERS: PCP Family Medicine; Visit Provider Family Medicine
DX: R35.0 Frequency of micturition (principal); I10 Essential (primary) hypertension; I50.9 Heart failure, unspecified; G35 Multiple sclerosis
CPT/HCPCS: 81003

== ENCOUNTER 2024-07-24 16:30 | Inpatient (IN) | payer MEDICARE, MEDICAID, SELFPAY ==
[2024-07-24] VITALS (55 sets, daily range): BP systolic 78–129; BP diastolic 36–78; PULSE 48–157; RESP 17–33; TEMP 37–37.1; O2SAT 89–100
--- NOTE | 2024-07-24 16:30 | RT.EKG_ITS ---
APPROVED REPORT Exam: Resting ECG Reason for Exam: rapid heart rate Patient Location: E HR:123 bpm ECG Measurements Heart Rate [address] [id number] P [id number] QRSd 97 QRS -21 QT 335 T 62 QTc 480 Conclusion Atrial fibrillation 123 PVCs
[2024-07-24 16:48] LABS: Lactate 1.3 mmol/L (<or=2.0)
[2024-07-24 16:50] LABS: Abs Immature Grans 0.03 10^3/uL (0.0-0.06); Absolute Basophil Count 0.04 10^3/uL (0.0-0.2); Absolute Eosinophil Count 0.03 10^3/uL (0.0-0.7); Absolute Lymphocyte Count 0.51 10^3/uL (1.2-3.4); Absolute Monocyte Count 1.11 10^3/uL (0.1-0.8); Basophils % 0.5 %; Eosinophils % 0.4 %; HCT 48.4 % (40.0-50.0); HGB 15.9 g/dL (13.5-17.5); Immature Grans % 0.4 %; Lymphocytes % 6.1 %; MCH 28.9 pg (27.0-33.0); MCHC 32.9 % (32.0-36.0); MCV 88 fL (80-95); MPV 12.2 fL (8.0-11.0); Monocytes % 13.3 %; Neutrophils % 79.3 %; Platelet Count 127 10^3/uL (130-400); RBC 5.51 10^6/uL (4.36-5.78); RDW 13.3 % (11.8-14.1); RDW-SD 43.2 fL; WBC 8.32 10^3/uL (4.4-10.8)
[2024-07-24] MEDS: Normal Saline 500 ML IV ×2 (16:53→18:07)
[2024-07-24] MEDS: MAGNESIUM SULFATE 1 GM/100 ML BAG IV_INF (17:05)
[2024-07-24] MEDS: Dexamethasone 4 MG/ML VIAL 6 MG IVP (17:06)
[2024-07-24] MEDS: Albuterol 2.5 MG/3 ML INH SOLN VIAL UPD (17:06)
[2024-07-24 17:21] LABS: ALT 18 U/L (16-63); AST 11 U/L (15-37); Albumin 3.5 g/dL (3.4-5.0); Alkaline Phosphatase 158 U/L (46-116); Anion Gap 8.9 mmol/L (3-11); BUN 45 mg/dL (7-18); Bilirubin, Direct 0.2 mg/dL (0.0-0.2); Bilirubin, Total 0.66 mg/dL (0.2-1.0); CO2 25.1 mmol/L (21.0-32.0); CREATININE 2.7 mg/dL (0.70-1.30); Calcium 8.9 mg/dL (8.5-10.1); Chloride 104 mmol/L (98-107); Estimated GFR 22.53 (mL/min/1.73m2); Glucose 102 mg/dL (74-106); Magnesium 2.1 mg/dL (1.8-2.4); NT-proBNP 5838 pg/mL (<300); Potassium 4.4 mmol/L (3.5-5.1); Sodium 138 mmol/L (136-145); TSH (W/Ref FT4) 0.94 uIU/mL (0.36-3.74); Total Protein 7.4 g/dL (6.4-8.2); Troponin I 21 ng/L (<or=76)
[2024-07-24] MEDS: Apixaban 2.5 MG TAB PO (19:08)
[2024-07-24] MEDS: Metoprolol 25 MG TAB PO (19:08)
--- NOTE | 2024-07-24 19:08 | DI.RAD_ITS ---
Exam(s) XR CHEST 2V PA LATERAL EXAM: XR CHEST 2V PA LATERAL CLINICAL HISTORY: shortness of breath, covid. TECHNIQUE: 2D digital imaging was performed. COMPARISON: CR XR CHEST 2V PA LATERAL from 01/07/2024 FINDINGS: 2 views: There is sternotomy wires and evidence of previous CABG. Mild cardiomegaly again noted. Mediastinum is not widened. There are no infiltrates nor pleural effusions. No pulmonary edema. IMPRESSION: No acute pulmonary findings.Mild cardiomegaly. Sternotomy. CABG. DATA REPOSITORY: RADIATION DOSE DELIVERED:
[2024-07-24 19:57] LABS: Bilirubin Negative (Negative); Blood Negative (Negative); Clarity Clear (Clear); Glucose Negative (Negative); Ketones Negative (Negative); Leukocyte Esterase Negative (Negative); Nitrite Negative (Negative); Specific Gravity 1.015 (1.005-1.025); Urobilinogen 0.2 mg/dL (Up to 0.2); pH 5.5 (5-8)
--- NOTE | 2024-07-24 20:05 | W.PM.HP.N ---
Date of service: 07/24/24 Time of Service: 20:07 Assessment and Plan Assessment and plan (1) COVID: Status: Acute Assessment and plan: COVID, manifesting at present with generalized weakness and dehydration; no specific evidence of pulmonary involvement (the initial hypoxia was apparently due to underlying COPD). The hypotension is likely some combination of dehydration along with basal Lopressor and MARITZA; notably he is not presenting a picture of sepsis. Fluid status somewhat unclear at present as clinically he would appear somewhat dry but elevated BNP concerning; I am inclined to cautiously hydrate at this point. 1. COVID: Remdesivir, no indication at present for steroids; 2. Hypotension (see above): gentle fluids, hold MARITZA 3. AF: rate is reasonably controlled. Continue Lopressor and DOAC; 4. NSVT, asymptomatic (note Mg and K WNL), with preserved EF: continue beta mela as is. 5. COPD: prn updrafts AD: remains DNR History of Present Illness History of Present Illness Chief Complaint: weakness Narrative: 84 male with h/o HFpEF, AF, CKD, COPD -- here with 2 days of generalized weakness. A COVID test reportedly positive with PCP. Comes in tonight with progressive weakness. In ER findings of note for absence of fever, BP 80s-low 100s; pulse low 100s; initial O2 sats 89-91 with wheezing (s/p steroids and updraft, no further wheezing, and RA sats increased mid 90s); white count 8.3 with lymphopenia; azotemia with BUN 45, Creat 2.7; BNP 5838, and CXR without infiltrate, mild cardiomegaly (but poor inspiration). Patient noted to be having frequent wide complex ectopy (to my eye some looks like AF with aberrancy, some like NSVT, 3-5 beat range). Patient given IVF and I was asked to evaluate for admission. Patient states he feels improved but not back to baseline. Review of Systems Narrative: per HPI PFSH All Active Problems (Updated 07/24/24 @ 20:23 by Hudson Herrera MD) COVID (Acute) CHF (congestive heart failure) (Acute) GIO (acute kidney injury) (Acute) Hematuria (Acute) Elevated bilirubin (Acute) Chronic renal disease, stage 3, moderately decreased glomerular filtration rate (GFR) between 30-59 mL/min/1.73 square meter (Acute) Paroxysmal atrial fibrillation (Acute) Nail dystrophy (Acute) Arthritis of big toe (Acute) Skin lesion of face (Acute) Facial basal cell cancer (Acute) Loose stools (Acute) Hypertension (Chronic) Vasomotor rhinitis (Chronic) use the ipratropium Fracture of thoracic spine (Acute) History of cataract removal with insertion of prosthetic lens (Acute) History of coronary artery bypass surgery (Acute) History of esophagogastroduodenoscopy (Acute) History of thoracentesis (Acute) Status post abdominal aortic aneurysm repair (Acute) Status post cholecystectomy (Acute) Pneumonia (Acute) Pulmonary nodule, right (Acute 02/26/16) [place] [facility] [place] (Acute 11/14/14) Idiopathic scoliosis (Acute) Hyperlipidemia (Acute 11/02/12) History of tobacco use (Acute 11/02/12) quit 2006 History of tobacco use (Acute 11/02/12) quit 2006 Gastritis (Acute) per EGD 2006 Chronic obstructive lung disease (Acute 11/02/12) Aortic aneurysm (Acute 11/02/12) AAA-lap repair 2005 Nausea,vomiting,diarrhea, fever (Active 11/16/12) Multiple sclerosis (Active) Diagnosed 25 years ago. Benign hypertension (Active) same meds Coronary arteriosclerosis (Active) Hyperglycemia (Active) Gastroesophageal reflux disease (Active) History of - coronary artery bypass grafting (Active) Eczema (Active) Osteoarthritis (Active) Constipation (Active) Medical History Elevated brain natriuretic peptide (BNP) level Influenza A Peripheral edema Multiple sclerosis GERD (gastroesophageal reflux disease) COPD (chronic obstructive pulmonary disease) Coronary artery disease HTN (hypertension) Hyperlipemia Malignant neoplasm of lower lobe of right lung (04/15/16) [place] [facility] [place] Surgical History History of thoracentesis Hx of cholecystectomy History of cataract surgery History of tonsillectomy Hx of CABG History of AAA (abdominal aortic aneurysm) repair EGD - MAC (~01/2007) GERD/CHRONIC GASTRITIS Social History Smoking/Tobacco Use Status: Former Tobacco Use Quit Date: 12/27/23 Tobacco: How many years used: 55 Smoking risk assessment performed?: Yes Alcohol Intake: never Drug use: Never Substance use type: does not use Housing: other Do you feel safe at home: Yes Do you feel safe in your relationship?: Yes Meds Allergies and Home Medications Allergies Allergy/AdvReac Type Severity Reaction Status Date / Time Sulfa (Sulfonamide Allergy Skin Rash Verified 07/24/24 16:40 Antibiotics) Home Medications ?Medication ?Instructions ?Recorded ?Confirmed ?Type aspirin 81 mg chewable tablet 81 mg PO DAILY 11/06/13 03/14/24 History (Aspirin Low-Strength) acetaminophen 650 mg 325 mg PO HS 06/06/19 03/14/24 History tablet,extended release (Tylenol Arthritis Pain) fluticasone propionate 50 2 spray intranasal DAILY #48 grams 06/30/22 03/14/24 Rx mcg/actuation nasal spray,suspension atorvastatin 10 mg tablet 10 mg PO QPM #90 tabs 11/08/23 03/14/24 Rx metoprolol tartrate 50 mg tablet 25 mg (1/2 x 50 mg) PO BID #90 tabs 11/08/23 03/14/24 Rx omeprazole 40 mg capsule,delayed 40 mg PO DAILY #90 tab-caps 11/08/23 03/14/24 Rx release apixaban 2.5 mg tablet (Eliquis) 2.5 mg PO BID #180 tabs 12/06/23 03/14/24 Rx guaifenesin 600 mg tablet, 600 mg PO BID #10 tabs 01/11/24 03/14/24 Rx extended release 12 hr (Mucinex) potassium chloride 10 mEq oral 10 meq PO DAILY #30 ea 01/11/24 03/14/24 Rx packet spironolactone 25 mg tablet 25 mg PO DAILY #90 tabs 01/31/24 03/14/24 Rx lisinopril 5 mg tablet 2.5 mg (1/2 x 5 mg) PO DAILY #45 02/01/24 03/14/24 Rx tab-caps furosemide 40 mg tablet 40 mg PO BID #180 tabs 03/23/24 Rx Exam Narrative Exam Narrative: 87/42, 112, 37, 22, 94% RA. HEENT dry oral mucosa; neck supple; lungs clear; heart irr/irr; abdomen soft and NT; extremities 1+ pedal edema; neuro Ox3, lucid, moves all 4s Results Labs 07/24/24 16:42 07/24/24 16:42 Labs: Laboratory Results - last 24 hr 07/24/24 07/24/24 07/24/24 16:42 17:43 19:52 WBC 8.32 RBC 5.51 Hgb 15.9 Hct 48.4 MCV 88 MCH 28.9 MCHC 32.9 RDW 13.3 Plt Count 127 L MPV 12.2 H Immature Gran % 0.4 Neutrophils % 79.3 Lymphocytes % 6.1 Monocytes % 13.3 Eosinophils % 0.4 Basophils % 0.5 Nucleated RBC % 0.0 Absolute Neutrophils 6.60 Absolute Lymphocytes 0.51 L Absolute Monocytes 1.11 H Absolute Eosinophils 0.03 Absolute Basophils 0.04 VBG Lactate 1.3 Sodium 138 Potassium 4.4 Chloride 104 Carbon Dioxide 25.1 Anion Gap 8.9 BUN 45 H Creatinine 2.7 H Est GFR (CKD-EPI 2020) 22.53 Glucose 102 Calcium 8.9 Magnesium 2.1 Total Bilirubin 0.66 Conjugated Bilirubin 0.2 AST 11 L ALT 18 Alkaline Phosphatase 158 H Troponin I 21 Cancelled NT-Pro-B Natriuret Pep 5838 H Total Protein 7.4 Albumin 3.5 TSH 0.94 Urine Color Yellow Urine Clarity Clear Urine pH 5.5 Ur Specific [place] 1.015 Urine Protein Negative Urine Ketones Negative Urine Blood Negative Urine Nitrite Negative Urine Bilirubin Negative Urine Urobilinogen 0.2 Ur Leukocyte Esterase Negative Urine Glucose Negative Last Vital Signs Temp 37.1 C 07/24/24 16:42 Pulse 68 07/24/24 19:31 Resp 25 H 07/24/24 19:31 BP 82/66 L 07/24/24 19:30 Pulse Ox 94 07/24/24 19:31 Time Spent Time spent with Patient: 55-74 minutes Time was spent: preparing to see the patient(eg.review tests), obtaining and/or reviewing separately otained hiistory, ordering medications,tests, procedures, referring, communicating with other health pediatric care coordinator and indepentently interpreting results
[2024-07-24 20:09] LABS: Troponin I 20 ng/L (<or=76)
[2024-07-24 20:44] LABS: Influenza A PCR Negative (Negative); Influenza B PCR Negative (Negative); RSV PCR Negative (Negative)
[2024-07-24 20:45] LABS: COVID-19 PCR Positive (Negative); Source NASOPHARYNX
--- NOTE | 2024-07-24 21:01 | ED.GENADUL_ITS ---
Discharge Plan Disposition Patient Disposition: Admit to [facility] Condition: Serious Discharge Details Clinical Impression: COVID, CHF (congestive heart failure), GIO (acute kidney injury), Paroxysmal atrial fibrillation Admit Date/Time: 07/24/24 20:31 Admit Provider: Hudson Herrera Attending Provider: Hudson Herrera Primary Care Provider: Arnold Vicente ED Provider: Shadia Rosado Discharge Data Discharge Date/Time-TO BE ENTERED AT DEPARTURE: 07/24/24 21:58 HPI General Date/Time Provider Initiated Documentation: 07/24/24 16:42 . HPI Narrative: This 84-year-old male history of CHF, CAD, atrial fibrillation, chronic anticoagulation presents with increased work of breathing and a positive COVID test today at [place]. Patient patient states he feels quite short of breath and weak. Denies known falls or injuries. He has bodyaches denies any hemoptysis. Denies any calf pain or swelling. Denies nausea or vomiting. Related Data Home Medications ?Medication ?Instructions ?Recorded ?Confirmed aspirin 81 mg chewable tablet 81 mg PO DAILY 11/06/13 07/24/24 (Aspirin Low-Strength) acetaminophen 650 mg 325 mg PO HS 06/06/19 07/24/24 tablet,extended release (Tylenol Arthritis Pain) fluticasone propionate 50 2 spray intranasal DAILY #48 grams 06/30/22 07/24/24 mcg/actuation nasal spray,suspension atorvastatin 10 mg tablet 10 mg PO QPM #90 tabs 11/08/23 07/24/24 metoprolol tartrate 50 mg tablet 25 mg (1/2 x 50 mg) PO BID #90 tabs 11/08/23 07/24/24 omeprazole 40 mg capsule,delayed 40 mg PO DAILY #90 tab-caps 11/08/23 07/24/24 release apixaban 2.5 mg tablet (Eliquis) 2.5 mg PO BID #180 tabs 12/06/23 07/24/24 guaifenesin 600 mg tablet, 600 mg PO BID #10 tabs 01/11/24 07/24/24 extended release 12 hr (Mucinex) potassium chloride 10 mEq oral 10 meq PO DAILY #30 ea 01/11/24 07/24/24 packet spironolactone 25 mg tablet 25 mg PO DAILY #90 tabs 01/31/24 07/24/24 lisinopril 5 mg tablet 2.5 mg (1/2 x 5 mg) PO DAILY #45 02/01/24 07/24/24 tab-caps furosemide 40 mg tablet 40 mg PO BID #180 tabs 03/23/24 07/24/24 Previous Rx's ?Medication ?Instructions ?Recorded fluticasone propionate 50 2 spray intranasal DAILY #48 grams 06/30/22 mcg/actuation nasal spray,suspension atorvastatin 10 mg tablet 10 mg PO QPM #90 tabs 11/08/23 metoprolol tartrate 50 mg tablet 25 mg (1/2 x 50 mg) PO BID #90 tabs 11/08/23 omeprazole 40 mg capsule,delayed 40 mg PO DAILY #90 tab-caps 11/08/23 release apixaban 2.5 mg tablet (Eliquis) 2.5 mg PO BID #180 tabs 12/06/23 guaifenesin 600 mg tablet, 600 mg PO BID #10 tabs 01/11/24 extended release 12 hr (Mucinex) potassium chloride 10 mEq oral 10 meq PO DAILY #30 ea 01/11/24 packet spironolactone 25 mg tablet 25 mg PO DAILY #90 tabs 01/31/24 lisinopril 5 mg tablet 2.5 mg (1/2 x 5 mg) PO DAILY #45 02/01/24 tab-caps furosemide 40 mg tablet 40 mg PO BID #180 tabs 03/23/24 Allergies Allergy/AdvReac Type Severity Reaction Status Date / Time Sulfa (Sulfonamide Allergy Skin Rash Verified 07/24/24 16:40 Antibiotics) General Stated Complaint: RespSymp HEBERT: 2 Exam Narrative Exam Narrative: Alert and oriented gentleman appears ill, pupils equal round reactive to light and accommodation, regular regular rhythm, no murmur, no abdominal tenderness, scant scattered wheezes, dim lungs, no respiratory distress, alert and oriented x 4, no peripheral edema, distal pulses intact, no calf tenderness Course Vital Signs Vital signs: Vital Signs Pulse 146 H 07/24/24 16:31 Respiratory Rate 22 07/24/24 16:31 Blood Pressure 129/51 L 07/24/24 16:31 Pulse Oximetry 95 07/24/24 16:31 Temperature 37.1 C 07/24/24 16:42 Temperature Source Oral 07/24/24 16:42 Pulse 68 07/24/24 19:31 Pulse 114 H 07/24/24 19:31 Respiratory Rate 25 H 07/24/24 19:31 Respiratory Effort Labored 07/24/24 17:32 Respiratory Depth Shallow 07/24/24 17:32 Blood Pressure 82/66 L 07/24/24 19:30 Blood Pressure Mean 69 07/24/24 19:30 Pulse Oximetry 94 07/24/24 19:31 Oxygen Delivery Method Room Air 07/24/24 17:06 Oxygen Flow Rate 0 07/24/24 17:06 Lab/Test Results Lab/Test Results: 07/24/24 16:57 Blood Blood Culture - Pending 07/24/24 16:54 Blood Blood Culture - Pending Laboratory Tests Range/Units 07/24/24 07/24/24 07/24/24 16:42 17:43 19:45 WBC (4.4-10.8) 10^3/uL 8.32 RBC (4.36-5.78) 10^6/uL 5.51 Hgb (13.5-17.5) g/dL 15.9 Hct (40.0-50.0) % 48.4 MCV (80-95) fL 88 MCH (27.0-33.0) pg 28.9 MCHC (32.0-36.0) % 32.9 RDW (11.8-14.1) % 13.3 Plt Count (130-400) 10^3/uL 127 L MPV (8.0-11.0) fL 12.2 H Immature Gran % % 0.4 Neutrophils % % 79.3 Lymphocytes % % 6.1 Monocytes % % 13.3 Eosinophils % % 0.4 Basophils % % 0.5 Nucleated RBC % (0.0-0.3) % 0.0 Absolute Neutrophils (1.2-6.7) 10^3/uL 6.60 Absolute Lymphocytes (1.2-3.4) 10^3/uL 0.51 L Absolute Monocytes (0.1-0.8) 10^3/uL 1.11 H Absolute Eosinophils (0.0-0.7) 10^3/uL 0.03 Absolute Basophils (0.0-0.2) 10^3/uL 0.04 VBG Lactate (<or=2.0) mmol/L 1.3 Sodium (136-145) mmol/L 138 Potassium (3.5-5.1) mmol/L 4.4 Chloride (98-107) mmol/L 104 Carbon Dioxide (21.0-32.0) mmol/L 25.1 Anion Gap (3-11) mmol/L 8.9 BUN (7-18) mg/dL 45 H Creatinine (0.70-1.30) mg/dL 2.7 H Est GFR (CKD-EPI 2020) (mL/min/1.73m2) 22.53 Glucose (74-106) mg/dL 102 Calcium (8.5-10.1) mg/dL 8.9 Magnesium (1.8-2.4) mg/dL 2.1 Total Bilirubin (0.2-1.0) mg/dL 0.66 Conjugated Bilirubin (0.0-0.2) mg/dL 0.2 AST (15-37) U/L 11 L ALT (16-63) U/L 18 Alkaline Phosphatase (46-116) U/L 158 H Troponin I (<or=76) ng/L 21 Cancelled 20 NT-Pro-B Natriuret Pep (<300) pg/mL 5838 H Total Protein (6.4-8.2) g/dL 7.4 Albumin (3.4-5.0) g/dL 3.5 TSH (0.36-3.74) uIU/mL 0.94 Urine Color (Yellow) Urine Clarity (Clear) Urine pH (5-8) Ur Specific [place] (1.005-1.025) Urine Protein (Neg-Trace) mg/dL Urine Ketones (Negative) mg/dL Urine Blood (Negative) Urine Nitrite (Negative) Urine Bilirubin (Negative) Urine Urobilinogen (Up to 0.2) mg/dL Ur Leukocyte Esterase (Negative) Urine Glucose (Negative) mg/dL COVID-19 Source SARS-CoV-2 (PCR) (Negative) Influenza Type A (PCR) (Negative) Influenza Type B (PCR) (Negative) RSV (PCR) (Negative) Range/Units 07/24/24 07/24/24 19:52 20:02 WBC (4.4-10.8) 10^3/uL RBC (4.36-5.78) 10^6/uL Hgb (13.5-17.5) g/dL Hct (40.0-50.0) % MCV (80-95) fL MCH (27.0-33.0) pg MCHC (32.0-36.0) % RDW (11.8-14.1) % Plt Count (130-400) 10^3/uL MPV (8.0-11.0) fL Immature Gran % % Neutrophils % % Lymphocytes % % Monocytes % % Eosinophils % % Basophils % % Nucleated RBC % (0.0-0.3) % Absolute Neutrophils (1.2-6.7) 10^3/uL Absolute Lymphocytes (1.2-3.4) 10^3/uL Absolute Monocytes (0.1-0.8) 10^3/uL Absolute Eosinophils (0.0-0.7) 10^3/uL Absolute Basophils (0.0-0.2) 10^3/uL VBG Lactate (<or=2.0) mmol/L Sodium (136-145) mmol/L Potassium (3.5-5.1) mmol/L Chloride (98-107) mmol/L Carbon Dioxide (21.0-32.0) mmol/L Anion Gap (3-11) mmol/L BUN (7-18) mg/dL Creatinine (0.70-1.30) mg/dL Est GFR (CKD-EPI 2020) (mL/min/1.73m2) Glucose (74-106) mg/dL Calcium (8.5-10.1) mg/dL Magnesium (1.8-2.4) mg/dL Total Bilirubin (0.2-1.0) mg/dL Conjugated Bilirubin (0.0-0.2) mg/dL AST (15-37) U/L ALT (16-63) U/L Alkaline Phosphatase (46-116) U/L Troponin I (<or=76) ng/L NT-Pro-B Natriuret Pep (<300) pg/mL Total Protein (6.4-8.2) g/dL Albumin (3.4-5.0) g/dL TSH (0.36-3.74) uIU/mL Urine Color (Yellow) Yellow Urine Clarity (Clear) Clear Urine pH (5-8) 5.5 Ur Specific [place] (1.005-1.025) 1.015 Urine Protein (Neg-Trace) mg/dL Negative Urine Ketones (Negative) mg/dL Negative Urine Blood (Negative) Negative Urine Nitrite (Negative) Negative Urine Bilirubin (Negative) Negative Urine Urobilinogen (Up to 0.2) mg/dL 0.2 Ur Leukocyte Esterase (Negative) Negative Urine Glucose (Negative) mg/dL Negative COVID-19 Source NASOPHARYNX SARS-CoV-2 (PCR) (Negative) Positive A Influenza Type A (PCR) (Negative) Negative Influenza Type B (PCR) (Negative) Negative RSV (PCR) (Negative) Negative Medical Decision Making Cindy 84-year-old gentleman who appears ill, tachycardia, hypotension, COVID 19 positive. Creatinine is elevated from 1.5-2.7, suspect prerenal with BUN elevation. Will give IV fluids slowly secondary to history of CHF although after reviewing last echocardiogram looks like patient's ejection fraction is 50 to 55%. He received 1000 L of fluid over 2 hours and only had 176 cc of output so I did give another 500 cc of fluid. The patient remains alert and oriented, he is blood pressure is labile but he seems to be fluid responsive. He does meet sepsis criteria and his blood pressure is quite low, however he does have tachycardia and is in atrial fibrillation and having episodes of bigeminy and trigeminy, I think giving patient pressors risk outweighs the benefit and I suspect that with fluids and time, patient's rhythm will improve as well blood pressure. I do not see a clear bacterial source of infection, chest x-ray does not show evidence of acute abnormality per radiology interpretation my review and urinalysis is reassuring. Patient given a dose of Decadron for hypoxia initially upon arrival now after DuoNeb patient states he feels better and objectively patient is appearing improved. I did give a single dose of Eliquis and metoprolol p.o. Patient is agreeable to admission at this time, case discussed with Dr. Herrera who will admit patient to his service will hold on an [facility]. Quality:SDOH Health Related Social Needs: Health related social needs inadequate housing (Z59.1) Critical Care Time Critical Care Time Attestation: 45 minutes of critical care time secondary to sepsis in the setting of COVID-19 with hypotension and atrial fibrillation with bigeminy and trigeminy. Patient has prerenal dehydration regarding IV fluid resuscitation and continue telemetry monitoring with acute on chronic renal failure. Patient requires admission to the hospital for further monitoring in the ICU. [facility] All Active Problems (Updated 07/25/24 @ 20:07 by KATHIE Bhat) COVID (Acute) CHF (congestive heart failure) (Acute) GIO (acute kidney injury) (Acute) Hematuria (Acute) Elevated bilirubin (Acute) Chronic renal disease, stage 3, moderately decreased glomerular filtration rate (GFR) between 30-59 mL/min/1.73 square meter (Acute) Paroxysmal atrial fibrillation (Acute) Nail dystrophy (Acute) Arthritis of big toe (Acute) Skin lesion of face (Acute) Facial basal cell cancer (Acute) Loose stools (Acute) Hypertension (Chronic) Vasomotor rhinitis (Chronic) use the ipratropium Fracture of thoracic spine (Acute) History of cataract removal with insertion of prosthetic lens (Acute) History of coronary artery bypass surgery (Acute) History of esophagogastroduodenoscopy (Acute) History of thoracentesis (Acute) Status post abdominal aortic aneurysm repair (Acute) Status post cholecystectomy (Acute) Pneumonia (Acute) Pulmonary nodule, right (Acute 02/26/16) [place] [facility] [place] sclerosis (Acute 11/14/14) Idiopathic scoliosis (Acute) Hyperlipidemia (Acute 11/02/12) History of tobacco use (Acute 11/02/12) quit 2006 History of tobacco use (Acute 11/02/12) quit 2006 Gastritis (Acute) per EGD 2007 Chronic obstructive lung disease (Acute 11/02/12) Aortic aneurysm (Acute 11/02/12) AAA-lap repair 2006 Nausea,vomiting,diarrhea, fever (Active 11/16/12) Multiple sclerosis (Active) Diagnosed 25 years ago. 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
--- NOTE | 2024-07-24 21:01 | W.PC.ACHO ---
Registration Status: Primary Language: Preferred Language: ED Information & Data Chief Complaint RespSymp 07/24/24 17:19 Chief Complaint RespSymp 07/24/24 16:31 Triage Note increased work of breathing, 07/24/24 16:31 increased weakness, temp, COVID pos today per [facility] 1gm apap via ems, Medical / Surgical History (Last Reviewed 07/24/24 @ 20:20 by Hudson Herrera MD) Elevated brain natriuretic peptide (BNP) level Influenza A Peripheral edema Multiple sclerosis GERD (gastroesophageal reflux disease) COPD (chronic obstructive pulmonary disease) Coronary artery disease HTN (hypertension) Hyperlipemia Malignant neoplasm of lower lobe of right lung (04/15/16) (Last Reviewed 07/24/24 @ 20:20 by Hudson Herrera MD) History of thoracentesis Hx of cholecystectomy History of cataract surgery History of tonsillectomy Hx of CABG History of AAA (abdominal aortic aneurysm) repair EGD - MAC (~01/2007) Most Recent Vital Signs Temperature 37.1 C 07/24/24 16:42 Temperature Source Oral 07/24/24 16:42 Pulse 68 07/24/24 19:31 Pulse 114 H 07/24/24 19:31 Respiratory Rate 25 H 07/24/24 19:31 Respiratory Effort Labored 07/24/24 17:32 Respiratory Depth Shallow 07/24/24 17:32 Blood Pressure 82/66 L 07/24/24 19:30 Blood Pressure Mean 69 07/24/24 19:30 Pulse Oximetry 94 07/24/24 19:31 Oxygen Delivery Method Room Air 07/24/24 17:06 Oxygen Flow Rate 0 07/24/24 17:06 Allergies Sulfa (Sulfonamide Antibiotics) Allergy (Verified 07/24/24 16:40) Skin Rash IV IV Catheter Type [Left Forearm Saline Lock ] IV Catheter Type [Right Saline Lock Antecubital] IV Catheter Gauge [Left 18 Forearm] IV Catheter Gauge [Right 18 Antecubital] Diet Orders Category Date Time Status Low Sodium [DIET] Nutrition 07/25/24 Breakfast Ordered Diagnostics 07/24/24 07/24/24 07/24/24 Range/Units 20:02 19:52 19:45 WBC (4.4-10.8) 10^3/uL RBC (4.36-5.78) 10^6/uL Hgb (13.5-17.5) g/dL Hct (40.0-50.0) % MCV (80-95) fL MCH (27.0-33.0) pg MCHC (32.0-36.0) % RDW (11.8-14.1) % Plt Count (130-400) 10^3/uL MPV (8.0-11.0) fL Immature Gran % % Neutrophils % % Lymphocytes % % Monocytes % % Eosinophils % % Basophils % % Nucleated RBC % (0.0-0.3) % Absolute Neutrophils (1.2-6.7) 10^3/uL Absolute Lymphocytes (1.2-3.4) 10^3/uL Absolute Monocytes (0.1-0.8) 10^3/uL Absolute Eosinophils (0.0-0.7) 10^3/uL Absolute Basophils (0.0-0.2) 10^3/uL VBG Lactate (<or=2.0) mmol/L Sodium (136-145) mmol/L Potassium (3.5-5.1) mmol/L Chloride (98-107) mmol/L Carbon Dioxide (21.0-32.0) mmol/L Anion Gap (3-11) mmol/L BUN (7-18) mg/dL Creatinine (0.70-1.30) mg/dL Est GFR (CKD-EPI 2020) (mL/min/1.73m2) Glucose (74-106) mg/dL Calcium (8.5-10.1) mg/dL Magnesium (1.8-2.4) mg/dL Total Bilirubin (0.2-1.0) mg/dL Conjugated Bilirubin (0.0-0.2) mg/dL AST (15-37) U/L ALT (16-63) U/L Alkaline Phosphatase (46-116) U/L Troponin I 20 (<or=76) ng/L NT-Pro-B Natriuret Pep (<300) pg/mL Total Protein (6.4-8.2) g/dL Albumin (3.4-5.0) g/dL TSH (0.36-3.74) uIU/mL Urine Color Yellow (Yellow) Urine Clarity Clear (Clear) Urine pH 5.5 (5-8) Ur Specific [place] 1.015 (1.005-1.025) Urine Protein Negative (Neg-Trace) mg/dL Urine Ketones Negative (Negative) mg/dL Urine Blood Negative (Negative) Urine Nitrite Negative (Negative) Urine Bilirubin Negative (Negative) Urine Urobilinogen 0.2 (Up to 0.2) mg/dL Ur Leukocyte Esterase Negative (Negative) Urine Glucose Negative (Negative) mg/dL COVID-19 Source NASOPHARYNX SARS-CoV-2 (PCR) Positive A (Negative) Influenza Type A (PCR) Negative (Negative) Influenza Type B (PCR) Negative (Negative) RSV (PCR) Negative (Negative) 07/24/24 07/24/24 Range/Units 17:43 16:42 WBC 8.32 (4.4-10.8) 10^3/uL RBC 5.51 (4.36-5.78) 10^6/uL Hgb 15.9 (13.5-17.5) g/dL Hct 48.4 (40.0-50.0) % MCV 88 (80-95) fL MCH 28.9 (27.0-33.0) pg MCHC 32.9 (32.0-36.0) % RDW 13.3 (11.8-14.1) % Plt Count 127 L (130-400) 10^3/uL MPV 12.2 H (8.0-11.0) fL Immature Gran % 0.4 % Neutrophils % 79.3 % Lymphocytes % 6.1 % Monocytes % 13.3 % Eosinophils % 0.4 % Basophils % 0.5 % Nucleated RBC % 0.0 (0.0-0.3) % Absolute Neutrophils 6.60 (1.2-6.7) 10^3/uL Absolute Lymphocytes 0.51 L (1.2-3.4) 10^3/uL Absolute Monocytes 1.11 H (0.1-0.8) 10^3/uL Absolute Eosinophils 0.03 (0.0-0.7) 10^3/uL Absolute Basophils 0.04 (0.0-0.2) 10^3/uL VBG Lactate 1.3 (<or=2.0) mmol/L Sodium 138 (136-145) mmol/L Potassium 4.4 (3.5-5.1) mmol/L Chloride 104 (98-107) mmol/L Carbon Dioxide 25.1 (21.0-32.0) mmol/L Anion Gap 8.9 (3-11) mmol/L BUN 45 H (7-18) mg/dL Creatinine 2.7 H (0.70-1.30) mg/dL Est GFR (CKD-EPI 2020) 22.53 (mL/min/1.73m2) Glucose 102 (74-106) mg/dL Calcium 8.9 (8.5-10.1) mg/dL Magnesium 2.1 (1.8-2.4) mg/dL Total Bilirubin 0.66 (0.2-1.0) mg/dL Conjugated Bilirubin 0.2 (0.0-0.2) mg/dL AST 11 L (15-37) U/L ALT 18 (16-63) U/L Alkaline Phosphatase 158 H (46-116) U/L Troponin I Cancelled 21 (<or=76) ng/L NT-Pro-B Natriuret Pep 5838 H (<300) pg/mL Total Protein 7.4 (6.4-8.2) g/dL Albumin 3.5 (3.4-5.0) g/dL TSH 0.94 (0.36-3.74) uIU/mL Urine Color (Yellow) Urine Clarity (Clear) Urine pH (5-8) Ur Specific [place] (1.005-1.025) Urine Protein (Neg-Trace) mg/dL Urine Ketones (Negative) mg/dL Urine Blood (Negative) Urine Nitrite (Negative) Urine Bilirubin (Negative) Urine Urobilinogen (Up to 0.2) mg/dL Ur Leukocyte Esterase (Negative) Urine Glucose (Negative) mg/dL COVID-19 Source SARS-CoV-2 (PCR) (Negative) Influenza Type A (PCR) (Negative) Influenza Type B (PCR) (Negative) RSV (PCR) (Negative) 07/24/24 16:57 Blood Culture - Pending Blood 07/24/24 16:54 Blood Culture - Pending Blood Intake and Output - 24 Hour Total 07/24/24 16:29 thru 07/24/24 19:53 Intake Total 1120 Output Total 175 Balance 945 Weight 88 kg Intake: IV 1120 Output: Urine 175 Other: Urine Color Yellow Falls Risk Assessment History of Falls Previous History 07/24/24 17:19 Contributing Factors Unstable,Impairments 07/24/24 17:19 Ambulatory Aids Uses ambulatory device + 07/24/24 17:19 Tubes/Lines With any additional score 07/24/24 17:19 Gait Evaluation W/any additional score 07/24/24 17:19 Cognition No cognitive impairment 07/24/24 17:19 Fall Total Score 91 07/24/24 17:19 Level of Risk Maximum Risk 07/24/24 17:19 Problems (Last Reviewed 07/24/24 @ 20:20 by Hudson Herrera MD) COVID (Acute) v v v v v v v v v Sending and/or Receiving Nurses: Please use comment section below to note any information pertinent to the patient hand-off not included above. Information / Comments: Report received from: edmond
[2024-07-24] MEDS: Lactated Ringers 1,000 ML 50 ML IV (22:23)
[2024-07-24] MEDS: guaiFENesin 600 MG TABCR PO (23:08)
[2024-07-25] VITALS (41 sets, daily range): BP systolic 76–119; BP diastolic 47–96; PULSE 43–130; RESP 16–34; TEMP 37.1; O2SAT 89–94
[2024-07-25 06:38] LABS: Anion Gap 5.6 mmol/L (3-11); BUN 39 mg/dL (7-18); CO2 25.4 mmol/L (21.0-32.0); CREATININE 2.3 mg/dL (0.70-1.30); Calcium 8.2 mg/dL (8.5-10.1); Chloride 108 mmol/L (98-107); Estimated GFR 27.32 (mL/min/1.73m2); Glucose 117 mg/dL (74-106); Potassium 4.4 mmol/L (3.5-5.1); Sodium 139 mmol/L (136-145)
[2024-07-25] MEDS: guaiFENesin 600 MG TABCR PO ×2 (07:49→19:44)
[2024-07-25] MEDS: Potassium Chloride 10 MEQ TABCR PO (07:49)
[2024-07-25] MEDS: Aspirin 81 MG CHEW PO (07:49)
[2024-07-25] MEDS: Apixaban 2.5 MG TAB PO ×2 (07:50→19:44)
[2024-07-25] MEDS: Omeprazole 20 MG CAPCR 40 MG PO (07:50)
[2024-07-25] MEDS: Fluticasone NASAL SPRAY 16 GM BTL NS (11:15)
[2024-07-25] MEDS: Metoprolol 50 MG TAB 25 MG PO ×2 (11:25→19:44)
--- NOTE | 2024-07-25 14:21 | INITIAL_ITS ---
Date of service: 07/25/24 Time of Service: 14:22 Care Management Initial Assmt Initial Assessment Reason for Hospitalization: COVID, dehydration, weakness Functional Status/Living Situation Patient Presentation: Juan Ramon, who goes by Kadeem, is on covid restrictions, therefore CM did not meet with him in person. CM reached out to his community health planning director, Misty Santiago, and left a voicemail. Per chart review, Kadeem lives alone, and has [facility] highest needs. 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 He transports via [facility]. He has identified his grandson, Jaison, as his primary support, as well as his son and daughter in law, [place], who received an update from nursing today. Per RN, he appears confused today, but is redirected easily. CM will continue to follow. Town of Residence: [facility] Resides with: Alone Significant Other/Family: Local Caregiver/Guardian: [facility] highest needs, gearcase assembler, Misty Santiago Natural Supports: Grandson, Jaison Son, Juliocesar; Daughter in law, [place] Employment Status: Retired Instrumental Activities of Daily Living (ADLs): Independent Activities/Hobbies/SocialSupport: Enjoys four wheeling, working on his tractor Medications Medication Management: No Issues/Barriers identified Physical Functioning/Mobility Assistive Device: Raised toilet set Grab Bars Shower chair Walker Advance Directives Advance Directives: Do you have an Advance Directive: Y 03/14/24 10:09 AD On File at [facility]: Y 03/14/24 10:09 Date Asked 07/24/24 07/24/24 16:35 AD Date Reviewed 02/17/24 03/14/24 09:36 COLST On File at [facility] COLST Date Scanned Code Status Resuscitation Status DNR/DNI Insurance Coverage/Financial Issues Insurance: [facility] Care Team Visit Care Team Role Provider Type Arnold Vicente MD Primary Care Provider [facility] STAFF PHYSICIAN InPatient Brandon Morales Other Providers OTHER KATHIE Bhat Emergency Provider [facility] SPECIALIST Hudson Herrera MD Admit Provider [facility] STAFF PHYSICIAN Attending Provider Discharge Potential Discharge Needs: PCP F/U Appt Anticipated Barriers to Discharge: None Identified Patient/Family Education Needs: Review discharge instructions, discuss Ask Me Three Transportation: Private vehicle Plan: Anticipate Pop will return home once medically cleared. He will transport via private vehicle by family. He will follow up with his PCP and discharge plan of care. CM will continue to follow. Social Determinants of Health Screening Social Determinants of Health last assessed: 07/25/24 Will the Patient Participate in the Screening?: Yes Do you worry about having a steady place to live?: no Problems where you live: other In the past 12 months, have you had to go without electric, gas, oil or water in your home?: no Have you or anyone in your house had to go without enough food to eat?: no Has lack of transportation kept you from medical appointments or from doing things needed for daily living?: no Has anyone in your life made you feel unsafe or unsupported?: no How hard is it for you to pay for the very basics like food, housing, medical care, and heating? Would you say it is:: Not hard at all Do you want help finding or keeping work or a job?: I do not need or want help If for any reason you need help with day-to-day activities such as bathing, preparing meals, shopping, managing finances, etc., do you get the help you need?: I don?t need any help How often do you feel lonely or isolated from those around you?: Never Do you speak a language other than Maltese at home?: No Does the patient want assistance with any of the above?: No Health Related Social Needs Health related social needs: inadequate housing (Z59.1) PFSH All Active Problems (Updated 07/24/24 @ 20:23 by Hudson Herrera MD) COVID (Acute) CHF (congestive heart failure) (Acute) GIO (acute kidney injury) (Acute) Hematuria (Acute) Elevated bilirubin (Acute) Chronic renal disease, stage 3, moderately decreased glomerular filtration rate (GFR) between 30-59 mL/min/1.73 square meter (Acute) Paroxysmal atrial fibrillation (Acute) Nail dystrophy (Acute) Arthritis of big toe (Acute) Skin lesion of face (Acute) Facial basal cell cancer (Acute) Loose stools (Acute) Hypertension (Chronic) Vasomotor rhinitis (Chronic) use the ipratropium Fracture of thoracic spine (Acute) History of cataract removal with insertion of prosthetic lens (Acute) History of coronary artery bypass surgery (Acute) History of esophagogastroduodenoscopy (Acute) History of thoracentesis (Acute) Status post abdominal aortic aneurysm repair (Acute) Status post cholecystectomy (Acute) Pneumonia (Acute) Pulmonary nodule, right (Acute 02/26/16) Follwed by [facility] Multiple sclerosis (Acute 11/14/14) Idiopathic scoliosis (Acute) Hyperlipidemia (Acute 11/02/12) History of tobacco use (Acute 11/02/12) quit 2005 History of tobacco use (Acute 11/02/12) quit 2005 Gastritis (Acute) per EGD 2006 Chronic obstructive lung disease (Acute 11/02/12) Aortic aneurysm (Acute 11/02/12) AAA-lap repair 2005 Nausea,vomiting,diarrhea, fever (Active 11/16/12) Multiple sclerosis (Active) Diagnosed 25 years ago. Benign hypertension (Active) same meds Coronary arteriosclerosis (Active) Hyperglycemia (Active) Gastroesophageal reflux disease (Active) History of - coronary artery bypass grafting (Active) Eczema (Active) Osteoarthritis (Active) Constipation (Active) Medical History Elevated brain natriuretic peptide (BNP) level Influenza A Peripheral edema Multiple sclerosis GERD (gastroesophageal reflux disease) COPD (chronic obstructive pulmonary disease) Coronary artery disease HTN (hypertension) Hyperlipemia Malignant neoplasm of lower lobe of right lung (04/15/16) Adenocarcinoma Surgery [facility] 2016 Surgical History History of thoracentesis Hx of cholecystectomy History of cataract surgery History of tonsillectomy Hx of CABG History of AAA (abdominal aortic aneurysm) repair EGD - MAC (~01/2007) GERD/CHRONIC GASTRITIS Social History Smoking/Tobacco Use Status: Former Tobacco Use Quit Date: 12/27/23 Tobacco: How many years used: 55 Smoking risk assessment performed?: Yes Alcohol Intake: never Drug use: Never Substance use type: does not use Housing: house Do you feel safe at home: Yes Do you feel safe in your relationship?: Yes
--- NOTE | 2024-07-25 16:10 | W.PM.PROGNOT ---
Date of Service Date of service: 07/25/24 Time of Service: 16:10 Assessment and Plan Assessment and plan (1) COVID: Status: Acute Assessment and plan: COVID, manifesting at present with generalized weakness and dehydration; no specific evidence of pulmonary involvement (the initial hypoxia was apparently due to underlying COPD). The hypotension is likely some combination of dehydration along with basal Lopressor and MARITZA; notably he is not presenting a picture of sepsis. Fluid status somewhat unclear at present as clinically he would appear somewhat dry but elevated BNP concerning; I am inclined to cautiously hydrate at this point. 1. COVID: Remdesivir, no indication at present for steroids; 2. Hypotension (see above): gentle fluids, hold MARITZA 3. AF: rate is reasonably controlled. Continue Lopressor and DOAC; 4. NSVT, asymptomatic (note Mg and K WNL), with preserved EF: continue beta mela as is. 5. COPD: prn updrafts AD: remains DNR 07/25/24 Will recheck labs in am. Pt will continue with steroids and remdesivir. Bun/cr ratio did indicate some dehydration Subjective Subjective Interval history since last seen: PT states that he feels much better this am. Tolerating breakfests Exam Narrative Exam Narrative: . HEENT dry oral mucosa; neck supple; lungs clear; heart irr/irr; abdomen soft and NT; extremities 1+ pedal edema; neuro Ox3, lucid, moves all 4s Objective Last Vital Signs Temp 37.1 C 07/25/24 04:21 Pulse 63 07/25/24 12:55 Resp 31 H 07/25/24 12:55 BP 97/75 L 07/25/24 12:55 Pulse Ox 94 07/25/24 12:55 Laboratory Results - last 24 hr 07/24/24 07/24/24 07/24/24 16:42 17:43 19:45 WBC 8.32 RBC 5.51 Hgb 15.9 Hct 48.4 MCV 88 MCH 28.9 MCHC 32.9 RDW 13.3 Plt Count 127 L MPV 12.2 H Immature Gran % 0.4 Neutrophils % 79.3 Lymphocytes % 6.1 Monocytes % 13.3 Eosinophils % 0.4 Basophils % 0.5 Nucleated RBC % 0.0 Absolute Neutrophils 6.60 Absolute Lymphocytes 0.51 L Absolute Monocytes 1.11 H Absolute Eosinophils 0.03 Absolute Basophils 0.04 VBG Lactate 1.3 Sodium 138 Potassium 4.4 Chloride 104 Carbon Dioxide 25.1 Anion Gap 8.9 BUN 45 H Creatinine 2.7 H Est GFR (CKD-EPI 2020) 22.53 Glucose 102 Calcium 8.9 Magnesium 2.1 Total Bilirubin 0.66 Conjugated Bilirubin 0.2 AST 11 L ALT 18 Alkaline Phosphatase 158 H Troponin I 21 Cancelled 20 NT-Pro-B Natriuret Pep 5838 H Total Protein 7.4 Albumin 3.5 TSH 0.94 Urine Color Urine Clarity Urine pH Ur Specific [place] Urine Protein Urine Ketones Urine Blood Urine Nitrite Urine Bilirubin Urine Urobilinogen Ur Leukocyte Esterase Urine Glucose COVID-19 Source SARS-CoV-2 (PCR) Influenza Type A (PCR) Influenza Type B (PCR) RSV (PCR) 07/24/24 07/24/24 07/25/24 19:52 20:02 05:43 WBC RBC Hgb Hct MCV MCH MCHC RDW Plt Count MPV Immature Gran % Neutrophils % Lymphocytes % Monocytes % Eosinophils % Basophils % Nucleated RBC % Absolute Neutrophils Absolute Lymphocytes Absolute Monocytes Absolute Eosinophils Absolute Basophils VBG Lactate Sodium 139 Potassium 4.4 Chloride 108 H Carbon Dioxide 25.4 Anion Gap 5.6 BUN 39 H Creatinine 2.3 H Est GFR (CKD-EPI 2020) 27.32 Glucose 117 H Calcium 8.2 L Magnesium Total Bilirubin Conjugated Bilirubin AST ALT Alkaline Phosphatase Troponin I NT-Pro-B Natriuret Pep Total Protein Albumin TSH Urine Color Yellow Urine Clarity Clear Urine pH 5.5 Ur Specific [place] 1.015 Urine Protein Negative Urine Ketones Negative Urine Blood Negative Urine Nitrite Negative Urine Bilirubin Negative Urine Urobilinogen 0.2 Ur Leukocyte Esterase Negative Urine Glucose Negative COVID-19 Source NASOPHARYNX SARS-CoV-2 (PCR) Positive A Influenza Type A (PCR) Negative Influenza Type B (PCR) Negative RSV (PCR) Negative Time Spent with Patient Time Spent with Patient: 25-34 minutes Time was spent: preparing to see the patient(eg.review tests), obtaining and/or reviewing separately otained hiistory, ordering medications,tests, procedures, referring, communicating with other health career agent, indepentently interpreting results, counseling the patient and care coordination
--- NOTE | 2024-07-25 17:32 | IN_ITS ---
PT Notes Visit Reasons: COVID, dehydration, weakness Inpatient Physical Therapy Evaluation Date: 07/25/2024 Referring Doctor: Dr. Sosa PT Orders: PT CONSULT: Fall safety assessment Precautions: Airborne precautions secondary to COVID, telemetry IV access Patient Profile/Admitting Diagnosis: Patient is 84-year-old male presented to the ED on 07/24/2024 with 2 days of generalized weakness. A COVID test reportedly positive with PCP. Comes in tonight with progressive weakness. In ER findings of note for absence of fever, BP 80s-low 100s; pulse low 100s; initial O2 sats 89- 91 with wheezing (s/p steroids and updraft, no further wheezing, and RA sats increased mid 90s); white count 8.3 with lymphopenia; azotemia with BUN 45, Creat 2.7; BNP 5838, and CXR without infiltrate, mild cardiomegaly (but poor inspiration). Patient noted to be having frequent wide complex ectopy Patient given IVF and I was asked to evaluate for admission. Patient admitted to ICU unit under MedSurg management and placed on airborne precautions. PMHX: COVID (Acute) CHF (congestive heart failure) (Acute) GIO (acute kidney injury) (Acute) Hematuria (Acute) Elevated bilirubin (Acute) Chronic renal disease, stage 3, moderately decreased glomerular filtration rate (GFR) between 30-59 mL/min/1.73 square meter (Acute) Paroxysmal atrial fibrillation (Acute) Nail dystrophy (Acute) Arthritis of big toe (Acute) Skin lesion of face (Acute) Facial basal cell cancer (Acute) Loose stools (Acute) Hypertension (Chronic) Vasomotor rhinitis (Chronic) use the ipratropiumFracture of thoracic spine (Acute) History of cataract removal with insertion of prosthetic lens (Acute) History of coronary artery bypass surgery (Acute) History of esophagogastroduodenoscopy (Acute) History of thoracentesis (Acute) Status post abdominal aortic aneurysm repair (Acute) Status post cholecystectomy (Acute) Pneumonia (Acute) Pulmonary nodule, right (Acute 02/26/16) Follwed by [facility] Multiple sclerosis (Acute 11/14/14) Idiopathic scoliosis (Acute) Hyperlipidemia (Acute 11/02/12) History of tobacco use (Acute 11/02/12) quit 2005 History of tobacco use (Acute 11/02/12) quit 2005 Gastritis (Acute) per EGD 2006 Chronic obstructive lung disease (Acute 11/02/12) Aortic aneurysm (Acute 11/02/12) AAA-lap repair 2006 Nausea,vomiting,diarrhea, fever (Active 11/16/12) Multiple sclerosis (Active) Diagnosed 25 years ago.Benign hypertension (Active) same medsCoronary arteriosclerosis (Active) Hyperglycemia (Active) Gastroesophageal reflux disease (Active) History of - coronary artery bypass grafting (Active) Eczema (Active) Osteoarthritis (Active) Constipation (Active) Medical History Elevated brain natriuretic peptide (BNP) level Influenza A Peripheral edema Multiple sclerosis GERD (gastroesophageal reflux disease) COPD (chronic obstructive pulmonary disease) Coronary artery disease HTN (hypertension) Hyperlipemia Malignant neoplasm of lower lobe of right lung (04/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 Son/grandson helps out with his overall care as needed he utilizes [facility] Equipment Owned/DME: Rollator/4ww Raised toilet set Grab Bars Shower chair Subjective: Patient reports he is tired but feels better than he did yesterday he is agreeable to participate in evaluation Objective: [] General Observation: Elderly male supine with head of bed elevated in no apparent respiratory distress telemetry in place IV access Mental Status: Alert and oriented to person able to attend to task and responded appropriately Pain: Denies Vital Signs: Monitored via telemetry throughout ROM: Right Upper Extremity: Impaired shoulder flexion abduction, elbow wrist and hand within functional limits Left Upper Extremity: Impaired shoulder flexion abduction, elbow wrist and hand within functional limits Right Lower Extremity: Impaired hip flexion, extension and abduction, knee 20 to 90 degrees, ankle within functional limits Left Lower Extremity: Impaired hip flexion, extension and abduction, knee 20 to 90 degrees, ankle within functional limits Strength: Right Upper Extremity: Shoulder flexors 3+/5, shoulder abductors 3+/5, elbow flexors 4/5, elbow extensors 3+/5 juvenile officer fair Left Upper Extremity: Shoulder flexors 3+/5, shoulder abductors 3+/5, elbow flexor 4/5 elbow extensors 3+/5 juvenile officer fair Right Lower Extremity: Hip flexion: 3 -/5; hip abduction: 3 -/5; hip extension: 3 -/5; knee extension: 3/5; knee flexion: 3 -/5 ankle DF: 3/5 ; ankle PF: 3+/5 Left Lower Extremity: Hip flexion: 3 -/5; hip abduction: 3 -/5; hip extension: 3 -/5; knee extension: 3/5; knee flexion: 3 -/5 ankle DF: 3/5 ; ankle PF: 3+/5 Bed Mobility/Transfers: Supine to sit min assist with head of bed at 30 degrees Sit to supine min assist for lower extremities Sit to stand min assist Stand to sit contact-guard assist with cues for hand placement. Patient did not demonstrate ability to lock brakes on 4 wheeled walker prior to sitting. Gait: Facilitated ambulation 25 feet with 2 turns with safe and correct movement sequence with 4 wheeled walker min assist of 1 and moderate verbal cueing for left lower extremity advancement, walker management posture. Patient preference to keep walker too far in front of him . Distance limited by patient in isolation room due to COVID-19 Balance: [] Static Sitting: Normal Dynamic Sitting: Good minus Static Standing: Fair Dynamic Standing: Fair minus Special Tests: Mobility Limitations Standardized Measure [facility] AM-PAC 6 clicks Basic Mobility Inpatient Short Form: Raw Score: 17 CMS Score: 50.57% Informed Consent/Education: Patient instructed in purpose of PT consult and plan of care. Assessment: Patient is a 84year old male referred to physical therapy services with the diagnosis of COVID. Patient presents with clinical signs and symptoms consistent with admitting diagnosis, as demonstrated by the following impairment level findings 1. Decreased strength BUE/LE major muscle groups 2. Impaired standing balance 3. Impaired activity tolerance/fatigue 4. Limitations of range of motion in B UE/LE joints as noted above Impairments are contributing to the following functional limitations: 1. AMPAC score. 2. Difficulty with ambulation without physical assistance 3. Increased time to complete mobility/ADL tasks 4. Increased risk for falls 5. Inability to perform stairs safely alone Patient is assessed as a Moderate 27668 complexity based on the following: History: 84-year-old male presenting with complex past medical history and new onset of COVID Examination: Demonstrates impairments in strength, balance, and mobility level with underlying impairments and functional limitations as exhibited above as well as deficits score of 50.57% utilizing the [facility] AM-PAC mobility inpatient Short form Presentation: Evolving Decision Making: Moderate Goals: Goals X1 week 1. Supine-Sit supervision 2. Sit-Supine [] supervision 3. Sit-Stand supervision 4. Stand-Sit [] supervision 5. Bed-Chair supervision with 4WW 6. Chair-Bed supervision with 4WW 7. ambulation with 4WW supervised greater than 150 feet on level surfaces 8. Supervised performing 5 steps negotiation while holding bilateral rails Plan of Care/Treatment Plan: 1-2x/day, 7 days/week x 1 week. Plan of care has been reviewed with the SHEETROCK APPLICATOR providing the service under Physical Therapy direction. Initiate Physical Therapy intervention for strengthening, bed mobility, transfers, gait, stairs, balance training, use of assistive device. DISCHARGE RECOMMENDATIONS: [] [] Home with no services [] [] Home with services [specify] [] Home with outpatient PT [] [X] short-term SNF for continued rehabilitation vs Home with HH PT and increased supportive services if pt progresses well [] Coating Machine Operator Care [] [] SNF versus LTC based on ability to participate and progress [] TREATMENT CODE/TIME: 60666 /[id number]
[2024-07-25] MEDS: Atorvastatin 10 MG TAB PO (19:44)
[2024-07-25] MEDS: Melatonin 3 MG TAB 6 MG PO (19:46)
[2024-07-26] VITALS (21 sets, daily range): BP systolic 87–142; BP diastolic 56–87; PULSE 49–109; RESP 15–30; TEMP 36.3–37.1; O2SAT 91–95
[2024-07-26] MEDS: Omeprazole 20 MG CAPCR 40 MG PO (08:16)
[2024-07-26] MEDS: Metoprolol 50 MG TAB 25 MG PO ×2 (08:16→20:20)
[2024-07-26] MEDS: Potassium Chloride 10 MEQ TABCR PO (08:16)
[2024-07-26] MEDS: guaiFENesin 600 MG TABCR PO ×2 (08:17→20:20)
[2024-07-26] MEDS: Apixaban 2.5 MG TAB PO ×2 (08:17→20:20)
[2024-07-26] MEDS: Aspirin 81 MG CHEW PO (08:17)
--- NOTE | 2024-07-26 15:45 | PTTR_ITS ---
PT Notes Visit Reasons: COVID, dehydration, weakness Inpatient Physical Therapy Treatment Note [facility] Date: 07/26/2024 PRECAUTIONS: Airborne precautions, telemetry SUBJECTIVE: Patient reports he had a good night OBJECTIVE: Patient semireclined in bed head of bed at [address] . Pt with improved mentation as compared to initial evaluation PAIN: Denied VITALS: ?Monitored via telemetry throughout by nursing Bed mobility: Min assist for lower extremities with head of bed at 45 degrees patient required increased time as well. Transfers: Sit to stand min assist of 2 from 19 inch height x 2 trials; mod assist of 2 from 17 inch commode. Stand to sit min assist of 1 with cues for hand placement and need to bring left lower extremity forward prior to sitting due to impaired knee flexion Surface to surface with FWW min assist of 2 x 3 trials Ambulation: Facilitated safe and correct performance of level surface ambulation covering a distance of 10 feet x2 using use front wheeled walker with min assist and chair follow for safety. Did not report of any increased pain. Denied headache, chest pain, and lightheadedness throughout activity. Noted increased work of breathing and difficulty with lower extremity advancement. minimal verbal cueing provided for AD management, directional changes, and posture. ASSESSMENT: Patient demonstrates increased work of breathing, and expiratory wheezes after short distance ambulation and transfers. Patient required increased rest time with cues for breath control. Patient also noted increased difficulty with advancing right lower extremity on second attempt at ambulation. Patient with need for to assist this session as compared to 1 assist on initial evaluation PLAN: 1-2x/day, 7 days/week x 1 week. Plan of care has been reviewed with the TEST DESK TROUBLE LOCATOR providing the service under Physical Therapy direction. Initiate Physical Therapy intervention for strengthening, bed mobility, transfers, gait, stairs, balance training, use of assistive device. TREATMENT CODE/TIME: 84622, [id number] DISCHARGE RECOMMENDATION: Short-term SNF versus PT
--- NOTE | 2024-07-26 15:48 | CMPROGNOTE_ITS ---
Date of service: 07/26/24 Time of Service: 15:48 Care Management Progress Note Progress Note Text Progress Note Text: Kadeem remains on covid precautions, therefore CM did not meet with him. Per report, he is nearing discharge readiness, medically. He was evaluated by PT, who recommended SNF vs HH PT, due to his weakness. He will continue to work with PT while inpatient to increase his strength and stamina. He attends [facility] 5 days a week; on his most recent discharge he was not eligible for HH PT because he is not home during the day. He has previously stated that he would like to return home, and prefers not to go to short term rehab. CM will continue to follow. Discharge Potential Discharge Needs: PCP F/U Appt Anticipated Barriers to Discharge: None Identified Patient/Family Education Needs: Review discharge instructions, discuss Ask Me Three Transportation: Private vehicle Plan: Anticipate Kadeem will return home once medically cleared, and will resume his community support, including [place] five days a week, and a CHILD PROTECTIVE SERVICES SPECIALIST at nights who helps him with his evening meal. He will transport via private vehicle by family. He will follow up with his PCP and discharge plan of care. CM will continue to follow. Social Determinants of Health Screening Social Determinants of Health last assessed: 07/26/24 Will the Patient Participate in the Screening?: Yes Do you worry about having a steady place to live?: no Problems where you live: other In the past 12 months, have you had to go without electric, gas, oil or water in your home?: no Have you or anyone in your house had to go without enough food to eat?: no Has lack of transportation kept you from medical appointments or from doing things needed for daily living?: no Has anyone in your life made you feel unsafe or unsupported?: no How hard is it for you to pay for the very basics like food, housing, medical care, and heating? Would you say it is:: Not hard at all Do you want help finding or keeping work or a job?: I do not need or want help If for any reason you need help with day-to-day activities such as bathing, preparing meals, shopping, managing finances, etc., do you get the help you need?: I don?t need any help How often do you feel lonely or isolated from those around you?: Never Do you speak a language other than Swedish at home?: No Does the patient want assistance with any of the above?: No Health Related Social Needs Health related social needs: inadequate housing (Z59.1)
--- NOTE | 2024-07-26 17:33 | W.PM.PROGNOT ---
Date of Service Date of service: 07/26/24 Time of Service: 17:33 Assessment and Plan Assessment and plan (1) COVID: Status: Acute Assessment and plan: COVID, manifesting at present with generalized weakness and dehydration; no specific evidence of pulmonary involvement (the initial hypoxia was apparently due to underlying COPD). The hypotension is likely some combination of dehydration along with basal Lopressor and MARITZA; notably he is not presenting a picture of sepsis. Fluid status somewhat unclear at present as clinically he would appear somewhat dry but elevated BNP concerning; I am inclined to cautiously hydrate at this point. 1. COVID: Remdesivir, no indication at present for steroids; 2. Hypotension (see above): gentle fluids, hold MARITZA 3. AF: rate is reasonably controlled. Continue Lopressor and DOAC; 4. NSVT, asymptomatic (note Mg and K WNL), with preserved EF: continue beta mela as is. 5. COPD: prn updrafts AD: remains DNR 07/25/24 Will recheck labs in am. Pt will continue with steroids and remdesivir. Bun/cr ratio did indicate some dehydration 07/26/[address] PT report below. Will d/w PT in am possible dc with HH. Per NS, the pt usually improves in regards to his stamina later in the day PLAN: 1-2x/day, 7 days/week x 1 week. Plan of care has been reviewed with the BUSINESS IMPROVEMENT MANAGER providing the service under Physical Therapy direction. Initiate Physical Therapy intervention for strengthening, bed mobility, transfers, gait, stairs, balance training, use of assistive device. TREATMENT CODE/TIME: 29285, [id number] DISCHARGE RECOMMENDATION: Short-term SNF versus HH PT Subjective Subjective Interval history since last seen: no new complaints, PT notes reviewed Exam Narrative Exam Narrative: . HEENT dry oral mucosa; neck supple; lungs clear; heart irr/irr; abdomen soft and NT; extremities 1+ pedal edema; neuro Ox3, lucid, moves all 4s Objective Last Vital Signs Temp 36.7 C 07/26/24 15:59 Pulse 71 07/26/24 16:01 Resp 15 07/26/24 16:01 BP 109/78 07/26/24 16:01 Pulse Ox 94 07/26/24 16:01 Time Spent with Patient Time Spent with Patient: 25-34 minutes Time was spent: preparing to see the patient(eg.review tests), obtaining and/or reviewing separately otained hiistory, ordering medications,tests, procedures, referring, communicating with other health health careers instructor, indepentently interpreting results, counseling the patient and care coordination
[2024-07-26] MEDS: Atorvastatin 10 MG TAB PO (20:20)
[2024-07-26] MEDS: REMDESIVIR 100 MG in Normal Saline 250 ML 250 MG IVPB (21:01)
[2024-07-26] MEDS: Normal Saline Flush 10 ML SYR IVP (21:19)
[2024-07-26] MEDS: Melatonin 3 MG TAB 6 MG PO (23:24)
[2024-07-26] MEDS: Acetaminophen 325 MG TAB 650 MG PO (23:24)
[2024-07-27] VITALS (14 sets, daily range): BP systolic 106–149; BP diastolic 74–97; PULSE 44–112; RESP 20–34; TEMP 36–36.2; O2SAT 83–95
--- NOTE | 2024-07-27 | DI.RAD_ITS ---
Exam(s) XR PORTABLE CHEST AP EXAM: XR PORTABLE CHEST AP CLINICAL HISTORY: hyoxia. TECHNIQUE: 2D digital imaging was performed. COMPARISON: CR XR CHEST 2V PA LATERAL from 07/24/2024 FINDINGS: Single AP portable view. Again noted is cardiomegaly and sternotomy wires. Mediastinum unchanged. There is significant deterioration in the appearance of the lung guevara. There is now a pulmonary ve nous hypertension pattern and interstitial pulmonary edema as well as blunting of the right costophre meenakshi angle indicating small right pleural effusion. There is also some confluent infiltrate in the le ft upper lobe. Also suggestion of small amount left pleural fluid with blunting of left costophrenic angle also evident. IMPRESSION: Compared to 07/24/2024 there is now evidence of pulmonary edema and small bilateral pleural effusions . There also appears to be some confluent infiltrate in what is either the left upper lobe or superi or segment of the left lower lobe. DATA REPOSITORY: RADIATION DOSE DELIVERED:
[2024-07-27 06:06] LABS: Abs Immature Grans 0.03 10^3/uL (0.0-0.06); Absolute Basophil Count 0.03 10^3/uL (0.0-0.2); Absolute Eosinophil Count 0.03 10^3/uL (0.0-0.7); Absolute Lymphocyte Count 0.48 10^3/uL (1.2-3.4); Absolute Monocyte Count 0.61 10^3/uL (0.1-0.8); Absolute Neutrophil Count 6.22 10^3/uL (1.2-6.7); Basophils % 0.4 %; Eosinophils % 0.4 %; HCT 47.6 % (40.0-50.0); HGB 15.6 g/dL (13.5-17.5); Immature Grans % 0.4 %; Lymphocytes % 6.5 %; MCH 28.5 pg (27.0-33.0); MCHC 32.8 % (32.0-36.0); MCV 87 fL (80-95); MPV 12.7 fL (8.0-11.0); Monocytes % 8.2 %; Neutrophils % 84.1 %; Platelet Count 131 10^3/uL (130-400); RBC 5.47 10^6/uL (4.36-5.78); RDW 13.7 % (11.8-14.1); RDW-SD 43.6 fL
[2024-07-27 06:28] LABS: ALT 15 U/L (16-63); AST 14 U/L (15-37); Albumin 2.9 g/dL (3.4-5.0); Alkaline Phosphatase 134 U/L (46-116); Anion Gap 7.3 mmol/L (3-11); BUN 47 mg/dL (7-18); Bilirubin, Total 0.43 mg/dL (0.2-1.0); CO2 22.7 mmol/L (21.0-32.0); CREATININE 2.1 mg/dL (0.70-1.30); Calcium 8.4 mg/dL (8.5-10.1); Chloride 110 mmol/L (98-107); Estimated GFR 30.47 (mL/min/1.73m2); Glucose 103 mg/dL (74-106); Potassium 4.9 mmol/L (3.5-5.1); Sodium 140 mmol/L (136-145); Total Protein 6.6 g/dL (6.4-8.2)
[2024-07-27] MEDS: Metoprolol 50 MG TAB 25 MG PO (07:35)
[2024-07-27] MEDS: guaiFENesin 600 MG TABCR PO ×2 (07:35→19:54)
[2024-07-27] MEDS: Aspirin 81 MG CHEW PO (07:35)
[2024-07-27] MEDS: Potassium Chloride 10 MEQ TABCR PO (07:35)
[2024-07-27] MEDS: Apixaban 2.5 MG TAB PO ×2 (07:36→19:54)
[2024-07-27] MEDS: Omeprazole 20 MG CAPCR 40 MG PO (07:36)
[2024-07-27] MEDS: Normal Saline Flush 10 ML SYR IVP ×3 (07:36→19:53)
[2024-07-27] MEDS: Fluticasone NASAL SPRAY 16 GM BTL NS (08:30)
--- NOTE | 2024-07-27 08:46 | CMPROGNOTE_ITS ---
Date of service: 07/27/24 Time of Service: 08:46 Care Management Progress Note Progress Note Text Progress Note Text: Kadeem was doing well yesterday, but today he has a new oxygen requirement and increased work of breathing. He was noted to be tacchycardic, was started on new antibiotics, was given lasix. Kadeem had repeat blood cultures drawn, urine for legionella ordered, and repeat CXR ordered. CXR showed significant deterioration of the lung guevara. After speaking with RN and MD, CM called [place], Kadeem's primary contact and HIPAA and let her know of his decline. She was informed by CM that Kadeem can have visitors, as long as they comply with the Covid precautions. Discharge Potential Discharge Needs: Consult Consult Services Needed: Cardiology, PT Evaluation, PCP F/U Appt and Other (continue at [place] once no longer on covid precautions) Anticipated Barriers to Discharge: None Identified Patient/Family Education Needs: Review discharge instructions, discuss Ask Me Three Transportation: Private vehicle (with family) Plan: Anticipate Kadeem will return home once medically cleared, and will resume his community support, including [place] five days a week, and a MUD ANALYSIS WELL LOGGING CAPTAIN at nights who helps him with his evening meal. He may need the additional supports of prior to returning to [place]. He will transport via private vehicle by family. He will follow up with his PCP and discharge plan of care. CM will continue to follow. Social Determinants of Health Screening Social Determinants of Health last assessed: 07/27/24 Will the Patient Participate in the Screening?: Yes Do you worry about having a steady place to live?: no Problems where you live: other In the past 12 months, have you had to go without electric, gas, oil or water in your home?: no Have you or anyone in your house had to go without enough food to eat?: no Has lack of transportation kept you from medical appointments or from doing things needed for daily living?: no Has anyone in your life made you feel unsafe or unsupported?: no How hard is it for you to pay for the very basics like food, housing, medical care, and heating? Would you say it is:: Not hard at all Do you want help finding or keeping work or a job?: I do not need or want help If for any reason you need help with day-to-day activities such as bathing, preparing meals, shopping, managing finances, etc., do you get the help you need?: I don?t need any help How often do you feel lonely or isolated from those around you?: Never Do you speak a language other than Telugu at home?: No Does the patient want assistance with any of the above?: No Health Related Social Needs Health related social needs: inadequate housing (Z59.1) Anticipated HH Services Anticipated HH Services at Discharge [facility] Needed, UROLOGIST PHYSICIAN, OT, PT and RN.
[2024-07-27] MEDS: MORPHine 2 MG/ML SYR IVP (12:11)
[2024-07-27] MEDS: PIPERACILLIN/TAZO 3.375 GM in Normal Saline 50 ML IVPB ×2 (12:52→17:53)
[2024-07-27] MEDS: VANCOMYCIN/WATER (PEG) 1 GM/200 ML BAG IVPB ×2 (13:20→14:41)
[2024-07-27 14:25] LABS: Bilirubin Negative (Negative); Blood Trace-intact (Negative); Clarity Clear (Clear); Glucose Negative (Negative); Ketones Negative (Negative); Leukocyte Esterase Negative (Negative); Nitrite Negative (Negative); Specific Gravity 1.025 (1.005-1.025); Urobilinogen 0.2 mg/dL (Up to 0.2); pH 5.5 (5-8)
[2024-07-27] MEDS: Furosemide 40 MG/4 ML VIAL IVP ×2 (14:30→19:53)
[2024-07-27 15:09] LABS: Bacteria Negative HPF (Negative); C & S Indicated? No; Casts Negative LPF (Negative); Epithelial Cells Negative HPF (Negative); Mucus Negative (Negative); Other Cells Negative (Negative); RBC 0-2 HPF (0-2)
--- NOTE | 2024-07-27 15:50 | PTTR_ITS ---
PT Notes Visit Reasons: COVID, dehydration, weakness Inpatient Physical Therapy Treatment Note [facility] Date: 07/27/2024 PRECAUTIONS: Airborne precautions, telemetry. SUBJECTIVE:Pt reports he wants to move his legs but they feel too heavy to lift. OBJECTIVE: Patient upright in bed head of bed at 78 degrees rapid RR with use of accessory musculature; telemetry in place 4L via oximizer mask. PAIN: Denied VITALS: ?Monitored via telemetry throughout by nursing RR 25-44 on 4 L oximizer Treatment: supine AAROM BLE 5 reps heel slides, hip abduction , ankle PF/DF with 3 sec hold at end ROM slow movements pt instructed in breath control , energy conservation attempts at Diaphragmatic breathing resulted in cough exacerbation bed mobility/ repositioning 2 assist with use of rails slow movements ASSESSMENT: Patient demonstrates increased work of breathing, with use of accessory musculature. and expiratory wheezes on 4L oximizer mask. Pt tolerated AAROM BLE fair with slight reduction in respiratory rate to 27 from 44. MD entered at end of session and stated he was ordering CxR and labs. PLAN: 1-2x/day, 7 days/week x 1 week. Plan of care has been reviewed with the MUSICAL THERAPIST providing the service under Physical Therapy direction. Initiate Physical Therapy intervention for strengthening, bed mobility, transfers, gait, stairs, balance training, use of assistive device. TREATMENT CODE/TIME: 57918, [id number] DISCHARGE RECOMMENDATION: Short-term SNF versus PT
--- NOTE | 2024-07-27 17:50 | W.PM.PROGNOT ---
Date of Service Date of service: 07/27/24 Time of Service: 17:50 Assessment and Plan Assessment and plan (1) COVID: Status: Acute Assessment and plan: COVID, manifesting at present with generalized weakness and dehydration; no specific evidence of pulmonary involvement (the initial hypoxia was apparently due to underlying COPD). The hypotension is likely some combination of dehydration along with basal Lopressor and MARITZA; notably he is not presenting a picture of sepsis. Fluid status somewhat unclear at present as clinically he would appear somewhat dry but elevated BNP concerning; I am inclined to cautiously hydrate at this point. 1. COVID: Remdesivir, no indication at present for steroids; 2. Hypotension (see above): gentle fluids, hold MARITZA 3. AF: rate is reasonably controlled. Continue Lopressor and DOAC; 4. NSVT, asymptomatic (note Mg and K WNL), with preserved EF: continue beta mela as is. 5. COPD: prn updrafts AD: remains DNR 07/25/24 Will recheck labs in am. Pt will continue with steroids and remdesivir. Bun/cr ratio did indicate some dehydration 07/26/[address] PT report below. Will d/w PT in am possible dc with HH. Per NS, the pt usually improves in regards to his stamina later in the day PLAN: 1-2x/day, 7 days/week x 1 week. Plan of care has been reviewed with the LAP CUTTER providing the service under Physical Therapy direction. Initiate Physical Therapy intervention for strengthening, bed mobility, transfers, gait, stairs, balance training, use of assistive device. TREATMENT CODE/TIME: 53021, [id number] DISCHARGE RECOMMENDATION: Short-term SNF versus HH PT (2) Respiratory distress: Start date: 07/27/24 Start time: 18:08 Status: Acute Assessment and plan: pt does appear to be in overload 2/2 chf and fluid. Will stop the fluid and give lasix. He does appear to have responded to lasix. I have also started a sepsis work up with blood cultures/cxr will be attached, legionella, sputum cx, zosyn and vanc. Last vitals show 36/(120/89)/91/26/90%RA. Looks like he diuresed -950 cxr: IMPRESSION: Compared to 07/24/2024 there is now evidence of pulmonary edema and small bilateral pleural effusions. There also appears to be some confluent infiltrate in what is either the left upper lobe or superior segment of the left lower lobe. Subjective Subjective Interval history since last seen: Pt seen and examined in his room this am. PT was having some respiratory distress at that time that did get progressively worse in the afternoon. When I visited the pt this afternoon, pt appeared to be much more comfortable Exam Narrative Exam Narrative: heent: ncat mmm eomi perrla b senile arcus neck: no lad no jvd thyromegaly cv: rrr no mrg pulm: bilat wheeze with increased respiratory rate ext: no cce bilat neuro: cn 2-12 intact as tested gen: 84 y/o male appears his stated age Objective Last Vital Signs Temp 36.0 C L 07/27/24 00:01 Pulse 91 H 07/27/24 14:01 Resp 26 H 07/27/24 14:01 BP 120/89 07/27/24 14:00 Pulse Ox 90 L 07/27/24 17:38 Laboratory Results - last 24 hr 07/27/24 07/27/24 05:20 14:15 WBC 7.40 RBC 5.47 Hgb 15.6 Hct 47.6 MCV 87 MCH 28.5 MCHC 32.8 RDW 13.7 Plt Count 131 MPV 12.7 H Immature Gran % 0.4 Neutrophils % 84.1 Lymphocytes % 6.5 Monocytes % 8.2 Eosinophils % 0.4 Basophils % 0.4 Nucleated RBC % 0.0 Absolute Neutrophils 6.22 Absolute Lymphocytes 0.48 L Absolute Monocytes 0.61 Absolute Eosinophils 0.03 Absolute Basophils 0.03 Sodium 140 Potassium 4.9 Chloride 110 H Carbon Dioxide 22.7 Anion Gap 7.3 BUN 47 H Creatinine 2.1 H Est GFR (CKD-EPI 2020) 30.47 Glucose 103 Calcium 8.4 L Total Bilirubin 0.43 AST 14 L ALT 15 L Alkaline Phosphatase 134 H Total Protein 6.6 Albumin 2.9 L Urine Color Yellow Urine Clarity Clear Urine pH 5.5 Ur Specific [place] 1.025 Urine Protein Trace Urine Ketones Negative Urine Blood Trace-intact H Urine Nitrite Negative Urine Bilirubin Negative Urine Urobilinogen 0.2 Ur Leukocyte Esterase Negative Urine RBC 0-2 Urine WBC 3-5 Ur Epithelial Cells Negative Urine Crystals Many Uric Acid Urine Bacteria Negative Urine Casts Negative Urine Mucus Negative Urine Other Negative Ur Culture Indicated? No Urine Glucose Negative Time Spent with Patient Time Spent with Patient: 35-49 minutes Time was spent: preparing to see the patient(eg.review tests), obtaining and/or reviewing separately otained hiistory, ordering medications,tests, procedures, referring, communicating with other health acute care physician, indepentently interpreting results, counseling the patient and care coordination
[2024-07-27] MEDS: Metoprolol 25 MG TAB PO (19:53)
[2024-07-27] MEDS: Acetaminophen 325 MG TAB 650 MG PO (19:53)
[2024-07-27] MEDS: Melatonin 3 MG TAB 6 MG PO (19:53)
[2024-07-27] MEDS: REMDESIVIR 100 MG in Normal Saline 250 ML 250 MG IVPB (19:54)
[2024-07-27] MEDS: Atorvastatin 10 MG TAB PO (19:54)
[2024-07-27 22:45] LABS: MRSA PCR Negative (Negative)
[2024-07-28] VITALS (16 sets, daily range): BP systolic 101–128; BP diastolic 46–90; PULSE 42–116; RESP 19–27; TEMP 36.4–36.7; O2SAT 83–94
--- NOTE | 2024-07-28 | DI.RAD_ITS ---
Exam(s) XR PORTABLE CHEST AP EXAM: XR PORTABLE CHEST AP CLINICAL HISTORY: sob TECHNIQUE: 2D digital imaging was performed of the chest. One image was obtained. An AP view was ob tained. COMPARISON: CR XR PORTABLE CHEST AP from 07/27/2024 FINDINGS: MEDIASTINUM: Normal. HEART: Normal. PULMONARY VASCULATURE: Normal. LUNGS: There are atelectatic changes seen in the left lung base. No focal consolidating infiltrates are seen. PLEURAL SPACE: There is blunting of the right costophrenic angle which may suggest a small right pleu ral effusion. No significant left pleural effusion is seen. BONE:Within normal limits for the patient's age. Sternal wires are in place. OTHER FINDINGS:Normal. IMPRESSION: Significant improvement of the chest compared to the prior examination with only a small right pleura l effusion present. The lungs are otherwise clear. Pulmonary vasculature is within normal limits. DATA REPOSITORY: RADIATION DOSE DELIVERED:
[2024-07-28] MEDS: PIPERACILLIN/TAZO 3.375 GM in Normal Saline 50 ML IVPB ×3 (00:49→11:27)
[2024-07-28] MEDS: Omeprazole 20 MG CAPCR 40 MG PO (06:48)
[2024-07-28 07:26] LABS: Vancomycin, Random 16.7 ug/mL
[2024-07-28] MEDS: Potassium Chloride 10 MEQ TABCR PO (07:41)
[2024-07-28] MEDS: Apixaban 2.5 MG TAB PO ×2 (07:41→20:11)
[2024-07-28] MEDS: Furosemide 40 MG/4 ML VIAL IVP ×3 (07:41→20:09)
[2024-07-28] MEDS: guaiFENesin 600 MG TABCR PO ×2 (07:41→20:10)
[2024-07-28] MEDS: Aspirin 81 MG CHEW PO (07:42)
[2024-07-28] MEDS: Normal Saline Flush 10 ML SYR IVP ×3 (07:42→20:10)
[2024-07-28] MEDS: Metoprolol 25 MG TAB PO ×2 (07:42→20:10)
[2024-07-28 08:35] LABS: Abs Immature Grans 0.04 10^3/uL (0.0-0.06); Absolute Basophil Count 0.05 10^3/uL (0.0-0.2); Absolute Eosinophil Count 0.12 10^3/uL (0.0-0.7); Absolute Lymphocyte Count 0.59 10^3/uL (1.2-3.4); Absolute Neutrophil Count 5.82 10^3/uL (1.2-6.7); Basophils % 0.7 %; Eosinophils % 1.7 %; HCT 49.4 % (40.0-50.0); HGB 16.3 g/dL (13.5-17.5); Immature Grans % 0.6 %; Lymphocytes % 8.2 %; MCV 88 fL (80-95); MPV 12.3 fL (8.0-11.0); Monocytes % 8.3 %; Neutrophils % 80.5 %; Platelet Count 146 10^3/uL (130-400); RBC 5.62 10^6/uL (4.36-5.78); RDW 13.2 % (11.8-14.1); WBC 7.22 10^3/uL (4.4-10.8)
--- NOTE | 2024-07-28 09:58 | W.PM.PROGNOT ---
Date of Service Date of service: 08/11/24 Time of Service: 17:23 Objective Last Vital Signs Temp 36.2 C L 07/27/24 19:45 Pulse 60 07/28/24 08:01 Resp 23 07/28/24 08:01 BP 128/74 07/28/24 08:01 Pulse Ox 93 07/28/24 08:01 Laboratory Results - last 24 hr 07/27/24 07/27/24 07/28/24 14:15 21:00 05:30 WBC RBC Hgb Hct MCV MCH MCHC RDW Plt Count MPV Immature Gran % Neutrophils % Lymphocytes % Monocytes % Eosinophils % Basophils % Nucleated RBC % Absolute Neutrophils Absolute Lymphocytes Absolute Monocytes Absolute Eosinophils Absolute Basophils Urine Color Yellow Urine Clarity Clear Urine pH 5.5 Ur Specific [place] 1.025 Urine Protein Trace Urine Ketones Negative Urine Blood Trace-intact H Urine Nitrite Negative Urine Bilirubin Negative Urine Urobilinogen 0.2 Ur Leukocyte Esterase Negative Urine RBC 0-2 Urine WBC 3-5 Ur Epithelial Cells Negative Urine Crystals Many Uric Acid Urine Bacteria Negative Urine Casts Negative Urine Mucus Negative Urine Other Negative Ur Culture Indicated? No Urine Glucose Negative Random Vancomycin 16.7 MRSA (TEM-PCR) Negative 07/28/24 08:30 WBC 7.22 RBC 5.62 Hgb 16.3 Hct 49.4 MCV 88 MCH 29.0 MCHC 33.0 RDW 13.2 Plt Count 146 MPV 12.3 H Immature Gran % 0.6 Neutrophils % 80.5 Lymphocytes % 8.2 Monocytes % 8.3 Eosinophils % 1.7 Basophils % 0.7 Nucleated RBC % 0.0 Absolute Neutrophils 5.82 Absolute Lymphocytes 0.59 L Absolute Monocytes 0.60 Absolute Eosinophils 0.12 Absolute Basophils 0.05 Urine Color Urine Clarity Urine pH Ur Specific [place] Urine Protein Urine Ketones Urine Blood Urine Nitrite Urine Bilirubin Urine Urobilinogen Ur Leukocyte Esterase Urine RBC Urine WBC Ur Epithelial Cells Urine Crystals Urine Bacteria Urine Casts Urine Mucus Urine Other Ur Culture Indicated? Urine Glucose Random Vancomycin MRSA (TEM-PCR) Time Spent with Patient Time Spent with Patient: 25-34 minutes Time was spent: preparing to see the patient(eg.review tests), obtaining and/or reviewing separately otained hiistory, ordering medications,tests, procedures, referring, communicating with other health neurocritical care physician, indepentently interpreting results, counseling the patient and care coordination
--- NOTE | 2024-07-28 11:43 | CMPROGNOTE_ITS ---
Date of service: 07/28/24 Time of Service: 11:43 Care Management Progress Note Progress Note Text Progress Note Text: Kadeem was sitting up in the bed, when CM went to ICU to check on him today. He is still on Covid precautions, so CM did not meet with him, but CM did talk with nursing staff. RN and SCHOOL AIDE reported that Kadeem is much improved today. He is no longer on supplemental O2, he worked with PT today and was up to the chair. He ate breakfast and is reporting feeling hungry for lunch. He was also teasing and flirting with the staff this morning. CM called [place], Kadeem's daughter in law to provide the update, but she was not available at that time. My number was left for her for a call back. Discharge Potential Discharge Needs: PCP F/U Appt Anticipated Barriers to Discharge: None Identified Patient/Family Education Needs: Review discharge instructions, discuss Ask Me Three Plan: Anticipate Kadeem will return home once medically cleared, and will resume his community support, including [place] five days a week, and a MAMMOGRAPHY TECHNICIAN at nights who helps him with his evening meal. He may need the additional supports of prior to returning to [place]. He will transport via private vehicle by family. He will follow up with his PCP and discharge plan of care. CM will continue to follow. Social Determinants of Health Screening Social Determinants of Health last assessed: 07/28/24 Will the Patient Participate in the Screening?: Yes Do you worry about having a steady place to live?: no Problems where you live: other In the past 12 months, have you had to go without electric, gas, oil or water in your home?: no Have you or anyone in your house had to go without enough food to eat?: no Has lack of transportation kept you from medical appointments or from doing things needed for daily living?: no Has anyone in your life made you feel unsafe or unsupported?: no How hard is it for you to pay for the very basics like food, housing, medical care, and heating? Would you say it is:: Not hard at all Do you want help finding or keeping work or a job?: I do not need or want help If for any reason you need help with day-to-day activities such as bathing, preparing meals, shopping, managing finances, etc., do you get the help you need?: I don?t need any help How often do you feel lonely or isolated from those around you?: Never Do you speak a language other than Khmer at home?: No Does the patient want assistance with any of the above?: No Anticipated HH Services Anticipated HH Services at Discharge [facility] Needed, PT and RN Following Provider: Jules.
--- NOTE | 2024-07-28 11:55 | PTTR_ITS ---
PT Notes Visit Reasons: COVID, Dehydration, Weakness Inpatient Physical Therapy Treatment Note [facility] Date: 07/28/2024 PRECAUTIONS: Airborne precautions/ COVID, telemetry, patterson . SUBJECTIVE:Pt reports he feels much better today OBJECTIVE: Patient semireclined in bed ; no Oxygen in place with sats >93% on RA. Nurse reports pt received IV Lasix and had a patterson placed last night as well as CxR showed improvement in congestion after diuresed. PAIN: Denied VITALS: ?Monitored via telemetry throughout by nursing RR 19-22 throughout Treatment: transfers supine to sit with rails and HOB 40 degrees CGA , sit to stand from bed x 2 trials Min A of 1 , from chair x 2 trials mod A of 1 d/t low seat height bedto from chair transfers with 4WW CGA once standing x 2 trials. Pt with slow zurdo able to manage 4WW unlock and lock brakes. Neuromusculare reeducation : facilitation of balance and postural alignment with BUE support x 12 mins performed AP BLE during edge of bed time. Pt also able to unweight BUE for 10-30 sec without LOB. ASSESSMENT: Patient with improvement in respiratory status with reduction in RR at rest and during functional tasks. Pt no longer requiring supplemental oxygen. He remains on Airborne precautions for COVID. He able to perform a few step for transfers however not able to walk for distance this session. Will attempt to perform ambulation within room with 4WW next session. PLAN: 1-2x/day, 7 days/week x 1 week. Plan of care has been reviewed with the ENVIRONMENTAL EPIDEMIOLOGIST providing the service under Physical Therapy direction. Initiate Physical Therapy intervention for strengthening, bed mobility, transfers, gait, stairs, balance training, use of assistive device. TREATMENT CODE/TIME: 07396, 38060 / [id number] DISCHARGE RECOMMENDATION: Short-term SNF versus HH PT
--- NOTE | 2024-07-28 12:20 | PGE_ITS ---
Date of Service Date of service: 07/28/24 Time of Service: 12:20 Assessment and Plan Assessment and plan (1) COVID: Status: Acute Assessment and plan: COVID, manifesting at present with generalized weakness and dehydration; no specific evidence of pulmonary involvement (the initial hypoxia was apparently due to underlying COPD). The hypotension is likely some combination of dehydration along with basal Lopressor and MARTIZA; notably he is not presenting a picture of sepsis. Fluid status somewhat unclear at present as clinically he would appear somewhat dry but elevated BNP concerning; I am inclined to cautiously hydrate at this point. 1. COVID: Remdesivir, no indication at present for steroids; 2. Hypotension (see above): gentle fluids, hold MARITZA 3. AF: rate is reasonably controlled. Continue Lopressor and DOAC; 4. NSVT, asymptomatic (note Mg and K WNL), with preserved EF: continue beta mela as is. 5. COPD: prn updrafts AD: remains DNR 07/25/24 Will recheck labs in am. Pt will continue with steroids and remdesivir. Bun/cr ratio did indicate some dehydration 07/26/[address] PT report below. Will d/w PT in am possible dc with HH. Per NS, the pt usually improves in regards to his stamina later in the day PLAN: 1-2x/day, 7 days/week x 1 week. Plan of care has been reviewed with the SEGMENTAL PAVER INSTALLER providing the service under Physical Therapy direction. Initiate Physical Therapy intervention for strengthening, bed mobility, transfers, gait, stairs, balance training, use of assistive device. TREATMENT CODE/TIME: 71112, 76400/[id number] DISCHARGE RECOMMENDATION: Short-term SNF versus HH PT 07/28/24 Pt will complete remdesivir (2) Respiratory distress: Start date: 07/27/24 Start time: 18:08 Status: Acute Assessment and plan: pt does appear to be in overload 2/2 chf and fluid. Will stop the fluid and give lasix. He does appear to have responded to lasix. I have also started a sepsis work up with blood cultures/cxr will be attached, legionella, sputum cx, zosyn and vanc. Last vitals show 36/(120/89)/91/26/90%RA. Looks like he diuresed -950 cxr: IMPRESSION: Compared to 07/24/2024 there is now evidence of pulmonary edema and small bilateral pleural effusions. There also appears to be some confluent infiltrate in what is either the left upper lobe or superior segment of the left lower lobe. 07/28/24 Pt with marked improvement in respiratory status cxr MPRESSION: Significant improvement of the chest compared to the prior examination with only a small right pleural effusion present. The lungs are otherwise clear. Pulmonary vasculature is within normal limits. Subjective Subjective Interval history since last seen: Pt seen and examined in his room this am. Pt responded well to diuresis and is much more comfortable. Diuresis of about -1800. Exam Narrative Exam Narrative: HEENT-NCAT MMM EOMI PERRLA NECK-NO LAD/NO JVD PULM-SPEAKING IN COMPLETE SENTENCES, NO AMU CV-RRR NO MRG ABD-SNTNDBSA EXT-NO CCE BILAT GEN-APPEARS STATED AGE, NO DISTRESS Objective Last Vital Signs Temp 36.6 C 07/28/24 08:20 Pulse 60 07/28/24 08:01 Resp 23 07/28/24 08:01 BP 128/74 07/28/24 08:01 Pulse Ox 93 07/28/24 08:01 Laboratory Results - last 24 hr 07/27/24 07/27/24 07/28/24 14:15 21:00 05:30 WBC RBC Hgb Hct MCV MCH MCHC RDW Plt Count MPV Immature Gran % Neutrophils % Lymphocytes % Monocytes % Eosinophils % Basophils % Nucleated RBC % Absolute Neutrophils Absolute Lymphocytes Absolute Monocytes Absolute Eosinophils Absolute Basophils Urine Color Yellow Urine Clarity Clear Urine pH 5.5 Ur Specific [place] 1.025 Urine Protein Trace Urine Ketones Negative Urine Blood Trace-intact H Urine Nitrite Negative Urine Bilirubin Negative Urine Urobilinogen 0.2 Ur Leukocyte Esterase Negative Urine RBC 0-2 Urine WBC 3-5 Ur Epithelial Cells Negative Urine Crystals Many Uric Acid Urine Bacteria Negative Urine Casts Negative Urine Mucus Negative Urine Other Negative Ur Culture Indicated? No Urine Glucose Negative Random Vancomycin 16.7 MRSA (TEM-PCR) Negative 07/28/24 08:30 WBC 7.22 RBC 5.62 Hgb 16.3 Hct 49.4 MCV 88 MCH 29.0 MCHC 33.0 RDW 13.2 Plt Count 146 MPV 12.3 H Immature Gran % 0.6 Neutrophils % 80.5 Lymphocytes % 8.2 Monocytes % 8.3 Eosinophils % 1.7 Basophils % 0.7 Nucleated RBC % 0.0 Absolute Neutrophils 5.82 Absolute Lymphocytes 0.59 L Absolute Monocytes 0.60 Absolute Eosinophils 0.12 Absolute Basophils 0.05 Urine Color Urine Clarity Urine pH Ur Specific [place] Urine Protein Urine Ketones Urine Blood Urine Nitrite Urine Bilirubin Urine Urobilinogen Ur Leukocyte Esterase Urine RBC Urine WBC Ur Epithelial Cells Urine Crystals Urine Bacteria Urine Casts Urine Mucus Urine Other Ur Culture Indicated? Urine Glucose Random Vancomycin MRSA (TEM-PCR) Time Spent with Patient Time Spent with Patient: 25-34 minutes Time was spent: preparing to see the patient(eg.review tests), obtaining and/or reviewing separately otained hiistory, ordering medications,tests, procedures, referring, communicating with other health resident care aid, indepentently interpreting results, counseling the patient and care coordination
--- NOTE | 2024-07-28 13:27 | PHA.REVIEW2 ---
Pharmacy Admission Review Admission Clinical Review Admission Pharmacy Review: Respiratory distress (Acute) COVID (Acute) Sulfa (Sulfonamide Antibiotics) Allergy (Verified 07/24/24 16:40) Skin Rash Resuscitation Status DNR/DNI Height 6 ft Weight 85.1 kg Pharmacy Admission Review Renal Dosing Renal Dosing: BUN 47 mg/dL (7-18) H 07/27/24 05:20 Creatinine 2.1 mg/dL (0.70-1.30) H 07/27/24 05:20 Medications needing adjustments: Reviewed (CrCl 31 mL/min) List of meds needing interventions: Current medications are okay Anticoagulation Anticoagulation: Hgb 16.3 g/dL (13.5-17.5) 07/28/24 08:30 Hct 49.4 % (40.0-50.0) 07/28/24 08:30 Plt Count 146 10^3/uL (130-400) 07/28/24 08:30 Creatinine 2.1 mg/dL (0.70-1.30) H 07/27/24 05:20 DVT Prophylaxis: Reviewed Medications: Apixaban (2.5mg PO BID) Opiate Usage Evaluate Pain Scale/Pains Meds: Reviewed (morphine 2mg IVP q2h PRN - 0mg/24hrs) Scheduled Bowel Reg ordered if on Opiates?: No Relevant Labs Relevant Labs: Sodium 140 mmol/L (136-145) 07/27/24 05:20 Potassium 4.9 mmol/L (3.5-5.1) 07/27/24 05:20 Chloride 110 mmol/L (98-107) H 07/27/24 05:20 Magnesium 2.1 mg/dL (1.8-2.4) 07/24/24 16:42 Electrolytes, C-Reactive P, ESR: Reviewed (No new labs for today) Cardiac Review Cardiac Review: Troponin I 20 ng/L (<or=76) 07/24/24 19:45 NT-Pro-B Natriuret Pep 5838 pg/mL (<300) H 07/24/24 16:42 BP, HR, EF%: Reviewed (HR and BP WNL) List meds needing interventions: Has order for furosemide 40mg IVP TID and metoprolol 25mg BID QTc Review QTc: Reviewed (480 from 07/24/24) IV to PO Switch IV Medications: Reviewed (furosemide, morphine and remdesivir) Home Meds Home Med List reviewed: Reviewed Relevent Home Meds Not ordered & why?: lisinopril and spironolactone (on hold - GIO) Current Meds Current Medication Order Review: Intervened Comments: Added IV admission order Patient is on remdesivir, day 3, for COVID. Pharmacy Antibiotic Review Pharmacy Antibiotic Activity: Antibiotic de-escalation Comments: Patient had been on day 2 of vancomycin and Zosyn. Both were discontinued this afternoon. Blood and sputum cultures pending.
[2024-07-28] MEDS: Atorvastatin 10 MG TAB PO (20:10)
[2024-07-28] MEDS: Melatonin 3 MG TAB 6 MG PO (20:12)
[2024-07-28] MEDS: Acetaminophen 325 MG TAB 650 MG PO (20:12)
[2024-07-28] MEDS: REMDESIVIR 100 MG in Normal Saline 250 ML 250 MG IVPB (20:12)
[2024-07-28 20:41] LABS: Legionella Ag Detection Urine Negative (Negative)
[2024-07-29] VITALS (23 sets, daily range): BP systolic 98–133; BP diastolic 61–75; PULSE 41–99; RESP 15–29; TEMP 36–36.6; O2SAT 91–96
[2024-07-29 07:08] LABS: Abs Immature Grans 0.03 10^3/uL (0.0-0.06); Absolute Basophil Count 0.05 10^3/uL (0.0-0.2); Absolute Eosinophil Count 0.22 10^3/uL (0.0-0.7); Absolute Monocyte Count 0.63 10^3/uL (0.1-0.8); Absolute Neutrophil Count 4.98 10^3/uL (1.2-6.7); Basophils % 0.8 %; Eosinophils % 3.3 %; HCT 47.1 % (40.0-50.0); HGB 15.9 g/dL (13.5-17.5); Immature Grans % 0.5 %; Lymphocytes % 10.6 %; MCH 29.3 pg (27.0-33.0); MCHC 33.8 % (32.0-36.0); MCV 87 fL (80-95); MPV 12.5 fL (8.0-11.0); Monocytes % 9.5 %; Neutrophils % 75.3 %; Platelet Count 148 10^3/uL (130-400); RBC 5.43 10^6/uL (4.36-5.78); RDW 13.3 % (11.8-14.1); RDW-SD 41.8 fL; WBC 6.61 10^3/uL (4.4-10.8)
[2024-07-29 07:29] LABS: ALT 14 U/L (16-63); AST 11 U/L (15-37); Albumin 2.9 g/dL (3.4-5.0); Alkaline Phosphatase 128 U/L (46-116); Anion Gap 8.8 mmol/L (3-11); BUN 47 mg/dL (7-18); Bilirubin, Total 0.67 mg/dL (0.2-1.0); CO2 26.2 mmol/L (21.0-32.0); CREATININE 2.2 mg/dL (0.70-1.30); Calcium 8.6 mg/dL (8.5-10.1); Chloride 110 mmol/L (98-107); Estimated GFR 28.81 (mL/min/1.73m2); Glucose 108 mg/dL (74-106); Sodium 145 mmol/L (136-145); Total Protein 6.6 g/dL (6.4-8.2)
[2024-07-29 07:33] LABS: Potassium 3.6 mmol/L (3.5-5.1)
[2024-07-29] MEDS: Normal Saline Flush 10 ML SYR IVP ×2 (08:46→20:42)
[2024-07-29] MEDS: Omeprazole 20 MG CAPCR 40 MG PO (08:47)
[2024-07-29] MEDS: Furosemide 40 MG/4 ML VIAL IVP ×3 (08:47→20:42)
[2024-07-29] MEDS: Metoprolol 25 MG TAB PO ×2 (08:47→20:41)
[2024-07-29] MEDS: Aspirin 81 MG CHEW PO (08:47)
[2024-07-29] MEDS: Potassium Chloride 10 MEQ TABCR PO (08:47)
[2024-07-29] MEDS: Apixaban 2.5 MG TAB PO ×2 (08:47→20:41)
[2024-07-29] MEDS: guaiFENesin 600 MG TABCR PO ×2 (08:47→20:41)
--- NOTE | 2024-07-29 12:09 | PT.INTREAT ---
PT Notes Visit Reasons: COVID, Dehydration, Weakness Inpatient Physical Therapy Treatment Note [facility] Date: 07/29/24 PRECAUTIONS: COVID SUBJECTIVE: Pt states he feels good. No complaints OBJECTIVE: ? PAIN: N/A Therapeutic Activities ([id number]): Direct one-on-one instruction in dynamic activities to improve functional performance. ? BED MOBILITY/TRANSFERS? Rolling L/R: CGA Supine-sit: CGA? Sit-supine: CGA? Sit-stand: CGA? Stand-sit: CGA ? Bed-Chair: CGA? Chair-bed: CGA Ambulation: 10 ft x2 w/rollator and CGA -Provided skilled cues and instruction on performance and technique throughout. ASSESSMENT:? Pt did well with an increase in ambulatory activities today as his spO2 only dropped to 89% once but he was mostly >90% at all times on RA. He is showing improvements with functional independence as well as he only required CGA for all movements. He is progressing as planned. PLAN: Continue ambulatory progression while monitoring vitals TREATMENT CODE/TIME: Ther Act x1 [id number] (20 min) DISCHARGE RECOMMENDATION: Based on progression
--- NOTE | 2024-07-29 13:04 | PGE_ITS ---
Date of Service Date of service: 07/29/24 Time of Service: 13:03 Assessment and Plan Assessment and plan (1) COVID: Status: Acute Assessment and plan: COVID, manifesting at present with generalized weakness and dehydration; no specific evidence of pulmonary involvement (the initial hypoxia was apparently due to underlying COPD). The hypotension is likely some combination of dehydration along with basal Lopressor and MARITZA; notably he is not presenting a picture of sepsis. Fluid status somewhat unclear at present as clinically he would appear somewhat dry but elevated BNP concerning; I am inclined to cautiously hydrate at this point. 1. COVID: Remdesivir, no indication at present for steroids; 2. Hypotension (see above): gentle fluids, hold MARITZA 3. AF: rate is reasonably controlled. Continue Lopressor and DOAC; 4. NSVT, asymptomatic (note Mg and K WNL), with preserved EF: continue beta mela as is. 5. COPD: prn updrafts AD: remains DNR 07/25/24 Will recheck labs in am. Pt will continue with steroids and remdesivir. Bun/cr ratio did indicate some dehydration 07/26/[address] PT report below. Will d/w PT in am possible dc with HH. Per NS, the pt usually improves in regards to his stamina later in the day PLAN: 1-2x/day, 7 days/week x 1 week. Plan of care has been reviewed with the TRAINING PROFESSIONAL providing the service under Physical Therapy direction. Initiate Physical Therapy intervention for strengthening, bed mobility, transfers, gait, stairs, balance training, use of assistive device. TREATMENT CODE/TIME: 41356, 27351/[id number]?1059 DISCHARGE RECOMMENDATION: Short-term SNF versus HH PT 07/28/24 Pt will complete remdesivir (2) Respiratory distress: Start date: 07/27/24 Start time: 18:08 Status: Acute Assessment and plan: pt does appear to be in overload 2/2 chf and fluid. Will stop the fluid and give lasix. He does appear to have responded to lasix. I have also started a sepsis work up with blood cultures/cxr will be attached, legionella, sputum cx, zosyn and vanc. Last vitals show 36/(120/89)/91/26/90%RA. Looks like he diuresed -950 cxr: IMPRESSION: Compared to 07/24/2024 there is now evidence of pulmonary edema and small bilateral pleural effusions. There also appears to be some confluent infiltrate in what is either the left upper lobe or superior segment of the left lower lobe. 07/28/24 Pt with marked improvement in respiratory status cxr MPRESSION: Significant improvement of the chest compared to the prior examination with only a small right pleural effusion present. The lungs are otherwise clear. Pulmonary vasculature is within normal limits. 07/29/24 Pt with some tachypnea. (3) Weakness: Status: Acute Assessment and plan: ASSESSMENT:? Pt did well with an increase in ambulatory activities today as his spO2 only dropped to 89% once but he was mostly >90% at all times on RA. He is showing improvements with functional independence as well as he only required CGA for all movements. He is progressing as planned. PLAN: Continue ambulatory progression while monitoring vitals TREATMENT CODE/TIME: Ther Act x1 58706 (20 min) DISCHARGE RECOMMENDATION: Based on progression (4) Discharge planning issues: Status: Resolved Assessment and plan: on eliquis plan to dc in am Subjective Subjective Interval history since last seen: Pt seen and examined in the am. Pt does still have some respiratory distress. POC d/w pt as well as bedside nurse during ICU huddle Exam Narrative Exam Narrative: HEENT-NCAT MMM EOMI PERRLA NECK-NO LAD/NO JVD PULM-SPEAKING IN COMPLETE SENTENCES, NO AMU, Right sided crackles CV-RRR NO MRG ABD-SNTNDBSA EXT-NO CCE BILAT GEN-APPEARS STATED AGE, NO DISTRESS Objective Last Vital Signs Temp 36.2 C L 07/29/24 12:58 Pulse 61 07/29/24 12:00 Resp 29 H 07/29/24 12:00 BP 125/69 07/29/24 10:39 Pulse Ox 95 07/29/24 12:00 Laboratory Results - last 24 hr 07/29/24 06:05 WBC 6.61 RBC 5.43 Hgb 15.9 Hct 47.1 MCV 87 MCH 29.3 MCHC 33.8 RDW 13.3 Plt Count 148 MPV 12.5 H Immature Gran % 0.5 Neutrophils % 75.3 Lymphocytes % 10.6 Monocytes % 9.5 Eosinophils % 3.3 Basophils % 0.8 Nucleated RBC % 0.0 Absolute Neutrophils 4.98 Absolute Lymphocytes 0.70 L Absolute Monocytes 0.63 Absolute Eosinophils 0.22 Absolute Basophils 0.05 Sodium 145 Potassium 3.6 D Chloride 110 H Carbon Dioxide 26.2 Anion Gap 8.8 BUN 47 H Creatinine 2.2 H Est GFR (CKD-EPI 2020) 28.81 Glucose 108 H Calcium 8.6 Total Bilirubin 0.67 AST 11 L ALT 14 L Alkaline Phosphatase 128 H Total Protein 6.6 Albumin 2.9 L Time Spent with Patient Time Spent with Patient: 25-34 minutes Time was spent: preparing to see the patient(eg.review tests), ordering medications,tests, procedures, referring, communicating with other health plant health care technician, indepentently interpreting results, counseling the patient and care coordination
[2024-07-29] MEDS: Atorvastatin 10 MG TAB PO (20:41)
[2024-07-30] VITALS (23 sets, daily range): BP systolic 105–149; BP diastolic 67–83; PULSE 41–96; RESP 17–26; TEMP 36.1–36.6; O2SAT 90–96
[2024-07-30] MEDS: Melatonin 3 MG TAB 6 MG PO ×2 (00:19→20:19)
--- NOTE | 2024-07-30 09:51 | PT.INTREAT ---
PT Notes Visit Reasons: COVID, Dehydration, Weakness Inpatient Physical Therapy Treatment Note [facility] Date: 07/30/24 PRECAUTIONS: Covid positive SUBJECTIVE: Pt is confused today. He asks what day it is and wonders where he is. OBJECTIVE: ? PAIN: N/A VITALS: ? Pre-Treatment: spO2 - 93% ? Post-Treatment: spO2 - 94% Therapeutic Activities (28271g3): Direct one-on-one instruction in dynamic activities to improve functional performance. ? BED MOBILITY/TRANSFERS? Rolling L/R: CGA Supine-sit: CGA - increased V+T cues ? Sit-supine: CGA - increased V+T cues ? Sit-stand: min assist? Stand-sit: min assist ? Ambulation: 3 ft fwd/3 ft bwd w/min assist for rollator placement -Provided skilled cues and instruction on performance and technique throughout. ASSESSMENT:? Pt demonstrated increased difficulty today with functional movements and was not able to ambulate as far as yesterday. He required min assist for sitting to standing today. He is not safe to return to his previously living situation at this time. SNF is recommended at time of d/c. PLAN: Continue ambulatory and functional progression TREATMENT CODE/TIME: Ther Act 58442e2 (20 min) DISCHARGE RECOMMENDATION: SNF
[2024-07-30] MEDS: Furosemide 40 MG/4 ML VIAL IVP ×3 (09:58→20:20)
[2024-07-30] MEDS: guaiFENesin 600 MG TABCR PO ×2 (09:58→20:19)
[2024-07-30] MEDS: Aspirin 81 MG CHEW PO (09:58)
[2024-07-30] MEDS: Apixaban 2.5 MG TAB PO ×2 (09:58→20:20)
[2024-07-30] MEDS: Potassium Chloride 10 MEQ TABCR PO (09:58)
[2024-07-30] MEDS: Normal Saline Flush 10 ML SYR IVP ×2 (09:59→20:21)
[2024-07-30] MEDS: Metoprolol 25 MG TAB PO ×2 (09:59→20:20)
[2024-07-30] MEDS: Omeprazole 20 MG CAPCR 40 MG PO (09:59)
--- NOTE | 2024-07-30 13:25 | W.PM.PROGNOT ---
Date of Service Date of service: 07/30/24 Time of Service: 13:25 Assessment and Plan Assessment and plan (1) COVID: Status: Acute Assessment and plan: COVID, manifesting at present with generalized weakness and dehydration; no specific evidence of pulmonary involvement (the initial hypoxia was apparently due to underlying COPD). The hypotension is likely some combination of dehydration along with basal Lopressor and MARITZA; notably he is not presenting a picture of sepsis. Fluid status somewhat unclear at present as clinically he would appear somewhat dry but elevated BNP concerning; I am inclined to cautiously hydrate at this point. 1. COVID: Remdesivir, no indication at present for steroids; 2. Hypotension (see above): gentle fluids, hold MARITZA 3. AF: rate is reasonably controlled. Continue Lopressor and DOAC; 4. NSVT, asymptomatic (note Mg and K WNL), with preserved EF: continue beta mela as is. 5. COPD: prn updrafts AD: remains DNR 07/25/24 Will recheck labs in am. Pt will continue with steroids and remdesivir. Bun/cr ratio did indicate some dehydration 07/26/[address] PT report below. Will d/w PT in am possible dc with HH. Per NS, the pt usually improves in regards to his stamina later in the day PLAN: 1-2x/day, 7 days/week x 1 week. Plan of care has been reviewed with the COMPUTER SUPPORT SPECIALIST INSTRUCTOR providing the service under Physical Therapy direction. Initiate Physical Therapy intervention for strengthening, bed mobility, transfers, gait, stairs, balance training, use of assistive device. TREATMENT CODE/TIME: 41121, [id number]?1059 DISCHARGE RECOMMENDATION: Short-term SNF versus HH PT 07/28/24 Pt will complete remdesivir 2.2.25 Pt has completed his rx (2) Respiratory distress: Start date: 07/27/24 Start time: 18:08 Status: Acute Assessment and plan: pt does appear to be in overload 2/2 chf and fluid. Will stop the fluid and give lasix. He does appear to have responded to lasix. I have also started a sepsis work up with blood cultures/cxr will be attached, legionella, sputum cx, zosyn and vanc. Last vitals show 36/(120/89)/91/26/90%RA. Looks like he diuresed -950 cxr: IMPRESSION: Compared to 07/24/2024 there is now evidence of pulmonary edema and small bilateral pleural effusions. There also appears to be some confluent infiltrate in what is either the left upper lobe or superior segment of the left lower lobe. 07/28/24 Pt with marked improvement in respiratory status cxr MPRESSION: Significant improvement of the chest compared to the prior examination with only a small right pleural effusion present. The lungs are otherwise clear. Pulmonary vasculature is within normal limits. 07/29/24 Pt with some tachypnea. 07.30.24 Pt did have some s/s of fluid overloading and has had brisk diuresis of over 2000mls over last 24 hours. Pt does continue to have some respiratory distress. Will add abx for completeness (3) Weakness: Status: Acute Assessment and plan: ASSESSMENT:? Pt did well with an increase in ambulatory activities today as his spO2 only dropped to 89% once but he was mostly >90% at all times on RA. He is showing improvements with functional independence as well as he only required CGA for all movements. He is progressing as planned. PLAN: Continue ambulatory progression while monitoring vitals TREATMENT CODE/TIME: Ther Act x1 77401 (20 min) DISCHARGE RECOMMENDATION: Based on progression 07/30/24 Did d/w PT today who states that the pt would benefit from placement PT ASSESSMENT:? Pt demonstrated increased difficulty today with functional movements and was not able to ambulate as far as yesterday. He required min assist for sitting to standing today. He is not safe to return to his previously living situation at this time. SNF is recommended at time of d/c. PLAN: Continue ambulatory and functional progression TREATMENT CODE/TIME: Ther Act 16964a7 (20 min) DISCHARGE RECOMMENDATION: SNF (4) Discharge planning issues: Status: Resolved Assessment and plan: on eliquis PT will need placement Subjective Subjective Interval history since last seen: PT seen and examined, Resting comfortably Exam Narrative Exam Narrative: HEENT-NCAT MMM EOMI PERRLA NECK-NO LAD/NO JVD PULM-Mild respiratory distress bilat wheeze CV-RRR NO MRG ABD-SNTNDBSA EXT-NO CCE BILAT GEN-APPEARS STATED AGE, NO DISTRESS Objective Last Vital Signs Temp 36.5 C 07/30/24 10:47 Pulse 68 07/30/24 12:01 Resp 26 H 07/30/24 10:00 BP 105/68 07/30/24 12:01 Pulse Ox 91 L 07/30/24 12:01 Time Spent with Patient Time Spent with Patient: 25-34 minutes Time was spent: preparing to see the patient(eg.review tests), ordering medications,tests, procedures, referring, communicating with other health pet caretaker, indepentently interpreting results, counseling the patient and care coordination
[2024-07-30] MEDS: Acetaminophen 325 MG TAB 650 MG PO (20:19)
[2024-07-30] MEDS: Atorvastatin 10 MG TAB PO (20:19)
[2024-07-30] MEDS: Amoxicillin 875/Clav. 125 TAB PO (20:19)
[2024-07-31] VITALS (11 sets, daily range): BP systolic 110–126; BP diastolic 57–66; PULSE 47–81; RESP 15–19; TEMP 36.4–37.3; O2SAT 94–96
[2024-07-31 07:01] LABS: Abs Immature Grans 0.05 10^3/uL (0.0-0.06); Absolute Basophil Count 0.04 10^3/uL (0.0-0.2); Absolute Eosinophil Count 0.34 10^3/uL (0.0-0.7); Absolute Lymphocyte Count 0.86 10^3/uL (1.2-3.4); Basophils % 0.5 %; Eosinophils % 4.7 %; HCT 51.3 % (40.0-50.0); HGB 17.1 g/dL (13.5-17.5); Immature Grans % 0.7 %; Lymphocytes % 11.8 %; MCH 28.5 pg (27.0-33.0); MCHC 33.3 % (32.0-36.0); MCV 86 fL (80-95); MPV 12.3 fL (8.0-11.0); Monocytes % 9.6 %; Neutrophils % 72.7 %; Platelet Count 175 10^3/uL (130-400); RBC 5.99 10^6/uL (4.36-5.78); RDW 13.2 % (11.8-14.1); RDW-SD 41.3 fL; WBC 7.29 10^3/uL (4.4-10.8)
[2024-07-31 07:26] LABS: ALT 20 U/L (16-63); AST 12 U/L (15-37); Alkaline Phosphatase 150 U/L (46-116); Anion Gap 8.6 mmol/L (3-11); BUN 49 mg/dL (7-18); Bilirubin, Total 0.73 mg/dL (0.2-1.0); CO2 28.4 mmol/L (21.0-32.0); CREATININE 2.1 mg/dL (0.70-1.30); Calcium 9.1 mg/dL (8.5-10.1); Chloride 105 mmol/L (98-107); Estimated GFR 30.47 (mL/min/1.73m2); Glucose 107 mg/dL (74-106); Potassium 4.1 mmol/L (3.5-5.1); Sodium 142 mmol/L (136-145); Total Protein 7.1 g/dL (6.4-8.2)
[2024-07-31] MEDS: guaiFENesin 600 MG TABCR PO ×2 (08:13→20:59)
[2024-07-31] MEDS: Omeprazole 20 MG CAPCR 40 MG PO (08:13)
[2024-07-31] MEDS: Potassium Chloride 10 MEQ TABCR PO (08:13)
[2024-07-31] MEDS: Amoxicillin 875/Clav. 125 TAB PO ×2 (08:13→20:59)
[2024-07-31] MEDS: Aspirin 81 MG CHEW PO (08:13)
[2024-07-31] MEDS: Metoprolol 25 MG TAB PO ×2 (08:13→20:59)
[2024-07-31] MEDS: Furosemide 40 MG/4 ML VIAL IVP ×3 (08:13→21:00)
[2024-07-31] MEDS: Apixaban 2.5 MG TAB PO ×2 (08:14→21:00)
[2024-07-31] MEDS: Normal Saline Flush 10 ML SYR IVP ×2 (08:14→21:00)
--- NOTE | 2024-07-31 12:24 | PT.INTREAT ---
PT Notes Visit Reasons: COVID, Dehydration, Weakness Inpatient Physical Therapy Treatment Note [facility] Date: 07/31/24 PRECAUTIONS: Covid positive ,[place] SUBJECTIVE: Pt denies pain. OBJECTIVE: ? Pt upright in bed , flat affect. Telemetry no longer being utilized. [place] to bedside drainage? PAIN:denies VITALS: ? Pre-Treatment: spO2 - 93% ? Post-Treatment: spO2 - 94% Therapeutic Activities (13483w8): Direct one-on-one instruction in dynamic activities to improve functional performance. ? BED MOBILITY/TRANSFERS? Rolling L/R: CGA Supine-sit: min A - increased verbal and tactile cues increased time? Sit-stand: mod A assist?of 1 from elevated bed height x 3 trials ? Stand-sit: min assist of 1 x 3 trials ? step turn transfer with 4WW mod A of 1 4 steps toward left increased time verbal and tactile cues -Provided skilled cues and instruction on performance and technique throughout. ASSESSMENT:? Pt demonstrated increased difficulty today with functional movements and was not able to ambulate today. He required mod assist for sitting to standing today. Pt with increased difiiculaty advancing legs for step tuen transfer to chair. Pt was presented with new chair for comfort to increase time OOB as he did not like how straight/ upright previous chair was. PLAN: Continue ambulatory and functional progression TREATMENT CODE/TIME: Ther Act 13963r9/ [id number] DISCHARGE RECOMMENDATION: SNF
--- NOTE | 2024-07-31 13:35 | PDOC.CMPRO ---
Date of service: 07/31/24 Time of Service: 11:00 Care Management Progress Note Progress Note Text Progress Note Text: Per RN and PT reports, Kadeem is weaker today and has some increased confusion. It has been suggested on all accounts that Pop spend some time at SNF prior to going home. He needs to gain some strength. While Kadeem does have good community supports, he is alone throughout the night. CM contacted [place] [facility], she did not feel that she could make that decision for Kadeem. CM spoke with son, Juliocesar, who is also on Pop's HIPAA. Juliocesar was agreeable to referrals being sent to SNF. His request was that the SNF be local. Referrals sent to [facility] and the [facility]. Received a bed offer for [facility] and family has accepted. [facility] was notified of Kadeem's discharge plan as well. Discharge Potential Discharge Needs: Other (SNF at [facility]) Anticipated Barriers to Discharge: None Identified Patient/Family Education Needs: Review discharge instructions, discuss [facility] Transportation: Facility Transport Plan: Kadeem will be transferred to the [facility] tomorrow. He will transfer via the facility van if available. He will f/u with the provider at the facility, and continue per his plan of care. CM will continue to follow. Social Determinants of Health Screening Social Determinants of Health last assessed: 07/31/24 Will the Patient Participate in the Screening?: Yes Do you worry about having a steady place to live?: no Problems where you live: other In the past 12 months, have you had to go without electric, gas, oil or water in your home?: no Have you or anyone in your house had to go without enough food to eat?: no Has lack of transportation kept you from medical appointments or from doing things needed for daily living?: no Has anyone in your life made you feel unsafe or unsupported?: no How hard is it for you to pay for the very basics like food, housing, medical care, and heating? Would you say it is:: Not hard at all Do you want help finding or keeping work or a job?: I do not need or want help If for any reason you need help with day-to-day activities such as bathing, preparing meals, shopping, managing finances, etc., do you get the help you need?: I don?t need any help How often do you feel lonely or isolated from those around you?: Never Do you speak a language other than Kinyarw[place] at home?: No Does the patient want assistance with any of the above?: No Health Related Social Needs Health related social needs: inadequate housing (Z59.1)
--- NOTE | 2024-07-31 15:26 | W.PM.PROGNOT ---
Date of Service Date of service: 07/31/24 Time of Service: 15:26 Assessment and Plan Assessment and plan (1) COVID: Status: Acute Assessment and plan: - positive for COVID on admission -continued generalized weakness and dehydration; no specific evidence of pulmonary involvement (the initial hypoxia was apparently due to underlying COPD). -The hypotension is likely some combination of dehydration along with basal Lopressor and MARITZA; notably he is not presenting a picture of sepsis. -completed course of remdesivir (2) CHF (congestive heart failure): Status: Acute Assessment and plan: --pt does appear to be in overload 2/2 chf and fluid. -fluid discontinued and patient given lasix with good UOP and improvement in respiratory status, was on 40mg IV lasix TID, will transition back to home dose of 40mg PO BID on 07/31 -also initially concerned for infection and was on IV abx which has since been transitioned to PO augmentin with ongoing improvement in clinical status (3) Weakness: Status: Acute Assessment and plan: -secondary to COVID as noted above (4) Discharge planning issues: Status: Resolved Assessment and plan: -PT will need placement -accepted to [facility] for tomorrow, Wednesday08/01/2024 (5) Hypotension: Status: Acute Assessment and plan: -improved when holding home lisinopril (6) Atrial fibrillation: Status: Chronic Assessment and plan: -continue eliquis and toprolXL (7) Chronic obstructive lung disease: Status: Acute Objective Last Vital Signs Temp 98.8 F 07/31/24 10:00 Pulse 81 07/31/24 05:55 Resp 19 07/31/24 06:45 BP 111/63 07/31/24 05:55 Pulse Ox 95 07/31/24 05:55 Laboratory Results - last 24 hr 07/27/24 07/31/24 23:52 05:39 WBC 7.29 RBC 5.99 H Hgb 17.1 Hct 51.3 H MCV 86 MCH 28.5 MCHC 33.3 RDW 13.2 Plt Count 175 MPV 12.3 H Immature Gran % 0.7 Neutrophils % 72.7 Lymphocytes % 11.8 Monocytes % 9.6 Eosinophils % 4.7 Basophils % 0.5 Nucleated RBC % 0.0 Absolute Neutrophils 5.30 Absolute Lymphocytes 0.86 L Absolute Monocytes 0.70 Absolute Eosinophils 0.34 Absolute Basophils 0.04 Sodium 142 Potassium 4.1 Chloride 105 Carbon Dioxide 28.4 Anion Gap 8.6 BUN 49 H Creatinine 2.1 H Est GFR (CKD-EPI 2020) 30.47 Glucose 107 H Calcium 9.1 Total Bilirubin 0.73 AST 12 L ALT 20 Alkaline Phosphatase 150 H Total Protein 7.1 Albumin 3.0 L Urine Legionella Ag Negative Time Spent with Patient Time Spent with Patient: >50 minutes Time was spent: preparing to see the patient(eg.review tests), obtaining and/or reviewing separately otained hiistory, ordering medications,tests, procedures, referring, communicating with other health hospice home care coordinator, indepentently interpreting results, counseling the patient and care coordination
--- NOTE | 2024-07-31 17:08 | PGE_ITS ---
Date of Service Date of service: 07/31/24 Time of Service: 17:08 Assessment and Plan Assessment and plan (1) COVID: Status: Acute Assessment and plan: - positive for COVID on admission -continued generalized weakness and dehydration; no specific evidence of pulmonary involvement (the initial hypoxia was apparently due to underlying COPD). -The hypotension is likely some combination of dehydration along with basal Lopressor and MARITZA; notably he is not presenting a picture of sepsis. -completed course of remdesivir (2) CHF (congestive heart failure): Status: Acute Assessment and plan: --pt does appear to be in overload 2/2 chf and fluid. -fluid discontinued and patient given lasix with good UOP and improvement in respiratory status, was on 40mg IV lasix TID, will transition back to home dose of 40mg PO BID on 07/31 -also initially concerned for infection and was on IV abx which has since been transitioned to PO augmentin with ongoing improvement in clinical status (3) Weakness: Status: Acute Assessment and plan: -secondary to COVID as noted above (4) Discharge planning issues: Status: Resolved Assessment and plan: -PT will need placement -accepted to [facility] for tomorrow, Wednesday08/01/2024 (5) Hypotension: Status: Acute Assessment and plan: -improved when holding home lisinopril (6) Atrial fibrillation: Status: Chronic Assessment and plan: -continue eliquis and toprolXL (7) Chronic obstructive lung disease: Status: Acute Subjective Subjective Interval history since last seen: Patient awake and pleasantly confused when seen this afternoon. Was able to hold conversation regarding his discharge plan affect that he is improving and that he would benefit from short-term rehab for which he appeared to be motivated, stating that he is willing to work hard to regain his strength and independence prior to returning home. Exam Narrative Exam Narrative: Elderly gentleman laying in bed in no acute distress, awake, alert, oriented to person and place, heart regular rhythm, lungs clear to auscultation bilaterally, abdomen soft, nontender, nondistended Objective Last Vital Signs Temp 98.8 F 07/31/24 10:00 Pulse 81 07/31/24 05:55 Resp 19 07/31/24 06:45 BP 111/63 07/31/24 05:55 Pulse Ox 95 07/31/24 05:55 Laboratory Results - last 24 hr 07/27/24 07/31/24 23:52 05:39 WBC 7.29 RBC 5.99 H Hgb 17.1 Hct 51.3 H MCV 86 MCH 28.5 MCHC 33.3 RDW 13.2 Plt Count 175 MPV 12.3 H Immature Gran % 0.7 Neutrophils % 72.7 Lymphocytes % 11.8 Monocytes % 9.6 Eosinophils % 4.7 Basophils % 0.5 Nucleated RBC % 0.0 Absolute Neutrophils 5.30 Absolute Lymphocytes 0.86 L Absolute Monocytes 0.70 Absolute Eosinophils 0.34 Absolute Basophils 0.04 Sodium 142 Potassium 4.1 Chloride 105 Carbon Dioxide 28.4 Anion Gap 8.6 BUN 49 H Creatinine 2.1 H Est GFR (CKD-EPI 2020) 30.47 Glucose 107 H Calcium 9.1 Total Bilirubin 0.73 AST 12 L ALT 20 Alkaline Phosphatase 150 H Total Protein 7.1 Albumin 3.0 L Urine Legionella Ag Negative
[2024-07-31] MEDS: Atorvastatin 10 MG TAB PO (21:00)
[2024-07-31] MEDS: Acetaminophen 325 MG TAB 650 MG PO (23:41)
[2024-07-31] MEDS: Melatonin 3 MG TAB 6 MG PO (23:41)
[2024-08-01 02:50] VITALS: PULSE 70
[2024-08-01] MEDS: Amoxicillin 875/Clav. 125 TAB PO (08:19)
[2024-08-01] MEDS: Aspirin 81 MG CHEW PO (08:19)
[2024-08-01] MEDS: Omeprazole 20 MG CAPCR 40 MG PO (08:19)
[2024-08-01] MEDS: guaiFENesin 600 MG TABCR PO ×2 (08:19→20:37)
[2024-08-01] MEDS: Apixaban 2.5 MG TAB PO ×2 (08:19→20:37)
[2024-08-01] MEDS: Potassium Chloride 10 MEQ TABCR PO (08:19)
[2024-08-01] MEDS: Metoprolol 25 MG TAB PO ×2 (08:19→20:38)
[2024-08-01] MEDS: Normal Saline Flush 10 ML SYR IVP ×2 (08:20→20:38)
[2024-08-01 08:28] VITALS: BP 126/72; PULSE 76; RESP 18; TEMP 36.8; O2SAT 96
[2024-08-01] MEDS: Furosemide 40 MG/4 ML VIAL IVP (08:29)
--- NOTE | 2024-08-01 13:32 | W.PM.PROGNOT ---
Date of Service Date of service: 08/01/24 Time of Service: 13:32 Assessment and Plan Assessment and plan (1) COVID: Status: Acute Assessment and plan: - positive for COVID on admission -continued generalized weakness and dehydration; no specific evidence of pulmonary involvement (the initial hypoxia was apparently due to underlying COPD). -The hypotension is likely some combination of dehydration along with basal Lopressor and MARITZA; notably he is not presenting a picture of sepsis. -completed course of remdesivir -no longer on precautions (2) CHF (congestive heart failure): Status: Acute Assessment and plan: -pt does appear to be in overload 2/2 chf and fluid. -fluid discontinued and patient given lasix with good UOP and improvement in respiratory status, was on 40mg IV lasix TID, will transition back to home dose of 40mg PO BID on 2/4 AM -also initially concerned for infection and was on IV abx which has since been transitioned to PO augmentin with ongoing improvement in clinical status (3) Weakness: Status: Acute Assessment and plan: -secondary to COVID as noted above (4) Discharge planning issues: Status: Resolved Assessment and plan: -PT will need placement -accepted to [facility] for tomorrow, Wednesday08/02/2024 (5) Hypotension: Status: Acute Assessment and plan: -improved when holding home lisinopril (6) Atrial fibrillation: Status: Chronic Assessment and plan: -continue eliquis and toprolXL (7) Chronic obstructive lung disease: Status: Acute Subjective Subjective Interval history since last seen: Patient states that he is doing well today and understands that he will be going to short-term rehab once bed is available. He has no complaints or concerns at this time. Exam Narrative Exam Narrative: Elderly gentleman laying in bed in no acute distress, awake, alert, oriented to person and place, heart regular rhythm, lungs good auscultation bilaterally, abdomen soft, nontender, nondistended Objective Last Vital Signs Temp 98.2 F 08/01/24 08:28 Pulse 76 08/01/24 08:28 Resp 18 08/01/24 08:28 BP 126/72 08/01/24 08:28 Pulse Ox 96 08/01/24 08:28 Time Spent with Patient Time Spent with Patient: >50 minutes Time was spent: preparing to see the patient(eg.review tests), obtaining and/or reviewing separately otained hiistory, ordering medications,tests, procedures, referring, communicating with other health animal care giver, indepentently interpreting results, counseling the patient and care coordination
--- NOTE | 2024-08-01 14:11 | PDOC.CMPRO ---
Date of service: 08/01/24 Time of Service: 14:13 Care Management Progress Note Progress Note Text Progress Note Text: Kadeem was sitting up in his chair when CM met with him. He stated that he is doing well, and that he feels that he is getting some of his strength back. CM discussed his discharge plan, which will be to go to [facility] tomorrow, for short term rehab prior to returning home. CM called [place] to provide an update; she reported that Kadeem's brother , and she is hoping to bring him to his this weekend. CM stated that he will be at the rehab facility at that time, but that generally when a person is in a SNF, they are able to leave and come back in the same day; she will have to make arrangements with the facility, which she intends to do. CM asked about transporting Kadeem to the rehab facility tomorrow, and she stated that she would talk to family about it and see if someone would be available, CM stated that it would likely be around 1pm. [place] stated that she will follow up tomorrow morning. CM will continue to follow. Discharge Potential Discharge Needs: Other (Coordinated transfer to SNF) Anticipated Barriers to Discharge: None Identified Patient/Family Education Needs: Review discharge instructions, discuss Ask Me Three Transportation: Private vehicle Plan: Kadeem will be transferred to the [facility] tomorrow. He will transfer via private vehicle by family vs the facility van if available. He will f/u with the provider at the facility, and continue per his plan of care. CM will continue to follow. Social Determinants of Health Screening Social Determinants of Health last assessed: 08/01/24 Will the Patient Participate in the Screening?: Yes Do you worry about having a steady place to live?: no Problems where you live: other In the past 12 months, have you had to go without electric, gas, oil or water in your home?: no Have you or anyone in your house had to go without enough food to eat?: no Has lack of transportation kept you from medical appointments or from doing things needed for daily living?: no Has anyone in your life made you feel unsafe or unsupported?: no How hard is it for you to pay for the very basics like food, housing, medical care, and heating? Would you say it is:: Not hard at all Do you want help finding or keeping work or a job?: I do not need or want help If for any reason you need help with day-to-day activities such as bathing, preparing meals, shopping, managing finances, etc., do you get the help you need?: I don?t need any help How often do you feel lonely or isolated from those around you?: Never Do you speak a language other than O[place]i at home?: No Does the patient want assistance with any of the above?: No Health Related Social Needs Health related social needs: inadequate housing (Z59.1)
[2024-08-01 15:34] VITALS: BP 93/61; PULSE 60; RESP 18; TEMP 36.5; O2SAT 93
--- NOTE | 2024-08-01 15:37 | INPN_ITS ---
PT Notes Visit Reasons: COVID, Dehydration, Weakness Inpatient Physical Therapy Progress Note Date: 08/01/24 Dates of Service: 07/25/24-08/01/24 PRECAUTIONS: s/p COVID SUBJECTIVE: I feel better when can I go home OBJECTIVE PAIN: denies BED MOBILITY/TRANSFERS Rolling L/R: supervision with rails with HOB >50 degrees Supine-sit:min A with HOB >50 degrees Sit-supine: min A HOB >50 degrees Sit-stand: mod A of 1 Stand-sit: min A of 1 Bed-Chair: min A of 2 with rollator Chair-bed: min A x 2 rollator GAIT Assistive Device: rollator Weight bearing: WBAT/full Assist: min A of 2 with w/c follow Distance: 10 feet x 2 Deviation: decreased step length BLE , impaired foot clearance BLE VITALS: maintaining sats >92% on RA STAIRS: unable at this time ASSESSMENT: Patient is a 84year old male referred to physical therapy services with the diagnosis of COVID. Patient presents with clinical signs and symptoms consistent with admitting diagnosis, as demonstrated by the following impairment level findings 1. Decreased strength BUE/LE major muscle groups 2. Impaired standing balance 3. Impaired activity tolerance/fatigue 4. Limitations of range of motion in B UE/LE joints as noted above 5. decline in cognition/ increased confusion Impairments are contributing to the following functional limitations: 1. AMPAC score. 2. Difficulty with ambulation without physical assistance 3. Increased time to complete mobility/ADL tasks 4. Increased risk for falls 5. Inability to perform stairs safely alone Patient is assessed as a Moderate 25522 complexity based on the following: History: 84-year-old male presenting with complex past medical history and new onset of COVID Examination: Demonstrates impairments in strength, balance, and mobility level with underlying impairments and functional limitations as exhibited above as well as deficits score of 50.57% utilizing the [facility] AM-PAC mobility inpatient Short form Presentation: Evolving Decision Making: Moderate Goals x1 week [MET/NOT MET] 1. Supine-Sit supervision not met 2. Sit-Supine [] supervision not met 3. Sit-Stand supervision not met 4. Stand-Sit [] supervision not met 5. Bed-Chair supervision with 4WW not met 6. Chair-Bed supervision with 4WW not met 7. ambulation with 4WW supervised greater than 150 feet on level surfaces not met 8. Supervised performing 5 steps negotiation while holding bilateral rails not met PLAN OF CARE/TREATMENT PLAN: 1-2x/day, 7 days/ week x 1 week Plan of care has been reviewed with the EDUCATION PROGRAM ASSOCIATE providing the service under Physical therapy direction. Initiate physical therapy intervention for strengthening, bed mobility, transfers, gait, stairs, balance training, use of assistive device. DISCHARGE RECOMMENDATIONS:short term SNF prior to d/c to home TREATMENT CODE/TIME: 63758 / [id number] second session [id number]
[2024-08-01] MEDS: Furosemide 40 MG TAB PO (16:40)
[2024-08-01 20:08] VITALS: BP 113/68; PULSE 86; RESP 18; TEMP 36; O2SAT 97
[2024-08-01] MEDS: Amoxicillin 500/Clav. 125 TAB PO (20:37)
[2024-08-01] MEDS: Atorvastatin 10 MG TAB PO (20:37)
[2024-08-02 08:11] VITALS: BP 118/64; PULSE 52; RESP 17; TEMP 36.3; O2SAT 94
[2024-08-02 08:18] VITALS: O2SAT 93
[2024-08-02] MEDS: guaiFENesin 600 MG TABCR PO (08:22)
[2024-08-02] MEDS: Apixaban 2.5 MG TAB PO (08:22)
[2024-08-02] MEDS: Amoxicillin 500/Clav. 125 TAB PO (08:22)
[2024-08-02] MEDS: Potassium Chloride 10 MEQ TABCR PO (08:22)
[2024-08-02] MEDS: Omeprazole 20 MG CAPCR 40 MG PO (08:22)
[2024-08-02] MEDS: Aspirin 81 MG CHEW PO (08:22)
[2024-08-02] MEDS: Furosemide 40 MG TAB PO (08:23)
[2024-08-02] MEDS: Normal Saline Flush 10 ML SYR IVP (08:23)
[2024-08-02 08:27] VITALS: PULSE 72
[2024-08-02] MEDS: Metoprolol 25 MG TAB PO (08:27)
--- NOTE | 2024-08-02 08:42 | DSE_ITS ---
Date of service: 08/02/24 Time of Service: 08:42 DS: Diagnosis Discharge Diagnosis (1) COVID: Status: Acute (2) CHF (congestive heart failure): Status: Acute (3) Weakness: Status: Acute (4) Discharge planning issues: Status: Resolved (5) Hypotension: Status: Acute (6) Atrial fibrillation: Status: Chronic (7) Chronic obstructive lung disease: Status: Acute Discharge Plan Disposition Patient Disposition: Snf Facility(SNF) Condition: Good Discharge Details Reason For Visit: COVID, Dehydration, Weakness Admit Date/Time: 07/24/24 20:31 Admit Provider: Hudson Herrera Attending Provider: Hudson Herrera Primary Care Provider: Arnold Vicente Hospital Course Hospital Course: Patient was initially hospitalized with COVID-19, significant weakness. She does havesteroids and had improvement of his symptoms. Also found to have transient hypotension due to diuresis, as well as acute exacerbation of congestive heart failure. There is also some concern for superimposed bacterial pneumonia for which she was started on Augmentin but did have significant improvement and will be discharged with an additional 3 days. She was appropriately diuresed and transition back to his oral Lasix regimen. During hospitalization patient was family by physical therapy and determined to benefit from subacute rehab stay. Ultimately, the patient was to go to the [facility] determined to be stable for discharge for subacute rehab. Home Meds and New Rx's Prescriptions: New amoxicillin-pot clavulanate 500-125 mg Tablet 1 tab PO BID 3 Days Qty: 6 0RF Continued acetaminophen [Tylenol Arthritis Pain] 650 mg tablet extended release 325 mg PO HS fluticasone propionate 50 mcg/actuation spray,suspension 2 spray CHINMAY DAILY Qty: 48 3RF Rx Instructions: administer into each nostril aspirin [Aspirin Low-Strength] 81 MG tablet,chewable 81 mg PO DAILY atorvastatin 10 mg tablet 10 mg PO QPM Qty: 90 3RF omeprazole 40 mg capsule,delayed release(DR/EC) 40 mg PO DAILY Qty: 90 3RF metoprolol tartrate 50 mg tablet 25 mg PO BID Qty: 90 3RF Eliquis 2.5 mg tablet 2.5 mg PO BID Qty: 180 3RF lisinopril 5 mg tablet 2.5 mg PO DAILY Qty: 45 3RF furosemide 40 mg tablet 40 mg PO BID Qty: 180 3RF potassium chloride 10 mEq packet 10 meq PO DAILY Qty: 30 0RF guaifenesin [Mucinex] 600 mg tablet extended release 12hr 600 mg PO BID Qty: 10 0RF Discontinued spironolactone 25 mg tablet 25 mg PO DAILY Qty: 90 3RF Discharge Instructions Activity:: Activity as Tolerated Equipment/Supplies:: No Equipment Needed Diet:: As Tolerated Discharge Orders Discharge Orders: Discharge Order (Routine); Ordered 08/02/24 Ordered By: Tigre Wu DS: Summary Time Spent with Patient providing and/or coordinating discharge services: Greater than 30 minutes Status at Discharge Functional status at discharge: independent ambulation Overall status at discharge: patient is back to baseline Mental Status: mental status grossly normal Speech and Movement: speech and movement normal Mood: congruent mood Affect: normal affect Quality:SDOH Health Related Social Needs: Health related social needs inadequate housing (Z59.1) Exam Narrative Exam Narrative: Elderly gentleman laying in bed in no acute distress, awake, alert, oriented to person and place, heart regular rhythm, lungs good auscultation bilaterally, abdomen soft, nontender, nondistended Psych Mental Status: mental status grossly normal Speech and Movement: speech and movement normal Mood: congruent mood Affect: normal affect DS: Data Vitals/I&O Vitals and I&O: Vital Signs Temperature 97.4 F L 08/02/24 08:11 Temperature Source Temporal Artery Scan 08/02/24 08:11 Pulse 52 L 08/02/24 08:11 Pulse 96 H 07/30/24 10:00 Respiratory Rate 17 08/02/24 08:11 Respiratory Effort Labored 07/24/24 17:32 Respiratory Depth Shallow 07/24/24 17:32 Blood Pressure 118/64 08/02/24 08:11 Blood Pressure Mean 77 07/31/24 21:13 Blood Pressure Position Supine 07/24/24 21:50 Pulse Oximetry 94 08/02/24 08:11 Oxygen Delivery Method Room Air 08/02/24 08:11 Oxygen Flow Rate 0 08/02/24 08:11 Pain Level 0 08/01/24 12:22 Comment Notifying nurse of BP 08/01/24 15:34 Intake & Output 08/01/24 08/02/24 08/02/24 17:59 05:59 17:59 Intake Total 20 / 20 Output Total 650 / 650 550 / 550 Balance -650 / -650 20 / -630 -550 / -550 Weight 167 lb 8.821 oz Intake: IV Output: Urine 650 / 650 550 / 550 Other: Urine Color Yellow Yellow Urine Appearance Clear Clear Stool Size Large Stool Characteristics Soft Formed PFSH All Active Problems (Updated 07/31/24 @ 15:33 by Tigre Wu MD) Atrial fibrillation (Chronic) Hypotension (Acute) Weakness (Acute) Respiratory distress (Acute) COVID (Acute) CHF (congestive heart failure) (Acute) GIO (acute kidney injury) (Acute) Hematuria (Acute) Elevated bilirubin (Acute) Chronic renal disease, stage 3, moderately decreased glomerular filtration rate (GFR) between 30-59 mL/min/1.73 square meter (Acute) Paroxysmal atrial fibrillation (Acute) Nail dystrophy (Acute) Arthritis of big toe (Acute) Skin lesion of face (Acute) Facial basal cell cancer (Acute) Loose stools (Acute) Hypertension (Chronic) Vasomotor rhinitis (Chronic) use the ipratropium Fracture of thoracic spine (Acute) History of cataract removal with insertion of prosthetic lens (Acute) History of coronary artery bypass surgery (Acute) History of esophagogastroduodenoscopy (Acute) History of thoracentesis (Acute) Status post abdominal aortic aneurysm repair (Acute) Status post cholecystectomy (Acute) Pneumonia (Acute) Pulmonary nodule, right (Acute 02/26/16) Follwed by [facility] Multiple sclerosis (Acute 11/14/14) Idiopathic scoliosis (Acute) Hyperlipidemia (Acute 11/02/12) History of tobacco use (Acute 11/02/12) quit 2005 History of tobacco use (Acute 11/02/12) quit 2006 Gastritis (Acute) per EGD 2006 Chronic obstructive lung disease (Acute 11/02/12) Aortic aneurysm (Acute 11/02/12) AAA-lap repair 2006 Nausea,vomiting,diarrhea, fever (Active 11/16/12) Multiple sclerosis (Active) Diagnosed 25 years ago. Benign hypertension (Active) same meds Coronary arteriosclerosis (Active) Hyperglycemia (Active) Gastroesophageal reflux disease (Active) History of - coronary artery bypass grafting (Active) Eczema (Active) Osteoarthritis (Active) Constipation (Active) Medical History Elevated brain natriuretic peptide (BNP) level Influenza A Peripheral edema Multiple sclerosis GERD (gastroesophageal reflux disease) COPD (chronic obstructive pulmonary disease) Coronary artery disease HTN (hypertension) Hyperlipemia Malignant neoplasm of lower lobe of right lung (04/15/16) Adenocarcinoma Surgery [facility] 2015 Surgical History History of thoracentesis Hx of cholecystectomy History of cataract surgery History of tonsillectomy Hx of CABG History of AAA (abdominal aortic aneurysm) repair EGD - MAC (~01/2007) GERD/CHRONIC GASTRITIS Social History Smoking/Tobacco Use Status: Former Tobacco Use Quit Date: 12/27/23 Tobacco: How many years used: 55 Smoking risk assessment performed?: Yes Alcohol Intake: never Drug use: Never Substance use type: does not use Housing: house Do you feel safe at home: Yes Do you feel safe in your relationship?: Yes Time Spent with Patient Time Spent with Patient: <45 minutes Time was spent: preparing to see the patient(eg.review tests), obtaining and/or reviewing separately otained hiistory, ordering medications,tests, procedures, referring, communicating with other health progressive care nurse, indepentently interpreting results, counseling the patient and care coordination
--- NOTE | 2024-08-02 12:17 | PT.INTREAT ---
PT Notes Visit Reasons: COVID, Dehydration, Weakness Inpatient Physical Therapy Treatment Note [facility] Date: 08/01/24 PRECAUTIONS:recent MARISSA ,Campbell SUBJECTIVE: Pt denies pain. OBJECTIVE: ? Pt upright in chair Campbell to bedside drainage? PAIN:denies VITALS: ? Pre-Treatment: spO2 - 93% ? Post-Treatment: spO2 - 94% Therapeutic Activities ([id number]): Direct one-on-one instruction in dynamic activities to improve functional performance. ? BED MOBILITY/TRANSFERS? Sit-stand: CGA from 20 height x 5 trials cues to push up from surface ? Stand-sit:SBA with cues to reach back x 5 trials? step turn transfer with 4WW CGA of 1 Facilitated Ambulation with 4WW/rollator CGA 26 feet x 2 with w/c follow for safety. Pt demonstrating ability to advance BLE. Pt able to control speed of rollator without assistance. Pt denied pain. -Provided skilled cues and instruction on performance and technique throughout. ASSESSMENT:? Pt demonstrated significant improvement in his ability to stand from surfaces, tolerates standing tasks and advance BLE. Pt required 1 sit rest between distances of walking. Pt able to manage rollator without assistance this session. PLAN: Continue ambulatory and functional progression TREATMENT CODE/TIME: Ther Act 79799 /[id number] DISCHARGE RECOMMENDATION: SNF
--- NOTE | 2024-08-02 12:40 | PDOC.CMDIS ---
Date of service: 08/02/24 Time of Service: 12:40 LACE Index Scoring Tool Questions: Length of Stay (in days): 7 - 13 Was the patient admitted via the E.D.?: Yes Comorbidities: Congestive Heart Failure, Chronic Pulmonary Disease and Liver or Renal Disease E.D. Visits: 2 Answers: Total Score: 15 Risk of Readmission: High Risk Care Management Discharge Plan Reason for Hospitalization: Covid, dehydration, weakness Discharge Plan: Juan Ramon Quan transferred to [facility] today for short term rehab prior to returning home. His grandson will drive him via private vehicle. He will follow up with his community providers and discharge plan of care. Patient/Family Education Needs: Review discharge instructions and limitations, discussion of self care needs including ask me three. Services Needed at Discharge: [facility] ([facility] Health Related Social Needs: Health related social needs inadequate housing (Z59.1)
--- NOTE | 2024-08-02 12:48 | W.PC.ACHO ---
Registration Status: Primary Language: Preferred Language: ED Information & Data Chief Complaint RespSymp 07/25/24 16:51 Triage Note increased work of breathing, 07/24/24 16:31 increased weakness, temp, COVID pos today per [facility] 1gm apap via ems, Medical / Surgical History (Last Reviewed 07/24/24 @ 20:20 by Hudson Herrera MD) Elevated brain natriuretic peptide (BNP) level Influenza A Peripheral edema Multiple sclerosis GERD (gastroesophageal reflux disease) COPD (chronic obstructive pulmonary disease) Coronary artery disease HTN (hypertension) Hyperlipemia Malignant neoplasm of lower lobe of right lung (04/15/16) (Last Reviewed 07/24/24 @ 20:20 by Hudson Herrera MD) History of thoracentesis Hx of cholecystectomy History of cataract surgery History of tonsillectomy Hx of CABG History of AAA (abdominal aortic aneurysm) repair EGD - MAC (~01/2007) Most Recent Vital Signs Temperature 36.3 C L 08/02/24 08:11 Temperature Source Temporal Artery Scan 08/02/24 08:11 Pulse 72 08/02/24 08:27 Pulse 96 H 07/30/24 10:00 Respiratory Rate 17 08/02/24 08:11 Respiratory Effort Labored 07/24/24 17:32 Respiratory Depth Shallow 07/24/24 17:32 Blood Pressure 118/64 08/02/24 08:11 Blood Pressure Mean 77 07/31/24 21:13 Blood Pressure Position Supine 07/24/24 21:50 Pulse Oximetry 94 08/02/24 08:11 Oxygen Delivery Method Room Air 08/02/24 08:11 Oxygen Flow Rate 0 08/02/24 08:11 Pain Level 0 08/01/24 12:22 Comment Notifying nurse of BP 08/01/24 15:34 Allergies Sulfa (Sulfonamide Antibiotics) Allergy (Verified 07/24/24 16:40) Skin Rash Active Medications Generic Name Dose Route Start Last Admin Trade Name Freq PRN Reason Stop Dose Admin Acetaminophen 650 mg 07/24/24 20:33 07/31/24 23:41 Acetaminophen 325 Mg Tab PO 650 mg Q4H PRN PRN Administration Pain or Fever Amoxicillin/Clavulanate Potassium 1 tab 08/01/24 20:00 08/02/24 08:22 Amoxicillin 500/Clav. 125 Tab PO 1 tab BID JAZZ Administration Apixaban 2.5 mg 07/25/24 08:30 08/02/24 08:22 Apixaban 2.5 Mg Tab PO 2.5 mg BID JAZZ Administration Aspirin 81 mg 07/25/24 08:30 08/02/24 08:22 Aspirin 81 Mg Chew PO 81 mg DAILY JAZZ Administration Atorvastatin Calcium 10 mg 07/25/24 20:00 08/01/24 20:37 Atorvastatin 10 Mg Tab PO 10 mg QPM JAZZ Administration Fluticasone Propionate 0 gm 07/25/24 08:30 08/02/24 08:29 Fluticasone Nasal [place] 16 Gm Btl NS Not Given DAILY JAZZ Furosemide 40 mg 08/01/24 16:00 08/02/24 08:23 Furosemide 40 Mg Tab PO 40 mg BID@0830,1600 JAZZ Administration Guaifenesin 600 mg 07/24/24 23:00 08/02/24 08:22 Guaifenesin 600 Mg Tabcr PO 600 mg BID JAZZ Administration Melatonin 6 mg 07/24/24 20:33 07/31/24 23:41 Melatonin 3 Mg Tab PO 6 mg HS PRN PRN Administration Insomnia Metoprolol Tartrate 25 mg 07/27/24 20:00 08/02/24 08:27 Metoprolol 25 Mg Tab PO 25 mg BID JAZZ Administration Omeprazole 40 mg 07/25/24 07:30 08/02/24 08:22 Omeprazole 20 Mg Capcr PO 40 mg DAILY@0730 JAZZ Administration Potassium Chloride 10 meq 07/25/24 08:30 08/02/24 08:22 Potassium Chloride 10 Meq Tabcr PO 10 meq DAILY JAZZ Administration Sodium Chloride 0 ml 07/26/24 21:17 07/28/24 11:28 Normal Saline Flush 10 Ml Syr IVP 20 ml PRN PRN Administration Sodium Chloride 0 ml 07/27/24 08:30 08/02/24 08:23 Normal Saline Flush 10 Ml Syr IVP 10 ml BID JAZZ Administration IV IV Catheter Type [Right Saline Lock Forearm] IV Catheter Type [Left Upper Peripheral IV arm] IV Catheter Type [Left Forearm Peripheral IV ] IV Catheter Type [Right Saline Lock Antecubital] IV Catheter Gauge [Right 20 Forearm] IV Catheter Gauge [Left Upper 20 arm] IV Catheter Gauge [Left 18 Forearm] IV Catheter Gauge [Right 18 Antecubital] 07/27/24 12:50 Blood Culture - Final Blood NO GROWTH 120 HOURS 07/27/24 12:40 Blood Culture - Final Blood NO GROWTH 120 HOURS Intake and Output - 24 Hour Total 07/24/24 16:29 thru 08/02/24 12:19 Intake Total 8609.167 Output Total 60846 Balance -7635.833 Weight 76 kg Intake: IV 3639.167 Oral 4970 Output: Urine 98127 Other: Urine Color Light Soni Urine Appearance Clear Urine Odor Normal Comment Removed per Dr. Wu, no voiding trail needed per provider. Stool Size Large Stool Characteristics Soft Formed Urinary Catheter Urinary Catheter Date of 07/27/24 Insertion [Urethral (Patterson)] Time of insertion [Urethral ( 16:25 Patterson)] Falls Risk Assessment History of Falls No History 07/24/24 21:50 Contributing Factors Unstable 07/24/24 21:50 Ambulatory Aids Uses ambulatory device + 07/24/24 21:50 Tubes/Lines With any additional score 07/24/24 21:50 Gait Evaluation W/no contributing factors 07/24/24 21:50 Cognition No cognitive impairment 07/24/24 21:50 Fall Total Score 63 07/24/24 21:50 Level of Risk High Risk 07/24/24 21:50 Problems (Last Reviewed 07/24/24 @ 20:20 by Hudson Herrera MD) Atrial fibrillation (Chronic) Hypotension (Acute) Weakness (Acute) Respiratory distress (Acute) COVID (Acute) CHF (congestive heart failure) (Acute) Chronic obstructive lung disease (Acute 11/02/12) v v v v v v v v v Sending and/or Receiving Nurses: Please use comment section below to note any information pertinent to the patient hand-off not included above. Information / Comments: Report called at 1223. Report given to receiving nurse, patterson removed prior to d/c (ok per provider no voiding trial), IV removed prior to d/c. Family will transport to facility at 1300. Report received from: nurse Norma from [facility].
== END 2024-08-02 12:59 | disposition skilled nursing facility (03) | DRG 177 ==
LOC: ER 16:40 → ICU 21:53 → MS 07-31 23:26
PROVIDERS: Hospitalist; Admitting Provider General Practice; Emergency Provider Physician Assistant; PCP Family Medicine; Visit Provider General Practice
DX: U07.1 COVID-19 (principal); I50.33 Acute on chronic diastolic (congestive) heart failure; I13.0 Hypertensive heart and chronic kidney disease with heart failure and stage 1 through stage 4 chronic kidney disease, or unspecified chronic kidney disease; I47.10 Supraventricular tachycardia, unspecified; R06.03 Acute respiratory distress; R53.1 Weakness; I95.9 Hypotension, unspecified; J44.9 Chronic obstructive pulmonary disease, unspecified; E86.0 Dehydration; Z66 Do not resuscitate; N18.30 Chronic kidney disease, stage 3 unspecified; I48.0 Paroxysmal atrial fibrillation; R91.1 Solitary pulmonary nodule; G35 Multiple sclerosis; I25.10 Atherosclerotic heart disease of native coronary artery without angina pectoris; K21.9 Gastro-esophageal reflux disease without esophagitis; K59.00 Constipation, unspecified; L30.9 Dermatitis, unspecified; Z87.891 Personal history of nicotine dependence; Z95.1 Presence of aortocoronary bypass graft
CPT/HCPCS: 00123; 36415; 80048; 80053; 80076; 87040; 87449; 87637; 87641; 93005; 94640; 96361; 96365; 97110; 97112; 97162; 97530; 99291; 71045; 71046; 80202; 81003; 81015; 83605; 83735; 83880; 84443; 84484; 85025; 87070; 87205; 93010; 99223; 99232; 99233; 99239; J0248; J1100; J1940; J2270; J2543; J3372; J3475; J7613